=== PATIENT | female | born 1935 | race Caucasian/White ===

== ENCOUNTER 2016-07-25 04:05 | Inpatient (IN) | payer OTHER ==
[~2016-07-25] VITALS: Ht 152.4 cm; Wt 72.6 kg
[~2016-07-25 04:05] MED LIST: ADVAIR DISKU 11 UNIT INH; ADVAIR DISKUS 21 DSK INH; ALBUTEROL 3 ML3 ML INH; ATIVAN0.5 MG PO; ATIVAN1 MG PO; ATORVASTATIN CA10 MG PO; ATROVENT 0.02%2.5 ML INH; COZAAR 25MG TAB25 MG PO; DILTIAZEM HYDR120 M2 PO; DOCUSATE SOD100 MG PO; DOCUSATE SODIU100 MG PO; ESCITALOPRAM10 MG PO; ESCITALOPRAM20 MG PO; FOLIC ACID1 M1 PO; FUROSEMIDE20 MG PO; LACTULOSE10 GM/15 M PO; LEADER MELATONIN5 MG PO; LIORESAL 10MG T10 MG PO; LISINOPRIL10 M1 PO; LOVENOX 4040 MG/0.4 SC; MELATONIN5 M1 PO; METOPROLOL SUCC25 MG PO; MIRTAZAPINE30 M2 PO; ONE DAILY MULT1 EAC2 PO; PERCOCET 325 MG1 TA2 PO; PREDNISONE 20MG20 MG PO; PREDNISONE10 MG PO; PREDNISONE20 M1 PO; PRINIVIL 5MG5 MG PO; PROAIR HFA0.09 MG/Ac INH; SENOKOT8.6 MG PO; SPIRIVA 18 MCG18 MCG INH; TRAMADOL HYDROC50 MG PO; ULTRAM(MONOGRAP50 MG PO
--- NOTE | 2016-07-25 04:07 | ED DYSPNEA/ASTHMA COMPLAINT ---
See Addendum History of Present Illness General Chief Complaint: Dyspnea (COPD, CHF, Other) Stated Complaint: SOB Source: old records, EMS, W10 Exam Limitations: unable to give history Vital Signs & Intake/Output Vital Signs & Intake/Output Vital Signs Date Time Temp Pulse Resp B/P Pulse O2 O2 Flow FiO2 Ox Delivery Rate 07/25 0708 100.9 108 20 108/66 98 Ventilator 07/25 0617 120/70 07/25 0607 50 07/25 0530 96 BIPAP 50% 07/25 0425 98.2 93 18 122/78 92 BIPAP 50% 07/25 0425 102 94 Allergies Coded Allergies: Penicillins (DIARRHEA 07/01/15) Reconcile Medications Albuterol Sulfate (Proair Hfa) 0.09 MG/Actuation LUIS F 2 PUFF INH TID PRN RESPIRATORY DIFFICULTY Atorvastatin Calcium (Lipitor) 10 MG TABLET 1 TAB PO 1700 CHOLESTEROL ( Reported) DILTIAZEM HCL (Diltiazem 24HR Cd) 120 MG CER 1 TAB PO DAILY HEART HEALTH ( Reported) Docusate Sodium 100 MG SGL 1 CAP PO DAILY PRN CONSTIPATION (Reported) Fluticasone-Salmeterol (Advair 100-50 Diskus) (Unknown Strength) INH 1 PUFF INH BID BREATHING PROBLEMS (Reported) Folic Acid 1 MG TABLET 1 MG PO DAILY SUPPLEMENT Furosemide 20 MG TABLET 1 TAB PO EOD HEART HEALTH (Reported) PLEASE TAKE THE NEXT DOSE ON 04/09 Lactulose 10 GM/15 ML SYR 15 ML PO DAILY PRN CONSTIPATION (Reported) Lisinopril 10 MG TABLET 10 MG PO DAILY HEART Metoprolol Succinate 25 MG TAB.ER.24H 1 TAB PO Mon BP (Reported) Mirtazapine 30 MG TABLET 30 MG PO AT BEDTIME INSOMNIA Multivitamin (One Daily Multivitamin) 1 EACH TABLET 1 TAB PO DAILY SUPPLEMENT Prednisone 20 MG TABLET 20 MG PO ONCE COPD - STEROID TAPER 04/09 - Prednisone 10mg 04/10 - Prednisone 5mg 04/11 - Prednisone 5mg 04/12 - Prednisone 5mg Senna (Senokot) 8.6 MG TABLET 187 MG PO AT BEDTIME STOOL SOFTENER Triage Nurses Notes Reviewed? yes Onset: Gradual Duration: hour(s): Timing: single episode today Severity: severe Activities at Onset: none Prior Episodes/Possible Cause: occasional episodes Modifying Factors: Improves With: other (BMV en route). Associated Symptoms: lethargy HPI: 80 yo woman h/o copd, c02 retention, presents with lethargy and hypoxia. She was found by ECF staff at approximately 2am. Her 02 sat was 78%. 911 called. Medics arrived and found ETC02 to be 90's. BMV begun. Pt arrived in ED with increased responsiveness per EMS report. Past History Travel History Traveled to [place] past 21 day No Medical History Any Pertinent Medical History? 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 No Review of Systems Review of Systems Constitutional: Reports: no symptoms. EENTM: Reports: no symptoms. Respiratory: Reports: no symptoms. Cardiovascular: Reports: no symptoms. GI: Reports: no symptoms. Genitourinary: Reports: no symptoms. Musculoskeletal: Reports: no symptoms. Skin: Reports: no symptoms. Neurological/Psychological: Reports: no symptoms. Hematologic/Endocrine: Reports: no symptoms. Immunologic/Allergic: Reports: no symptoms. All Other Systems: Reviewed and Negative Physical Exam Physical Exam General Appearance: well developed/nourished, lethargic, severe distress Head: atraumatic Eyes: Bilateral: normal appearance, PERRL, EOMI. Ears, Nose, Throat: normal pharynx, normal ENT inspection Neck: normal inspection, supple, full range of motion Respiratory: wheezing, diminished breath sounds. poor respiratory effort. Gastrointestinal: normal bowel sounds, soft, non-tender, no organomegaly Extremities: normal inspection, normal capillary refill, normal range of motion, no edema Neurologic/Psych: responsive to questions, but lethargic. Skin: intact, normal color, warm/dry Core Measures ACS in differential dx? No Severe Sepsis Present: No Septic Shock Present: No Progress Differential Diagnosis: asthma, AMI, CHF, COPD, pneumonia Plan of Care: Orders Procedure Date/time Status CULTURE,URINE 07/25 0708 Active URINALYSIS 07/25 0708 Active Patient Data 07/25 0705 Active Admit to inpatient 07/25 0655 Active BLOOD CULTURE 07/25 0611 Active VENTILATOR PARAMETERS 07/25 0606 Complete Restraint- Medical 07/25 0600 Active ARTERIAL BLOOD GAS (GEN) 07/25 0408 Complete TROPONIN LEVEL 07/25 040 Active PARTIAL THROMBOPLASTIN TIME 07/25 040 Active PROTHROMBIN TIME 07/25 040 Active COMPREHENSIVE METABOLIC PANEL 07/25 0407 Active CBC WITHOUT DIFFERENTIAL 07/25 406 Complete B-TYPE NATRIURETIC PEP (BNP) 07/25 406 Active EKG 07/25 406 Active BIPAP 07/25 UNK Complete Current Medications Sig/Shobha Start time Last Medication Dose Stop Time Status Admin Azithromycin 500 MG ONCE ONE 07/25 0415 CAN (Zithromax) 07/25 0514 Sodium Chloride 250 ML (Normal Saline 0.9%) Ceftriaxone Sodium 1,000 MG ONCE ONE 07/255 CAN (Rocephin) 07/25 0416 Laboratory Tests 07/25/16 0710: Urine Color Pending, Urine Clarity Pending, Urine pH Pending, Ur Specific [place] Pending, Urine Protein Pending, Urine Ketones Pending, Urine Nitrite Pending, Urine Bilirubin Pending, Urine Urobilinogen Pending, Ur Leukocyte Esterase Pending, Ur Microscopic Pending, Urine Hemoglobin Pending, Urine Glucose Pending 07/25/16 0645: CBC w Diff MAN DIFF ORDERED, RBC 3.23 L, MCV 104.9 H, MCH 32.8 H, RDW 15.6 H , MPV 8.5, Gran % 93.7 H, Lymphocytes % 4.9 L, Monocytes % 1.2 L, Eosinophils % 0.2, Basophils % 0 L, Absolute Granulocytes 13.5 H, Segmented Neutrophils 99 H, Absolute Lymphocytes 0.7 L, Lymphocytes 1 L, Absolute Monocytes 0.2, Absolute Eosinophils 0, Absolute Basophils 0, Platelet Estimate ADEQUATE, Polychromasia 1+, Hypochromic-Microcytic 1+, Poikilocytosis 1+, Basophilic Stippling SLIGHT, Anisocytosis 1+, Macrocytic Cells 1+, Ovalocytes FEW, Stomatocytes 1+, PUBS MCHC 31.3 L, Fld Total RBCs Counted 100 07/25/16 0525: pH 7.25 *L, pCO2 96 *H, pO2 82, HCO3 41 H, ABG O2 Sat (Measured) 96.0, P-50 ( Temp Corrected) N, Carboxyhemoglobin 0.5 L, O2 Concentration % .50, Respiration Rate 24, O2 Delivery Method BIPAP, Vent Mode ST, Expiratory Pressure 6, Inspiratory Pressure 20, Phlebotomy Draw Site LEFT RADIAL Microbiology 07/25 07 URINE ROUT: Urine Culture - RECD 07/25 644 BLOOD: Blood Culture - RECD 07/25 06 BLOOD: Blood Culture - RECD Diagnostic Imaging: Viewed by Me: Radiology Read. Discussed w/RAD: Radiology Read. Initial ED EKG: normal axis, normal intervals, normal p-waves, normal QRS complex, normal sinus rhythm Departure Departure Disposition: STILL A PATIENT Condition: Stable Clinical Impression Primary Impression: Hypercapnic respiratory failure Secondary Impressions: COPD (chronic obstructive pulmonary disease) Referrals: COTY AVELAR MD (PCP/Family) Departure Forms: Customer Survey General Discharge Information Comments 07/25/16, 6:24am... 2 attempts at right and left groin placement.... unsuccessful. pt intubated without problem. Admission Note Spoke With: SERGO PIPER MD Documentation of Exam: Documentation of any treatments & extenuating circumstances including Concerns Regarding Discharge (functional status, medication knowledge or non-compliance, living conditions, etc.) that warrant an admission rather than observation: pt with hypercarbic respiratory failure... intubated... labs pending/post- intubation cxr read pending... Pt given vanc/ceftaz/steroids. Critical Care Note Critical Care Note Critical Care Time: 30-74 min
--- NOTE | 2016-07-25 04:23 | NUR ---
PT BIBA FROM [facility] C/O SOB AND AGONAL BREATHING DUE TO PNEUMONIA . PER MEDIC STAFF FOUND PT WITH LOW 02 SAT, A NEB TREATMENT WAS GIVEN WITH NO IMPROVEMENT, PT PLACED ON NON-REBREATHER WITH MINIMAL IMPROVEMENT. PT THEN BAGGED ON ARRIVAL. RESPIRATORY CALLED FOR BIPAP, DR GUZMNA AT BEDSIDE. KENISHA ALFARO ESTABLISHED IV ACCESS IN LH #22, SITE #2 PLACED BY WHEAT SHIPPER IN RIGHT FOOT #22 WITH THE APPROVAL OF DR GUZMAN.
--- NOTE | 2016-07-25 04:30 | NUR ---
PT MEDICATED WITH 125MG SOLU MEDROL PER EMAR IN 50ML NS BAG INFUSING.
--- NOTE | 2016-07-25 04:41 | NUR ---
DR GUZMAN IN TO ASSESS PT AGAIN TO SEE IF THIS RN SHOULD MEDICATED PT WITH 0.5MG ATIVAN PER EMAR AND PER DR GUZMAN. DR GUZMAN STATED YES TO FOLLOW THROUGH WITH THE 0.5MG ADMINISTRATION OF ATIVAN IV.
--- NOTE | 2016-07-25 04:50 | NUR ---
DR GUZMAN INFORMED THAT THIS RN AND ANOTHER RN CANNOT GAIN IV ACCESS FOR BLODO WORK OR CULTURES, THIS RN ASKED DR GUZMAN FOR A CENTRAL LINE
--- NOTE | 2016-07-25 04:58 | RADIOLOGY REPORT ---
EXAMINATION: XR PORTABLE CHEST CLINICAL INFORMATION: Dyspnea. COMPARISON: Chest radiograph 04/04/2016. TECHNIQUE: Portable AP view of the chest was obtained. FINDINGS: There are increased interstitial markings within both lungs with a perihilar and lower lobe predominant distribution. Retrocardiac opacity may represent a manifestation of subsegmental atelectasis or consolidation. The cardiac silhouette is grossly enlarged. No acute osseous finding. 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 IMPRESSION: There are ill-defined bibasilar opacities that may represent a manifestation of subsegmental atelectasis or consolidative disease. The cardiac silhouette is enlarged and there are increased interstitial markings within both lungs that most likely represent early changes of edema.
--- NOTE | 2016-07-25 05:13 | NUR ---
EKG DONE AND SHOWN TO DR. GUZMAN, AND NURSE HARLAN DE.
--- NOTE | 2016-07-25 05:30 | NUR ---
DR GUZMAN IN FOR CENTRAL LINE
--- NOTE | 2016-07-25 06:02 | NUR ---
DR GUZMAN AND RT IN FOR INTUBATION. PT GIVEN 20MG ETOMADATE FOR INTUBATION. PT INTUBATED AT 22 WITH 7.5. PTS VITALS 102/72 HR[address]%. DR GUZMAN ATTEMPING FOR A CENTRAL LINE. SOFT WRIST RESTRAINTS ORDERED AND PLACED ON PTS BILATERAL ARMS. RATE 20 TIDAL VOLUME 500, FI02 50% PEEP 5.
--- NOTE | 2016-07-25 06:16 | NUR ---
PT BECOMING RESTLESS AND ANXIOUS , DR GUZMAN AND RT REQUESTING TO GIVE 2MG ATIVAN ORDERED FOR PT. THIS RN ADMINSTERED 2MG ATIVAN IV TO PT
--- NOTE | 2016-07-25 06:30 | NUR ---
THIS RN OBTAINED BLOOD CULTURES AND LAV TUBE, SENT TO LAB.
--- NOTE | 2016-07-25 06:30 | NUR ---
SECOND ATTEMPT AT CENTRAL LINE FAILED.
--- NOTE | 2016-07-25 06:34 | NUR ---
PT HAS TREMORS AND BECOMING AGITATED, DR GUZMAN AWARE, THIS RN ADMINISTERED 5MG VALIUM IV TO PT.
--- NOTE | 2016-07-25 07:00 | NUR ---
LORA CATHETER INSERTED 16FR, URINE TRIO SENT TO LAB, UO 200ML, YELLOW URINE.
[2016-07-25 07:01] LABS: ABSOLUTE BASOPHIL COUNT 0 /CUMM (0.0-0.2); ABSOLUTE EOSINOPHIL COUNT 0 /CUMM (0.0-0.7); ABSOLUTE GRANULOCYTE CT 13.5 /CUMM (1.4-6.5); ABSOLUTE LYMPH COUNT 0.7 /CUMM (1.2-3.4); ABSOLUTE MONOCYTE COUNT 0.2 /CUMM (0.10-0.60); BASOPHIL % 0 % (0.0-2.0); EOSINOPHIL % 0.2 % (0-5); GRANULOCYTE % 93.7 % (42.2-75.2); HEMATOCRIT 33.9 % (37-47); MEAN CORPUSCULAR HGB 32.8 PG (27.0-31.0); MEAN CORPUSCULAR HGB CONC 31.3 G/DL (33.0-37.0); MEAN CORPUSCULAR VOLUME 104.9 FL (81.0-99.0); MEAN PLATELET VOLUME 8.5 FL (7.4-10.4); PLATELET COUNT 276 /CUMM (130-400); RBC DISTRIBUTION WIDTH 15.6 % (11.5-14.5); RED BLOOD CELL CT 3.23 /CUMM (4.20-5.40); WHITE BLOOD CELL COUNT 14.4 /CUMM (4.8-10.8)
--- NOTE | 2016-07-25 07:01 | NUR ---
PT BECOMING RESTLESS AND FIGHTING INTUBATION VENT, PT MEDCATION WITH 2.5MG VALIUM IV PER EMAR.
--- NOTE | 2016-07-25 07:10 | NUR ---
KENISHA ALFONSO ATTEMPTED AT PLACING OG TUBE, PT TOO RESTLESS AND FIGHTING OG TUBE.
--- NOTE | 2016-07-25 07:12 | NUR ---
PT WAKING UP, EYES OPEN, RESTLESS, TREMORS. DR GUZMAN INFORMED. PT GIVEN 10MG VALIUM IV PER EMAR.
--- NOTE | 2016-07-25 07:18 | RADIOLOGY REPORT ---
EXAMINATION: PORTABLE CHEST 1 VIEW CLINICAL INFORMATION: Post intubation. COMPARISON: Study from earlier today. TECHNIQUE: Portable frontal view of the chest was obtained. FINDINGS: Patient is now intubated. Endotracheal tube tip is approximately 5 cm above the oliver. Persistent basilar markings more suggestive of atelectasis, slightly improved with better aeration currently. I cannot exclude a tiny layering right effusion. No overt edema or pneumothorax. Cardiac silhouette is within normal limits for size. Vascular calcification seen in the aorta. Left reverse total shoulder arthroplasty is noted. IMPRESSION: Intubated. Better expanded from earlier today with persistent basilar markings more suggestive of atelectasis and possible tiny right effusion.
--- NOTE | 2016-07-25 07:20 | NUR ---
PTS BS CHECKED 208
--- NOTE | 2016-07-25 07:23 | History & Physical ---
General Information and HPI MD Statement: I have seen and personally examined AFIA FRIAS and documented this H&P. The patient is a 80 year old F who presented with a patient stated chief complaint of [patient is presently intubated]. Source of Information: old records, W10 Exam Limitations: not alert/orientated, clinical condition History of Present Illness: This is an 80-year-old lady who has a history of hypertension, end-stage COPD, systolic heart failure resident of a [facility]pc facility that presented to the emergency room hypoxic and confused. Subsequently she was intubated. History of presenting illness was obtained from the nurse at [facility]. Per nurse, over the course of last couple of days patient has been having some dyspnea-like symptoms, she also had a low-grade fever which prompted a urinalysis which per the nurse was clean. According to nursing staff at [facility] given her respiratory distress and fever, the only pursued a urinalysis and a CBC which showed an elevated blood cell count however no chest x-ray was done. Yesterday she was hypoxic into the 80s despite being on 4 L nasal cannula with subsequently prompted a trip to the ER. At present she is intubated. She does respond to tactile stimuli. While in the ER, she was initially started on BiPAP but did not respond to it and subsequently got intubated. Allergies/Medications Allergies: Coded Allergies: Penicillins (DIARRHEA 07/01/15) Home Med list Albuterol Sulfate (Proair Hfa) 0.09 MG/Actuation LUIS F 2 PUFF INH TID PRN RESPIRATORY DIFFICULTY Atorvastatin Calcium (Lipitor) 10 MG TABLET 1 TAB PO 1700 CHOLESTEROL ( Reported) DILTIAZEM HCL (Diltiazem 24HR Cd) 120 MG CER 1 TAB PO DAILY HEART HEALTH ( Reported) Docusate Sodium 100 MG SGL 1 CAP PO DAILY PRN CONSTIPATION (Reported) Fluticasone-Salmeterol (Advair 100-50 Diskus) (Unknown Strength) INH 1 PUFF INH BID BREATHING PROBLEMS (Reported) Folic Acid 1 MG TABLET 1 MG PO DAILY SUPPLEMENT Furosemide 20 MG TABLET 1 TAB PO EOD HEART HEALTH (Reported) PLEASE TAKE THE NEXT DOSE ON 04/09 Lactulose 10 GM/15 ML SYR 15 ML PO DAILY PRN CONSTIPATION (Reported) Lisinopril 5 MG TABLET 1 TAB PO DAILY HTN (Reported) Metoprolol Succinate 25 MG TAB.ER.24H 1 TAB PO Mon BP (Reported) Mirtazapine 30 MG TABLET 30 MG PO AT BEDTIME INSOMNIA Multivitamin (One Daily Multivitamin) 1 EACH TABLET 1 TAB PO DAILY SUPPLEMENT Senna (Senokot) 8.6 MG TABLET 187 MG PO AT BEDTIME STOOL SOFTENER Past History Travel History Traveled to [place] past 21 day No Medical History Neurological: NONE EENT: NONE Cardiovascular: hypertension Respiratory: COPD Gastrointestinal: NONE Hepatic: NONE Renal: NONE Musculoskeletal: NONE Psychiatric: anxiety Endocrine: NONE Blood Disorders: NONE Cancer(s): NONE 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 Ambulation: cane, walker Review of Systems Review of Systems Constitutional: Reports: see HPI. Exam & Diagnostic Data Last 24 Hrs of Vital Signs/I&O Vital Signs Date Time Temp Pulse Resp B/P Pulse O2 O2 Flow FiO2 Ox Delivery Rate 07/25 0708 100.9 108 20 108/66 98 Ventilator 07/25 0617 120/70 07/25 0607 50 07/25 0530 96 BIPAP 50% 07/25 0425 98.2 93 18 122/78 92 BIPAP 50% 07/25 0425 102 94 Intake & Output 07/25 0800 07/25 0000 07/24 1600 Intake Total Output Total Balance Patient 160 lb Weight Physical Exam General Appearance intubated HEENT Atraumatic, responds to light Cardiovascular Normal S1, Normal S2 Lungs b/l wheezing and ronchii Abdomen Normal Bowel Sounds, Soft, No Tenderness Extremities No Clubbing, No Cyanosis, No Edema Last 24 Hrs of Labs/[place]: Laboratory Tests 07/25/16 0710: Urine Color Pending, Urine Clarity Pending, Urine pH Pending, Ur Specific [place] Pending, Urine Protein Pending, Urine Ketones Pending, Urine Nitrite Pending, Urine Bilirubin Pending, Urine Urobilinogen Pending, Ur Leukocyte Esterase Pending, Ur Microscopic SEDIMENT EXAMINED, Urine RBC Pending, Urine Hemoglobin Pending, Urine Glucose Pending 07/25/16 0645: CBC w Diff MAN DIFF ORDERED, RBC 3.23 L, MCV 104.9 H, MCH 32.8 H, RDW 15.6 H , MPV 8.5, Gran % 93.7 H, Lymphocytes % 4.9 L, Monocytes % 1.2 L, Eosinophils % 0.2, Basophils % 0 L, Absolute Granulocytes 13.5 H, Segmented Neutrophils 99 H, Absolute Lymphocytes 0.7 L, Lymphocytes 1 L, Absolute Monocytes 0.2, Absolute Eosinophils 0, Absolute Basophils 0, Platelet Estimate ADEQUATE, Polychromasia 1+, Hypochromic-Microcytic 1+, Poikilocytosis 1+, Basophilic Stippling SLIGHT, Anisocytosis 1+, Macrocytic Cells 1+, Ovalocytes FEW, Stomatocytes 1+, PUBS MCHC 31.3 L, Fld Total RBCs Counted 100 07/25/16 0525: pH 7.25 *L, pCO2 96 *H, pO2 82, HCO3 41 H, ABG O2 Sat (Measured) 96.0, P-50 ( Temp Corrected) N, Carboxyhemoglobin 0.5 L, O2 Concentration % .50, Respiration Rate 24, O2 Delivery Method BIPAP, Vent Mode ST, Expiratory Pressure 6, Inspiratory Pressure 20, Phlebotomy Draw Site LEFT RADIAL Microbiology 07/25 0710 URINE ROUT: Urine Culture - RECD 07/25 644 BLOOD: Blood Culture - RECD 07/25 629 BLOOD: Blood Culture - RECD Diagnostic Data EKG Results Rate 94, WI 178, QRS 74, QTC 441, sinus rhythm CXR Results PATIENT: AFIA FRIAS PRESENT AGE: 80 PATIENT ACCOUNT NO: [id number] : 34 LOCATION: [facility] ORDERING PHYSICIAN: MANOJ GUZMAN MD SERVICE DATE: 07/25/16- EXAM TYPE: RAD - XRY-PORTABLE CHEST XRAY EXAMINATION: PORTABLE CHEST 1 VIEW CLINICAL INFORMATION: Post intubation. COMPARISON: Study from earlier today. TECHNIQUE: Portable frontal view of the chest was obtained. FINDINGS: Patient is now intubated. Endotracheal tube tip is approximately 5 cm above the oliver. Persistent basilar markings more suggestive of atelectasis, slightly improved with better aeration currently. I cannot exclude a tiny layering right effusion. No overt edema or pneumothorax. Cardiac silhouette is within normal limits for size. Vascular calcification seen in the aorta. Left reverse total shoulder arthroplasty is noted. IMPRESSION: Intubated. Better expanded from earlier today with persistent basilar markings more suggestive of atelectasis and possible tiny right effusion. DICTATED BY: ARTURO DAWKINS MD DATE/TIME DICTATED:07/25/16712 FAMILY SERVICE ASSISTANT:GALLO DATE/TIME TRANSCRIBED:07/25/16712 CONFIDENTIAL, DO NOT COPY WITHOUT APPROPRIATE AUTHORIZATION. <Electronically signed in Other Vendor System> SIGNED BY: ARTURO DAWKINS MD [id number] Assessment/Plan Assessment: Assessment- 1. Bicarbonate respiratory failure, likely secondary to pneumonia versus COPD exacerbation 2. Sepsis, likely secondary to pneumonia, likely HCAP given the fact that she does reside in [facility] 3. COPD exacerbation 4. Systolic heart failure with ejection fraction of 40% per echocardiogram in March 2016 5. History of hypertension 6. Hyperlipidemia 7. Diabetes mellitus 8. History of anxiety Plan- ICU admit Mechanical ventilation at present, recheck ABG in 30 minutes and then adjust vent settings GI prophylaxis Blood cultures 2, urinalysis and culture, urine strep and Legionella antigens, flu swab Cover for HCAP with vancomycin and Fortaz IV Solu-Medrol 40 every 8 Accu-Cheks Nothing by mouth scale Total pulmonary toilet Cardiology consultation Hold antihypertensives and statin Maintain map greater than 65, CVP between 10 and 14 Start on Ativan drip, SAS 2-3 DVT prophylaxis with subcutaneous heparin Nothing by mouth Pain pathway Full code As Ranked By This Provider Problem List: 1. CHF EXACERBATION 2. COPD 3. History of - hypertension 4. COPD (chronic obstructive pulmonary disease) 5. Hypercapnic respiratory failure Core Measures/Miscellaneous Acute Coronary Syndrome ACS Diagnosis: No Cerebrovascular Accident CVA/TIA Diagnosis: No Congestive Heart Failure CHF Diagnosis: No Venous Thromboembolism VTE Risk Factors: Age > 40 No Mech VTE prophylaxis d/t: No contraindications No VTE Pharm Prophylaxis d/t: No contraindications VTE Diagnosis: No VTE Type: NONE VTE Confirmed by (Test): NONE Severe Sepsis Severe Sepsis Present: No Septic Shock Septic Shock Present: No Miscellaneous Documentation Attending Case Discussed With: DR. PIPER Primary Care Physician: COTY AVELAR MD Patient sees these Specialists none Level of Patient Care: Critical Care (CRI) Resident Review Statement Resident Statement: examined this patient, discussed with undergraduate intern Resident Review Statement Resident Statement: examined this patient, discussed with undergraduate intern
--- NOTE | 2016-07-25 07:30 | NUR ---
MEGAN DRAWN AND SENT TO LAB AT THIS TIME
[2016-07-25] MEDS ORDERED: LISINOPRIL5 M1 PO (07:37)
--- NOTE | 2016-07-25 07:47 | NUR ---
ASSUMED CARE OF PT WHO IS INTUBATED WITH #7.5 ETT, 22 AT LIP. RATE 20. TV 500, FI02 50% PEEP 5. PT IS CURRENTLY SEDATED, SOFT RESTRAINTS TO WRISTS. LORA CATHETER DRAINING YELLOW URINE, PT AWAITING ICU BED.
--- NOTE | 2016-07-25 07:52 | NUR ---
PHARMACY CALLED FOR ATTRUDY GTT
--- NOTE | 2016-07-25 07:53 | NUR ---
PT HAS BED ASSIGNMENT 103. RN AWARE.
--- NOTE | 2016-07-25 08:17 | NUR ---
DONY REDRAWLoida, FLU SWAB SENT TO LAB. ATIVAN GTT ORDERED FROM PHARMACY
[2016-07-25 08:27] LABS: PT 12.3 SEC (9.4-12.5); PTT 34 SEC (25-37)
--- NOTE | 2016-07-25 08:31 | NUR ---
REPORT CALLED TO ICU, TRANSPORT AND RT CALLED
[2016-07-25 09:05] VITALS: BP 80/00
--- NOTE | 2016-07-25 10:20 | Cons- CRCU ---
General Information and HPI Consulting Request Date of Consult: 07/25/16 Requested By: ED History of Present Illness: This is an 80-year-old lady who has a history of hypertension, end-stage COPD, systolic heart failure [facility] a [facility] facility that presented to the emergency room hypoxic and confused. Subsequently she was intubated. History of presenting illness was obtained from the nurse at [facility]. Per nurse, over the course of last couple of days patient has been having some dyspnea-like symptoms, she also had a low-grade fever which prompted a urinalysis which per the nurse was clean. According to nursing staff at [facility] given her respiratory distress and fever, the only pursued a urinalysis and a CBC which showed an elevated blood cell count however no chest x-ray was done. Yesterday she was hypoxic into the 80s despite being on 4 L nasal cannula with subsequently prompted a trip to the ER. At present she is intubated. She does respond to tactile stimuli. While in the ER, she was initially started on BiPAP but did not respond to it and subsequently got intubated. Allergies/Medications Allergies: Coded Allergies: Penicillins (DIARRHEA 07/01/15) Home Med List: Albuterol Sulfate (Proair Hfa) 0.09 MG/Actuation LUIS F 2 PUFF INH TID PRN RESPIRATORY DIFFICULTY Atorvastatin Calcium (Lipitor) 10 MG TABLET 1 TAB PO 1700 CHOLESTEROL ( Reported) DILTIAZEM HCL (Diltiazem 24HR Cd) 120 MG CER 1 TAB PO DAILY HEART HEALTH ( Reported) Docusate Sodium 100 MG SGL 1 CAP PO DAILY PRN CONSTIPATION (Reported) Fluticasone-Salmeterol (Advair 100-50 Diskus) (Unknown Strength) INH 1 PUFF INH BID BREATHING PROBLEMS (Reported) Folic Acid 1 MG TABLET 1 MG PO DAILY SUPPLEMENT Furosemide 20 MG TABLET 1 TAB PO EOD HEART HEALTH (Reported) PLEASE TAKE THE NEXT DOSE ON 04/09 Lactulose 10 GM/15 ML SYR 15 ML PO DAILY PRN CONSTIPATION (Reported) Lisinopril 5 MG TABLET 1 TAB PO DAILY HTN (Reported) Metoprolol Succinate 25 MG TAB.ER.24H 1 TAB PO Mon BP (Reported) Mirtazapine 30 MG TABLET 30 MG PO AT BEDTIME INSOMNIA Multivitamin (One Daily Multivitamin) 1 EACH TABLET 1 TAB PO DAILY SUPPLEMENT Senna (Senokot) 8.6 MG TABLET 187 MG PO AT BEDTIME STOOL SOFTENER Review of Systems Review of Systems Constitutional: Reports: see HPI. 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 Ambulation: cane, walker ECHO Results (as available) Date of last Echo 04/05/16 EF% 40 Exam & Diagnostic Data Last 24 Hrs of Vital Signs/I&O Vital Signs Date Time Temp Pulse Resp B/P Pulse O2 O2 Flow FiO2 Ox Delivery Rate 07/25 0944 98 Ventilator 40% 07/25 0919 40 07/25 0832 101.1 98 20 118/70 97 Ventilator 50% 07/25 0743 101.2 07/25 0728 101.2 112 20 122/68 100 Ventilator 07/25 0708 100.9 108 20 108/66 98 Ventilator 07/25 0617 120/70 07/25 0607 50 07/25 0530 96 BIPAP 50% 07/25 0425 98.2 93 18 122/78 92 BIPAP 50% 07/25 0425 102 94 Intake & Output 07/25 1600 07/25 0800 07/25 0000 Intake Total Output Total Balance Patient 160 lb Weight Laboratory Tests 07/25 07/25 0840 0727 Blood Gas pH (7.35 - 7.45 PH) 7.39 pCO2 (35 - 45 TORR) 64 *H pO2 (80 - 100 TORR) 111 H HCO3 (21 - 28 MEQ/L) 37 H ABG O2 Sat (Measured) (>96.0 %) 97.0 P-50 (Temp Corrected) Y Carboxyhemoglobin (1.5 - 5.0 %) 1.0 L O2 Concentration % 50 Temperature (97.0 - 100.0 FARH) 101.1 H Respiration Rate (BPM) 20 O2 Delivery Method VENT Vent Mode VC-AC Expiratory Pressure (CMH2O/P) 5 Tidal Volume (CC) 500 Chemistry Sodium (137 - 145 mmol/L) 138 Potassium (3.5 - 5.1 mmol/L) 4.7 Chloride (98 - 107 mmol/L) 90 L Carbon Dioxide (22 - 30 mmol/L) 45 H Anion Gap (5 - 16) 3 L BUN (7 - 17 mg/dL) 12 Creatinine (0.5 - 1.0 mg/dL) 0.4 L Estimated GFR (>60 ml/min) > 60 BUN/Creatinine Ratio (7 - 25 %) 30.0 H Glucose (65 - 99 mg/dL) 172 H Calcium (8.4 - 10.2 mg/dL) 9.2 Total Bilirubin (0.2 - 1.3 mg/dL) 0.7 AST (14 - 36 U/L) 23 ALT (9 - 52 U/L) 53 H Alkaline Phosphatase (<127 U/L) 64 Troponin I (< 0.11 ng/ml) < 0.01 Iqh-C-Eerqxiqfnxs Pept (<125 pg/mL) 631 H Total Protein (6.3 - 8.2 g/dL) 5.9 L Albumin (3.5 - 5.0 g/dL) 3.1 L Globulin (1.9 - 4.2 gm/dL) 2.8 Albumin/Globulin Ratio (1.1 - 2.2 %) 1.1 Coagulation PT (9.4 - 12.5 SEC) 12.3 INR (0.90 - 1.19) 1.17 APTT (25 - 37 SEC) 34 Miscellaneous Phlebotomy Draw Site LEFT RADIAL 07/25 07/25 0710 0645 Hematology CBC w Diff MAN DIFF ORDERED WBC (4.8 - 10.8 /CUMM) 14.4 H RBC (4.20 - 5.40 /CUMM) 3.23 L Hgb (12.0 - 16.0 G/DL) 10.6 L Hct (37 - 47 %) 33.9 L MCV (81.0 - 99.0 FL) 104.9 H MCH (27.0 - 31.0 PG) 32.8 H RDW (11.5 - 14.5 %) 15.6 H Plt Count (130 - 400 /CUMM) 276 MPV (7.4 - 10.4 FL) 8.5 Gran % (42.2 - 75.2 %) 93.7 H Lymphocytes % (20.5 - 51.1 %) 4.9 L Monocytes % (1.7 - 9.3 %) 1.2 L Eosinophils % (0 - 5 %) 0.2 Basophils % (0.0 - 2.0 %) 0 L Absolute Granulocytes (1.4 - 6.5 /CUMM) 13.5 H Segmented Neutrophils (42.2 - 75.2 %) 99 H Absolute Lymphocytes (1.2 - 3.4 /CUMM) 0.7 L Lymphocytes (20.5 - 51.1 %) 1 L Absolute Monocytes (0.10 - 0.60 /CUMM) 0.2 Absolute Eosinophils (0.0 - 0.7 /CUMM) 0 Absolute Basophils (0.0 - 0.2 /CUMM) 0 Platelet Estimate (ADEQUATE) ADEQUATE Polychromasia 1+ Hypochromic-Microcytic 1+ Poikilocytosis 1+ Basophilic Stippling SLIGHT Anisocytosis 1+ Macrocytic Cells 1+ Ovalocytes FEW Stomatocytes 1+ PUBS MCHC (33.0 - 37.0 G/DL) 31.3 L Other Body Source Fld Total RBCs Counted (%) 100 Urines Urinalysis LIGHT H Urine Color (YEL,AMB,STR) YEL Urine Clarity (CLEAR) CLEAR Urine pH (5.0 - 8.0) 6.0 Ur Specific [place] (1.001 - 1.035) 1.025 Urine Protein (NEG,<30 MG/DL) TRACE H Urine Ketones (NEG) NEG Urine Nitrite (NEG) NEG Urine Bilirubin (NEG) NEG Urine Urobilinogen (0.1 - 1.0 EU/dl) 0.2 Ur Leukocyte Esterase (NEG) NEG Ur Microscopic SEDIMENT EXAMINED Urine RBC (0 - 5 /HPF) 3-5 Urine WBC (0 - 2 /HPF) RARE Ur Epithelial Cells (NONE,FEW) RARE Hyaline Casts (0/LPF) RARE H Granular Casts (NONE /LPF) RARE H Urine Hemoglobin (NEG) TRACE-INTACT Urine Glucose (N MG/DL) NEG 07/25 0525 Blood Gas pH (7.35 - 7.45 PH) 7.25 *L pCO2 (35 - 45 TORR) 96 *H pO2 (80 - 100 TORR) 82 HCO3 (21 - 28 MEQ/L) 41 H ABG O2 Sat (Measured) (>96.0 %) 96.0 P-50 (Temp Corrected) N Carboxyhemoglobin (1.5 - 5.0 %) 0.5 L O2 Concentration % .50 Respiration Rate (BPM) 24 O2 Delivery Method BIPAP Vent Mode ST Expiratory Pressure (CM H2O P) 6 Inspiratory Pressure (CM H2O P) 20 Miscellaneous Phlebotomy Draw Site LEFT RADIAL Microbiology Date/Time Procedure - Status Source Growth 07/25 946 Respiratory Culture - ORD LOWER RESP 07/25 0947 Gram Stain - ORD LOWER RESP 07/25 09 Surveillance Culture - RECD UPPER RESP 07/25 09 Surveillance Culture - RECD GI 07/25 08 Legionella Antigen - COMP URINE ROUT 07/25 08 Streptococcus pneumoniae Antigen (M - COMP URINE ROUT 07/25 08 Influenza Virus A & B Rapid Smear - RECD NASOPHARYN 07/25 0744 Respiratory Culture - ORD LOWER RESP 07/25 0744 Gram Stain - ORD LOWER RESP 07/25 0710 Urine Culture - RECD URINE ROUT 07/25 0645 Blood Culture - RECD BLOOD 07/25 0630 Blood Culture - RECD BLOOD Last 48 Hrs of Labs/[place]: Laboratory Tests 07/25/16 0840: pH 7.39, pCO2 64 *H, pO2 111 H, HCO3 37 H, ABG O2 Sat (Measured) 97.0, P-50 ( Temp Corrected) Y, Carboxyhemoglobin 1.0 L, O2 Concentration % 50, Temperature 101.1 H, Respiration Rate 20, O2 Delivery Method VENT, Vent Mode VC-AC, Expiratory Pressure 5, Tidal Volume 500, Phlebotomy Draw Site LEFT RADIAL 07/25/16 0800: Virus Culture Pending 07/25/16726: Anion Gap 3 L, Estimated GFR > 60, BUN/Creatinine Ratio 30.0 H, Glucose 172 H , Calcium 9.2, Total Bilirubin 0.7, AST 23, ALT 53 H, Alkaline Phosphatase 64, Troponin I < 0.01, Bri-M-Dxgqmzzhgbc Pept 631 H, Total Protein 5.9 L, Albumin 3.1 L, Globulin 2.8, Albumin/Globulin Ratio 1.1, PT 12.3, INR 1.17, APTT 34 07/25/16 0710: Urinalysis LIGHT H, Urine Color YEL, Urine Clarity CLEAR, Urine pH 6.0, Ur Specific [place] 1.025, Urine Protein TRACE H, Urine Ketones NEG, Urine Nitrite NEG, Urine Bilirubin NEG, Urine Urobilinogen 0.2, Ur Leukocyte Esterase NEG, Ur Microscopic SEDIMENT EXAMINED, Urine RBC 3-5, Urine WBC RARE, Ur Epithelial Cells RARE, Hyaline Casts RARE H, Granular Casts RARE H, Urine Hemoglobin TRACE-INTACT, Urine Glucose NEG 07/25/16 0645: CBC w Diff MAN DIFF ORDERED, RBC 3.23 L, MCV 104.9 H, MCH 32.8 H, RDW 15.6 H , MPV 8.5, Gran % 93.7 H, Lymphocytes % 4.9 L, Monocytes % 1.2 L, Eosinophils % 0.2, Basophils % 0 L, Absolute Granulocytes 13.5 H, Segmented Neutrophils 99 H, Absolute Lymphocytes 0.7 L, Lymphocytes 1 L, Absolute Monocytes 0.2, Absolute Eosinophils 0, Absolute Basophils 0, Platelet Estimate ADEQUATE, Polychromasia 1+, Hypochromic-Microcytic 1+, Poikilocytosis 1+, Basophilic Stippling SLIGHT, Anisocytosis 1+, Macrocytic Cells 1+, Ovalocytes FEW, Stomatocytes 1+, PUBS MCHC 31.3 L, Fld Total RBCs Counted 100 07/25/16 0525: pH 7.25 *L, pCO2 96 *H, pO2 82, HCO3 41 H, ABG O2 Sat (Measured) 96.0, P-50 ( Temp Corrected) N, Carboxyhemoglobin 0.5 L, O2 Concentration % .50, Respiration Rate 24, O2 Delivery Method BIPAP, Vent Mode ST, Expiratory Pressure 6, Inspiratory Pressure 20, Phlebotomy Draw Site LEFT RADIAL Microbiology 07/26 799 URINE ROUT: Legionella Antigen - COMP 07/26 799 URINE ROUT: Streptococcus pneumoniae Antigen (M - COMP 07/26 799 NASOPHARYN: Influenza Virus A & B Rapid Smear - COMP INFLUENZA TYPE A Assessment/Plan Impression/Plan: Physical Exam General Appearance intubated sedated HEENT Atraumatic, responds to light Cardiovascular Normal S1, Normal S2 Lungs b/l wheezing and ronchii Abdomen Normal Bowel Sounds, Soft, No Tenderness Extremities No Clubbing, No Cyanosis, No Edema Sedated and pipe roller exam could not be performed 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, hypertension, previous significant alcohol use, smoking up until recently, osteoporosis, was recently in [facility] with respiratory insufficiency subsequently was transferred to [facility]. In the [facility] she was noted to have tachypnea cough and hypoxemia and was sent to the emergency room. In the emergency room she was found to be in significant respiratory failure and was intubated. When I saw her she was intubated and sedated. Her issues include * Acute hypercarbic and hypoxemic respiratory failure related to end-stage lung disease with COPD exacerbation with pneumonia * High fever now influenza positive * Bibasilar pneumonia in a patient was recently hospitalized and in a rehabilitation facility, rule out secondary bacterial infection * Systolic heart disease with hypotension * Alcohol abuse up until recently but patient has not had any alcohol in the past few weeks as she was in the hospital and rehabilitation facility hence she is at no risk for withdrawal * Previous history of hypertension hyperlipidemia ischemic heart * Significant osteoporosis RECOMMENDATION * Continue mechanical ventilator * To reduce the respiratory rate to 15 * Start Tamiflu * Sputum culture * Continue broad-spectrum antibiotics for now and we will de-escalate soon if there is no sputum culture * Solu-Medrol 40 mg every 12 * Xpmbk-[id number] nebulizer therapy * Start propofol drip low-dose, when necessary Ativan and when necessary fentanyl to be used * Stool softeners * Can start tube feeding Jevity 30 mL an hour * Watch her sugar and rx with sliding scale insulin/lovenox sub cut, / Ranitidine down ng tube * Gentle IV fluids * Keep her potassium more than 4 * Replace magnesium if needed check magnesium today * Check B12 and folic acid level * Give thiamine down NG, B12 and folic acid * Echocardiogram and ask cardiology to see Dr. Soto is a shafting worker * Check ABG in the future We will discuss with the patient is critically ill total time spent 50 minutes Prog poor Consult Acknowledgment - Thank you for your consult request.
[2016-07-25 12:00] VITALS: BP 100/66
--- NOTE | 2016-07-25 15:30 | RADIOLOGY REPORT ---
EXAMINATION: CHEST 1 VIEW CLINICAL INFORMATION: Enteric tube placement. COMPARISON: Same day film obtained at 0630 hours TECHNIQUE: An AP view of the chest was obtained at 1500 hours. FINDINGS: The cardiac silhouette is not enlarged. The tip of the endotracheal tube is approximately 3.5 cm above the oliver. A right central venous line is in place. The tip overlies the distal SVC. An enteric tube is in place. The tip overlies left upper quadrant, likely within the stomach. The mediastinal and hilar contours are unremarkable. There are neither pleural effusions nor pneumothoraces. There is streaky opacification at the right lung base. The osseous structures are stable with a left humeral prosthesis in place. IMPRESSION: Lines and tubes in place as stated above. Right lower lobe atelectasis.
[2016-07-25 16:00] VITALS: BP 120/72
--- NOTE | 2016-07-25 17:19 | ULTRASOUND REPORT ---
Examination: PICC line Clinical history: Port venous access Interventional radiologist: Wolfgang Mccarty M.D. Anesthesia: 1% local lidocaine. Fluoroscopic Time: 0.6 minutes Procedure in Detail: Informed consent was obtained from the patient's prior to the procedure. During this process, the procedure and potential alternatives were explained along with the intended outcome and benefits. The risks of the procedure including the possibility of an unsuccessful procedure, as well as the risk of not doing the procedure were discussed. The patient's was given the opportunity to ask questions regarding the procedure. A consent form which documents this discussion was placed in the medical record. Following informed consent the patient was placed supine on the fluoroscopic table. The right upper extremity was prepped and draped in usual sterile fashion. A time out procedure was performed. Real-time ultrasound was performed to obtained venous mapping and vascular access assessment. Using standard interventional, sterile and Seldinger technique a micro-stick system was utilized to enter into the right upper extremity basilic vein. A wire was introduced. The wire was introduced down into the inferior vena cava to confirm the venous position as well. A 35 cm, triple lumen power PICC was then placed. The tip of the catheter was placed into the superior vena cava. Fluoroscopic imaging confirmed the position of the catheter. The PICC line was secured into position. A sterile dressing was placed over the site. The patient tolerated the procedure well and was discharged from the department in good condition with instructions. Complications: None. ULTRASOUND-GUIDED VASCULAR ACCESS: Ultrasound was used to identify the right basilic vein. The right basilic vein was confirmed to be patent. Real time imaging confirmed needle access into the right basilic vein. An image was saved for permanent recording in PACS. IMPRESSION: Successful ultrasound and fluoroscopically guided right upper extremity PICC line placement
--- NOTE | 2016-07-25 18:23 | Cons- Cardiology ---
General Information and HPI Consulting Request Date of Consult: 07/25/16 Requested By: VERITO CARRANZA,STEPHANY Blevins Reason for Consult: Respiratory failure, history of CHF History of Present Illness: The patient is an 80-year-old female with history of severe COPD, chronic HFrEF with LVEF 40%, multifocal atrial tachycardia who was admitted with respiratory failure. She presented to the emergency department with shortness of breath, cough, and wheezing. She was found to have an oxygen saturation of 76% in the field, which improved to 95% on 3 L. She is currently intubated and sedated, and is not able to give further history. She is noted to have high fevers, and has since the positive for influenza infection. Allergies/Medications Allergies: Coded Allergies: Penicillins (DIARRHEA 07/01/15) Home Med List: Albuterol Sulfate (Proair Hfa) 0.09 MG/Actuation LUIS F 2 PUFF INH TID PRN RESPIRATORY DIFFICULTY Atorvastatin Calcium (Lipitor) 10 MG TABLET 1 TAB PO 1700 CHOLESTEROL ( Reported) DILTIAZEM HCL (Diltiazem 24HR Cd) 120 MG CER 1 TAB PO DAILY HEART HEALTH ( Reported) Docusate Sodium 100 MG SGL 1 CAP PO DAILY PRN CONSTIPATION (Reported) Fluticasone-Salmeterol (Advair 100-50 Diskus) (Unknown Strength) INH 1 PUFF INH BID BREATHING PROBLEMS (Reported) Folic Acid 1 MG TABLET 1 MG PO DAILY SUPPLEMENT Furosemide 20 MG TABLET 1 TAB PO EOD HEART HEALTH (Reported) PLEASE TAKE THE NEXT DOSE ON 04/09 Lactulose 10 GM/15 ML SYR 15 ML PO DAILY PRN CONSTIPATION (Reported) Lisinopril 5 MG TABLET 1 TAB PO DAILY HTN (Reported) Metoprolol Succinate 25 MG TAB.ER.24H 1 TAB PO Mon BP (Reported) Mirtazapine 30 MG TABLET 30 MG PO AT BEDTIME INSOMNIA Multivitamin (One Daily Multivitamin) 1 EACH TABLET 1 TAB PO DAILY SUPPLEMENT Senna (Senokot) 8.6 MG TABLET 187 MG PO AT BEDTIME STOOL SOFTENER Current Medications: Current Medications Sig/Shobha Start time Last Medication Dose Route Stop Time Status Admin Acetaminophen 1,000 MG Q6P PRN 07/25 1730 AC N/A 1 UNIT IV Acetaminophen 1,000 MG ONCE ONE 07/25 0745 DC 07/25 N/A 1 UNIT IV 07/25 0759 0743 Acetaminophen 0 .STK-MED ONE 07/25 0741 DC IV Albuterol Sulfate 3 ML EVERY 4 HRS/AWAKE 07/25 0945 AC 07/25 INH 1629 Azithromycin 500 MG ONCE ONE 07/25 0415 CAN Sodium Chloride 250 ML IV 07/25 0514 Ceftazidime 1,000 MG Q8 07/25 1400 AC 07/25 IV 1432 Ceftazidime 0 .STK-MED ONE 07/25 0709 DC .ROUTE Ceftazidime 1,000 MG ONCE ONE 07/25 0700 DC 07/25 IV 07/25 0701 0713 Ceftriaxone Sodium 0 .STK-MED ONE 07/25 0623 DC .ROUTE Ceftriaxone Sodium 1,000 MG ONCE ONE 07/25 0415 CAN IV 07/25 0416 Cyanocobalamin 1,000 MCG DAILY 07/25 1113 AC 07/25 PO 1432 Dextrose/Sodium 1,000 ML Q20H 07/25 0800 AC 07/25 Chloride IV 0817 Diazepam 10 MG ONCE ONE 07/25 0715 DC 07/25 IV 07/25 0716 0712 Diazepam 0 .STK-MED ONE 07/25 0712 DC .ROUTE Diazepam 5 MG ONCE ONE 07/25 0645 DC 07/25 IV 07/25 0646 0634 Diazepam 2.5 MG [id number] PRN 07/25 0645 DC 07/25 IV 0701 Diazepam 0 .STK-MED ONE 07/25 0634 DC .ROUTE Etomidate 20 MG ONCE ONE 07/25 0600 DC 07/25 IV 07/25 0601 0557 Etomidate 0 .STK-MED ONE 07/25 0552 DC IV Famotidine 20 MG DAILY 07/25 1108 AC 07/25 PO 1432 Folic Acid 1 MG DAILY 07/25 1113 AC 07/25 PO 1432 Heparin Sodium 5,000 UNIT Q8 07/25 1400 AC 07/25 (Porcine) SC 1433 Heparin Sodium 0 .STK-MED ONE 07/25 1303 DC (Porcine) IV Heparin Sodium 0 .STK-MED ONE 07/25 1204 DC (Porcine) IV Insulin Aspart 0 TIDAC 07/25 1200 DC SC Insulin Human Regular 0 Q6 07/25 1200 DC SC Insulin Human Regular 0 Q6 07/25 1200 AC 07/25 SC 1726 Ipratropium [place] 2.5 ML EVERY 4 HRS/AWAKE 07/25 0945 AC 07/25 INH 1629 Lidocaine 0 .STK-MED ONE 07/25 1204 DC .ROUTE Lidocaine 0 .STK-MED ONE 07/25 0547 DC .ROUTE Lidocaine 20 ML ONCE ONE 07/25 0500 DC 07/25 ID 07/25 0501 0608 Lorazepam 0 .STK-MED ONE 07/25 0847 DC .ROUTE Lorazepam 2 MG ONE ONE 07/25 0845 DC 07/25 IV 07/25 0846 1100 Lorazepam 50 MG Q24H 07/25 0815 AC 07/25 Dextrose/Water 500 ML IV 0905 Lorazepam 50 MG Q24H 07/25 0800 DC Dextrose/Water 500 ML IV Lorazepam 0 .STK-MED ONE 07/25 0615 DC .ROUTE Lorazepam 2 MG ONCE ONE 07/25 0600 DC 07/25 IV 07/25 0601 0615 Lorazepam 0 .STK-MED ONE 07/25 0437 DC .ROUTE Lorazepam 0.5 MG STAT STA 07/25 0429 DC 07/25 IV 07/25 0430 0442 Methylprednisolone 40 MG Q8 07/25 2200 DC IV Methylprednisolone 40 MG Q12 07/25 2200 AC IV Methylprednisolone 0 .STK-MED ONE 07/25 0420 DC .ROUTE Methylprednisolone 125 MG ONCE ONE 07/25 0415 DC 07/25 IV 07/25 0416 0430 Non-Formulary 0 SEE ADMIN CRITERIA 07/25 0945 DC Medication ANY Oseltamivir Phosphate 30 MG BID 07/25 1030 AC 07/25 PO 07/29 2159 1432 Oseltamivir Phosphate 30 MG BID 07/25 1022 DC PO 07/29 1021 Pantoprazole Sodium 40 MG DAILY 07/25 1000 DC IV Propofol 1,000 MG Q12H 07/25 1000 AC 07/25 N/A 100 ML IV 1500 Sodium Chloride 1,000 ML ONCE ONE 07/25 0745 CAN IV 07/25 2104 Thiamine HCl 100 MG DAILY 07/25 1113 AC 07/25 PO 1432 Vancomycin HCl 1,000 MG Q12 07/25 2200 CAN IV Vancomycin HCl 1,000 MG Q12 07/25 2200 AC Dextrose/Water 250 ML IV Vancomycin HCl 0 .STK-MED ONE 07/25 0709 DC .ROUTE Vancomycin HCl 1,000 MG ONCE ONE 07/25 0700 DC 07/25 Dextrose/Water 250 ML IV 07/25 0759 0724 Review of Systems Review of Systems: Review of systems is not obtainable because the patient is intubated and sedated. 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 Family history was reviewed, and there are no components relevant to the current admission. Psychosocial History Services at Home: Home Health Aide, Physical Therapy Functional Ability ADLs Independent: dressing, eating, toileting, bathing. Ambulation: cane, walker ECHO Results (as available) Date of last Echo 04/05/16 EF% 40 Exam & Diagnostic Data Vital Signs and I&O Vital Signs Date Time Temp Pulse Resp B/P Pulse O2 O2 Flow FiO2 Ox Delivery Rate 07/25 1620 30 07/25 1421 30 07/25 1130 40 07/25 1018 Ventilator 40% 07/25 0944 98 Ventilator 40% 07/25 0919 40 07/25 0832 101.1 98 20 118/70 97 Ventilator 50% 07/25 0743 101.2 07/25 0728 101.2 112 20 122/68 100 Ventilator 07/25 0708 100.9 108 20 108/66 98 Ventilator 07/25 0617 120/70 07/25 0607 50 07/25 0530 96 BIPAP 50% 07/25 0425 98.2 93 18 122/78 92 BIPAP 50% 07/25 0425 102 94 Intake & Output 07/25 1600 07/25 0800 07/25 0000 07/24 1600 07/24 0800 07/24 0000 Intake Total Output Total Balance Patient 160 lb 160 lb Weight Physical Exam: Gen: The patient is in no acute distress HEENT: Normal nose, ears, and oropharynx. Pupils equal bilaterally. Conjunctiva normal. Neck: Supple with no JVD, no masses, and no thyromegaly Lungs: Bilateral rhonchi with decreased respiratory effort on the ventilator Heart: RRR, S1, S2, 1/6 systolic murmur. No peripheral edema, 2+ pulses in the lower extremities bilaterally Abdomen: Soft, nontender, no masses. No hepatomegaly. No splenomegaly Extremities: No clubbing or cyanosis. Normal muscle strength in the upper and lower extremities Skin: Normal skin turgor with no skin ulcers or lesions noted. Neuro: Cranial nerves grossly intact. Sensation grossly intact Psych: The patient responds to voice. She is intubated and is partially sedated Labs/[place] Results: Laboratory Tests 07/25 07/25 07/25 07/25 1815 0840 0800 0727 Blood Gas pH (7.35 - 7.45 PH) 7.54 H 7.39 pCO2 (35 - 45 TORR) 36 64 *H pO2 (80 - 100 TORR) 71 L 111 H HCO3 (21 - 28 MEQ/L) 30 H 37 H ABG O2 Sat (Measured) (>96.0 %) 94.0 L 97.0 P-50 (Temp Corrected) Y Y Carboxyhemoglobin (1.5 - 5.0 %) 1.2 L 1.0 L O2 Concentration % 30 50 Temperature (97.0 - 100.0 FARH) 101.1 H 101.1 H Respiration Rate (BPM) 15 20 O2 Delivery Method ESPRIT VENT Vent Mode AC VC-AC Expiratory Pressure (CMH2O/P) 5 5 Tidal Volume (CC) 500 500 Chemistry Sodium (137 - 145 mmol/L) 138 Potassium (3.5 - 5.1 mmol/L) 4.7 Chloride (98 - 107 mmol/L) 90 L Carbon Dioxide (22 - 30 mmol/L) 45 H Anion Gap (5 - 16) 3 L BUN (7 - 17 mg/dL) 12 Creatinine (0.5 - 1.0 mg/dL) 0.4 L Estimated GFR (>60 ml/min) > 60 BUN/Creatinine Ratio (7 - 25 %) 30.0 H Glucose (65 - 99 mg/dL) 172 H Calcium (8.4 - 10.2 mg/dL) 9.2 Magnesium (1.6 - 2.3 mg/dL) 2.2 Total Bilirubin (0.2 - 1.3 mg/dL) 0.7 AST (14 - 36 U/L) 23 ALT (9 - 52 U/L) 53 H Alkaline Phosphatase (<127 U/L) 64 Troponin I (< 0.11 ng/ml) < 0.01 [id number] Pept (<125 pg/mL) 631 H Total Protein (6.3 - 8.2 g/dL) 5.9 L Albumin (3.5 - 5.0 g/dL) 3.1 L Globulin (1.9 - 4.2 gm/dL) 2.8 Albumin/Globulin Ratio (1.1 - 2.2 %) 1.1 Vitamin B12 (239 - 931 pg/mL) 532 Folate (2.76 - 20.0 ng/mL) 18.9 Coagulation PT (9.4 - 12.5 SEC) 12.3 INR (0.90 - 1.19) 1.17 APTT (25 - 37 SEC) 34 Miscellaneous Phlebotomy Draw Site LEFT RADIAL LEFT RADIAL Serology Virus Culture Pending 07/25 07/25 0710 0645 Hematology CBC w Diff MAN DIFF ORDERED WBC (4.8 - 10.8 /CUMM) 14.4 H RBC (4.20 - 5.40 /CUMM) 3.23 L Hgb (12.0 - 16.0 G/DL) 10.6 L Hct (37 - 47 %) 33.9 L MCV (81.0 - 99.0 FL) 104.9 H MCH (27.0 - 31.0 PG) 32.8 H RDW (11.5 - 14.5 %) 15.6 H Plt Count (130 - 400 /CUMM) 276 MPV (7.4 - 10.4 FL) 8.5 Gran % (42.2 - 75.2 %) 93.7 H Lymphocytes % (20.5 - 51.1 %) 4.9 L Monocytes % (1.7 - 9.3 %) 1.2 L Eosinophils % (0 - 5 %) 0.2 Basophils % (0.0 - 2.0 %) 0 L Absolute Granulocytes (1.4 - 6.5 /CUMM) 13.5 H Segmented Neutrophils (42.2 - 75.2 %) 99 H Absolute Lymphocytes (1.2 - 3.4 /CUMM) 0.7 L Lymphocytes (20.5 - 51.1 %) 1 L Absolute Monocytes (0.10 - 0.60 /CUMM) 0.2 Absolute Eosinophils (0.0 - 0.7 /CUMM) 0 Absolute Basophils (0.0 - 0.2 /CUMM) 0 Platelet Estimate (ADEQUATE) ADEQUATE Polychromasia 1+ Hypochromic-Microcytic 1+ Poikilocytosis 1+ Basophilic Stippling SLIGHT Anisocytosis 1+ Macrocytic Cells 1+ Ovalocytes FEW Stomatocytes 1+ PUBS MCHC (33.0 - 37.0 G/DL) 31.3 L Other Body Source Fld Total RBCs Counted (%) 100 Urines Urinalysis LIGHT H Urine Color (YEL,AMB,STR) YEL Urine Clarity (CLEAR) CLEAR Urine pH (5.0 - 8.0) 6.0 Ur Specific Herod (1.001 - 1.035) 1.025 Urine Protein (NEG,<30 MG/DL) TRACE H Urine Ketones (NEG) NEG Urine Nitrite (NEG) NEG Urine Bilirubin (NEG) NEG Urine Urobilinogen (0.1 - 1.0 EU/dl) 0.2 Ur Leukocyte Esterase (NEG) NEG Ur Microscopic SEDIMENT EXAMINED Urine RBC (0 - 5 /HPF) 3-5 Urine WBC (0 - 2 /HPF) RARE Ur Epithelial Cells (NONE,FEW) RARE Hyaline Casts (0/LPF) RARE H Granular Casts (NONE /LPF) RARE H Urine Hemoglobin (NEG) TRACE-INTACT Urine Glucose (N MG/DL) NEG 07/25 0525 Blood Gas pH (7.35 - 7.45 PH) 7.25 *L pCO2 (35 - 45 TORR) 96 *H pO2 (80 - 100 TORR) 82 HCO3 (21 - 28 MEQ/L) 41 H ABG O2 Sat (Measured) (>96.0 %) 96.0 P-50 (Temp Corrected) N Carboxyhemoglobin (1.5 - 5.0 %) 0.5 L O2 Concentration % .50 Respiration Rate (BPM) 24 O2 Delivery Method BIPAP Vent Mode ST Expiratory Pressure (CM H2O P) 6 Inspiratory Pressure (CM H2O P) 20 Miscellaneous Phlebotomy Draw Site LEFT RADIAL Diagnostic Data EKG Results EKG tracing is independently reviewed, and reveals normal sinus rhythm at 94, normal EKG CXR Results The cardiac silhouette is not enlarged. The tip of the endotracheal tube is approximately 3.5 cm above the oliver. A right central venous line is in place. The tip overlies the distal SVC. An enteric tube is in place. The tip overlies left upper quadrant, likely within the stomach. The mediastinal and hilar contours are unremarkable. There are neither pleural effusions nor pneumothoraces. There is streaky opacification at the right lung base. The osseous structures are stable with a left humeral prosthesis in place. Other Results Echocardiogram 04/05/16: Normal size left ventricle. Abnormal relaxation filling pattern of the left ventricle for age (stage 1 diastolic dysfunction). Mildly decreased left ventricular systolic function. Left ventricular ejection fraction is estimated at 40%. Global hypokinesis. Trace mitral regurgitation. Trace tricuspid regurgitation. No evidence of pulmonary hypertension. Trace pulmonic regurgitation. Assessment/Plan Assessment/Plan 80-year-old female with history of end-stage COPD, chronic systolic heart failure with LVEF 40%, history of multifocal atrial tachycardia admitted with respiratory failure requiring intubation. She has tested positive for influenza infection. She is having recurrent fevers. Chest x-ray is consistent with possible bibasilar pneumonia. She has chronic systolic heart failure, however there is no evidence of significant acute CHF exacerbation at this time. Plan: * Agree with holding furosemide, diltiazem, lisinopril, and metoprolol for now because of the risk of hypotension in the setting of infection. * If patient develops significant difficulty atrial tachycardia, then treatment with diltiazem can be considered. * Agree with gentle hydration * Echocardiogram is pending * Check second troponin level to rule out myocardial infarctions Consult Acknowledgment - Thank you for your consult request.
--- NOTE | 2016-07-25 19:12 | Patient Discharge Instructions ---
Discharge Instructions General Discharge Information You were seen/treated for: acute hypercarbic respiratory failure Special Instructions: 1. please follow up with your PCP within one week of discharge. 2. Please continue to follow up with your lung doctor upon discharge. 3. Please take your medications as prescribed. 4. She is on mechanical soft diet with thin liquids. Diet Recommended Diet: Heart Healthy, Mechanical soft diet with thin liquids Activity Activity Self Limited: Yes Acute Coronary Syndrome Inclusion Criteria At DC or during hospital stay patient has or had the following: ACS DIAGNOSIS No Discharge Core Measures Meds if any: Prescribed or Continued at Discharge Meds if any: NOT Prescribed or Continued at Discharge Congestive Heart Failure Inclusion Criteria At DC or during hospital stay patient has or had the following: CHF DIAGNOSIS No Discharge Core Measures Meds if any: Prescribed or Continued at Discharge Meds if any: NOT Prescribed or Continued at Discharge Cerebrovascular accident Inclusion Criteria At DC or during hospital stay patient has or had the following: CVA/TIA Diagnosis No Discharge Core Measures Meds if any: Prescribed or Continued at Discharge Meds if any: NOT Prescribed or Continued at Discharge Venous thromboembolism Inclusion Criteria VTE Diagnosis No VTE Type NONE VTE Confirmed by (Test) NONE Discharge Core Measures - Per Current guidelines, there needs to be overlap - treatment for the first 5 days of Warfarin therapy. - If discharged on Warfarin prior to 5 days of - overlap therapy, the patient will need to be - assessed for post discharge needs including - *Post discharge parental anticoagulation - *Warfarin and/or parental anticoagulation education - *Follow up date to check INR post discharge At least 5 days overlap therapy as Inpatient No Meds if any: Prescribed or Continued at Discharge Note: Overlap Therapy is Warfarin and Anticoagulant Meds if any: NOT Prescribed or Continued at Discharge
[2016-07-26] VITALS: BP 122/68
[2016-07-26 05:01] LABS: ABSOLUTE BASOPHIL COUNT 0 /CUMM (0.0-0.2); ABSOLUTE EOSINOPHIL COUNT 0 /CUMM (0.0-0.7); ABSOLUTE GRANULOCYTE CT 8.3 /CUMM (1.4-6.5); ABSOLUTE LYMPH COUNT 0.8 /CUMM (1.2-3.4); ABSOLUTE MONOCYTE COUNT 0.3 /CUMM (0.10-0.60); BASOPHIL % 0.3 % (0.0-2.0); EOSINOPHIL % 0 % (0-5); GRANULOCYTE % 88.3 % (42.2-75.2); HEMATOCRIT 29.6 % (37-47); MEAN CORPUSCULAR HGB 33.5 PG (27.0-31.0); MEAN CORPUSCULAR HGB CONC 32.9 G/DL (33.0-37.0); MEAN CORPUSCULAR VOLUME 101.8 FL (81.0-99.0); MEAN PLATELET VOLUME 9.2 FL (7.4-10.4); PLATELET COUNT 261 /CUMM (130-400); RBC DISTRIBUTION WIDTH 14.7 % (11.5-14.5); RED BLOOD CELL CT 2.91 /CUMM (4.20-5.40); WHITE BLOOD CELL COUNT 9.4 /CUMM (4.8-10.8)
--- NOTE | 2016-07-26 06:31 | RADIOLOGY REPORT ---
EXAMINATION: XR PORTABLE CHEST CLINICAL INFORMATION: Status post intubation. COMPARISON: Chest radiograph 07/25/2016. TECHNIQUE: Portable AP view of the chest was obtained. FINDINGS: The diagnostic accuracy of this examination is somewhat limited due to rightward thoracic rotation. The patient's mandible obscures the right lung apex. There is an endotracheal tube with its distal tip located 2.3 cm above the oliver. The distal tip of an enteric tube extends beyond the [id number] of this examination below the diaphragm. The distal tip of a right subclavian catheter is located within the lower SVC. Ill-defined reticular markings are visualized within the lung bases that most likely represent a manifestation of subsegmental atelectasis. No overt consolidative disease or effusion. The cardiac silhouette and upper mediastinal contours are grossly unremarkable. 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 IMPRESSION: Stable examination. The tip of an endotracheal tube is located 2.3 cm above the oliver.
[2016-07-26 07:00] VITALS: BP 120/68
--- NOTE | 2016-07-26 07:12 | ECHOCARDIOGRAM REPORT ---
AFIA FRIAS Age: 80 : 1935 Gender: F Exam Date: 07/25/2016 16:29 Exam Location: [facility] Ht (in): 63 Wt (lb): 160 BSA: 1.82 BP: 118 / 70 Ordering Physician: MELL TIJERINA MD Referring Physician: MELL TIJERINA MD Technologist: Lissette Wright RDCS Room Number: 103 Indications: STRUCTURAL HEART DISEASE Rhythm: Sinus Technical Quality: technically limited FINDINGS Left Ventricle Normal left ventricular size with mild left ventricular hypertrophy. Normal systolic function with no obvious regional wall motion abnormalities. Diastolic filling pattern is consistent with impaired LV relaxation. The ejection fraction is visually estimated at 60%. Right Ventricle The right ventricle is normal in size and function. Right Atrium The right atrium is normal in size. Left Atrium The left atrium is normal in size. The interatrial septum is intact. Mitral Valve The mitral valve domonstrates mild posterior annular calcification with normal function. There is trace mitral regurgitation. Aortic Valve Structurally normal aortic valve without significant sclerosis or stenosis. There is no aortic regurgitation. Tricuspid Valve The tricuspid valve is normal in structure and function. There is trace tricuspid regurgitation. Pulmonary artery systolic pressure is mildly elevated to 43mmHg. Pulmonic Valve Structurally normal pulmonic valve. There is no pulmonic regurgitation. Pericardium Normal pericardium without effusion. No pleural effusion. Great Vessels Normal aortic root dimension. The aortic arch and great vessels are well seen and are normal. CONCLUSIONS 1. Normal EF of 60% with impaired LV relaxation. 2. Mild left ventricular hypertrophy. 3. Trace mitral regurgitation. 4. Trace tricuspid regurgitation. 5. Mild pulmonary hypertension. Clifton Mcgarry M.D. (Electronically Signed) Final Date: 26 July 2016 07:11 MEASUREMENTS (Male / Female) Normal Values 2D ECHO LV Diastolic Diameter PLAX 4.4 cm 4.2 - 5.9 / 3.9 - 5.3 cm LV Systolic Diameter PLAX 2.9 cm 2.1 - 4.0 cm LV Fractional Shortening PLAX 34.1 % 25 - 46 % LV Ejection Fraction 2D Teich 63.3 % IVS Diastolic Thickness 0.8 cm LVPW Diastolic Thickness 1.0 cm LV Relative Wall Thickness 0.4 RV Internal Dim ED PLAX 2.5 cm 1.9 - 3.8 cm LVOT Diameter 1.8 cm Aortic Root Diameter 2.7 cm LA Systolic Diameter LX 3.2 cm 3.0 - 4.0 / 2.7 - 3.8 cm Ascending Aorta Diameter 3.0 cm DOPPLER AV Peak Velocity 117.0 cm/s AV Peak Gradient 5.5 mmHg AV Mean Velocity 78.9 cm/s AV Mean Gradient 3.0 mmHg AV Velocity Time Integral 20.1 cm LVOT Peak Velocity 90.2 cm/s LVOT Peak Gradient 3.3 mmHg LVOT Mean Velocity 59.4 cm/s LVOT Mean Gradient 2.0 mmHg LVOT Velocity Time Integral 15.2 cm LVOT Stroke Volume 38.7 cm AV Area Cont Eq vti 1.9 cm AV Area Cont Eq pk 2.0 cm MV Peak Velocity 114.0 cm/s MV Peak Gradient 5.2 mmHg MV Mean Velocity 63.4 cm/s MV Mean Gradient 2.0 mmHg Mitral E Point Velocity 69.1 cm/s Mitral A Point Velocity 91.8 cm/s Mitral E to A Ratio 0.8 MV PHT Velocity 80.1 cm/s MV Deceleration [place] 481.0 cm/s MV Pressure Half Time 50.0 ms MV Area PHT 4.4 cm MV Deceleration Time 193.0 ms PV Peak Velocity 106.0 cm/s PV Peak Gradient 4.5 mmHg PV Mean Velocity 67.8 cm/s PV Mean Gradient 2.0 mmHg PV Velocity Time Integral 16.0 cm LV E' Lateral Velocity 5.8 cm/s Mitral E to LV E' Lateral Ratio 12.0 LV E' Septal Velocity 21.8 cm/s Mitral E to LV E' Septal Ratio 3.2
--- NOTE | 2016-07-26 07:18 | PN- Resident CRCU ---
Subjective HPI/CRCU Issues: Patient seen and examined, remains sedated and intubated, arousable though. Vitasl, has been afebrile, BP sytolic around 120s, remains on mechanical ventilation Urine output has been adequate, remains on D5-1/2 NS and low dose propofol drip, s/p picc line placement yesterday by IR. Was found to be influenza positive, started tamiflu. Vancomycin and ceftaz to be discont today as no growth on sputum, has been afebrile, white count improving. Will try pressure support vent trials today. Objective Vital Signs & I&O Last 8 Hrs of Vitals and I&O: Laboratory Tests 07/26/16 0620: pH 7.44, pCO2 49 H, pO2 80, HCO3 32 H, ABG O2 Sat (Measured) 96.0, P-50 (Temp Corrected) N, Carboxyhemoglobin 0.5 L, O2 Concentration % 35%, Respiration Rate 12, O2 Delivery Method VENT, Vent Mode AC, Expiratory Pressure 5, Tidal Volume 450, Pressure Support 0, Phlebotomy Draw Site LEFT RADIAL 07/26/16426: Troponin I < 0.01 07/26/16426: Anion Gap 8, Estimated GFR > 60, Glucose 208 H, Calcium 8.4, Phosphorus 2.8, Magnesium 1.8, Total Bilirubin 0.2, AST 13 L, ALT 46, Albumin 2.7 L, CBC w Diff MAN DIFF ORDERED, RBC 2.91 L, MCV 101.8 H, MCH 33.5 H, RDW 14.7 H, MPV 9.2, Gran % 88.3 H, Lymphocytes % 8.3 L, Monocytes % 3.1, Eosinophils % 0, Basophils % 0.3, Absolute Granulocytes 8.3 H, Segmented Neutrophils 90 H, Band Neutrophils 7 H, Absolute Lymphocytes 0.8 L, Lymphocytes 2 L, Monocytes 1 L, Absolute Monocytes 0.3, Absolute Eosinophils 0, Absolute Basophils 0, Platelet Estimate ADEQUATE, Hypochromic-Microcytic 1+, Poikilocytosis 1+, PUBS MCHC 32.9 L 07/26/16 0100: Troponin I Cancelled 07/25/162207: Troponin I < 0.01 07/25/161814: pH 7.54 H, pCO2 36, pO2 71 L, HCO3 30 H, ABG O2 Sat (Measured) 94.0 L, P-50 (Temp Corrected) Y, Carboxyhemoglobin 1.2 L, O2 Concentration % 30, Temperature 101.1 H, Respiration Rate 15, O2 Delivery Method ESPRIT, Vent Mode AC, Expiratory Pressure 5, Tidal Volume 500, Phlebotomy Draw Site LEFT RADIAL Microbiology 07/25 1016 LOWER RESP: Respiratory Culture - COLB 07/25 1016 LOWER RESP: Gram Stain - COLB 07/25 0935 LOWER RESP: Respiratory Culture - RES 07/25 0935 LOWER RESP: Gram Stain - RES Vital Signs Date Time Temp Pulse Resp B/P Pulse O2 O2 Flow FiO2 Ox Delivery Rate 07/26 0757 35 07/26 0615 35 07/26 0400 97 Ventilator 35% 07/26 0245 35 07/26 0004 35 07/26 0000 96 Ventilator 35% 07/26 0000 96.5 73 12 122/68 96 Ventilator 35% 07/25 2241 35 07/25 2000 96 Ventilator 35% 07/25 1918 35 07/25 1735 99.9 07/25 1620 30 07/25 1600 98.6 98 17 120/72 100 Ventilator 30% 07/25 1600 100 Ventilator 30% 07/25 1421 30 07/25 1200 97 Ventilator 40% 07/25 1200 98.7 80 15 100/66 97 Ventilator 40% 07/25 1130 40 07/25 1018 Ventilator 40% 07/25 1000 98 Ventilator 50% 07/25 0944 98 Ventilator 40% 07/25 0919 40 Intake & Output 07/26 1600 07/26 0800 07/26 0000 Intake Total 869.4 828.6 Output Total 700 450 Balance 169.4 378.6 Intake, IV 563.4 798.6 Intake, Oral 0 0 Intake, Other 160 Intake, Tube 146 30 Feeding Number 0 0 Bowel Movements Output, Urine 700 450 Exam General Appearance: no apparent distress, sedated, intubated Respiratory: b/l scattered ronchi Cardiovascular: regular rate/rhythm Gastrointestinal: normal bowel sounds Extremities: normal inspection, no edema Current Medications: Current Medications Sig/Shobha Start time Last Medication Dose Route Stop Time Status Admin Acetaminophen 1,000 MG Q6P PRN 07/25 1730 07/25 N/A 1 UNIT IV 1735 Albuterol Sulfate 3 ML EVERY 4 HRS/AWAKE 07/25 0945 AC 07/26 INH 0805 Ceftazidime 1,000 MG Q8 07/25 1400 DC 07/26 IV 0527 Cyanocobalamin 1,000 MCG DAILY 07/25 1113 AC 07/26 PO 0902 Dextrose/Sodium 1,000 ML Q20H 07/25 0800 AC 07/25 Chloride IV 0817 Diazepam 2.5 MG [id number] PRN 07/25 0645 DC 07/25 IV 0701 Famotidine 20 MG DAILY 07/25 1108 AC 07/26 PO 0902 Folic Acid 1 MG DAILY 07/25 1113 AC 07/26 PO 0902 Heparin Sodium 5,000 UNIT Q8 07/25 1400 AC 07/26 (Porcine) SC 0527 Heparin Sodium 0 .STK-MED ONE 07/25 1303 DC (Porcine) IV Heparin Sodium 0 .STK-MED ONE 07/25 1204 DC (Porcine) IV Insulin Aspart 0 TIDAC 07/25 1200 DC SC Insulin Human Regular 0 Q6 07/25 1200 DC SC Insulin Human Regular 0 Q6 07/25 1200 AC 07/26 SC 0527 Ipratropium [place] 2.5 ML EVERY 4 HRS/AWAKE 07/25 0945 AC 07/26 INH 0805 Lidocaine 0 .STK-MED ONE 07/25 1204 DC .ROUTE Lorazepam 50 MG Q24H 07/25 0815 AC 07/25 Dextrose/Water 500 ML IV 0905 Magnesium Sulfate 1 GM ONCE ONE 07/26 0800 AC 07/26 Dextrose/Water 100 ML IV 07/26 1159 0902 Methylprednisolone 40 MG DAILY 07/26 1000 AC 07/26 IV 0902 Methylprednisolone 40 MG Q8 07/25 2200 DC IV Methylprednisolone 40 MG Q12 07/25 2200 DC 07/25 IV 2134 Non-Formulary 0 SEE ADMIN CRITERIA 07/25 0945 DC Medication ANY Oseltamivir Phosphate 30 MG BID 07/25 1030 AC 07/26 PO 07/29 2159 0902 Oseltamivir Phosphate 30 MG BID 07/25 1022 DC PO 07/29 1021 Pantoprazole Sodium 40 MG DAILY 07/25 1000 DC IV Polyethylene Glycol 17 GM DAILY 07/26 1000 AC PO Potassium Chloride 60 MEQ ONCE ONE 07/26 0800 DC 07/26 PO 07/26 0801 0902 Propofol 1,000 MG Q12H 07/25 1000 AC 07/26 N/A 100 ML IV 0535 Senna 187 MG AT BEDTIME 03/28 2200 AC PO Thiamine HCl 100 MG DAILY 07/25 1113 AC 07/26 PO 0902 Vancomycin HCl 1,000 MG Q12 07/250 DC 07/25 Dextrose/Water 250 ML IV 2134 Impression/Plan Impression/Problem List Impression: This is a 80-year-old female with history of severe COPD, chronic HFrEF with LVEF 40%, multifocal atrial tachycardia who was admitted to ICU for hypercarbic respiratory failure likely secondary to pneumonia versus COPD exacerbation . She was brought in from alf facility to the emergency room where she was found to be hypoxic and confused, she was short of breath, coughing, and wheezing, she was subsequently intubated. History was obtained from the nurse at [facility]. She was found to have an oxygen saturation of 76% in the field , which improved to 95% on 3 L. She was noted to have high fevers, and was found to be positive for influenza infection. She has been managed for following conditions in ICU: Respiratory/Infectios disease: Acute Hypercarbic respiratory failure in setting of END Stage COPD: -Enroute to hospital she was found to have an oxygen saturation of 76% in the field, which improved to 95% on 3 L. ABGs upon presentation 7.25/96/82/41, she was initially put on BIPAP, but she remained hypoxic and confused and thus was intubated. Repeat ABGs improved. -Likely secondary to pneumonia and/or COPD exacerbation in setting of End stage COPD, CXR showed bibasilar opacities that may present a consolidative disease, patient has been spiking fever, patient started on Ceftazidime and vancomycin to cover for gram negatives organisms (HCAP given the fact that she does reside in alf), sputum and blood cx no growth so far, will follow up. urine strep and Legionella antigens negative. -She was also found to be positive for Flu, started on Tamiflu. * Remains intubated and on [facility] vent, will try weaning trials today * Discontinued ceftazidime and vancomycin * Sputum and blood Cx NGTD * Cont monitoring White count and fever * Cont Tamiflu for influenza * Solumedrol 40mg daily Metabolic: Diabetes mellitus: Insulin sliding scale Monitor finger sticks, tube feed changed to glucerna as fingersticks were running high. Hypokalemia: Replaced. Will follow repeat labs replace as needed. Hypomagnesemia: Replaced. Will follow repeat labs replace as needed. CVS: Hypertension: Patient was hypotensive upon presentation, continues to have systolic blood pressure towards lower side. Patient has Hx of systolic heart failure with ejection fraction of 40% per echocardiogram in March 2016 * Cont to hold furosemide, diltiazem, lisinopril, and metoprolol for now because of the risk of hypotension in the setting of infection, will resume once patient more stable. * Cardiology on baoard, will f/u recs. Ailmentary: On tube feeds, glucerna DVT prophylaxis with subcutaneous heparin Pain pathway Full code Problem List: 1. COPD (chronic obstructive pulmonary disease) 2. Hypercapnic respiratory failure Pain Ratin Tomorrow's Labs & Rationales: ICU bundle for lytes monitoring CBC in setting of infection Plan DVT/Prophylaxis: pharmacological
--- NOTE | 2016-07-26 08:07 | PN- CRCU ---
Subjective HPI/Critical Care Issues: Intubated sedated but easily arousable Follows commands Other history could not be obtained as patient was intubated She's been afebrile Good urine output Continues to be on D5 half-normal saline with a low-dose propofol drip EKG showed sinus rhythm atrial premature complexes waterline T-wave abnormalities As patient had poor IV access a PICC line was placed Other significant data reviewed Her BUN/creatinine stable Baseline bicarbonate is elevated now down to 31 potassium is 4.5 her cholesterol was 134 before her total bili was normal last TSH in July was normal her B12 folic acid level was normal. BNP 631 white count down to 9.4 hemoglobin down to 9.7 MCV is 101 platelets are adequate patient has 8% lymphocytes her INR was normal last ABG 744/49/80 with a temperature 101 MAXIMUM TEMPERATURE so far is 101.1 Objective Current Medications: Current Medications Sig/Shobha Start time Last Medication Dose Route Stop Time Status Admin Acetaminophen 1,000 MG Q6P PRN 07/25 1730 AC 07/25 N/A 1 UNIT IV 1735 Albuterol Sulfate 3 ML EVERY 4 HRS/AWAKE 07/25 0945 AC 07/25 INH 2106 Ceftazidime 1,000 MG Q8 07/25 1400 AC 07/26 IV 0527 Cyanocobalamin 1,000 MCG DAILY 07/25 1113 AC 07/25 PO 1432 Dextrose/Sodium 1,000 ML Q20H 07/25 0800 AC 07/25 Chloride IV 0817 Diazepam 2.5 MG [id number] PRN 07/25 0645 DC 07/25 IV 0701 Famotidine 20 MG DAILY 07/25 1108 AC 07/25 PO 1432 Folic Acid 1 MG DAILY 07/25 1113 AC 07/25 PO 1432 Heparin Sodium 5,000 UNIT Q8 07/25 1400 AC 07/26 (Porcine) SC 0527 Heparin Sodium 0 .STK-MED ONE 07/25 1303 DC (Porcine) IV Heparin Sodium 0 .STK-MED ONE 07/25 1204 DC (Porcine) IV Insulin Aspart 0 TIDAC 07/25 1200 DC SC Insulin Human Regular 0 Q6 07/25 1200 DC SC Insulin Human Regular 0 Q6 07/25 1200 AC 07/26 SC 0527 Ipratropium [place] 2.5 ML EVERY 4 HRS/AWAKE 07/25 0945 AC 07/25 INH 2106 Lidocaine 0 .STK-MED ONE 07/25 1204 DC .ROUTE Lorazepam 0 .STK-MED ONE 07/25 0847 DC .ROUTE Lorazepam 2 MG ONE ONE 07/25 0845 DC 07/25 IV 07/25 0846 1100 Lorazepam 50 MG Q24H 07/25 0815 AC 07/25 Dextrose/Water 500 ML IV 0905 Lorazepam 50 MG Q24H 07/25 0800 DC Dextrose/Water 500 ML IV Magnesium Sulfate 1 GM ONCE ONE 07/26 0800 AC Dextrose/Water 100 ML IV 07/26 1159 Methylprednisolone 40 MG Q8 07/25 2200 DC IV Methylprednisolone 40 MG Q12 07/25 2200 AC 07/25 IV 2134 Non-Formulary 0 SEE ADMIN CRITERIA 07/25 0945 DC Medication ANY Oseltamivir Phosphate 30 MG BID 07/25 1030 AC 07/25 PO 07/29 215 2137 Oseltamivir Phosphate 30 MG BID 07/25 1022 DC PO 07/29 1021 Pantoprazole Sodium 40 MG DAILY 07/25 1000 DC IV Potassium Chloride 60 MEQ ONCE ONE 07/26 0800 DC PO 07/26 0801 Propofol 1,000 MG Q12H 07/25 1000 AC 07/26 N/A 100 ML IV 0535 Thiamine HCl 100 MG DAILY 07/25 1113 AC 07/25 PO 1432 Vancomycin HCl 1,000 MG Q12 07/25 2200 AC 07/25 Dextrose/Water 250 ML IV 2135 Vital Signs & I&O Last 24 Hrs of Vitals and I&O: Vital Signs Date Time Temp Pulse Resp B/P Pulse O2 O2 Flow FiO2 Ox Delivery Rate 07/26 0615 35 07/26 0400 97 Ventilator 35% 07/26 0245 35 07/26 0004 35 07/26 0000 96 Ventilator 35% 07/26 0000 96.5 73 12 122/68 96 Ventilator 35% 07/25 2241 35 07/25 2000 96 Ventilator 35% 07/25 1918 35 07/25 1735 99.9 07/25 1620 30 07/25 1600 98.6 98 17 120/72 100 Ventilator 30% 07/25 1600 100 Ventilator 30% 07/25 1421 30 07/25 1200 97 Ventilator 40% 07/25 1200 98.7 80 15 100/66 97 Ventilator 40% 07/25 1130 40 07/25 1018 Ventilator 40% 07/25 1000 98 Ventilator 50% 07/25 0944 98 Ventilator 40% 07/25 0919 40 07/25 0905 98.1 101 20 80/00 98 Ventilator 50% 07/25 0832 101.1 98 20 118/70 97 Ventilator 50% Intake & Output 07/26 1600 07/26 0800 07/26 0000 Intake Total 869.4 828.6 Output Total 700 450 Balance 169.4 378.6 Intake, IV 563.4 798.6 Intake, Oral 0 0 Intake, Other 160 Intake, Tube 146 30 Feeding Number 0 0 Bowel Movements Output, Urine 700 450 Impression/Plan Impression/Plan Impression/Plan: Physical Exam General Appearance intubated sedated, easily arousable PICC line in HEENT Atraumatic, responds to light Cardiovascular Normal S1, Normal S2 Lungs b/l wheezing and ronchii Abdomen Normal Bowel Sounds, Soft, No Tenderness Extremities No Clubbing, No Cyanosis, No Edema Moves all extremities 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, hypertension, previous significant alcohol use, smoking up until recently, osteoporosis, was recently in [facility] with respiratory insufficiency subsequently was transferred to [facility]. In the [facility] jail she was noted to have tachypnea cough and hypoxemia and was sent to the emergency room. In the emergency room she was found to be in significant respiratory failure and was intubated. When I saw her she was intubated and sedated. Her issues include * Acute hypercarbic and hypoxemic respiratory failure related to end-stage lung disease with COPD exacerbation with influenza pneumonia * Bibasilar atelectasis so far sputum culture shows no organisms * Systolic heart disease with hypotension * Alcohol abuse up until recently but patient has not had any alcohol in the past few weeks as she was in the hospital and rehabilitation facility hence she is at no risk for withdrawal * Previous history of hypertension hyperlipidemia ischemic heart * Significant osteoporosis RECOMMENDATION * Continue mechanical ventilator, start pressure-support ventilation trials today we'll keep her intubated till tomorrow * Continue Tamiflu, as sputum does not show any organisms we will discontinue her antibacterial antibiotics * Solu-Medrol 40 mg once a day reduce the dose, follow fingerstick and cover with insulin. Change tube feeding to a lower sugar tube feeding per nutritional recommendation * [id number] nebulizer therapy * Continue low-dose propofol * Stool softeners * Aggressively replace potassium to be more than 4. Give potassium 40 mEq down OG 2 and keep magnesium more than 2 We will discuss with the patient is critically ill total time spent 35 minutes Celso piedra
--- NOTE | 2016-07-26 12:02 | PN- Cardiology ---
Subjective Subjective: The patient remains intubated and sedated. She awakens in response to voice and appears to be agitated. Further history is not obtainable. She is noted to be borderline hypotensive Objective Vital Signs and I&Os Vital Signs Date Time Temp Pulse Resp B/P Pulse O2 O2 Flow FiO2 Ox Delivery Rate 07/26 1109 35 07/26 0800 95 Ventilator 35% 07/26 0757 35 07/26 0615 35 07/26 0400 97 Ventilator 35% 07/26 0245 35 07/26 0004 35 07/26 0000 96 Ventilator 35% 07/26 0000 96.5 73 12 122/68 96 Ventilator 35% 07/25 2241 35 07/25 2000 96 Ventilator 35% 07/25 1918 35 07/25 1735 99.9 07/25 1620 30 07/25 1600 98.6 98 17 120/72 100 Ventilator 30% 07/25 1600 100 Ventilator 30% 07/25 1421 30 07/25 1200 97 Ventilator 40% 07/25 1200 98.7 80 15 100/66 97 Ventilator 40% Intake & Output 07/26 1600 07/26 0800 07/26 0000 07/25 1600 07/25 0800 07/25 0000 Intake Total 869.4 828.6 1985 Output Total 700 450 560 Balance 169.4 378.6 1425 Intake, IV 563.4 798.6 1925 Intake, Oral 0 0 Intake, Other 160 60 Intake, Tube 146 30 Feeding Number 0 0 0 Bowel Movements Output, 10 Gastric Drainage Output, Urine 700 450 550 Patient 160 lb 160 lb Weight Physical Exam: Gen: The patient is in no acute distress HEENT: Normal nose, ears, and oropharynx. Pupils equal bilaterally. Conjunctiva normal. Neck: Supple with no JVD, no masses, and no thyromegaly Lungs: Bilateral rhonchi with decreased respiratory effort on the ventilator Heart: RRR, S1, S2, 1/6 systolic murmur. No peripheral edema, 2+ pulses in the lower extremities bilaterally Abdomen: Soft, nontender, no masses. No hepatomegaly. No splenomegaly Extremities: No clubbing or cyanosis. Normal muscle strength in the upper and lower extremities Skin: Normal skin turgor with no skin ulcers or lesions noted. Current Medications: Current Medications Sig/Shobha Start time Last Medication Dose Route Stop Time Status Admin Acetaminophen 1,000 MG Q6P PRN 07/25 1730 AC 07/25 N/A 1 UNIT IV 1735 Albuterol Sulfate 3 ML EVERY 4 HRS/AWAKE 07/25 0945 AC 07/26 INH 1125 Ceftazidime 1,000 MG Q8 07/25 1400 DC 07/26 IV 0527 Cyanocobalamin 1,000 MCG DAILY 07/25 1113 AC 07/26 PO 0902 Dextrose/Sodium 1,000 ML Q20H 07/25 0800 AC 07/25 Chloride IV 0817 Famotidine 20 MG DAILY 07/25 1108 AC 07/26 PO 0902 Folic Acid 1 MG DAILY 07/25 1113 AC 07/26 PO 0902 Heparin Sodium 5,000 UNIT Q8 07/25 1400 AC 07/26 (Porcine) SC 0527 Heparin Sodium 0 .STK-MED ONE 07/25 1303 DC (Porcine) IV Heparin Sodium 0 .STK-MED ONE 07/25 1204 DC (Porcine) IV Insulin Aspart 0 TIDAC 07/25 1200 DC SC Insulin Human Regular 0 Q6 07/25 1200 DC SC Insulin Human Regular 0 Q6 07/25 1200 AC 07/26 SC 0527 Ipratropium [place] 2.5 ML EVERY 4 HRS/AWAKE 07/25 0945 AC 07/26 INH 1125 Lidocaine 0 .STK-MED ONE 07/25 1204 DC .ROUTE Lorazepam 50 MG Q24H 07/25 0815 DC 07/25 Dextrose/Water 500 ML IV 0905 Magnesium Sulfate 1 GM ONCE ONE 07/26 0800 AC 07/26 Dextrose/Water 100 ML IV 07/26 1159 0902 Methylprednisolone 40 MG DAILY 07/26 1000 AC 07/26 IV 0902 Methylprednisolone 40 MG Q12 07/25 2200 DC 07/25 IV 2134 Oseltamivir Phosphate 30 MG BID 07/25 1030 AC 07/26 PO 07/29 2159 0902 Pantoprazole Sodium 40 MG DAILY 07/25 1000 DC IV Polyethylene Glycol 17 GM DAILY 07/26 1000 AC 07/26 PO 0959 Potassium Chloride 60 MEQ ONCE ONE 07/26 0800 DC 07/26 PO 07/26 0801 0902 Propofol 1,000 MG Q12H 07/25 1000 AC 07/26 N/A 100 ML IV 0535 Senna 187 MG AT BEDTIME 07/26 2200 AC PO Thiamine HCl 100 MG DAILY 07/25 1113 AC 07/26 PO 0902 Vancomycin HCl 1,000 MG Q12 07/25 2199 DC 07/25 Dextrose/Water 250 ML IV 2134 Results Last 48 Hrs of Labs/Mics: Laboratory Tests 07/26/16 0620: pH 7.44, pCO2 49 H, pO2 80, HCO3 32 H, ABG O2 Sat (Measured) 96.0, P-50 (Temp Corrected) N, Carboxyhemoglobin 0.5 L, O2 Concentration % 35%, Respiration Rate 12, O2 Delivery Method VENT, Vent Mode AC, Expiratory Pressure 5, Tidal Volume 450, Pressure Support 0, Phlebotomy Draw Site LEFT RADIAL 07/26/16 042: Troponin I < 0.01 07/26/16426: Anion Gap 8, Estimated GFR > 60, Glucose 208 H, Calcium 8.4, Phosphorus 2.8, Magnesium 1.8, Total Bilirubin 0.2, AST 13 L, ALT 46, Albumin 2.7 L, CBC w Diff MAN DIFF ORDERED, RBC 2.91 L, MCV 101.8 H, MCH 33.5 H, RDW 14.7 H, MPV 9.2, Gran % 88.3 H, Lymphocytes % 8.3 L, Monocytes % 3.1, Eosinophils % 0, Basophils % 0.3, Absolute Granulocytes 8.3 H, Segmented Neutrophils 90 H, Band Neutrophils 7 H, Absolute Lymphocytes 0.8 L, Lymphocytes 2 L, Monocytes 1 L, Absolute Monocytes 0.3, Absolute Eosinophils 0, Absolute Basophils 0, Platelet Estimate ADEQUATE, Hypochromic-Microcytic 1+, Poikilocytosis 1+, PUBS MCHC 32.9 L 07/26/16 0100: Troponin I Cancelled 07/25/162207: Troponin I < 0.01 07/25/165: pH 7.54 H, pCO2 36, pO2 71 L, HCO3 30 H, ABG O2 Sat (Measured) 94.0 L, P-50 (Temp Corrected) Y, Carboxyhemoglobin 1.2 L, O2 Concentration % 30, Temperature 101.1 H, Respiration Rate 15, O2 Delivery Method ESPRIT, Vent Mode AC, Expiratory Pressure 5, Tidal Volume 500, Phlebotomy Draw Site LEFT RADIAL 07/25/16 0840: pH 7.39, pCO2 64 *H, pO2 111 H, HCO3 37 H, ABG O2 Sat (Measured) 97.0, P-50 ( Temp Corrected) Y, Carboxyhemoglobin 1.0 L, O2 Concentration % 50, Temperature 101.1 H, Respiration Rate 20, O2 Delivery Method VENT, Vent Mode VC-AC, Expiratory Pressure 5, Tidal Volume 500, Phlebotomy Draw Site LEFT RADIAL 07/25/16 0800: Virus Culture Pending 07/25/16 07: Anion Gap 3 L, Estimated GFR > 60, BUN/Creatinine Ratio 30.0 H, Glucose 172 H , Calcium 9.2, Magnesium 2.2, Total Bilirubin 0.7, AST 23, ALT 53 H, Alkaline Phosphatase 64, Troponin I < 0.01, Stl-G-Ddphgvmtigj Pept 631 H, Total Protein 5.9 L, Albumin 3.1 L, Globulin 2.8, Albumin/Globulin Ratio 1.1, Vitamin B12 532, Folate 18.9, PT 12.3, INR 1.17, APTT 34 07/25/16 0710: Urinalysis LIGHT H, Urine Color YEL, Urine Clarity CLEAR, Urine pH 6.0, Ur Specific [place] 1.025, Urine Protein TRACE H, Urine Ketones NEG, Urine Nitrite NEG, Urine Bilirubin NEG, Urine Urobilinogen 0.2, Ur Leukocyte Esterase NEG, Ur Microscopic SEDIMENT EXAMINED, Urine RBC 3-5, Urine WBC RARE, Ur Epithelial Cells RARE, Hyaline Casts RARE H, Granular Casts RARE H, Urine Hemoglobin TRACE-INTACT, Urine Glucose NEG 07/25/16 0645: CBC w Diff MAN DIFF ORDERED, RBC 3.23 L, MCV 104.9 H, MCH 32.8 H, RDW 15.6 H , MPV 8.5, Gran % 93.7 H, Lymphocytes % 4.9 L, Monocytes % 1.2 L, Eosinophils % 0.2, Basophils % 0 L, Absolute Granulocytes 13.5 H, Segmented Neutrophils 99 H, Absolute Lymphocytes 0.7 L, Lymphocytes 1 L, Absolute Monocytes 0.2, Absolute Eosinophils 0, Absolute Basophils 0, Platelet Estimate ADEQUATE, Polychromasia 1+, Hypochromic-Microcytic 1+, Poikilocytosis 1+, Basophilic Stippling SLIGHT, Anisocytosis 1+, Macrocytic Cells 1+, Ovalocytes FEW, Stomatocytes 1+, PUBS MCHC 31.3 L, Fld Total RBCs Counted 100 07/25/16 0525: pH 7.25 *L, pCO2 96 *H, pO2 82, HCO3 41 H, ABG O2 Sat (Measured) 96.0, P-50 ( Temp Corrected) N, Carboxyhemoglobin 0.5 L, O2 Concentration % .50, Respiration Rate 24, O2 Delivery Method BIPAP, Vent Mode ST, Expiratory Pressure 6, Inspiratory Pressure 20, Phlebotomy Draw Site LEFT RADIAL Microbiology 07/25 901 UPPER RESP: Surveillance Culture - COMP 07/25 901 GI: Surveillance Culture - COMP VANC RESIST ENTEROCOCCUS 07/26 799 URINE ROUT: Legionella Antigen - COMP 07/26 799 URINE ROUT: Streptococcus pneumoniae Antigen (M - COMP 07/26 799 NASOPHARYN: Influenza Virus A & B Rapid Smear - COMP INFLUENZA TYPE A Recent Imaging Studies: Chest x-ray: Stable examination. The tip of an endotracheal tube is located 2.3 cm above the oliver. Assessment/Plan Assessment/Plan Assessment: 1. End-stage COPD 2. Chronic systolic heart failure 3. History of multifocal atrial tachycardia 4. Acute respiratory failure secondary to influenza pneumonia 5. No evidence of acute systolic heart failure at this time. Plan: * Cardiac medications on hold for hypotension * Ventilatory support as per pulmonary * Tamiflu for influenza * Supplement potassium Continue telemetry? Yes
[2016-07-26 16:00] VITALS: BP 100/56
[2016-07-26 23:00] VITALS: BP 110/52
[2016-07-27 02:56] LABS: ABSOLUTE BASOPHIL COUNT 0 /CUMM (0.0-0.2); ABSOLUTE EOSINOPHIL COUNT 0 /CUMM (0.0-0.7); ABSOLUTE GRANULOCYTE CT 9.7 /CUMM (1.4-6.5); ABSOLUTE LYMPH COUNT 0.9 /CUMM (1.2-3.4); ABSOLUTE MONOCYTE COUNT 0.7 /CUMM (0.10-0.60); BASOPHIL % 0.1 % (0.0-2.0); EOSINOPHIL % 0.1 % (0-5); GRANULOCYTE % 85.8 % (42.2-75.2); HEMATOCRIT 30.3 % (37-47); MEAN CORPUSCULAR HGB 32.3 PG (27.0-31.0); MEAN CORPUSCULAR HGB CONC 31.7 G/DL (33.0-37.0); PLATELET COUNT 275 /CUMM (130-400); RBC DISTRIBUTION WIDTH 15.5 % (11.5-14.5); RED BLOOD CELL CT 2.97 /CUMM (4.20-5.40); WHITE BLOOD CELL COUNT 11.4 /CUMM (4.8-10.8)
--- NOTE | 2016-07-27 04:40 | NUR ---
PATIENT URINE OUTPUT FOR THE LAST 3 HOURS IS 20 TO 25 CC/HR FROM 2 AM TO 4 AM, PREVIOUSLY HAS GOOD URINE OUTPUT ABOVE 30 CC/HR. PATIENT VITALS SIGNS ARE STABLE, HR 72, BP 103/56, RR 19, SATURATION 95%. DR. GARRICK MEYER INFORMED VIA THE PHONE, AWAITING NEW ORDERS.
--- NOTE | 2016-07-27 07:20 | RADIOLOGY REPORT ---
EXAMINATION: XR PORTABLE CHEST CLINICAL INFORMATION: Post intubation COMPARISON: 07/26/2016 TECHNIQUE: Portable AP view of the chest was obtained. FINDINGS: Endotracheal tube again seen with tip 2.5 cm above the oliver. Right upper extremity PICC line with tip near the cavoatrial junction. Enteric tube descends the esophagus into the stomach. Lung volumes remain low but are improved from the prior study. There is pulmonary vascular congestion but no montrell pulmonary edema. No focal consolidation or mass. Status post left reverse shoulder arthroplasty. IMPRESSION: Tubes and lines remain in satisfactory position as described above. Improved lung volumes. No acute pulmonary disease.
--- NOTE | 2016-07-27 07:23 | PN- Resident CRCU ---
Subjective HPI/CRCU Issues: Patient seen and examined this morning. She is lying in bed in no acute distress. He is intubated, sedated, but arousable, remains on propofol drip Blood pressure has been fluctuating between 100 to 110, remains on mechanical ventilation assist control, FiO2 of 35, satting 95%. Remains on Tamiflu for influenza. Antibodies discontinued yesterday as patient has remained afebrile, white count has been stable, sputum cultures did not grow anything. Objective Vital Signs & I&O Last 8 Hrs of Vitals and I&O: Laboratory Tests 07/28/16 0600: pH 7.45, pCO2 47 H, pO2 75 L, HCO3 32 H, ABG O2 Sat (Measured) 95.0 L, P-50 (Temp Corrected) N, Carboxyhemoglobin 0.7 L, O2 Concentration % .30, Respiration Rate 12, O2 Delivery Method VENT, Vent Mode A/C, Expiratory Pressure 5, Tidal Volume 450, Phlebotomy Draw Site LEFT RADIAL 07/28/16 0430: Anion Gap 4 L, Estimated GFR > 60, Glucose 114 H, Calcium 9.0, Phosphorus 4.1, Magnesium 2.2, Total Bilirubin 0.2, AST 17, ALT 58 H, Albumin 2.5 L, CBC w Diff NO MAN DIFF REQ, RBC 2.94 L, MCV 101.5 H, MCH 32.1 H, RDW 15.4 H, MPV 8.8, Gran % 83.3 H, Lymphocytes % 12.1 L, Monocytes % 4.2, Eosinophils % 0.1, Basophils % 0.3, Absolute Granulocytes 9.3 H, Absolute Lymphocytes 1.3, Absolute Monocytes 0.5, Absolute Eosinophils 0, Absolute Basophils 0, PUBS MCHC 31.7 L Vital Signs Date Time Temp Pulse Resp B/P Pulse O2 O2 Flow FiO2 Ox Delivery Rate 07/28 1200 95 Ventilator 30% 07/28 1151 07/28 0855 30 07/28 0800 95 Ventilator 35% 07/28 0700 97.3 64 12 86/46 94 Ventilator 30% 07/28 0620 30 07/28 0400 95 Ventilator 30% 07/28 0314 30 07/28 0029 30 07/28 0000 94 Ventilator 30% 07/27 2300 98.2 84 22 129/59 93 Ventilator 30% 07/27 2230 07/27 91 Ventilator 30% 07/27 1900 30 07/27 1655 30 07/27 1600 93 Ventilator 30% 07/27 1600 98.4 83 16 104/60 93 Ventilator 30% Intake & Output 07/28 1600 07/28 0800 07/28 0000 Intake Total 1165 1332.8 Output Total 880 685 Balance 285 647.8 Intake, IV 675 772.8 Intake, Other 330 400 Intake, Tube 160 160 Irrigant Number 1 Bowel Movements Output, Urine 880 685 Exam General Appearance: intubated, lethargic Weaning Parameters NIF: 25 Minute Volume: 4.32 Resp rate: 45 Vt: 096 Heart Rate: 104 Current Medications: Current Medications Sig/Shobha Start time Last Medication Dose Route Stop Time Status Admin Acetaminophen 1,000 MG Q6P PRN 07/25 1730 AC 07/25 N/A 1 UNIT IV 1735 Albuterol Sulfate 3 ML EVERY 4 HRS/AWAKE 07/25 0945 AC 07/28 INH 1149 Cyanocobalamin 1,000 MCG DAILY 07/25 1113 AC 07/28 PO 1000 Dextrose/Sodium 1,000 ML Q20H 07/25 0800 AC 07/28 Chloride IV 0551 Famotidine 20 MG DAILY 07/25 1108 AC 07/28 PO 1000 Folic Acid 1 MG DAILY 07/25 1113 AC 07/28 PO 1000 Heparin Sodium 5,000 UNIT Q8 07/25 1400 AC 07/28 (Porcine) SC 0535 Insulin Human Regular 0 Q6 07/25 1200 AC 07/28 SC 1200 Ipratropium [place] 2.5 ML EVERY 4 HRS/AWAKE 07/25 0945 AC 07/28 INH 1149 Lorazepam 0.5 MG Q4 07/27 1400 AC 07/28 IV 1000 Oseltamivir Phosphate 30 MG BID 07/25 1030 AC 07/28 PO 07/31 2159 1000 Polyethylene Glycol 17 GM DAILY 07/26 1000 AC 07/28 PO 1000 Potassium Chloride 40 MEQ ONCE ONE 07/28 0715 DC 07/28 PO 07/28 0716 1000 Prednisone 30 MG DAILY 07/28 1000 AC 07/28 PO 1000 Propofol 1,000 MG Q5H 07/26 1645 AC 07/28 N/A 100 ML IV 0900 Senna 187 MG AT BEDTIME 07/26 2200 AC 07/27 PO 2248 Thiamine HCl 100 MG DAILY 07/25 1113 AC 07/28 PO 1000 Impression/Plan Impression/Problem List Impression: This is a 80-year-old female with history of severe COPD, chronic HFrEF with LVEF 40%, multifocal atrial tachycardia who was admitted to ICU for hypercarbic respiratory failure likely secondary to pneumonia versus COPD exacerbation . [facility] to the emergency room where she was found to be hypoxic and confused, she was short of breath, coughing, and wheezing, she was subsequently intubated. History was obtained from the nurse at [facility]. She was found to have an oxygen saturation of 76% in the field , which improved to 95% on 3 L. She was noted to have high fevers, and was found to be positive for influenza infection. She has been managed for following conditions in ICU: Respiratory/Infectios disease: Acute Hypercarbic respiratory failure in setting of END Stage COPD: -Enroute to hospital she was found to have an oxygen saturation of 76% in the field, which improved to 95% on 3 L. ABGs upon presentation 7.25/96/82/41, she was initially put on BIPAP, but she remained hypoxic and confused and thus was intubated. Repeat ABGs improved. -Likely secondary to pneumonia and/or COPD exacerbation in setting of End stage COPD, CXR showed bibasilar opacities that may present a consolidative disease, patient has been spiking fever, patient started on Ceftazidime and vancomycin to cover for gram negatives organisms (HCAP given the fact that she does reside in detention), sputum and blood cx no growth so far, will follow up. urine strep and Legionella antigens negative. -She was also found to be positive for Flu, started on Tamiflu. * [facility], will try weaning trials today * Discontinued ceftazidime and vancomycin * Sputum and blood Cx NGTD * Cont monitoring White count and fever * Cont Tamiflu for influenza * Solumedrol 40mg daily Metabolic: Diabetes mellitus: Insulin sliding scale Monitor finger sticks, tube feed changed to glucerna as fingersticks were running high. Hypokalemia: Replaced. Will follow repeat labs replace as needed. Hypomagnesemia: Replaced. Will follow repeat labs replace as needed. CVS: Hypertension: Patient was hypotensive upon presentation, continues to have systolic blood pressure towards lower side. Patient has Hx of systolic heart failure with ejection fraction of 40% per echocardiogram in March 2016 * Cont to hold furosemide, diltiazem, lisinopril, and metoprolol for now because of the risk of hypotension in the setting of infection, will resume once patient more stable. * Cardiology on baoard, will f/u recs. Ailmentary: On tube feeds, glucerna DVT prophylaxis with subcutaneous heparin Pain pathway Full code Problem List: 1. COPD (chronic obstructive pulmonary disease) 2. Influenza 3. Hypercapnic respiratory failure Pain Ratin Tomorrow's Labs & Rationales: icu bundle cbc Plan DVT/Prophylaxis: pharmacological
[2016-07-27 08:00] VITALS: BP 106/72
--- NOTE | 2016-07-27 08:30 | NUR ---
AT 0800 REC'D THE PT ORALLY INTUBATED AND MECHANICALLY VENTILATED PER MD ORDER. PT WAS BANGING ON THE SIDE RAIL AND MOVING ABOUT THE BED WITH AN SAS OF 5 DESPITE BEING ON PROPOFOL 40MCG/KG/MIN. THE PROPOFOL WAS INCREASED TO 45MCG/KG/MIN OR 19.4ML/HR, PT HAS DRIFTED OFF TO SLEEP AT THISTIME WITH AN SAS OF 3. IN ADDITION, THE PT IS ATTEMPTING TO TALK AROUND THE ETT. CLIPBOARD AND PAPER PROVIDED TO WRITE NOTES. WHNE THE PT'S BW RESTRAINTS WERE UNTIED TO PROVIDE PERICARE/LINEN CHANGE FOR FECAL INCONTINENCE PT ATTEMPTED TO PULL AT ETT. BW RESTRAINTS REMAIN IN PLACE. PT IS IN A NSR WITHOUT ECTOPY PER THE [facility]. ANA BS ARE DIMINISHED WITH AN O2 SAT OF 96% ON AN FIO2 OF 35%. ABD IS SOFT WITH NORMOACTIVE BOWEL SOUNDS. OGT WITH GLUCERNA 1.2 BEING ADMINISTERED AT 50ML/HR(GOAL RATE) ALONG WITH 80ML WATER FLUSHES Q4H. 5ML RESIDUAL NOTED. PT INCONTINENT OF LARGE SOFT BROWN STOOL. LORA DRAINING LG AMOUNTS OF CLEAR PALE YELLOW URINE. THE PROPOFOL AND D5 1/2NS AT 75ML/HR INFUSING VIA THE KIKO TRIPLE LUMEN PICC.
--- NOTE | 2016-07-27 12:03 | NUR ---
PT BECAME VERY ALERT AND DESPITE BEING ON PROPOFOL AT 45MCG AND HAVING ANA WRSIT RESTRAINTS IN PLACE SLID DOWN IN THE BED AND ATTEMPTED TO REMOVE ETT. THE PROPOFOL WAS INCREASED TO 50MCG/KG/MIN OR 21.6ML/HR. DR MELL ABAD NOTIFIED.
--- NOTE | 2016-07-27 12:14 | PN- Cardiology ---
Subjective Subjective: The patient remains intubated and sedated. Blood pressure borderline. No new cardiac issues noted. Objective Vital Signs and I&Os Vital Signs Date Time Temp Pulse Resp B/P Pulse O2 O2 Flow FiO2 Ox Delivery Rate 07/27 0951 35 07/27 0800 97.2 90 17 106/72 96 Ventilator 35% 07/27 0630 35 07/27 0400 95 Ventilator 35% 07/27 0312 35 07/27 0134 35 07/27 0000 95 Ventilator 35% 07/26 2300 98.7 78 22 110/52 95 Ventilator 35% 07/26 2210 35 07/26 2000 35 07/26 2000 99 Ventilator 35% 07/26 1648 35 07/26 1600 97 Ventilator 35% 07/26 1600 98.5 110 26 100/56 95 Ventilator 35% 07/26 1405 35 Intake & Output 07/27 1600 07/27 0800 07/27 0000 07/26 1600 07/26 0800 07/26 0000 Intake Total 1192 930.2 1092 869.4 828.6 Output Total 215 455 700 450 Balance 977 475.2 1092 169.4 378.6 Intake, IV 637 555.2 572 563.4 798.6 Intake, Oral 0 0 0 Intake, Other 395 160 Intake, Tube 375 300 146 30 Feeding Intake, Tube 160 220 Irrigant Number 1 0 0 0 Bowel Movements Output, Urine 215 455 700 450 Physical Exam: General: The patient is in no acute distress HEENT: Normal Neck: Supple with no JVD, no masses, and no thyromegaly Lungs: Bilateral rhonchi Heart: RRR, S1, S2, 1/6 systolic murmur. Abdomen: Soft, nontender, no masses. No hepatomegaly. No splenomegaly Extremities: No clubbing or cyanosis. Normal muscle strength in the upper and lower extremities Skin: Normal skin turgor with no skin ulcers or lesions noted. Current Medications: Current Medications Sig/Shobha Start time Last Medication Dose Route Stop Time Status Admin Acetaminophen 1,000 MG Q6P PRN 07/25 1730 AC 07/25 N/A 1 UNIT IV 1735 Albuterol Sulfate 3 ML EVERY 4 HRS/AWAKE 07/25 0945 AC 07/27 INH 0942 Cyanocobalamin 1,000 MCG DAILY 07/25 1113 AC 07/27 PO 0954 Dextrose/Sodium 1,000 ML Q20H 07/25 0800 AC 07/26 Chloride IV 2359 Famotidine 20 MG DAILY 07/25 1108 AC 07/27 PO 0954 Folic Acid 1 MG DAILY 07/25 1113 AC 07/27 PO 0954 Heparin Sodium 5,000 UNIT Q8 07/25 1400 AC 07/27 (Porcine) SC 0514 Insulin Human Regular 0 Q6 07/25 1200 AC 07/27 SC 0516 Ipratropium [place] 2.5 ML EVERY 4 HRS/AWAKE 07/25 0945 AC 07/27 INH 0942 Methylprednisolone 40 MG DAILY 07/26 1000 AC 07/27 IV 0954 Oseltamivir Phosphate 30 MG BID 07/25 1030 AC 07/27 PO 07/31 2159 0954 Polyethylene Glycol 17 GM DAILY 07/26 1000 AC 07/26 PO 0959 Propofol 1,000 MG Q5H 07/26 1645 AC 07/27 N/A 100 ML IV 0815 Propofol 1,000 MG .STK-MED ONE 07/26 1420 DC IV 07/26 1421 Propofol 1,000 MG Q12H 07/25 1000 DC 07/26 N/A 100 ML IV 0535 Senna 187 MG AT BEDTIME 07/26 2200 AC 07/26 PO 2115 Thiamine HCl 100 MG DAILY 07/25 1113 AC 07/27 PO 0954 Results Last 48 Hrs of Labs/Mics: Laboratory Tests 07/27/16 0540: pH 7.45, pCO2 47 H, pO2 84, HCO3 32 H, ABG O2 Sat (Measured) 96.0, Carboxyhemoglobin 0.4 L, O2 Concentration % .35, Respiration Rate 12, O2 Delivery Method VENT, Vent Mode AC, Expiratory Pressure 5, Tidal Volume 450, Phlebotomy Draw Site RIGHT RADIAL 07/27/16 0230: Anion Gap 4 L, Estimated GFR > 60, Glucose 171 H, Calcium 8.8, Phosphorus 3.9, Magnesium 2.3, Total Bilirubin 0.2, AST 29, ALT 57 H, Albumin 2.6 L, CBC w Diff NO MAN DIFF REQ, RBC 2.97 L, MCV 102.0 H, MCH 32.3 H, RDW 15.5 H, MPV 8.0, Gran % 85.8 H, Lymphocytes % 7.9 L, Monocytes % 6.1, Eosinophils % 0.1, Basophils % 0.1, Absolute Granulocytes 9.7 H, Absolute Lymphocytes 0.9 L, Absolute Monocytes 0.7 H, Absolute Eosinophils 0, Absolute Basophils 0, PUBS MCHC 31.7 L 07/26/16 0620: pH 7.44, pCO2 49 H, pO2 80, HCO3 32 H, ABG O2 Sat (Measured) 96.0, P-50 (Temp Corrected) N, Carboxyhemoglobin 0.5 L, O2 Concentration % 35%, Respiration Rate 12, O2 Delivery Method VENT, Vent Mode AC, Expiratory Pressure 5, Tidal Volume 450, Pressure Support 0, Phlebotomy Draw Site LEFT RADIAL 07/26/16426: Troponin I < 0.01 07/26/16426: Anion Gap 8, Estimated GFR > 60, Glucose 208 H, Calcium 8.4, Phosphorus 2.8, Magnesium 1.8, Total Bilirubin 0.2, AST 13 L, ALT 46, Albumin 2.7 L, CBC w Diff MAN DIFF ORDERED, RBC 2.91 L, MCV 101.8 H, MCH 33.5 H, RDW 14.7 H, MPV 9.2, Gran % 88.3 H, Lymphocytes % 8.3 L, Monocytes % 3.1, Eosinophils % 0, Basophils % 0.3, Absolute Granulocytes 8.3 H, Segmented Neutrophils 90 H, Band Neutrophils 7 H, Absolute Lymphocytes 0.8 L, Lymphocytes 2 L, Monocytes 1 L, Absolute Monocytes 0.3, Absolute Eosinophils 0, Absolute Basophils 0, Platelet Estimate ADEQUATE, Hypochromic-Microcytic 1+, Poikilocytosis 1+, PUBS MCHC 32.9 L 07/26/16 010: Troponin I Cancelled 07/25/162207: Troponin I < 0.01 07/25/16 1815: pH 7.54 H, pCO2 36, pO2 71 L, HCO3 30 H, ABG O2 Sat (Measured) 94.0 L, P-50 (Temp Corrected) Y, Carboxyhemoglobin 1.2 L, O2 Concentration % 30, Temperature 101.1 H, Respiration Rate 15, O2 Delivery Method ESPRIT, Vent Mode AC, Expiratory Pressure 5, Tidal Volume 500, Phlebotomy Draw Site LEFT RADIAL Assessment/Plan Assessment/Plan Assessment: 1. End-stage COPD 2. Chronic systolic heart failure 3. History of multifocal atrial tachycardia 4. Acute respiratory failure secondary to influenza pneumonia 5. No evidence of acute systolic heart failure at this time. Recommendations: -Continue current supportive care -When the patient is more stable, slowly restart cardiac medications as tolerated by blood pressure -Otherwise, continue as per the ICU team. Continue telemetry? Yes
--- NOTE | 2016-07-27 13:52 | PN- CRCU ---
Subjective HPI/Critical Care Issues: Patient seen and examined this morning. She is lying in bed in no acute distress. He is intubated, sedated, but arousable, remains on propofol drip Blood pressure has been fluctuating between 100 to 110, remains on mechanical ventilation assist control, FiO2 of 35, satting 95%. Remains on Tamiflu for influenza. Antibodies discontinued yesterday as patient has remained afebrile, white count has been stable, sputum cultures did not grow anything. Objective Current Medications: Current Medications Sig/Shobha Start time Last Medication Dose Route Stop Time Status Admin Acetaminophen 1,000 MG Q6P PRN 07/25 1730 AC 07/25 N/A 1 UNIT IV 1735 Albuterol Sulfate 3 ML EVERY 4 HRS/AWAKE 07/25 0945 AC 07/27 INH 0942 Cyanocobalamin 1,000 MCG DAILY 07/25 1113 AC 07/27 PO 0954 Dextrose/Sodium 1,000 ML Q20H 07/25 0800 AC 07/26 Chloride IV 2359 Famotidine 20 MG DAILY 07/25 1108 AC 07/27 PO 0954 Folic Acid 1 MG DAILY 07/25 1113 AC 07/27 PO 0954 Heparin Sodium 5,000 UNIT Q8 07/25 1400 AC 07/27 (Porcine) SC 0514 Insulin Human Regular 0 Q6 07/25 1200 AC 07/27 SC 1155 Ipratropium [place] 2.5 ML EVERY 4 HRS/AWAKE 07/25 0945 AC 07/27 INH 0942 Lorazepam 0.5 MG Q4 07/27 1400 AC IV Methylprednisolone 40 MG DAILY 07/26 1000 AC 07/27 IV 0954 Oseltamivir Phosphate 30 MG BID 07/25 1030 AC 07/27 PO 07/31 2159 0954 Polyethylene Glycol 17 GM DAILY 07/26 1000 AC 07/26 PO 0959 Propofol 1,000 MG Q5H 07/26 1645 AC 07/27 N/A 100 ML IV 1305 Propofol 1,000 MG .STK-MED ONE 07/26 1420 DC IV 07/26 1421 Propofol 1,000 MG Q12H 07/25 1000 DC 07/26 N/A 100 ML IV 0535 Senna 187 MG AT BEDTIME 07/26 2200 AC 07/26 PO 2115 Thiamine HCl 100 MG DAILY 07/25 1113 AC 07/27 PO 0954 Vital Signs & I&O Last 24 Hrs of Vitals and I&O: Vital Signs Date Time Temp Pulse Resp B/P Pulse O2 O2 Flow FiO2 Ox Delivery Rate 07/27 1220 30 07/27 1200 93 Ventilator 35% 07/27 0951 35 07/27 0800 96 Ventilator 35% 07/27 0800 97.2 90 17 106/72 96 Ventilator 35% 07/27 0630 35 07/27 0400 95 Ventilator 35% 07/27 0312 35 07/27 0134 35 07/27 0000 95 Ventilator 35% 07/26 2300 98.7 78 22 110/52 95 Ventilator 35% 07/26 2210 35 07/26 2000 35 07/26 2000 99 Ventilator 35% 07/26 1648 35 07/26 1600 97 Ventilator 35% 07/26 1600 98.5 110 26 100/56 95 Ventilator 35% 07/26 1405 35 Intake & Output 07/27 1600 07/27 0800 07/27 0000 Intake Total 1192 930.2 Output Total 215 455 Balance 977 475.2 Intake, IV 637 555.2 Intake, Other 395 Intake, Tube 375 Feeding Intake, Tube 160 Irrigant Number 1 Bowel Movements Output, Urine 215 455 Impression/Plan Impression/Plan Impression/Plan: Physical Exam General Appearance intubated sedated, easily arousable PICC line in HEENT Atraumatic, responds to light Cardiovascular Normal S1, Normal S2 Lungs b/l wheezing and ronchii Abdomen Normal Bowel Sounds, Soft, No Tenderness Extremities No Clubbing, No Cyanosis, No Edema Moves all extremities 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, hypertension, previous significant alcohol use, smoking up until recently, osteoporosis, was recently in [facility] with respiratory insufficiency subsequently was transferred to [facility]. In the [facility] [place] [facility] she was noted to have tachypnea cough and hypoxemia and was sent to the emergency room. In the emergency room she was found to be in significant respiratory failure and was intubated. When I saw her she was intubated and sedated. Her issues include * Acute hypercarbic and hypoxemic respiratory failure related to end-stage lung disease with COPD exacerbation with influenza pneumonia * Bibasilar atelectasis so far sputum culture shows no organisms * Systolic heart disease with hypotension * Alcohol abuse up until recently but patient has not had any alcohol in the past few weeks as she was in the hospital and rehabilitation facility hence she is at no risk for withdrawal * Previous history of hypertension hyperlipidemia ischemic heart * Significant osteoporosis RECOMMENDATION * Continue mechanical ventilator, start pressure-support ventilation trials today * Continue Tamiflu, as sputum does not show any organisms we will discontinue her antibacterial antibiotics * Changed to prednisone 30 mg daily, follow fingerstick and cover with insulin. * [id number] nebulizer therapy * Continue low-dose propofol, and Ativan [id number] 0.5 or 1 mg every 4 hours * Stool softeners * Aggressively replace potassium to be more than 4. Discussed with the over the telephone family meeting Monday patient has a living will patient is critically ill total time spent 35 minutes Celso piedra
[2016-07-27 16:00] VITALS: BP 104/60
[2016-07-27 23:00] VITALS: BP 129/59
[2016-07-28 06:21] LABS: ABSOLUTE BASOPHIL COUNT 0 /CUMM (0.0-0.2); ABSOLUTE EOSINOPHIL COUNT 0 /CUMM (0.0-0.7); ABSOLUTE GRANULOCYTE CT 9.3 /CUMM (1.4-6.5); ABSOLUTE LYMPH COUNT 1.3 /CUMM (1.2-3.4); ABSOLUTE MONOCYTE COUNT 0.5 /CUMM (0.10-0.60); BASOPHIL % 0.3 % (0.0-2.0); EOSINOPHIL % 0.1 % (0-5); GRANULOCYTE % 83.3 % (42.2-75.2); HEMATOCRIT 29.9 % (37-47); MEAN CORPUSCULAR HGB 32.1 PG (27.0-31.0); MEAN CORPUSCULAR HGB CONC 31.7 G/DL (33.0-37.0); MEAN CORPUSCULAR VOLUME 101.5 FL (81.0-99.0); MEAN PLATELET VOLUME 8.8 FL (7.4-10.4); PLATELET COUNT 250 /CUMM (130-400); RBC DISTRIBUTION WIDTH 15.4 % (11.5-14.5); RED BLOOD CELL CT 2.94 /CUMM (4.20-5.40); WHITE BLOOD CELL COUNT 11.1 /CUMM (4.8-10.8)
--- NOTE | 2016-07-28 06:27 | RADIOLOGY REPORT ---
EXAMINATION: XR PORTABLE CHEST CLINICAL INFORMATION: Status post intubation. COMPARISON: Chest radiograph 07/27/2016. TECHNIQUE: Portable AP view of the chest was obtained. FINDINGS: The distal tip of the endotracheal tube terminates 5 cm above the oliver. An enteric tube terminates within the stomach. There is a right subclavian line with its distal tip located within the lower SVC, unchanged from prior. A few coarse linear markings within the lung bases most likely represent a manifestation of subsegmental atelectasis. Aeration within the lower lobes has improved. No overt consolidative disease or effusion. The cardiac silhouette and upper mediastinal contours are normal. No acute osseous finding. 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 IMPRESSION: The endotracheal tube terminates 5 cm above the oliver. There is slightly improved aeration within the lung bases. No new consolidative disease or effusion.
[2016-07-28 07:00] VITALS: BP 86/46
--- NOTE | 2016-07-28 07:24 | PN- Resident CRCU ---
Subjective HPI/CRCU Issues: Patient seen and examined this morning. She is lying in bed in no acute distress. Remains intubated, sedated, but arousable, remains on propofol drip. She had a successfull weaning trial today. Blood pressure has been fluctuating between 80-110. remains on mechanical ventilation assist control, FiO2 of 30%, satting 95%. Remains on Tamiflu for influenza. Antibiotics discontinued as patient has remained afebrile, white count has been stable, sputum cultures did not grow anything. Objective Vital Signs & I&O Last 8 Hrs of Vitals and I&O: Laboratory Tests 07/28/16 0600: pH 7.45, pCO2 47 H, pO2 75 L, HCO3 32 H, ABG O2 Sat (Measured) 95.0 L, P-50 (Temp Corrected) N, Carboxyhemoglobin 0.7 L, O2 Concentration % .30, Respiration Rate 12, O2 Delivery Method VENT, Vent Mode A/C, Expiratory Pressure 5, Tidal Volume 450, Phlebotomy Draw Site LEFT RADIAL 07/28/16 0430: Anion Gap 4 L, Estimated GFR > 60, Glucose 114 H, Calcium 9.0, Phosphorus 4.1, Magnesium 2.2, Total Bilirubin 0.2, AST 17, ALT 58 H, Albumin 2.5 L, CBC w Diff NO MAN DIFF REQ, RBC 2.94 L, MCV 101.5 H, MCH 32.1 H, RDW 15.4 H, MPV 8.8, Gran % 83.3 H, Lymphocytes % 12.1 L, Monocytes % 4.2, Eosinophils % 0.1, Basophils % 0.3, Absolute Granulocytes 9.3 H, Absolute Lymphocytes 1.3, Absolute Monocytes 0.5, Absolute Eosinophils 0, Absolute Basophils 0, PUBS MCHC 31.7 L Vital Signs Date Time Temp Pulse Resp B/P Pulse O2 O2 Flow FiO2 Ox Delivery Rate 07/28 0855 07/28 0700 97.3 64 12 86/46 94 Ventilator 30% 07/28 0620 07/28 0400 95 Ventilator 30% 07/28 0314 07/28 0029 07/28 0000 94 Ventilator 30% 07/27 2300 98.2 84 22 129/59 93 Ventilator 30% 07/27 2230 07/27 2000 91 Ventilator 30% 07/27 1900 07/27 1655 07/27 1600 93 Ventilator 30% 07/27 1600 98.4 83 16 104/60 93 Ventilator 30% 07/27 1405 30 07/27 1220 30 07/27 1200 93 Ventilator 35% 07/27 0951 35 Intake & Output 07/28 1600 07/28 0800 07/28 0000 Intake Total 1165 1332.8 Output Total 880 685 Balance 285 647.8 Intake, IV 675 772.8 Intake, Other 330 400 Intake, Tube 160 160 Irrigant Number 1 Bowel Movements Output, Urine 880 685 Exam General Appearance: well developed/nourished, intubated, lethargic Head: atraumatic, normal appearance Respiratory: normal breath sounds Cardiovascular: regular rate/rhythm Gastrointestinal: normal bowel sounds, soft Extremities: normal inspection, no edema Weaning Parameters NIF: 26 Minute Volume: 6.55 Resp rate: 35 Vt: 185 Heart Rate: 92 Weaning Schedule Start Time: 1900 Minute Volume: 9.11 Resp Rate: 29 Vt: 340 Heart Rate: 90 End Time: 1935 Minute Volume: 9.71 Resp Rate: 31 Vt: 320 Heart Rate: 92 Current Medications: Current Medications Sig/Shobha Start time Last Medication Dose Route Stop Time Status Admin Acetaminophen 1,000 MG Q6P PRN 07/25 1730 AC 07/25 N/A 1 UNIT IV 1735 Albuterol Sulfate 3 ML EVERY 4 HRS/AWAKE 07/25 0945 AC 07/28 INH 0836 Cyanocobalamin 1,000 MCG DAILY 07/25 1113 AC 07/27 PO 0954 Dextrose/Sodium 1,000 ML Q20H 07/25 0800 AC 07/28 Chloride IV 0551 Famotidine 20 MG DAILY 07/25 1108 AC 07/27 PO 0954 Folic Acid 1 MG DAILY 07/25 1113 AC 07/27 PO 0954 Heparin Sodium 5,000 UNIT Q8 07/25 1400 AC 07/28 (Porcine) SC 0535 Insulin Human Regular 0 Q6 07/25 1200 AC 07/28 SC 0548 Ipratropium [place] 2.5 ML EVERY 4 HRS/AWAKE 07/25 0945 AC 07/28 INH 0836 Lorazepam 0.5 MG Q4 07/27 1400 AC 07/28 IV 0535 Methylprednisolone 40 MG DAILY 07/26 1000 DC 07/27 IV 0954 Oseltamivir Phosphate 30 MG BID 07/25 1030 AC 07/27 PO 07/31 2159 2249 Polyethylene Glycol 17 GM DAILY 07/26 1000 AC 07/26 PO 0959 Potassium Chloride 40 MEQ ONCE ONE 07/28 0715 DC PO 07/28 0716 Prednisone 30 MG DAILY 07/28 1000 AC PO Propofol 1,000 MG Q5H 07/26 1645 AC 07/28 N/A 100 ML IV 0428 Senna 187 MG AT BEDTIME 07/26 2200 AC 07/27 PO 2248 Thiamine HCl 100 MG DAILY 07/25 1113 AC 07/27 PO 0954 Impression/Plan Impression/Problem List Impression: This is a 80-year-old female with history of severe COPD, chronic HFrEF with LVEF 40%, multifocal atrial tachycardia who was admitted to ICU for hypercarbic respiratory failure likely secondary to pneumonia versus COPD exacerbation . She was brought in from custodial facility to the emergency room where she was found to be hypoxic and confused, she was short of breath, coughing, and wheezing, she was subsequently intubated. History was obtained from the nurse at [facility]. She was found to have an oxygen saturation of 76% in the field , which improved to 95% on 3 L. She was noted to have high fevers, and was found to be positive for influenza infection. She has been managed for following conditions in ICU: Respiratory/Infectios disease: Acute Hypercarbic respiratory failure in setting of END Stage COPD: -Enroute to hospital she was found to have an oxygen saturation of 76% in the field, which improved to 95% on 3 L. ABGs upon presentation 7.25/96/82/41, she was initially put on BIPAP, but she remained hypoxic and confused and thus was intubated. Repeat ABGs improved. -Likely secondary to pneumonia and/or COPD exacerbation in setting of End stage COPD, CXR showed bibasilar opacities that may present a consolidative disease, patient has been spiking fever, patient started on Ceftazidime and vancomycin to cover for gram negatives organisms (HCAP given the fact that she does reside in custodial), sputum and blood cx no growth so far, will follow up. urine strep and Legionella antigens negative. -She was also found to be positive for Flu, started on Tamiflu. * Remains intubated and on mech vent, successful weaning trial today * Watching off of antibiotics * Sputum and blood Cx NGTD * Cont monitoring White count and fever * Cont Tamiflu for influenza * Prednisone 30mg today, followed by taper Metabolic: Diabetes mellitus: Insulin sliding scale Monitor finger sticks, tube feed changed to glucerna as fingersticks were running high. Hypokalemia: Replaced. Will follow repeat labs replace as needed. Hypomagnesemia: Replaced. Will follow repeat labs replace as needed. CVS: Hypertension: Patient was hypotensive upon presentation, continues to have systolic blood pressure towards lower side. Patient has Hx of systolic heart failure with ejection fraction of 40% per echocardiogram in March 2016 * Cont to hold furosemide, diltiazem, lisinopril, and metoprolol for now because of the risk of hypotension in the setting of infection, will resume once patient more stable. * Cardiology on baoard, will f/u recs. Ailmentary: On tube feeds, glucerna DVT prophylaxis with subcutaneous heparin Pain pathway Full code Problem List: 1. COPD (chronic obstructive pulmonary disease) 2. Multifocal atrial tachycardia 3. Hypercapnic respiratory failure Pain Ratin Tomorrow's Labs & Rationales: icu bundle cbc for wbc monitoring Plan DVT/Prophylaxis: pharmacological
--- NOTE | 2016-07-28 07:40 | NUR ---
RECEIVED PATIENT FROM ER ACCOMPANIED BY ER STAFF VIA STRETCHER, TRSNFER TO ICU BED, HOOKED TO BEDSIDE MONITOR. PATIENT IS DROWSY BUT ALERT AND ORIENTED X 3, OPEN THE EYES SPONTANEOUSLY, PERRLA 3MM, MOVING ALL THE LIMBS WITH GOOD STRENGHT, COMPALIN OF MILD BACK PAIN SCOPRE OF 2/10, RELEIVED BY REPOSITIONING.AFEBRILE,ON SINUS RHYTHM, HR 60'S TO 90'S, SYSTOLIC BLOOD PRESSURE STABLE AT 90'S TO 120'S. BREATHING SPONTANEOUSLY ON NC AT 2LITERS, HAS GOOD AIR ENTRY BILATERALLY WITH CLEAR TO DIMINISHED LUNG SOUNDS ON BOTH LUNG HDEZ, SATURATING AT 92 TO 95%, NOT IN DISTRESS,AT 2300 PATIENT WAS PLACED ON BiPAP AT 25%, AT 0530 PATIENT REQUEST TO REMOVED THE BiPAP MASK BECAUSE SHE IS NOT COMFORTABLE WITH THE MASK, RT INFORMED THAT BiPAP WAS REMOVED. PATIENT WAS PLACED ON 2L NC BUT SATURATION IS 91% ONLY, OXYGEN INCREASED TO 3 LITERS SATURATION PICKED UP TO 94%. ABDOMEN IS OBESE, ROUND, SOFT, GOOD BOWEL SOUNDS, LAST BM WAS YESTERDAY. BLADDER IS NOT DISTENDER, HAS GOOD URINE OUTPUT 50 TO 100 CC/HR VIA LORA CATHETER. SKIN CONDITION IS INTACT. AT 0630, RECEIVED A CALL FROM LAB, TROPONIN IS 0.34 RESULT RELAYED TO MD ON DUTY.
--- NOTE | 2016-07-28 10:18 | PN- Cardiology ---
Subjective Subjective: The patient remains intubated and sedated. She is off pressors, and blood pressure remains borderline. Antibiotics have been discontinued. She remains on Tamiflu for influenza. Objective Vital Signs and I&Os Vital Signs Date Time Temp Pulse Resp B/P Pulse O2 O2 Flow FiO2 Ox Delivery Rate 07/28 0855 30 07/28 0700 97.3 64 12 86/46 94 Ventilator 30% 07/28 0620 30 07/28 0400 95 Ventilator 30% 07/28 0314 30 07/28 0029 30 07/28 0000 94 Ventilator 30% 07/27 2300 98.2 84 22 129/59 93 Ventilator 30% 07/27 2230 30 07/27 2000 91 Ventilator 30% 07/27 1900 30 07/27 1655 30 07/27 1600 93 Ventilator 30% 07/27 1600 98.4 83 16 104/60 93 Ventilator 30% 07/27 1405 30 07/27 1220 07/27 1200 93 Ventilator 35% Intake & Output 07/28 1600 07/28 0800 07/28 0000 07/27 1600 07/27 0800 07/27 0000 Intake Total 1165 1332.8 1550 1192 930.2 Output Total 570 037 6327 215 455 Balance 285 647.8 200 977 475.2 Intake, IV 675 772.8 876 637 555.2 Intake, Other 330 400 20 395 Intake, Tube 414 375 Feeding Intake, Tube 160 160 240 160 Irrigant Number 1 2 1 Bowel Movements Output, Urine 869 740 8887 215 455 Physical Exam: Gen: The patient is in no acute distress HEENT: Normal nose, ears, and oropharynx. Pupils equal bilaterally. Conjunctiva normal. Neck: Supple with no JVD, no masses, and no thyromegaly Lungs: Bilateral rhonchi with decreased respiratory effort on the ventilator Heart: RRR, S1, S2, 1/6 systolic murmur. No peripheral edema, 2+ pulses in the lower extremities bilaterally Abdomen: Soft, nontender, no masses. No hepatomegaly. No splenomegaly Extremities: No clubbing or cyanosis. Normal muscle strength in the upper and lower extremities Skin: Normal skin turgor with no skin ulcers or lesions noted. Current Medications: Current Medications Sig/Shobha Start time Last Medication Dose Route Stop Time Status Admin Acetaminophen 1,000 MG Q6P PRN 07/25 1730 AC 07/25 N/A 1 UNIT IV 1735 Albuterol Sulfate 3 ML EVERY 4 HRS/AWAKE 07/25 0945 AC 07/28 INH 0836 Cyanocobalamin 1,000 MCG DAILY 07/25 1113 AC 07/27 PO 0954 Dextrose/Sodium 1,000 ML Q20H 07/25 0800 AC 07/28 Chloride IV 0551 Famotidine 20 MG DAILY 07/25 1108 AC 07/27 PO 0954 Folic Acid 1 MG DAILY 07/25 1113 AC 07/27 PO 0954 Heparin Sodium 5,000 UNIT Q8 07/25 1400 AC 07/28 (Porcine) SC 0535 Insulin Human Regular 0 Q6 07/25 1200 AC 07/28 SC 0548 Ipratropium [place] 2.5 ML EVERY 4 HRS/AWAKE 07/25 0945 AC 07/28 INH 0836 Lorazepam 0.5 MG Q4 07/27 1400 AC 07/28 IV 0535 Methylprednisolone 40 MG DAILY 07/26 1000 DC 07/27 IV 0954 Oseltamivir Phosphate 30 MG BID 07/25 1030 AC 07/27 PO 07/31 2159 2249 Polyethylene Glycol 17 GM DAILY 07/26 1000 AC 07/26 PO 0959 Potassium Chloride 40 MEQ ONCE ONE 07/28 0715 DC PO 07/28 0716 Prednisone 30 MG DAILY 07/28 1000 AC PO Propofol 1,000 MG Q5H 07/26 1645 AC 07/28 N/A 100 ML IV 0428 Senna 187 MG AT BEDTIME 07/26 2200 AC 07/27 PO 2248 Thiamine HCl 100 MG DAILY 07/25 1113 AC 07/27 PO 0954 Results Last 48 Hrs of Labs/Mics: Laboratory Tests 07/28/16 0600: pH 7.45, pCO2 47 H, pO2 75 L, HCO3 32 H, ABG O2 Sat (Measured) 95.0 L, P-50 (Temp Corrected) N, Carboxyhemoglobin 0.7 L, O2 Concentration % .30, Respiration Rate 12, O2 Delivery Method VENT, Vent Mode A/C, Expiratory Pressure 5, Tidal Volume 450, Phlebotomy Draw Site LEFT RADIAL 07/28/16 0430: Anion Gap 4 L, Estimated GFR > 60, Glucose 114 H, Calcium 9.0, Phosphorus 4.1, Magnesium 2.2, Total Bilirubin 0.2, AST 17, ALT 58 H, Albumin 2.5 L, CBC w Diff NO MAN DIFF REQ, RBC 2.94 L, MCV 101.5 H, MCH 32.1 H, RDW 15.4 H, MPV 8.8, Gran % 83.3 H, Lymphocytes % 12.1 L, Monocytes % 4.2, Eosinophils % 0.1, Basophils % 0.3, Absolute Granulocytes 9.3 H, Absolute Lymphocytes 1.3, Absolute Monocytes 0.5, Absolute Eosinophils 0, Absolute Basophils 0, PUBS MCHC 31.7 L 07/27/16 0540: pH 7.45, pCO2 47 H, pO2 84, HCO3 32 H, ABG O2 Sat (Measured) 96.0, Carboxyhemoglobin 0.4 L, O2 Concentration % .35, Respiration Rate 12, O2 Delivery Method VENT, Vent Mode AC, Expiratory Pressure 5, Tidal Volume 450, Phlebotomy Draw Site RIGHT RADIAL 07/27/16 0230: Anion Gap 4 L, Estimated GFR > 60, Glucose 171 H, Calcium 8.8, Phosphorus 3.9, Magnesium 2.3, Total Bilirubin 0.2, AST 29, ALT 57 H, Albumin 2.6 L, CBC w Diff NO MAN DIFF REQ, RBC 2.97 L, MCV 102.0 H, MCH 32.3 H, RDW 15.5 H, MPV 8.0, Gran % 85.8 H, Lymphocytes % 7.9 L, Monocytes % 6.1, Eosinophils % 0.1, Basophils % 0.1, Absolute Granulocytes 9.7 H, Absolute Lymphocytes 0.9 L, Absolute Monocytes 0.7 H, Absolute Eosinophils 0, Absolute Basophils 0, PUBS MCHC 31.7 L Recent Imaging Studies: The endotracheal tube terminates 5 cm above the oliver. There is slightly improved aeration within the lung bases. No new consolidative disease or effusion. Assessment/Plan Assessment/Plan Assessment: 1. End-stage COPD 2. Chronic systolic heart failure 3. History of multifocal atrial tachycardia 4. Acute respiratory failure secondary to influenza pneumonia 5. No evidence of acute systolic heart failure at this time. Plan: * Cardiac medications on hold for hypotension * Ventilatory support as per pulmonary * Tamiflu for influenza Continue telemetry? Yes
--- NOTE | 2016-07-28 10:29 | PN- CRCU ---
Subjective HPI/Critical Care Issues: Patient seen and examined this morning. She is lying in bed in no acute distress. Remains intubated, sedated, but arousable, remains on propofol drip. She had a successfull weaning trial today. Blood pressure has been fluctuating between 80-110. remains on mechanical ventilation assist control, FiO2 of 30%, satting 95%. Remains on Tamiflu for influenza. Antibiotics discontinued as patient has remained afebrile, white count has been stable, sputum cultures did not grow anything. Objective Current Medications: Current Medications Sig/Shobha Start time Last Medication Dose Route Stop Time Status Admin Acetaminophen 1,000 MG Q6P PRN 07/25 1730 AC 07/25 N/A 1 UNIT IV 1735 Albuterol Sulfate 3 ML EVERY 4 HRS/AWAKE 07/25 0945 AC 07/28 INH 0836 Cyanocobalamin 1,000 MCG DAILY 07/25 1113 AC 07/27 PO 0954 Dextrose/Sodium 1,000 ML Q20H 07/25 0800 AC 07/28 Chloride IV 0551 Famotidine 20 MG DAILY 07/25 1108 AC 07/27 PO 0954 Folic Acid 1 MG DAILY 07/25 1113 AC 07/27 PO 0954 Heparin Sodium 5,000 UNIT Q8 07/25 1400 AC 07/28 (Porcine) SC 0535 Insulin Human Regular 0 Q6 07/25 1200 AC 07/28 SC 0548 Ipratropium [place] 2.5 ML EVERY 4 HRS/AWAKE 07/25 0945 AC 07/28 INH 0836 Lorazepam 0.5 MG Q4 07/27 1400 AC 07/28 IV 0535 Methylprednisolone 40 MG DAILY 07/26 1000 DC 07/27 IV 0954 Oseltamivir Phosphate 30 MG BID 07/25 1030 AC 07/27 PO 07/31 2159 2249 Polyethylene Glycol 17 GM DAILY 07/26 1000 AC 07/26 PO 0959 Potassium Chloride 40 MEQ ONCE ONE 07/28 0715 DC PO 07/28 0716 Prednisone 30 MG DAILY 07/28 1000 AC PO Propofol 1,000 MG Q5H 07/26 1645 AC 07/28 N/A 100 ML IV 0428 Senna 187 MG AT BEDTIME 07/26 2200 AC 07/27 PO 2248 Thiamine HCl 100 MG DAILY 07/25 1113 AC 07/27 PO 0954 Vital Signs & I&O Last 24 Hrs of Vitals and I&O: Vital Signs Date Time Temp Pulse Resp B/P Pulse O2 O2 Flow FiO2 Ox Delivery Rate 07/28 0855 30 07/28 0800 95 Ventilator 35% 07/28 0700 97.3 64 12 86/46 94 Ventilator 30% 07/28 0620 30 07/28 0400 95 Ventilator 30% 07/28 0314 30 07/28 0029 30 07/28 0000 94 Ventilator 30% 07/27 2300 98.2 84 22 129/59 93 Ventilator 30% 07/27 2230 30 07/27 2000 91 Ventilator 30% 07/27 1900 30 07/27 1655 30 07/27 1600 93 Ventilator 30% 07/27 1600 98.4 83 16 104/60 93 Ventilator 30% 07/27 1405 30 07/27 1220 30 07/27 1200 93 Ventilator 35% Intake & Output 07/28 1600 07/28 0800 07/28 0000 Intake Total 1165 1332.8 Output Total 880 685 Balance 285 647.8 Intake, IV 675 772.8 Intake, Other 330 400 Intake, Tube 160 160 Irrigant Number 1 Bowel Movements Output, Urine 880 685 Impression/Plan Impression/Plan Impression/Plan: Physical Exam General Appearance intubated sedated, easily arousable PICC line in HEENT Atraumatic, responds to light Cardiovascular Normal S1, Normal S2 Lungs b/l wheezing and ronchii Abdomen Normal Bowel Sounds, Soft, No Tenderness Extremities No Clubbing, No Cyanosis, No Edema Moves all extremities 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, hypertension, previous significant alcohol use, smoking up until recently, osteoporosis, was recently in [facility] with respiratory insufficiency subsequently was transferred to [facility]. In the [facility] home she was noted to have tachypnea cough and hypoxemia and was sent to the emergency room. In the emergency room she was found to be in significant respiratory failure and was intubated. When I saw her she was intubated and sedated. Her issues include * Acute hypercarbic and hypoxemic respiratory failure related to end-stage lung disease with COPD exacerbation with influenza pneumonia * Bibasilar atelectasis so far sputum culture shows no organisms * Systolic heart disease with hypotension * Alcohol abuse up until recently but patient has not had any alcohol in the past few weeks as she was in the hospital and rehabilitation facility hence she is at no risk for withdrawal * Previous history of hypertension hyperlipidemia ischemic heart * Significant osteoporosis RECOMMENDATION * Continue mechanical ventilator, start pressure-support ventilation trials today * Continue Tamiflu, * Changed to prednisone 30 mg daily, follow fingerstick and cover with insulin. * [id number] nebulizer therapy * Continue low-dose propofol, and Ativan [id number] 0.5 or 1 mg every 4 hours * Stool softeners * Aggressively replace potassium to be more than 4. Give potassium 40 meq twice today * One dose of lasix 20 mg iv today Discussed with the over the telephone family meeting Monday patient has a living will patient is critically ill total time spent 35 minutes PT may not tolerate psv trials and prob needs to be extubated to CPAP or bipap upon extubation Pt has a living will and wished no prolonged life support Prog poor
[2016-07-28 16:00] VITALS: BP 98/52
--- NOTE | 2016-07-28 18:49 | RADIOLOGY REPORT ---
EXAMINATION: XR PORTABLE CHEST CLINICAL INFORMATION: Increased oxygen demand. COMPARISON: 07/28/2016 TECHNIQUE: Portable AP view of the chest was obtained. FINDINGS: The endotracheal tube terminates 4 cm above the oliver. Right-sided PICC line terminates near the cavoatrial junction. Enteric tube extends into the stomach. Reverse total left shoulder arthroplasty. Cardiac leads overlie the chest. Low lung volumes. Increased hazy right basilar opacity. No pleural effusion or pneumothorax. The cardiomediastinal silhouette is unchanged, with a calcified aorta. IMPRESSION: 1. Endotracheal tube terminating 4 cm above the oliver. 2. Low lung volumes with increased hazy right basilar opacity which could represent atelectasis or pneumonia.
[2016-07-29] VITALS: BP 106/50
[2016-07-29 05:52] LABS: ABSOLUTE BASOPHIL COUNT 0 /CUMM (0.0-0.2); ABSOLUTE EOSINOPHIL COUNT 0 /CUMM (0.0-0.7); ABSOLUTE GRANULOCYTE CT 9.1 /CUMM (1.4-6.5); ABSOLUTE LYMPH COUNT 1.7 /CUMM (1.2-3.4); ABSOLUTE MONOCYTE COUNT 0.5 /CUMM (0.10-0.60); BASOPHIL % 0.2 % (0.0-2.0); EOSINOPHIL % 0.4 % (0-5); GRANULOCYTE % 79.8 % (42.2-75.2); HEMATOCRIT 29.1 % (37-47); MEAN CORPUSCULAR HGB 32.4 PG (27.0-31.0); MEAN CORPUSCULAR HGB CONC 32.3 G/DL (33.0-37.0); MEAN CORPUSCULAR VOLUME 100.3 FL (81.0-99.0); MEAN PLATELET VOLUME 8.6 FL (7.4-10.4); PLATELET COUNT 236 /CUMM (130-400); RBC DISTRIBUTION WIDTH 15.4 % (11.5-14.5); WHITE BLOOD CELL COUNT 11.4 /CUMM (4.8-10.8)
--- NOTE | 2016-07-29 07:38 | PN- Resident CRCU ---
Subjective HPI/CRCU Issues: Patient seen and examined this morning. She was lying in bed in no acute distress. Remains intubated, sedated, but arousable, remains on propofol drip. Blood pressure has been fluctuating between 80-110. remains on mechanical ventilation assist control, FiO2 of 40%, satting 95%. Remains on Tamiflu for influenza. Has Been afebrile. Objective Vital Signs & I&O Last 8 Hrs of Vitals and I&O: Laboratory Tests 07/29/16 0515: Anion Gap 3 L, Estimated GFR > 60, Glucose 118 H, Calcium 8.7, Phosphorus 4.3, Magnesium 2.2, Total Bilirubin 0.3, AST 16, ALT 54 H, Albumin 2.7 L, CBC w Diff NO MAN DIFF REQ, RBC 2.90 L, MCV 100.3 H, MCH 32.4 H, RDW 15.4 H, MPV 8.6, Gran % 79.8 H, Lymphocytes % 14.8 L, Monocytes % 4.8, Eosinophils % 0.4, Basophils % 0.2, Absolute Granulocytes 9.1 H, Absolute Lymphocytes 1.7, Absolute Monocytes 0.5, Absolute Eosinophils 0, Absolute Basophils 0, PUBS MCHC 32.3 L Vital Signs Date Time Temp Pulse Resp B/P Pulse O2 O2 Flow FiO2 Ox Delivery Rate 07/29 0608 40 07/29 0334 40 07/29 0154 40 07/29 0000 94 Ventilator 40% 07/29 0000 97.4 84 14 106/50 94 Ventilator 40% 07/28 2220 40 07/28 2000 94 Ventilator 40% 07/28 1920 40 07/28 1615 30 07/28 1600 96 Ventilator 40% 07/28 1600 98.2 88 15 98/52 96 Ventilator 40% 07/28 1441 30 07/28 1200 95 Ventilator 30% 07/28 1151 30 07/28 0855 30 Intake & Output 07/29 1600 07/29 0800 07/29 0000 Intake Total 803 1358 Output Total 650 2700 Balance 153 -1342 Intake, IV 158 738 Intake, Tube 405 400 Feeding Intake, Tube 240 220 Irrigant Output, Stool 0 Output, Urine 650 2700 Exam General Appearance: sedated, intubated Head: atraumatic, normal appearance Respiratory: decreased breath sounds Cardiovascular: regular rate/rhythm Gastrointestinal: normal bowel sounds Weaning Parameters NIF: 19 Minute Volume: 7.21 Resp rate: 33 Vt: 218 Heart Rate: 86 Weaning Schedule Start Time: 1920 Minute Volume: 8.84 Resp Rate: 28 Vt: 315 Heart Rate: 88 End Time: 2020 Minute Volume: 9.80 Resp Rate: 32 Vt: 305 Heart Rate: 100 Nutrition Nutrition: tube feeding Current Medications: Current Medications Sig/Shobha Start time Last Medication Dose Route Stop Time Status Admin Acetaminophen 1,000 MG Q6P PRN 07/25 1730 AC 07/25 N/A 1 UNIT IV 1735 Albuterol Sulfate 3 ML EVERY 4 HRS/AWAKE 07/25 0945 AC 07/28 INH 2022 Cyanocobalamin 1,000 MCG DAILY 07/25 1113 AC 07/28 PO 1000 Dextrose/Sodium 1,000 ML Q20H 07/25 0800 DC 07/28 Chloride IV 2127 Famotidine 20 MG DAILY 07/25 1108 AC 07/28 PO 1000 Folic Acid 1 MG DAILY 07/25 1113 AC 07/28 PO 1000 Furosemide 20 MG ONCE ONE 07/28 1415 DC 07/28 IV 07/28 1416 1400 Heparin Sodium 5,000 UNIT Q8 07/25 1400 AC 07/29 (Porcine) SC 0610 Insulin Human Regular 0 Q6 07/25 1200 AC 07/29 SC 0609 Ipratropium [place] 2.5 ML EVERY 4 HRS/AWAKE 07/25 0945 AC 07/28 INH 2022 Lorazepam 0.5 MG Q4 07/27 1400 AC 07/29 IV 0610 Oseltamivir Phosphate 30 MG BID 07/25 1030 AC 07/28 PO 07/31 2159 2125 Polyethylene Glycol 17 GM DAILY 07/26 1000 AC 07/28 PO 1000 Prednisone 30 MG DAILY 07/28 1000 AC 07/28 PO 1000 Propofol 1,000 MG Q5H 07/26 1645 AC 07/29 N/A 100 ML IV 0610 Senna 187 MG AT BEDTIME 07/26 2200 AC 07/28 PO 2125 Thiamine HCl 100 MG DAILY 07/25 1113 AC 07/28 PO 1000 Impression/Plan Impression/Problem List Impression: This is a 80-year-old female with history of severe COPD, chronic HFrEF with LVEF 40%, multifocal atrial tachycardia who was admitted to ICU for hypercarbic respiratory failure likely secondary to pneumonia versus COPD exacerbation . [facility] to the emergency room where she was found to be hypoxic and confused, she was short of breath, coughing, and wheezing, she was subsequently intubated. History was obtained from the nurse at [facility]. She was found to have an oxygen saturation of 76% in the field , which improved to 95% on 3 L. She was noted to have high fevers, and was found to be positive for influenza infection. She has been managed for following conditions in ICU: Respiratory/Infectios disease: Acute Hypercarbic respiratory failure in setting of END Stage COPD: -Enroute to hospital she was found to have an oxygen saturation of 76% in the field, which improved to 95% on 3 L. ABGs upon presentation 7.25/96/82/41, she was initially put on BIPAP, but she remained hypoxic and confused and thus was intubated. Repeat ABGs improved. -Likely secondary to pneumonia and/or COPD exacerbation in setting of End stage COPD, CXR showed bibasilar opacities that may present a consolidative disease, patient has been spiking fever, patient started on Ceftazidime and vancomycin to cover for gram negatives organisms (HCAP given the fact that [facility]), sputum and blood cx no growth so far, will follow up. urine strep and Legionella antigens negative. -She was also found to be positive for Flu, started on Tamiflu. * Remains intubated and on mech vent, successful weaning trial today * Watching off of antibiotics * Sputum and blood Cx NGTD * Cont monitoring White count and fever * Cont Tamiflu for influenza * Prednisone 30mg, followed by taper Metabolic: Diabetes mellitus: Insulin sliding scale Monitor finger sticks, tube feed changed to glucerna as fingersticks were running high. Hypokalemia: Replaced. Will follow repeat labs replace as needed. Hypomagnesemia: Replaced. Will follow repeat labs replace as needed. CVS: Hypertension: Patient was hypotensive upon presentation, continues to have systolic blood pressure towards lower side. Patient has Hx of systolic heart failure with ejection fraction of 40% per echocardiogram in March 2016 * Cont to hold furosemide, diltiazem, lisinopril, and metoprolol for now because of the risk of hypotension in the setting of infection, will resume once patient more stable. * Cardiology on baoard, will f/u recs. Ailmentary: On tube feeds, glucerna DVT prophylaxis with subcutaneous heparin Pain pathway Full code Problem List: 1. Influenza 2. COPD (chronic obstructive pulmonary disease) 3. Hypercapnic respiratory failure Pain Ratin Tomorrow's Labs & Rationales: ICU bundle for lytes monitoring cbc for wbc monitoring Plan DVT/Prophylaxis: pharmacological
--- NOTE | 2016-07-29 07:41 | RADIOLOGY REPORT ---
EXAMINATION: XR PORTABLE CHEST CLINICAL INFORMATION: Postintubation. Follow-up. COMPARISON: 07/28/2016 TECHNIQUE: Portable AP view of the chest was obtained. FINDINGS: The patient's endotracheal tube is been advanced from the prior film, now less than 1 cm above the oliver. Consider retraction. The enteric tube descends the esophagus into the stomach. Again seen is a right sided PICC line with tip near the cavoatrial junction. Lung volumes are low. There is pulmonary vascular congestion without montrell pulmonary edema. Left greater than right bibasilar atelectasis. No definite pleural effusion. No pneumothorax. Left shoulder arthroplasty again seen. IMPRESSION: The endotracheal tube has been advanced, now less than 1 cm above the oliver. Recommend retraction. This critical result was discussed with DERICK CARRANZA by telephone at 07/29/2016 7:34 AM and it was ascertained that the content and urgency of the report was understood at the time of direct communication.
[2016-07-29 08:00] VITALS: BP 102/60
--- NOTE | 2016-07-29 10:10 | PN- CRCU ---
Subjective HPI/Critical Care Issues: Doing relatively stable Intubated sedated She was lying in bed in no acute distress. Remains intubated, sedated, but arousable, remains on propofol drip. Blood pressure has been fluctuating between 80-110. remains on mechanical ventilation assist control, FiO2 of 40%, satting 95%. Remains on Tamiflu for influenza. Has Been afebrile. Objective Current Medications: Current Medications Sig/Shobha Start time Last Medication Dose Route Stop Time Status Admin Acetaminophen 1,000 MG Q6P PRN 07/25 1730 AC 07/25 N/A 1 UNIT IV 1735 Albuterol Sulfate 3 ML EVERY 4 HRS/AWAKE 07/25 0945 AC 07/29 INH 0801 Cyanocobalamin 1,000 MCG DAILY 07/25 1113 AC 07/28 PO 1000 Dextrose/Sodium 1,000 ML Q20H 07/25 0800 DC 07/28 Chloride IV 2127 Famotidine 20 MG DAILY 07/25 1108 AC 07/28 PO 1000 Folic Acid 1 MG DAILY 07/25 1113 AC 07/28 PO 1000 Furosemide 40 MG ONCE ONE 07/29 0945 DC 07/29 IV 07/29 0946 0955 Furosemide 20 MG ONCE ONE 07/28 1415 DC 07/28 IV 07/28 1416 1400 Heparin Sodium 5,000 UNIT Q8 07/25 1400 AC 07/29 (Porcine) SC 0610 Insulin Human Regular 0 Q6 07/25 1200 AC 07/29 SC 0609 Ipratropium [place] 2.5 ML EVERY 4 HRS/AWAKE 07/25 0945 AC 07/29 INH 0801 Lorazepam 0.5 MG ONCE ONE 07/29 1000 DC IV 07/29 1001 Lorazepam 0.5 MG Q4 07/27 1400 AC 07/29 IV 0957 Methylprednisolone 40 MG ONCE ONE 07/29 0945 DC 07/29 IV 07/29 0946 0955 Oseltamivir Phosphate 30 MG BID 07/25 1030 AC 07/28 PO 07/31 2159 2125 Polyethylene Glycol 17 GM DAILY 07/26 1000 AC 07/28 PO 1000 Prednisone 30 MG DAILY 07/28 1000 AC 07/28 PO 1000 Propofol 1,000 MG Q5H 07/26 1645 AC 07/29 N/A 100 ML IV 0610 Senna 187 MG AT BEDTIME 07/26 2200 AC 07/28 PO 2125 Thiamine HCl 100 MG DAILY 07/25 1113 AC 07/28 PO 1000 Vital Signs & I&O Last 24 Hrs of Vitals and I&O: Vital Signs Date Time Temp Pulse Resp B/P Pulse O2 O2 Flow FiO2 Ox Delivery Rate 07/29 0836 40 07/29 0608 40 07/29 0400 96 Ventilator 40% 07/29 0334 40 07/29 0154 40 07/29 0000 94 Ventilator 40% 07/29 0000 97.4 84 14 106/50 94 Ventilator 40% 07/28 2220 40 07/28 2000 94 Ventilator 40% 07/28 1920 40 07/28 1615 30 07/28 1600 96 Ventilator 40% 07/28 1600 98.2 88 15 98/52 96 Ventilator 40% 07/28 1441 30 07/28 1200 95 Ventilator 30% 07/28 1151 30 Intake & Output 07/29 1600 07/29 0800 07/29 0000 Intake Total 803 1358 Output Total 650 2700 Balance 153 -1342 Intake, IV 158 738 Intake, Tube 405 400 Feeding Intake, Tube 240 220 Irrigant Output, Stool 0 Output, Urine 650 2700 Impression/Plan Impression/Plan Impression/Plan: Physical Exam General Appearance intubated sedated, easily arousable PICC line in HEENT Atraumatic, responds to light Cardiovascular Normal S1, Normal S2 Lungs b/l wheezing and ronchii Abdomen Normal Bowel Sounds, Soft, No Tenderness Extremities No Clubbing, No Cyanosis, No Edema Moves all extremities 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, hypertension, previous significant alcohol use, smoking up until recently, osteoporosis, was recently in [facility] with respiratory insufficiency subsequently was transferred to [facility]. In the [facility] home she was noted to have tachypnea cough and hypoxemia and was sent to the emergency room. In the emergency room she was found to be in significant respiratory failure and was intubated. When I saw her she was intubated and sedated. Her issues include * Acute hypercarbic and hypoxemic respiratory failure related to end-stage lung disease with COPD exacerbation with influenza pneumonia * Bibasilar atelectasis so far sputum culture shows no organisms * Systolic heart disease with hypotension * Alcohol abuse up until recently but patient has not had any alcohol in the past few weeks as she was in the hospital and rehabilitation facility hence she is at no risk for withdrawal * Previous history of hypertension hyperlipidemia ischemic heart * Significant osteoporosis RECOMMENDATION Discussed with the patient's who is the power of director insurance. Patient's prior wishes were never to be intubated for a longer duration. Patient's and his son were present at the meeting. They expressed that Mrs. rose should be extubated. If she does well we will institute BiPAP and other medications to help her. If she does poorly despite noninvasive ventilation the patient's would want her to be made Comfort Care. Patient will be DNR/DNI * We will extubate now. We will give her one dose of Lasix, 1 dose of Ativan and Solu-Medrol prior to extubation * Continue Tamiflu, * Continue prednisone from tomorrow * [id number] nebulizer therapy * After extubation we will give her low-dose morphine and low-dose Ativan for her anxiety as she has significant anxiety Prognosis is guarded, patient is DNR/DNI. The will visit the patient tomorrow does not wish to be her during the process of extubation etc. Patient is critically ill total time spent 45 minutes
--- NOTE | 2016-07-29 10:54 | NUR ---
PER DR. SELLERS'S ORDERS, TUBE FEED OFF AT 1000, NGT TO LWS, DO NOT GIVE 1000 MEDS, IV LASIX, SOLU-MEDROL, ATIVAN GIVEN, ANTICIPATION EXTUBATION
--- NOTE | 2016-07-29 10:58 | NUR ---
AFEBRILE, ALERT, SAS 4, MOUTHING WORDS, PROPOFOL MAINTAINED AT 40 MCG/KG/MIN VIA INTACT KIKO TLC, INTUBATED, 40% FIO2, O2 SAT 95%, CLEAR TO DIMINISHED LUNG SOUNDS, B/L WRIST REST ROM PERFORMED TO EDEMATOUS B/L UE THEN ELEVATED ON PILLOWS, NSR 70-90, BP 102/60, NO ECTOPY NOTED ON TELE MONITOR, ABD DISTENTED/SOFT POSITIVE B.S., TOLERATNG TUBE FEED VIA OGT(50CM AT LIP), LORA INTACT ADEQUATE CLEAR YELLOW U/O, 2+ GENERALIZED EDEMA, SKIN TEAR JESSICA,ALPS ON PT,
[2016-07-29 16:00] VITALS: BP 124/70
--- NOTE | 2016-07-29 23:01 | Event Note ---
Event Note Event Note: passed bedside swallow eval with water and apple sauce. Can drink water with spoon and in semi sitting position.
[2016-07-30] VITALS: BP 100/54
--- NOTE | 2016-07-30 00:39 | NUR ---
1500 TO 2300. PT AWAKE AND ALERT. MILDLY CONFUSED AT TIMES. VOICE RASPY AND DIFFICULT TO UNDERSTAND AT TIMES. VSS PT REMAINS AFEBRILE AND B/P IN 120 TO 140 RANGE. PT HAD 2 SOFT BROWN BM'S. CALLING FOR BEDPAN APPROPRIATELY. DENIES PAIN. WHEN PT WAS EXTUBATED, OG TUBE WAS REMOVED TOO. PT REFUSED TO HAVE NG TUBE REINSERTED. BEDSIDE SWALLOW EVAL PERFORMED BY RABBET OPERATOR MUNDO. OK FOR SIPS OF WATER AND MEDS. PT TOOK HOSSEIN-FLU CAPSULE WITHOUT DIFFICULTY. PT REFUSED ZEINAB PILL AT 2200.
--- NOTE | 2016-07-30 01:10 | NUR ---
PT AWAKE AND ALERT BUT IS CONFUSED. NSR 80'S, MANUAL BP 100/54. APPEARS TO BE COMFORTABLE. SATURATION 95% ON 4L O2, LUNGS SOUND CLEAR. ABDOMEN SOFT, NORMOACTIVE BS. LORA IN PLACE, ADEQUATE UO. ISOLATION OBSERVE FOR POSITVE FLU AND VRE.
[2016-07-30 08:00] VITALS: BP 132/82
--- NOTE | 2016-07-30 08:17 | PN- Resident CRCU ---
Subjective HPI/CRCU Issues: Patient seen and examined this morning. She was lying comfortably in bed in no acute distress. Patient to get swallow eval today, will advance diet as tolerated. She has been afebrile, systolic blood pressure has been around 100. Remains on 4 L of nasal cannula oxygen satting in the low 90s. BiPAP when necessary, will get ABGs as needed. Objective Vital Signs & I&O Last 8 Hrs of Vitals and I&O: Laboratory Tests 07/30/16 1035: RBC 2.97 L, MCV 100.5 H, MCH 31.5 H, RDW 15.0 H, MPV 8.4, Gran % 81.8 H, Lymphocytes % 15.2 L, Monocytes % 2.0, Eosinophils % 0.9, Basophils % 0.1, Absolute Granulocytes 11.6 H, Absolute Lymphocytes 2.2, Absolute Monocytes 0.3, Absolute Eosinophils 0.1, Absolute Basophils 0, PUBS MCHC 31.4 L 07/30/16 0930: Anion Gap 6, Estimated GFR > 60, Glucose 81, Calcium 8.2 L, Phosphorus 3.7, Magnesium 2.1, Total Bilirubin 0.6, AST 16, ALT 48, Albumin 2.9 L Vital Signs Date Time Temp Pulse Resp B/P Pulse O2 O2 Flow FiO2 Ox Delivery Rate 07/30 0802 93 Nasal 3.0L Cannula 07/30 0400 96 Nasal 3.0L Cannula 07/30 0115 94 Nasal 3.0L Cannula 07/30 0000 95 Nasal 4.0L Cannula 07/30 0000 98.0 85 20 100/54 95 Nasal 4.0L Cannula 07/30 1999 92 Nasal 4.0L Cannula 07/29 1659 91 Nasal 4.0L Cannula 07/29 1600 97.2 94 24 124/70 92 Nasal 4.0L Cannula 07/29 1354 92 Nasal 4.0L Cannula 07/29 1200 91 Ventilator 40% Intake & Output 07/30 1600 07/30 0800 07/30 0000 Intake Total 50 100 Output Total 490 1100 Balance -440 -1000 Intake, IV 100 Intake, Oral 50 Number 2 Bowel Movements Output, Urine 490 1100 Exam General Appearance: well developed/nourished, no apparent distress, alert, awake Head: atraumatic, normal appearance Respiratory: decreased breath sounds Cardiovascular: regular rate/rhythm Gastrointestinal: normal bowel sounds, soft, non-tender Extremities: normal inspection, trace b/l edema Weaning Parameters NIF: 19 Minute Volume: 7.21 Resp rate: 33 Vt: 218 Heart Rate: 86 Weaning Schedule Start Time: 1920 Minute Volume: 8.84 Resp Rate: 28 Vt: 315 Heart Rate: 88 End Time: 2020 Minute Volume: 9.80 Resp Rate: 32 Vt: 305 Heart Rate: 100 Current Medications: Current Medications Sig/Shobha Start time Last Medication Dose Route Stop Time Status Admin Acetaminophen 1,000 MG ONCE ONE 07/29 1830 DC 07/29 N/A 1 UNIT IV 07/29 1844 1905 Acetaminophen 1,000 MG Q6P PRN 07/25 1730 AC 07/25 N/A 1 UNIT IV 1735 Albuterol Sulfate 3 ML EVERY 4 HRS/AWAKE 07/25 0945 AC 07/30 INH 0758 Alteplase, 2 MG ONE ONE 07/30 0630 DC Recombinant IV 07/30 0631 Cyanocobalamin 1,000 MCG DAILY 07/25 1113 AC 07/28 PO 1000 Famotidine 20 MG DAILY 07/25 1108 AC 07/28 PO 1000 Folic Acid 1 MG DAILY 07/25 1113 AC 07/28 PO 1000 Heparin Sodium 5,000 UNIT Q8 07/25 1400 AC 07/30 (Porcine) [place] 0532 Insulin Human Regular 0 Q6 07/25 1200 AC 07/30 SC 0537 Ipratropium [place] 2.5 ML EVERY 4 HRS/AWAKE 07/25 0945 AC 07/30 INH 0758 Lorazepam 0.5 MG Q4 07/27 1400 AC 07/30 IV 0720 Oseltamivir Phosphate 30 MG BID 07/25 1030 AC 07/30 PO 07/31 2159 0023 Polyethylene Glycol 17 GM DAILY 07/26 1000 AC 07/28 PO 1000 Prednisone 30 MG DAILY 07/28 1000 AC 07/28 PO 1000 Propofol 1,000 MG Q5H 07/26 1645 DC 07/29 N/A 100 ML IV 1140 Senna 187 MG AT BEDTIME 07/26 2200 AC 07/28 PO 2125 Thiamine HCl 100 MG DAILY 07/25 1113 AC 07/28 PO 1000 Antibiotics Antibiotics? none Impression/Plan Impression/Problem List Impression: This is a 80-year-old female with history of severe COPD, chronic HFrEF with LVEF 40%, multifocal atrial tachycardia who was admitted to ICU for hypercarbic respiratory failure likely secondary to pneumonia versus COPD exacerbation . She was brought in from [facility] to the emergency room where she was found to be hypoxic and confused, she was short of breath, coughing, and wheezing, she was subsequently intubated. History was obtained from the nurse at [facility]. She was found to have an oxygen saturation of 76% in the field , which improved to 95% on 3 L. She was noted to have high fevers, and was found to be positive for influenza infection. She has been managed for following conditions in ICU: Respiratory/Infectios disease: Acute Hypercarbic respiratory failure in setting of END Stage COPD: -Enroute to hospital she was found to have an oxygen saturation of 76% in the field, which improved to 95% on 3 L. ABGs upon presentation 7.///41, she was initially put on BIPAP, but she remained hypoxic and confused and thus was intubated. Repeat ABGs improved. -Likely secondary to pneumonia and/or COPD exacerbation in setting of End stage COPD, CXR showed bibasilar opacities that may present a consolidative disease, patient has been spiking fever, patient started on Ceftazidime and vancomycin to cover for gram negatives organisms (HCAP given the fact that she [facility]), sputum and blood cx no growth so far, will follow up. urine strep and Legionella antigens negative. -She was also found to be positive for Flu, started on Tamiflu. * exxtubated, on 2l of nc oxygen * Watching off of antibiotics * Sputum and blood Cx NGTD * Cont monitoring White count and fever * Cont Tamiflu for influenza * Prednisone 30mg, followed by taper Metabolic: Diabetes mellitus: Insulin sliding scale Monitor finger sticks, tube feed changed to glucerna as fingersticks were running high. Hypokalemia: Replaced. Will follow repeat labs replace as needed. Hypomagnesemia: Replaced. Will follow repeat labs replace as needed. CVS: Hypertension: Patient was hypotensive upon presentation, continues to have systolic blood pressure towards lower side. Patient has Hx of systolic heart failure with ejection fraction of 40% per echocardiogram in March 2016 * Cont to hold furosemide, diltiazem, lisinopril, and metoprolol for now because of the risk of hypotension in the setting of infection, will resume once patient more stable. * Cardiology on baoard, will f/u recs. Ailmentary: On tube feeds, glucerna DVT prophylaxis with subcutaneous heparin Pain pathway Full code Problem List: 1. COPD exacerbation 2. Influenza 3. COPD (chronic obstructive pulmonary disease) Pain Ratin Tomorrow's Labs & Rationales: icu bundle cbc Plan DVT/Prophylaxis: pharmacological
--- NOTE | 2016-07-30 09:12 | NUR ---
POSITIVE BLOOD RETURN X 3 PORTS ABLE TO GET AM BLOODS
--- NOTE | 2016-07-30 09:28 | PN- CRCU ---
Subjective HPI/Critical Care Issues: The patient was successfully extubated yesterday. Since extubation, her voice has strengthened. Her respiratory status however has appeared to be somewhat tenuous with slightly increased abdominal paradox. Despite this observation, the patient reports that she is not short of breath. She is on NC at 3 lpm, with oxygen saturations in the high 90s. She is not on any sedation. She has adequate urine output. She remains on Tamiflu for influenza. She is not offering any complaints at the present time. Objective Current Medications: Current Medications Sig/Shobha Start time Last Medication Dose Route Stop Time Status Admin Acetaminophen 1,000 MG ONCE ONE 07/29 1830 DC 07/29 N/A 1 UNIT IV 07/29 1844 1905 Acetaminophen 1,000 MG Q6P PRN 07/25 1730 AC 07/25 N/A 1 UNIT IV 1735 Albuterol Sulfate 3 ML EVERY 4 HRS/AWAKE 07/25 0945 AC 07/30 INH 0758 Alteplase, 2 MG ONE ONE 07/30 0630 DC Recombinant IV 07/30 0631 Cyanocobalamin 1,000 MCG DAILY 07/25 1113 AC 07/28 PO 1000 Famotidine 20 MG DAILY 07/25 1108 AC 07/28 PO 1000 Folic Acid 1 MG DAILY 07/25 1113 AC 07/28 PO 1000 Furosemide 40 MG ONCE ONE 07/29 0945 DC 07/29 IV 07/29 0946 0955 Heparin Sodium 5,000 UNIT Q8 07/25 1400 AC 07/30 (Porcine) SC 0532 Insulin Human Regular 0 Q6 07/25 1200 AC 07/30 SC 0537 Ipratropium [place] 2.5 ML EVERY 4 HRS/AWAKE 07/25 0945 AC 07/30 INH 0758 Lorazepam 0.5 MG ONCE ONE 07/29 1000 DC IV 07/29 1001 Lorazepam 0.5 MG Q4 07/27 1400 AC 07/30 IV 0720 Methylprednisolone 40 MG ONCE ONE 07/29 0945 DC 07/29 IV 07/29 0946 0955 Oseltamivir Phosphate 30 MG BID 07/25 1030 AC 07/30 PO 07/31 2159 0023 Polyethylene Glycol 17 GM DAILY 07/26 1000 AC 07/28 PO 1000 Prednisone 30 MG DAILY 07/28 1000 AC 07/28 PO 1000 Propofol 1,000 MG Q5H 07/26 1645 DC 07/29 N/A 100 ML IV 1140 Senna 187 MG AT BEDTIME 07/26 2200 AC 07/28 PO 2125 Thiamine HCl 100 MG DAILY 07/25 1113 AC 07/28 PO 1000 Vital Signs & I&O Last 24 Hrs of Vitals and I&O: Vital Signs Date Time Temp Pulse Resp B/P Pulse O2 O2 Flow FiO2 Ox Delivery Rate 07/30 0802 93 Nasal 3.0L Cannula 07/30 0400 96 Nasal 3.0L Cannula 07/30 0115 94 Nasal 3.0L Cannula 07/30 0000 95 Nasal 4.0L Cannula 07/30 0000 98.0 85 20 100/54 95 Nasal 4.0L Cannula 07/29 2000 92 Nasal 4.0L Cannula 07/29 1659 91 Nasal 4.0L Cannula 07/29 1600 97.2 94 24 124/70 92 Nasal 4.0L Cannula 07/29 1354 92 Nasal 4.0L Cannula 07/29 1200 91 Ventilator 40% 07/29 1110 30 Intake & Output 07/30 1600 07/30 0800 07/30 0000 Intake Total 50 100 Output Total 490 1100 Balance -440 -1000 Intake, IV 100 Intake, Oral 50 Number 2 Bowel Movements Output, Urine 490 1100 Exam General Appearance: awake, easily arousable, mild abdominal paradox, no diaphoresis or significant distress Head: atraumatic, normal appearance Neck: supple Respiratory: scattered bilateral wheezes and rhonchi, the lungs expand symmetrically and the trachea is midline Cardiovascular: regular rate/rhythm (S1 and S2 normal) Abdomen: normal bowel sounds, soft, non-tender Extremities: no edema, moving extremities independently Skin: intact, normal color, warm/dry Results Last 24 Hrs of Lab Results: Laboratory studies are pending. Impression/Plan Impression/Plan Impression/Plan: 1. 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 Respiratory status is improved and the patient is now extubated. She does however continue to have periods of increased respiratory distress, and we'll use BiPAP as necessary. 2. Bibasilar atelectasis, cultures remain negative. 3. Systolic heart disease, blood pressure now improved. 4. History of alcohol abuse, with no active signs of withdrawal. 5. Previous history of hypertension and hyperlipidemia. 6. History of osteoporosis. 7. History of hypertension. 8. Anxiety, now on low-dose Ativan. 9. Malnutrition - the patient passed her swallowing evaluation yesterday. Recommendations: * Follow-up morning lab results. * If the patient has any evidence of increased respiratory distress, will institute BiPAP (12/10, RR of 20). Will need to adjust settings based upon follow up ABG. * Complete course of Tamiflu. * Continue prednisone at 30 mg daily. * Continue nebs/TRC. * PRN low dose Ativan for anxiety. * Continue multivitamin, thiamine and folate. * Continue DVT and GI prophylaxis. * Advance diet as tolerated. Monitor the patient on aspiration precautions. * Continue bowel regimen for constipation.
[2016-07-30 10:57] LABS: ABSOLUTE BASOPHIL COUNT 0 /CUMM (0.0-0.2); ABSOLUTE EOSINOPHIL COUNT 0.1 /CUMM (0.0-0.7); ABSOLUTE GRANULOCYTE CT 11.6 /CUMM (1.4-6.5); ABSOLUTE LYMPH COUNT 2.2 /CUMM (1.2-3.4); ABSOLUTE MONOCYTE COUNT 0.3 /CUMM (0.10-0.60); BASOPHIL % 0.1 % (0.0-2.0); EOSINOPHIL % 0.9 % (0-5); GRANULOCYTE % 81.8 % (42.2-75.2); HEMATOCRIT 29.9 % (37-47); MEAN CORPUSCULAR HGB 31.5 PG (27.0-31.0); MEAN CORPUSCULAR HGB CONC 31.4 G/DL (33.0-37.0); MEAN CORPUSCULAR VOLUME 100.5 FL (81.0-99.0); MEAN PLATELET VOLUME 8.4 FL (7.4-10.4); PLATELET COUNT 243 /CUMM (130-400); RED BLOOD CELL CT 2.97 /CUMM (4.20-5.40); WHITE BLOOD CELL COUNT 14.2 /CUMM (4.8-10.8)
--- NOTE | 2016-07-30 11:54 | PN- Cardiology ---
Subjective Subjective: The patient has been extubated. She is off pressors and sedatives. She is awake and alert and on nasal oxygen at this time. Her blood pressure has been stable above 100. She is in sinus rhythm. She has no specific complaints today. Objective Vital Signs and I&Os Vital Signs Date Time Temp Pulse Resp B/P Pulse O2 O2 Flow FiO2 Ox Delivery Rate 07/30 0802 93 Nasal 3.0L Cannula 07/30 0400 96 Nasal 3.0L Cannula 07/30 0115 94 Nasal 3.0L Cannula 07/30 0000 95 Nasal 4.0L Cannula 07/30 0000 98.0 85 20 100/54 95 Nasal 4.0L Cannula 07/29 2000 92 Nasal 4.0L Cannula 07/29 1659 91 Nasal 4.0L Cannula 07/29 1600 97.2 94 24 124/70 92 Nasal 4.0L Cannula 07/29 1354 92 Nasal 4.0L Cannula 07/29 1200 91 Ventilator 40% Intake & Output 07/30 1600 07/30 0807/30 0000 07/29 1600 07/29 0800 07/29 0000 Intake Total 50 100 090 817 9224 Output Total 490 1100 2100 650 2700 Balance -440 -1000 -1788 153 -1342 Intake, IV 100 152 158 738 Intake, Oral 50 0 Intake, Other 60 Intake, Tube 100 405 400 Feeding Intake, Tube 240 220 Irrigant Number 2 0 Bowel Movements Output, Stool 0 Output, Urine 490 1100 2100 650 2700 Physical Exam: She is in no distress. Chest is clear to limited exam Heart reveals regular rhythm and no murmurs Extremities no edema Current Medications: Current Medications Sig/Shobha Start time Last Medication Dose Route Stop Time Status Admin Acetaminophen 1,000 MG ONCE ONE 07/29 1830 DC 07/29 N/A 1 UNIT IV 07/29 1844 1905 Acetaminophen 1,000 MG Q6P PRN 07/25 1730 AC 07/25 N/A 1 UNIT IV 1735 Albuterol Sulfate 3 ML EVERY 4 HRS/AWAKE 07/25 0945 AC 07/30 INH 0758 Alteplase, 2 MG ONE ONE 07/30 0630 DC Recombinant IV 07/30 0631 Cyanocobalamin 1,000 MCG DAILY 07/25 1113 AC 07/28 PO 1000 Famotidine 20 MG DAILY 07/25 1108 AC 07/28 PO 1000 Folic Acid 1 MG DAILY 07/25 1113 AC 07/28 PO 1000 Heparin Sodium 5,000 UNIT Q8 07/25 1400 AC 07/30 (Porcine) SC 0532 Insulin Human Regular 0 Q6 07/25 1200 AC 07/30 SC 0537 Ipratropium [place] 2.5 ML EVERY 4 HRS/AWAKE 07/25 0945 AC 07/30 INH 0758 Lorazepam 0.5 MG Q4 07/27 1400 AC 07/30 IV 0720 Oseltamivir Phosphate 30 MG BID 07/25 1030 AC 07/30 PO 07/31 2159 0023 Polyethylene Glycol 17 GM DAILY 07/26 1000 AC 07/28 PO 1000 Potassium Chloride 20 MEQ Q1H 07/30 1800 UNVr IV 07/30 1901 Potassium Chloride 20 MEQ Q1H 07/30 1145 UNVr IV 07/30 1246 Prednisone 30 MG DAILY 07/28 1000 AC 07/28 PO 1000 Propofol 1,000 MG Q5H 07/26 1645 DC 07/29 N/A 100 ML IV 1140 Senna 187 MG AT BEDTIME 07/26 2200 AC 07/28 PO 2125 Thiamine HCl 100 MG DAILY 07/25 1113 AC 07/28 PO 1000 Results Last 48 Hrs of Labs/Mics: Laboratory Tests 07/30/16 1035: RBC 2.97 L, MCV 100.5 H, MCH 31.5 H, RDW 15.0 H, MPV 8.4, Gran % 81.8 H, Lymphocytes % 15.2 L, Monocytes % 2.0, Eosinophils % 0.9, Basophils % 0.1, Absolute Granulocytes 11.6 H, Absolute Lymphocytes 2.2, Absolute Monocytes 0.3, Absolute Eosinophils 0.1, Absolute Basophils 0, PUBS MCHC 31.4 L 07/30/16 0930: Anion Gap 6, Estimated GFR > 60, Glucose 81, Calcium 8.2 L, Phosphorus 3.7, Magnesium 2.1, Total Bilirubin 0.6, AST 16, ALT 48, Albumin 2.9 L 07/29/16 0820: pH 7.47 H, pCO2 48 H, pO2 99, HCO3 34 H, ABG O2 Sat (Measured) 97.0, P-50 ( Temp Corrected) N, Carboxyhemoglobin 0.3 L, O2 Concentration % 40, Temperature 97.4, Respiration Rate 12, O2 Delivery Method VENT, Vent Mode VC-AC, Expiratory Pressure 5, Tidal Volume 450, Phlebotomy Draw Site LEFT RADIAL 07/29/16 0515: Anion Gap 3 L, Estimated GFR > 60, Glucose 118 H, Calcium 8.7, Phosphorus 4.3, Magnesium 2.2, Total Bilirubin 0.3, AST 16, ALT 54 H, Albumin 2.7 L, CBC w Diff NO MAN DIFF REQ, RBC 2.90 L, MCV 100.3 H, MCH 32.4 H, RDW 15.4 H, MPV 8.6, Gran % 79.8 H, Lymphocytes % 14.8 L, Monocytes % 4.8, Eosinophils % 0.4, Basophils % 0.2, Absolute Granulocytes 9.1 H, Absolute Lymphocytes 1.7, Absolute Monocytes 0.5, Absolute Eosinophils 0, Absolute Basophils 0, PUBS MCHC 32.3 L Assessment/Plan Assessment/Plan The patient is stable from a cardiac standpoint. She is improving slowly from a respiratory standpoint. Her troponins are all negative. Her blood pressure is stable. I recommend continuing to advance the patient's activity and continue with respiratory therapy. When she is ready for transfer out of the unit she can go to the general medicine floor at that time. Continue telemetry? Not applicable
--- NOTE | 2016-07-30 12:30 | Transfer of Care Summary ---
Hospital Course Course Hospital Course: This is a 80-year-old female with history of severe COPD, chronic HFrEF with LVEF 40%, multifocal atrial tachycardia who was admitted to ICU for hypercarbic respiratory failure likely secondary to pneumonia versus COPD exacerbation . [facility] to [facility] room where she was found to be hypoxic and confused, she was short of breath, coughing, and wheezing, she was subsequently intubated. History was obtained from the nurse at [facility]. She was found to have an oxygen saturation of 76% in the field , which improved to 95% on 3 L. She was noted to have high fevers, and was found to be positive for influenza infection. She has been managed for following conditions in ICU: Respiratory/Infectios disease: Acute Hypercarbic respiratory failure in setting of END Stage COPD: -Enroute to hospital she was found to have an oxygen saturation of 76% in the field, which improved to 95% on 3 L. ABGs upon presentation 7.25/96/82/41, she was initially put on BIPAP, but she remained hypoxic and confused and thus was intubated. Repeat ABGs improved. -Likely secondary to pneumonia and/or COPD exacerbation in setting of End stage COPD, CXR showed bibasilar opacities that may present a consolidative disease, patient has been spiking fever, patient initially given Ceftazidime and vancomycin to cover for gram negatives organisms (HCAP given the fact that [facility] in [facility]), sputum and blood cx no growth so far, will follow up. urine strep and Legionella antigens negative. She was also found to be positive for Flu, started on Tamiflu. * Extubated successfully on 07/29/16 , on 4l of nc oxygen * Watching off of antibiotics * Sputum and blood Cx NGTD * Cont monitoring White count and fever * Cont Tamiflu for influenza * Prednisone 30mg, followed by taper Metabolic: Diabetes mellitus: Insulin sliding scale Monitor finger sticks. Hypokalemia: Replaced. Follow repeat labs Hypomagnesemia: Replaced. Follow repeat labs CVS: Hypertension: Patient was hypotensive upon presentation, continues to have systolic blood pressure towards lower side. Patient has Hx of systolic heart failure with ejection fraction of 40% per echocardiogram in March 2016 * We have been holding furosemide, diltiazem, lisinopril, and metoprolol for now because of the risk of hypotension in the setting of infection, will resume once patient more stable. * Cardiology on baoard, will f/u recs. Ailmentary: Patient passed swallow eval, started on puree, honey diet. DVT prophylaxis with subcutaneous heparin Pain pathway Full code Assessment/Plan: .
[2016-07-30 16:00] VITALS: BP 130/60
[2016-07-30 23:19] VITALS: BP 118/82
[2016-07-31 05:19] LABS: ABSOLUTE BASOPHIL COUNT 0.1 /CUMM (0.0-0.2); ABSOLUTE EOSINOPHIL COUNT 0.1 /CUMM (0.0-0.7); ABSOLUTE GRANULOCYTE CT 11.5 /CUMM (1.4-6.5); ABSOLUTE MONOCYTE COUNT 0.6 /CUMM (0.10-0.60); BASOPHIL % 0.4 % (0.0-2.0); EOSINOPHIL % 0.7 % (0-5); HEMATOCRIT 30.7 % (37-47); MEAN CORPUSCULAR HGB 32.3 PG (27.0-31.0); MEAN CORPUSCULAR HGB CONC 31.9 G/DL (33.0-37.0); MEAN CORPUSCULAR VOLUME 101.1 FL (81.0-99.0); MEAN PLATELET VOLUME 8.9 FL (7.4-10.4); PLATELET COUNT 267 /CUMM (130-400); RBC DISTRIBUTION WIDTH 15.2 % (11.5-14.5); RED BLOOD CELL CT 3.04 /CUMM (4.20-5.40); WHITE BLOOD CELL COUNT 14.2 /CUMM (4.8-10.8)
--- NOTE | 2016-07-31 07:23 | RADIOLOGY REPORT ---
EXAMINATION: XR PORTABLE CHEST CLINICAL INFORMATION: Aspiration pneumonia COMPARISON: July 29, 2016 and studies dating back to January 09, 2014 TECHNIQUE: Portable AP portable view of the chest was obtained. FINDINGS: Since previous study patient has been extubated. Nasogastric tube has been removed. Right upper extremity PICC line is seen with tip within the mid superior vena cava. Patient status post previous left shoulder arthroplasty. There is again noted to be some left base parenchymal disease which may be related to atelectasis or pneumonitis. No significant change from prior study. Heart normal size. No evidence of pulmonary edema. No pneumothorax or significant pleural effusion. IMPRESSION: Stable small region of left base disease which may be related to atelectasis or pneumonitis.
[2016-07-31 08:00] VITALS: BP 120/62
--- NOTE | 2016-07-31 08:13 | PN- Resident CRCU ---
Subjective HPI/CRCU Issues: Pt seen this morning, appeared agitated because she wants to go to the bathroom to have a bowel movement. she has quinones catheter in place and nurse said that she is incontinent of stool and would be too weak to get on the commote. Physical therapy consult obtained. She also complains of left arm puffiness, asosciated with some pain, and was requesting tylenol. Labs reviewed wbc 14.2, hb 9.8, na 137, k 3.3 to 4.1 this am. as her bs has been in 100-140s, novolog discontinued. she barely ate her breakfast. She continues to have tremors and restlessness, which according to her is her baseline. 24 Hour Events: max temp 98.6 sr 77-98 rr 19-30 systolic bp 100-138 diastolic bp 57-70 4L nc +690 -1800 Objective Vital Signs & I&O Last 8 Hrs of Vitals and I&O: Intake & Output 07/31 1600 07/31 0800 07/31 0000 Intake Total 0 280 Output Total 300 950 Balance -300 -670 Intake, IV 0 100 Intake, Oral 180 Number 4 4 Bowel Movements Output, Urine 300 950 Laboratory Tests 07/31 07/30 0433 1035 Chemistry Sodium (137 - 145 mmol/L) 137 Potassium (3.5 - 5.1 mmol/L) 4.1 Chloride (98 - 107 mmol/L) 96 L Carbon Dioxide (22 - 30 mmol/L) 34 H Anion Gap (5 - 16) 6 BUN (7 - 17 mg/dL) 12 Creatinine (0.5 - 1.0 mg/dL) 0.4 L Estimated GFR (>60 ml/min) > 60 Glucose (65 - 99 mg/dL) 68 Calcium (8.4 - 10.2 mg/dL) 8.6 Phosphorus (2.5 - 4.5 mg/dL) 4.5 Magnesium (1.6 - 2.3 mg/dL) 2.2 Total Bilirubin (0.2 - 1.3 mg/dL) 0.6 AST (14 - 36 U/L) 9 L ALT (9 - 52 U/L) 45 Albumin (3.5 - 5.0 g/dL) 3.0 L Hematology CBC w Diff NO MAN DIFF REQ WBC (4.8 - 10.8 /CUMM) 14.2 H 14.2 H RBC (4.20 - 5.40 /CUMM) 3.04 L 2.97 L Hgb (12.0 - 16.0 G/DL) 9.8 L 9.4 L Hct (37 - 47 %) 30.7 L 29.9 L MCV (81.0 - 99.0 FL) 101.1 H 100.5 H MCH (27.0 - 31.0 PG) 32.3 H 31.5 H RDW (11.5 - 14.5 %) 15.2 H 15.0 H Plt Count (130 - 400 /CUMM) 267 243 MPV (7.4 - 10.4 FL) 8.9 8.4 Gran % (42.2 - 75.2 %) 81.0 H 81.8 H Lymphocytes % (20.5 - 51.1 %) 14.0 L 15.2 L Monocytes % (1.7 - 9.3 %) 3.9 2.0 Eosinophils % (0 - 5 %) 0.7 0.9 Basophils % (0.0 - 2.0 %) 0.4 0.1 Absolute Granulocytes (1.4 - 6.5 /CUMM) 11.5 H 11.6 H Absolute Lymphocytes (1.2 - 3.4 /CUMM) 2.0 2.2 Absolute Monocytes (0.10 - 0.60 /CUMM) 0.6 0.3 Absolute Eosinophils (0.0 - 0.7 /CUMM) 0.1 0.1 Absolute Basophils (0.0 - 0.2 /CUMM) 0.1 0 PUBS MCHC (33.0 - 37.0 G/DL) 31.9 L 31.4 L Laboratory Tests 07/31/16 0433: Anion Gap 6, Estimated GFR > 60, Glucose 68, Calcium 8.6, Phosphorus 4.5, Magnesium 2.2, Total Bilirubin 0.6, AST 9 L, ALT 45, Albumin 3.0 L, CBC w Diff NO MAN DIFF REQ, RBC 3.04 L, MCV 101.1 H, MCH 32.3 H, RDW 15.2 H, MPV 8.9, Gran % 81.0 H, Lymphocytes % 14.0 L, Monocytes % 3.9, Eosinophils % 0.7, Basophils % 0.4, Absolute Granulocytes 11.5 H, Absolute Lymphocytes 2.0, Absolute Monocytes 0.6, Absolute Eosinophils 0.1, Absolute Basophils 0.1, PUBS MCHC 31.9 L 07/30/16 1035: RBC 2.97 L, MCV 100.5 H, MCH 31.5 H, RDW 15.0 H, MPV 8.4, Gran % 81.8 H, Lymphocytes % 15.2 L, Monocytes % 2.0, Eosinophils % 0.9, Basophils % 0.1, Absolute Granulocytes 11.6 H, Absolute Lymphocytes 2.2, Absolute Monocytes 0.3, Absolute Eosinophils 0.1, Absolute Basophils 0, PUBS MCHC 31.4 L Microbiology Date/Time Procedure - Status Source Growth 07/31 024 Clostridium difficile Toxin A & B - RECD STOOL 07/30 1816 Clostridium difficile Toxin A & B - COLB STOOL Vital Signs Date Time Temp Pulse Resp B/P Pulse O2 O2 Flow FiO2 Ox Delivery Rate 07/31 0827 94 Nasal 4.0L Cannula 07/31 0800 95 Nasal 4.0L Cannula 07/31 0800 98.2 87 27 120/62 95 Nasal 4.0L Cannula 07/31 0400 98 Nasal 3.0L Cannula 07/31 0000 98 Nasal 4.0L Cannula 07/30 2319 96.0 87 28 118/82 98 Nasal 4.0L Cannula 07/30 2000 95 Nasal 4.0L Cannula 07/30 1624 95 Nasal 4.0L Cannula 07/30 1600 95 Nasal 4.0L Cannula 07/30 1600 97.4 97 30 130/60 94 Nasal 4.0L Cannula 07/30 1200 95 Nasal 4.0L Cannula Exam General Appearance: alert, awake, mild distress Head: atraumatic Respiratory: normal breath sounds Cardiovascular: regular rate/rhythm Gastrointestinal: normal bowel sounds, soft, non-tender Weaning Parameters NIF: 19 Minute Volume: 7.21 Resp rate: 33 Vt: 218 Heart Rate: 86 Weaning Schedule Start Time: 1920 Minute Volume: 8.84 Resp Rate: 28 Vt: 315 Heart Rate: 88 End Time: 2019 Minute Volume: 9.80 Resp Rate: 32 Vt: 305 Heart Rate: 100 Current Medications: Current Medications Sig/Shobha Start time Last Medication Dose Route Stop Time Status Admin Acetaminophen 650 MG ONCE ONE 07/31 829 DC PO 07/31 830 Acetaminophen 1,000 MG Q6P PRN 07/25 1730 AC 07/25 N/A 1 UNIT IV 1735 Albuterol Sulfate 3 ML EVERY 4 HRS/AWAKE 07/25 0945 AC 07/31 INH 0825 Cyanocobalamin 1,000 MCG DAILY 07/25 1113 AC 07/30 PO 1302 Famotidine 20 MG DAILY 07/25 1108 AC 07/30 PO 1301 Folic Acid 1 MG DAILY 07/25 1113 AC 07/30 PO 1301 Heparin Sodium 5,000 UNIT Q8 07/25 1400 AC 07/31 (Porcine) SC 0557 Insulin Aspart 0 TIDAC 07/31 0800 DC SC Insulin Human Regular 0 Q6 07/25 1200 DC 07/30 SC 1747 Ipratropium [place] 2.5 ML EVERY 4 HRS/AWAKE 07/25 0945 AC 07/31 INH 0825 Lorazepam 0.5 MG ONCE ONE 07/30 1245 DC 07/30 IV 07/30 1246 1300 Lorazepam 0.5 MG Q4 07/27 1400 AC 07/31 IV 0558 Oseltamivir Phosphate 30 MG BID 07/25 1030 AC 07/30 PO 07/31 2159 2144 Polyethylene Glycol 17 GM DAILY 07/26 1000 AC 07/28 PO 1000 Potassium Chloride 20 MEQ Q1H 07/30 1800 DC 07/30 IV 07/30 1801 1748 Potassium Chloride 20 MEQ Q1H 07/30 1145 DC 07/30 IV 07/30 1246 1433 Prednisone 30 MG DAILY 07/28 1000 AC 07/30 PO 1302 Senna 187 MG AT BEDTIME 07/26 2200 AC 07/28 PO 2125 Thiamine HCl 100 MG DAILY 07/25 1113 AC 07/30 PO 1302 Impression/Plan Impression/Problem List Impression: This is a 80-year-old female with history of severe COPD, chronic HFrEF with LVEF 40%, multifocal atrial tachycardia who was admitted to ICU for hypercarbic respiratory failure likely secondary to pneumonia versus COPD exacerbation . [facility] to [facility] emergency room where she was found to be hypoxic and confused, she was short of breath, coughing, and wheezing, she was subsequently intubated. History was obtained from the nurse at [facility]. She was found to have an oxygen saturation of 76% in the field , which improved to 95% on 3 L. She was noted to have high fevers, and was found to be positive for influenza infection. She has been managed for following conditions in ICU: Acute Hypercarbic respiratory failure in setting of END Stage COPD: -Enroute to hospital she was found to have an oxygen saturation of 76% in the field, which improved to 95% on 3 L. ABGs upon presentation 7.25/96/82/41, she was initially put on BIPAP, but she remained hypoxic and confused and thus was intubated. Repeat ABGs improved. -Likely secondary to pneumonia and/or COPD exacerbation in setting of End stage COPD, CXR showed bibasilar opacities that may present a consolidative disease, patient has been spiking fever, patient started on Ceftazidime and vancomycin to cover for gram negatives organisms (HCAP given the fact that she [place] [facility]), sputum and blood cx no growth so far, will follow up. urine strep and Legionella antigens negative. -She was also found to be positive for Flu, started on Tamiflu. * extubated * Watching off of antibiotics * Sputum and blood Cx NGTD * Cont monitoring White count and fever * Cont Tamiflu for influenza * Prednisone 30mg daily changed to 20 mg daily * Stable for transfer to * Ativan 0.5 q4 for agitation Hypertension: Patient was hypotensive upon presentation, continues to have systolic blood pressure towards lower side. Patient has Hx of systolic heart failure with ejection fraction of 40% per echocardiogram in March 2016 * Cont to hold furosemide, diltiazem, lisinopril, and metoprolol for now because of the risk of hypotension in the setting of infection, will resume once patient more stable. * Cardiology on baoard, will f/u recs. Diarrhea * Follow up c dif * bowel regimen on hold Hypokalemia: Replaced. Will follow repeat labs replace as needed. Hypomagnesemia: Replaced. Will follow repeat labs replace as needed. Lines: quinones Diet: heart healthy DVT prophylaxis with subcutaneous heparin Pain pathway Full code Consults: cardio, PT Problem List: 1. Influenza 2. Hypercapnic respiratory failure Pain Ratin Tomorrow's Labs & Rationales: CBC leukocytosis BEP hypokalemia Plan DVT/Prophylaxis: pharmacological
--- NOTE | 2016-07-31 10:18 | PN- CRCU ---
Subjective HPI/Critical Care Issues: The patient is confused and agitated this morning. She is not willing to eat her breakfast. Her respiratory status appears improved compared to yesterday. She remains on 4 L nasal cannula with saturations in the high 90s. She remained hemodynamically stable, off pressors. She is afebrile. She had multiple loose stools yesterday. The patient is not able to offer complaints. Objective Vital Signs & I&O Last 24 Hrs of Vitals and I&O: Vital Signs Date Time Temp Pulse Resp B/P Pulse O2 O2 Flow FiO2 Ox Delivery Rate 08/01 0842 93 Nasal 4.0L Cannula 08/01 0800 94 Nasal 4.0L Cannula 08/01 0709 97.9 89 24 136/72 94 08/01 0000 Nasal 4.0L Cannula 07/31 2231 97.8 83 20 132/70 96 Nasal 4.0L Cannula 07/31 1746 98.4 81 19 122/58 95 Nasal 4.0L Cannula 07/31 1631 98 Nasal 4.0L Cannula 07/31 1600 96.1 96 20 112/64 93 Nasal 4.0L Cannula 07/31 1600 94 Nasal 4.0L Cannula Intake & Output 08/01 1600 08/01 0800 08/01 0000 Intake Total 100 340 Output Total 450 450 500 Balance -450 -350 -160 Intake, IV 100 100 Intake, Oral 240 Number 2 0 Bowel Movements Output, Urine 450 450 500 Impression/Plan Impression/Plan Impression/Plan: 1. 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 Respiratory status is improved and the patient is now extubated. She does however continue to have periods of increased respiratory distress, and we'll use BiPAP as necessary. 2. Bibasilar atelectasis, cultures remain negative. 3. Systolic heart disease. 4. History of alcohol abuse, with no active signs of withdrawal. 5. Previous history of hypertension and hyperlipidemia. 6. History of osteoporosis. 7. History of hypertension. 8. Delirium. 9. Diarrhea, multiple loose stools, rule out C. difficile. Recommendations: * Please send a stool for C. difficile today. * If the patient has any evidence of increased respiratory distress, will institute BiPAP (/, RR of 20). Will need to adjust settings based upon follow up ABG. * Complete course of Tamiflu. * Continue prednisone but decrease to 20 mg daily. * Continue nebs/TRC. * PRN low dose Ativan for anxiety. * Continue multivitamin, thiamine and folate. * Advance diet as tolerated. Monitor the patient on aspiration precautions. * Bowel regimen on hold due to diarrhea. * Continue DVT and GI prophylaxis. * Downgrade to GEN med.
--- NOTE | 2016-07-31 12:22 | NUR ---
PT eval canceled today. Nurse notes that pt has not slept and is currently sleeping but therapy can try. Pt not staying awake with therapy. She would open her eyes then close them back or begin to answer a question then stop short and fall back to sleep. Will cont to follow in order to assess functional status.
--- NOTE | 2016-07-31 13:18 | Event Note ---
Event Note Event Note: Pt's came by this afternoon and was frustrated that the patient is not able to recognize him and she was telling him irrelevant stories. He is concerned about her decline. Pt is awake, alert, intermittently hostile. I discussed with him regarding doing an ABG and putting her on bipap if needed. At this time, he would not want us to pursue an ABG. He says he cannot take care of her at home due to her physical needs. She does have a bed at [facility], if needed, we can obtain social work consult in the morning. I get a sense that he wants to pursue comfort care for the patient as he is aware that she has end stage COPD and would likely deteriorate further. Her c diff came back positive. Plan: Consider SW consult in am Further goals of care discussion in am Started flagyl q8
[2016-07-31 16:00] VITALS: BP 112/64
[2016-07-31 17:46] VITALS: BP 122/58
--- NOTE | 2016-07-31 18:00 | NUR ---
NURSING NOTE: PT ARRIVED TO FLOOR FROM ICU AT 1720. PT ALERT AND CONFUSED. VSS CHARTED, LORA TO BSD WITH CLEAR YELLOW URINE. DESITIN AND A&D PLACED ON BUTTOCK TO EXCORIATED AREA. BED ALARM IN PLACE. PT ORIENTED TO ROOM AND CALL ROUSE. WILL CONTINUE TO MONITOR.
[2016-07-31 22:31] VITALS: BP 132/70
[2016-08-01 07:09] VITALS: BP 136/72
--- NOTE | 2016-08-01 08:00 | NUR ---
NURSING NOTE; ASSUMED CARE OF PT; PT WITH KIKO TL PICC; NO BLOOD RETURN FROM ANY LINE; 372 CALLED AND MADE AWARE AND TO ORDER CATHFLOW. CONT TO MONITOR. PT AWAKE, A/FORGETFUL, DENIES COMPLAINTS, FALL PREC IN PLACE. CONT TO MONITOR.
[2016-08-01 08:02] LABS: ABSOLUTE BASOPHIL COUNT 0 /CUMM (0.0-0.2); ABSOLUTE EOSINOPHIL COUNT 0.2 /CUMM (0.0-0.7); ABSOLUTE GRANULOCYTE CT 7.6 /CUMM (1.4-6.5); ABSOLUTE LYMPH COUNT 2.2 /CUMM (1.2-3.4); ABSOLUTE MONOCYTE COUNT 0.7 /CUMM (0.10-0.60); BASOPHIL % 0.2 % (0.0-2.0); EOSINOPHIL % 1.4 % (0-5); HEMATOCRIT 31.8 % (37-47); MEAN CORPUSCULAR HGB 31.5 PG (27.0-31.0); MEAN CORPUSCULAR HGB CONC 31.2 G/DL (33.0-37.0); MEAN PLATELET VOLUME 8.4 FL (7.4-10.4); PLATELET COUNT 282 /CUMM (130-400); RBC DISTRIBUTION WIDTH 14.6 % (11.5-14.5); RED BLOOD CELL CT 3.15 /CUMM (4.20-5.40); WHITE BLOOD CELL COUNT 10.7 /CUMM (4.8-10.8)
--- NOTE | 2016-08-01 09:16 | PN- Housestaff ---
Subjective Follow-up For: Acute hypoxic/hypercarbic respiratory failure Positive C. difficile Subjective: Patient appears comfortable in bed today. States her mood is lousy. Mentation appears better than yesterday. She was able to remember her home phone number and spoke to her while I went to examine her this morning. Denies chest pain, no overnight events reported. Had 5 episodes of loose stools yesterday which was like smears She is at 4 L which is her baseline Review of Systems Constitutional: Reports: see HPI. Objective Last 24 Hrs of Vital Signs/I&O Vital Signs Date Time Temp Pulse Resp B/P Pulse O2 O2 Flow FiO2 Ox Delivery Rate 08/01 0842 93 Nasal 4.0L Cannula 08/01 0709 97.9 89 24 136/72 94 08/01 0000 Nasal 4.0L Cannula 07/31 2231 97.8 83 20 132/70 96 Nasal 4.0L Cannula 07/31 1746 98.4 81 19 122/58 95 Nasal 4.0L Cannula 07/31 1631 98 Nasal 4.0L Cannula 07/31 1600 96.1 96 20 112/64 93 Nasal 4.0L Cannula 07/31 1600 94 Nasal 4.0L Cannula Intake & Output 08/01 1600 08/01 0800 04 0000 Intake Total 100 340 Output Total 100 450 500 Balance -100 -350 -160 Intake, IV 100 100 Intake, Oral 240 Number 2 0 Bowel Movements Output, Urine 100 450 500 Physical Exam General Appearance: Alert, Cooperative, No Acute Distress, oriented to place and person Skin: bruising of the skin present HEENT: Mucous Membr. moist/pink Cardiovascular: Regular Rate, Normal S1, Normal S2, No Murmurs Lungs: bilateral decreased breath sounds Abdomen: Normal Bowel Sounds, Soft, No Tenderness Extremities: No Clubbing, No Cyanosis, No Edema Current Medications: Current Medications Sig/Shobha Start time Last Medication Dose Route Stop Time Status Admin Acetaminophen 1,000 MG Q6P PRN 07/25 1730 AC 08/01 N/A 1 UNIT IV 0725 Albuterol Sulfate 3 ML EVERY 4 HRS/AWAKE 07/25 0945 AC 08/01 INH 0836 Alteplase, 2 MG ONE ONE 08/01 0830 DC Recombinant IV 08/01 0831 Atorvastatin Calcium 10 MG 1700 08/01 1700 AC PO Budesonide/ 2 PUF BID 08/01 1000 AC Formoterol Fumarate INH Cyanocobalamin 1,000 MCG DAILY 07/25 1113 AC 08/01 PO 0913 Famotidine 20 MG DAILY 07/25 1108 AC 08/01 PO 0913 Folic Acid 1 MG DAILY 07/25 1113 AC 08/01 PO 0913 Heparin Sodium 5,000 UNIT Q8 07/25 1400 AC 08/01 (Porcine) SC 0514 Ipratropium [place] 2.5 ML EVERY 4 HRS/AWAKE 07/25 0945 AC 08/01 INH 0836 Lorazepam 0.5 MG Q4 07/27 1400 DC 08/01 IV 0514 Metoprolol Tartrate 25 MG TuWeTh@1000 08/02 1000 AC PO Metronidazole 500 MG Q8 08/01 1400 AC PO Metronidazole 500 MG Q8H 07/31 1315 DC 08/01 N/A 1 UNIT IV 0514 Mirtazapine 30 MG AT BEDTIME 08/01 2200 AC PO Oseltamivir Phosphate 30 MG BID 07/25 1030 DC 07/31 PO 07/31 2159 1031 Patient Medication 1 UNIT 1000 /04 1000 Teaching ED 08/02 1001 Patient Medication 1 UNIT 1700 08/01 1700 Teaching ED 08/01 1701 Patient Medication 1 UNIT 1400 08/01 1400 Teaching ED 08/01 1401 Polyethylene Glycol 17 GM DAILY 07/26 1000 AC 07/28 PO 1000 Prednisone 20 MG DAILY 08/01 1000 AC 08/01 PO 0913 Prednisone 30 MG DAILY 07/28 1000 DC 07/31 PO 1031 Senna 187 MG AT BEDTIME 07/26 2200 AC 07/28 PO 2125 Thiamine HCl 100 MG DAILY 07/25 1113 AC 08/01 PO 0913 Vitamin A/Vitamin D 1 DANG BID 07/31 1615 AC 08/01 TOP 0913 Zinc Oxide 1 DANG BID 07/31 1615 08/01 TOP 0913 Last 24 Hrs of Lab/[place] Results Last 24 Hrs of Labs/Mics: Laboratory Tests 08/01/16 0615: Anion Gap 6, Estimated GFR > 60, BUN/Creatinine Ratio 25.0, CBC w Diff NO MAN DIFF REQ, RBC 3.15 L, MCV 101.0 H, MCH 31.5 H, RDW 14.6 H, MPV 8.4, Gran % 71.0, Lymphocytes % 20.5, Monocytes % 6.9, Eosinophils % 1.4, Basophils % 0.2, Absolute Granulocytes 7.6 H, Absolute Lymphocytes 2.2, Absolute Monocytes 0.7 H, Absolute Eosinophils 0.2, Absolute Basophils 0, PUBS MCHC 31.2 L Microbiology 07/31 1056 STOOL: Clostridium difficile Toxin A & B - CAN Cancelled: DUPLICATE Assessment/Plan Assessment: This is a 80-year-old female with history of severe COPD, chronic HFrEF with LVEF 40%, multifocal atrial tachycardia who was admitted to ICU for hypercarbic respiratory failure likely secondary to pneumonia versus COPD exacerbation . She was brought in from group home facility to the emergency room where she was found to be hypoxic and confused, she was short of breath, coughing, and wheezing, she was subsequently intubated. History was obtained from the nurse at [facility]. She was found to have an oxygen saturation of 76% in the field , which improved to 95% on 3 L. She was noted to have high fevers, and was found to be positive for influenza infection. 1. Acute hypercarbic respiratory failure in the setting of end-stage COPD/ positive flu: - Patient at baseline after extubation -She is complete the course of Tamiflu -Has remained afebrile overnight -We'll continue TRC nebulizes - We'll continue 20 of prednisone daily 2. Hypertension: - Patient blood pressure has been stable and her home medications have been held since admission -she is on furosemide that he has some lisinopril and metoprolol at home - These medications can be restarted upon discharge - Will follow cardiology recommendation 3. C. difficile positive -She was started on IV metronidazole. We will change to by mouth metronidazole 500 every 8 for a total of 10 days. 4. Diabetes mellitus: We'll continue to monitor fingersticks with insulin sliding scale She is currently on a pure diet and honey thick liquid. We will reevaluate her swallow she is more awake and alert today. DNR/DNI DVT prophylaxis with subcutaneous heparin Problem List: 1. COPD (chronic obstructive pulmonary disease) 2. Hypercapnic respiratory failure 3. Hypertension 4. CHF (congestive heart failure) Pain Ratin Pain Location: Back Pain Goal: Remain pain free Pain Plan: As mentioned Tomorrow's Labs & Rationales: Likely discharge today
--- NOTE | 2016-08-01 10:13 | NUR ---
NURSING NOTE: CATHFLO ADMINISTERRED PER MD ORDER, WILL CONT TO MONITOR AND RECHECK IN 30 MINUTES.
--- NOTE | 2016-08-01 10:18 | Discharge Summary ---
See Addendum Visit Information Visit Dates Admission Date: 07/25/16 Discharge Date: 08/01/16 Hospital Course Course Attending Physician: MIGUELINA CARRANZA,MARY Primary Care Physician: VALENTINO CARRANZA,[facility] Course: 80-year-old lady who has a history of hypertension, end-stage COPD, systolic heart failure resident of a care home facility presented to the emergency room hypoxic and confused. Vitals and admission: Blood pressure 122/78, respiration 18, pulse rate 102, temperature 98.2, oxygen saturation 92% on BiPAP with 50% oxygen flow. Labs and admission: WBC 14.4, hemoglobin 10.6, hematocrit 33.0, platelets 276, pH 7.25, PCO2 96, PO2 82, bicarbonate 41. Hospital course 1. Acute hypoxemic/hypercarbic respiratory failure related to end-stage lung disease secondary to COPD/flu positive: In the ED patient was very confused and hypoxic. She was initially placed on BiPAP with no improvement in mentation or PCO2, subsequently intubated. She was initially started on antibiotic for possible healthcare associated pneumonia which was later discontinued sputum and blood cultures showed no growth. Urine strep and Legionella antigens were negative. Patient was flu positive and she completed 5 dose course of Tamiflu. She was subsequently extubated on 07/29/2016 and placed on 4 L nasal cannula which he tolerated very well. She was changed to by mouth prednisone with a quick taper and continue 5 mg daily Patient was evaluated by swallow after extubation and initially recommended puree and nectar thick liquid she was revisited by swallow and she was changed to mechanical soft diet with thin liquids. 2. C. difficile: During the course of hospital stay patient history was complicated by C. difficile infection. Her creatinine and blood pressure remained stable. She was started on metronidazole 500 mg every 8 and the recommendation was given to complete a total course of 10 days. 3. COPD: She was maintained on her Symbicort 2 puffs twice a day. TRC nebulizes. 4. Hypertension: Her blood pressure medications initially were held. Her blood pressure remained stable. She should resume her home medications upon discharge. Patient currently on the DSM, it is a month, lisinopril, metoprolol on Monday and Monday. 5. Anxiety/depression: She was continued on Ativan IV while she was intubated for anxiety. She was started on Alprazolam 0.25 mg for anxiety and celexa 5 mg daily for depression. DNR/DNI DVT ppx with SC heparin Patient has dveloped a wound on butt crack, but not a pressure ulcer. She will need the application of vitamin A & D ointment BID Allergies: Coded Allergies: Penicillins (DIARRHEA 07/01/15) Significant Procedures: Was placed in mechanical intubation Pertinent Lab Results: Laboratory Tests 08/01 07/31 0615 0433 Chemistry Sodium (137 - 145 mmol/L) 138 137 Potassium (3.5 - 5.1 mmol/L) 3.9 4.1 Chloride (98 - 107 mmol/L) 98 96 L Carbon Dioxide (22 - 30 mmol/L) 35 H 34 H Anion Gap (5 - 16) 6 6 BUN (7 - 17 mg/dL) 10 12 Creatinine (0.5 - 1.0 mg/dL) 0.4 L 0.4 L Estimated GFR (>60 ml/min) > 60 > 60 BUN/Creatinine Ratio (7 - 25 %) 25.0 Glucose (65 - 99 mg/dL) 68 Calcium (8.4 - 10.2 mg/dL) 8.6 Phosphorus (2.5 - 4.5 mg/dL) 4.5 Magnesium (1.6 - 2.3 mg/dL) 2.2 Total Bilirubin (0.2 - 1.3 mg/dL) 0.6 AST (14 - 36 U/L) 9 L ALT (9 - 52 U/L) 45 Albumin (3.5 - 5.0 g/dL) 3.0 L Hematology CBC w Diff NO MAN DIFF REQ NO MAN DIFF REQ WBC (4.8 - 10.8 /CUMM) 10.7 14.2 H RBC (4.20 - 5.40 /CUMM) 3.15 L 3.04 L Hgb (12.0 - 16.0 G/DL) 9.9 L 9.8 L Hct (37 - 47 %) 31.8 L 30.7 L MCV (81.0 - 99.0 FL) 101.0 H 101.1 H MCH (27.0 - 31.0 PG) 31.5 H 32.3 H RDW (11.5 - 14.5 %) 14.6 H 15.2 H Plt Count (130 - 400 /CUMM) 282 267 MPV (7.4 - 10.4 FL) 8.4 8.9 Gran % (42.2 - 75.2 %) 71.0 81.0 H Lymphocytes % (20.5 - 51.1 %) 20.5 14.0 L Monocytes % (1.7 - 9.3 %) 6.9 3.9 Eosinophils % (0 - 5 %) 1.4 0.7 Basophils % (0.0 - 2.0 %) 0.2 0.4 Absolute Granulocytes (1.4 - 6.5 /CUMM) 7.6 H 11.5 H Absolute Lymphocytes (1.2 - 3.4 /CUMM) 2.2 2.0 Absolute Monocytes (0.10 - 0.60 /CUMM) 0.7 H 0.6 Absolute Eosinophils (0.0 - 0.7 /CUMM) 0.2 0.1 Absolute Basophils (0.0 - 0.2 /CUMM) 0 0.1 PUBS MCHC (33.0 - 37.0 G/DL) 31.2 L 31.9 L 07/30 07/30 1035 0930 Chemistry Sodium (137 - 145 mmol/L) 140 Potassium (3.5 - 5.1 mmol/L) 3.3 L Chloride (98 - 107 mmol/L) 99 Carbon Dioxide (22 - 30 mmol/L) 36 H Anion Gap (5 - 16) 6 BUN (7 - 17 mg/dL) 16 Creatinine (0.5 - 1.0 mg/dL) 0.4 L Estimated GFR (>60 ml/min) > 60 Glucose (65 - 99 mg/dL) 81 Calcium (8.4 - 10.2 mg/dL) 8.2 L Phosphorus (2.5 - 4.5 mg/dL) 3.7 Magnesium (1.6 - 2.3 mg/dL) 2.1 Total Bilirubin (0.2 - 1.3 mg/dL) 0.6 AST (14 - 36 U/L) 16 ALT (9 - 52 U/L) 48 Albumin (3.5 - 5.0 g/dL) 2.9 L Hematology WBC (4.8 - 10.8 /CUMM) 14.2 H RBC (4.20 - 5.40 /CUMM) 2.97 L Hgb (12.0 - 16.0 G/DL) 9.4 L Hct (37 - 47 %) 29.9 L MCV (81.0 - 99.0 FL) 100.5 H MCH (27.0 - 31.0 PG) 31.5 H RDW (11.5 - 14.5 %) 15.0 H Plt Count (130 - 400 /CUMM) 243 MPV (7.4 - 10.4 FL) 8.4 Gran % (42.2 - 75.2 %) 81.8 H Lymphocytes % (20.5 - 51.1 %) 15.2 L Monocytes % (1.7 - 9.3 %) 2.0 Eosinophils % (0 - 5 %) 0.9 Basophils % (0.0 - 2.0 %) 0.1 Absolute Granulocytes (1.4 - 6.5 /CUMM) 11.6 H Absolute Lymphocytes (1.2 - 3.4 /CUMM) 2.2 Absolute Monocytes (0.10 - 0.60 /CUMM) 0.3 Absolute Eosinophils (0.0 - 0.7 /CUMM) 0.1 Absolute Basophils (0.0 - 0.2 /CUMM) 0 PUBS MCHC (33.0 - 37.0 G/DL) 31.4 L Disposition Summary Disposition Principal Diagnosis: 1. Acute hypoxemic/hypercarbic respiratory failure related to end-stage lung disease secondary to COPD/flu positive 2. C. difficile Additional Diagnosis: 1. Chronic resp failure due to COPD 2. Hypertension 3. Anxiety/depression Discharge Disposition: STR Discharge Instructions General Discharge Information Code Status: Do Not Resucitate/Intubat Patient's Diet: Mechanical soft/puree thin liquid Patient's Activity: As tolerated with PT Follow-Up Instructions/Appts: 1. Follow up with PCP in a week upon discharge 2. Follow up with Dr. Sutton in a week upon discharge Medications at Discharge Discharge Medications: Stop taking the following medications: Docusate Sodium (Docusate Sodium) 100 MG SGL ORAL DAILY as needed for CONSTIPATION Lactulose (Lactulose) 10 GM/15 ML SYR ORAL DAILY as needed for CONSTIPATION Senna (Senokot) 8.6 MG TABLET ORAL AT BEDTIME Qty = 30 Albuterol Sulfate (Proair Hfa) 0.09 MG/Actuation LUIS F Inhale through mouth THREE TIMES DAILY as needed for RESPIRATORY DIFFICULTY Days = 30 Continue taking these medications: Atorvastatin Calcium (Lipitor) 10 MG TABLET 1 Tablet ORAL 5 PM Comments: Last Taken: 07/01/15 Time: 1700 DILTIAZEM HCL (Diltiazem 24HR Cd) 120 MG CER 1 Tablet ORAL DAILY Qty = 90 Comments: Last Taken: 07/02/15 TIME: 0900 Furosemide (Furosemide) 20 MG TABLET 1 Tablet ORAL Every other day Qty = 90 Instructions: PLEASE TAKE THE NEXT DOSE ON 04/09 Comments: Last Taken: 07/01/15 Time: 0900 Metoprolol Succinate (Metoprolol Succinate) 25 MG TAB.ER.24H 1 Tablet ORAL Mon Qty = 90 Comments: Last Taken: 07/02/15 Time: 0900 Fluticasone-Salmeterol (Advair 100-50 Diskus) (Unknown Strength) INH 1 PUFF Inhale through mouth TWICE DAILY Comments: NOT GIVEN IN HOSPITAL Mirtazapine (Mirtazapine) 30 MG TABLET 30 Milligram ORAL AT BEDTIME Qty = 30 Comments: Last Taken: 08/01/16 Time: 9:30 PM Folic Acid (Folic Acid) 1 MG TABLET 1 Milligram ORAL DAILY Days = 14 Comments: Last Taken: 08/02/16 Time: 1000 AM Multivitamin (One Daily Multivitamin) 1 EACH TABLET 1 Tablet ORAL DAILY Days = 30 Comments: NOT GIVEN IN HOSPITAL Lisinopril (Lisinopril) 5 MG TABLET 1 Tablet ORAL DAILY Comments: NOT GIVEN IN HOSPITAL Start taking the following new medications: Metronidazole (Flagyl) 250 MG TABLET 500 Milligram ORAL EVERY 8 HOURS Days = 9 No Refills Comments: Last Taken: 08/01/16 Time: 1415PM Vitamin A & D (Vitamin A & D Ointment) 56.7 GM OINT...G. 1 Application On the skin TWICE DAILY Days = 30 No Refills Comments: Last Taken:08/02/16 Time:1000AM Prednisone (Prednisone) 5 MG TABLET 0 ORAL DAILY Qty = 60 No Refills Instructions: TAKE 4 TABS ON 4/3 AND 4/4 TAKE 2 TABS ON 4/5 AND 4/6 TAKE 1 TAB DAILY FORM 08/05 AND CONTINUE Comments: Last Taken:08/02/16 Time: 1000AM Citalopram Hydrobromide (Celexa) 10 MG TABLET 0.5 Tablet ORAL DAILY Qty = 30 No Refills Comments: Last Taken:08/01/16 Time: 1000AM Alprazolam (Alprazolam) 0.25 MG TABLET 1 Tablet ORAL DAILY as needed for ANXIETY Qty = 60 No Refills Comments: NOT GIVEN IN HOSPITAL Ipratropium/Albuterol Sulfate (Iprat-Albut 0.5-3(2.5) MG/3 Ml) 0.5 MG-3 MG (2.5 MG BASE)/3 ML AMPUL.NEB 1 Inhalation Inhale through mouth EVERY 4-6 HOURS as needed for COPD Qty = 30 No Refills Copies To: VALENTINO CARRANZA,COTY; VERITO CARRANZA,STEPHANY Blevins; ALCIDES KASPER MD Copies To: DIONY AVELAR MD, MD,STEPHANY Blevins; ALCIDES KASPER MD
--- NOTE | 2016-08-01 10:20 | PN- Att Addend ---
Attending Addendum Attending Brief Note Patient seen and examined, much more awake and oriented this morning. She said that she's feeling very tired and has a poor appetite. Her breathing is okay although not 100%. She denies any abdominal pain and diarrhea is slightly better. Vital Signs Date Time Temp Pulse Resp B/P Pulse O2 O2 Flow FiO2 Ox Delivery Rate 08/01 0842 93 Nasal 4.0L Cannula 08/01 0709 97.9 89 24 136/72 94 08/01 0000 Nasal 4.0L Cannula 07/31 2231 97.8 83 20 132/70 96 Nasal 4.0L Cannula 07/31 1746 98.4 81 19 122/58 95 Nasal 4.0L Cannula 07/31 1631 98 Nasal 4.0L Cannula 07/31 1600 96.1 96 20 112/64 93 Nasal 4.0L Cannula 07/31 1600 94 Nasal 4.0L Cannula on exam; awake, nad. cv; s1,s2, rrr resp; mild scattered wheeze but overall decreased bs. abd; soft, nt, bs+ ext; no edema Laboratory Tests 08/01 614 Chemistry Sodium (137 - 145 mmol/L) 138 Potassium (3.5 - 5.1 mmol/L) 3.9 Chloride (98 - 107 mmol/L) 98 Carbon Dioxide (22 - 30 mmol/L) 35 H Anion Gap (5 - 16) 6 BUN (7 - 17 mg/dL) 10 Creatinine (0.5 - 1.0 mg/dL) 0.4 L Estimated GFR (>60 ml/min) > 60 BUN/Creatinine Ratio (7 - 25 %) 25.0 Hematology CBC w Diff NO MAN DIFF REQ WBC (4.8 - 10.8 /CUMM) 10.7 RBC (4.20 - 5.40 /CUMM) 3.15 L Hgb (12.0 - 16.0 G/DL) 9.9 L Hct (37 - 47 %) 31.8 L MCV (81.0 - 99.0 FL) 101.0 H MCH (27.0 - 31.0 PG) 31.5 H RDW (11.5 - 14.5 %) 14.6 H Plt Count (130 - 400 /CUMM) 282 MPV (7.4 - 10.4 FL) 8.4 Gran % (42.2 - 75.2 %) 71.0 Lymphocytes % (20.5 - 51.1 %) 20.5 Monocytes % (1.7 - 9.3 %) 6.9 Eosinophils % (0 - 5 %) 1.4 Basophils % (0.0 - 2.0 %) 0.2 Absolute Granulocytes (1.4 - 6.5 /CUMM) 7.6 H Absolute Lymphocytes (1.2 - 3.4 /CUMM) 2.2 Absolute Monocytes (0.10 - 0.60 /CUMM) 0.7 H Absolute Eosinophils (0.0 - 0.7 /CUMM) 0.2 Absolute Basophils (0.0 - 0.2 /CUMM) 0 PUBS MCHC (33.0 - 37.0 G/DL) 31.2 L A/P; 80 y/o F with pmh sig for ch resp failure, severe COPD O2 dependent, chronic HFrEF with LVEF 40%, multifocal atrial tachycardia who was admitted to ICU for hypercarbic respiratory failure likely secondary to pneumonia versus COPD exacerbation. Patient was initially treated with antibiotics and steroids. Antibiotics were stopped after she developed diarrhea and now C. difficile positive. She also is flu positive and nontreatment a Tamiflu. She has been started on metronidazole and diarrhea to be doing slightly better. Currently on by mouth prednisone. Please confirm with Dr. Sutton about the taper. Continue [facility] nebs. I discussed with Dr. Sutton, as patient seems to be improving, she continues to remain DNR/DNI but no comfort measures yet. Comfort measures would only be discussed if patient goes downhill further. At this point if her diarrhea seems to improve then likely she can be discharged to [facility] today.
--- NOTE | 2016-08-01 13:28 | PN- Pulmonary ---
Subjective HPI/Critical Care Issues: Patient seen and examined, much more awake and oriented this morning. She said that she's feeling very tired and has a poor appetite. Her breathing is okay although not 100%. She denies any abdominal pain and diarrhea is slightly delfina Objective Current Medications: Current Medications Sig/Shobha Start time Last Medication Dose Route Stop Time Status Admin Acetaminophen 1,000 MG Q6P PRN 07/25 1730 08/01 N/A 1 UNIT IV 0725 Albuterol Sulfate 3 ML EVERY 4 HRS/AWAKE 07/25 0945 AC 08/01 INH 1126 Alteplase, 2 MG ONE ONE 08/01 1030 DC Recombinant IV 08/01 1031 Alteplase, 2 MG ONE ONE 08/01 1030 DC Recombinant IV 08/01 1031 Alteplase, 2 MG ONE ONE 08/01 0830 DC 08/01 Recombinant IV 08/01 0831 1011 Atorvastatin Calcium 10 MG 1700 08/01 1700 AC PO Budesonide/ 2 PUF BID 08/01 1000 AC 08/01 Formoterol Fumarate INH 1012 Cyanocobalamin 1,000 MCG DAILY 07/25 1113 AC 08/01 PO 0913 Famotidine 20 MG DAILY 07/25 1108 AC 08/01 PO 0913 Folic Acid 1 MG DAILY 07/25 1113 AC 08/01 PO 0913 Heparin Sodium 5,000 UNIT Q8 07/25 1400 AC 08/01 (Porcine) SC 0514 Ipratropium [place] 2.5 ML EVERY 4 HRS/AWAKE 07/25 0945 AC 08/01 INH 1126 Lorazepam 0.5 MG Q4 07/27 1400 DC 08/01 IV 0514 Metoprolol Tartrate 25 MG TuWeTh@1000 08/02 1000 AC PO Metronidazole 500 MG Q8 08/01 1400 AC PO Metronidazole 500 MG Q8H 07/31 1315 DC 08/01 N/A 1 UNIT IV 0514 Mirtazapine 30 MG AT BEDTIME 08/01 2200 AC PO Oseltamivir Phosphate 30 MG BID 07/25 1030 DC 07/31 PO 07/31 2159 1031 Patient Medication 1 UNIT 1000 08/02 1000 Teaching ED 08/02 1001 Patient Medication 1 UNIT 1700 08/01 1700 Teaching ED 08/01 1701 Patient Medication 1 UNIT 1400 08/01 1400 Teaching ED 08/01 1401 Polyethylene Glycol 17 GM DAILY 07/26 1000 AC 07/28 PO 1000 Prednisone 20 MG DAILY 08/01 1000 AC 08/01 PO 0913 Senna 187 MG AT BEDTIME 07/26 2200 AC 07/28 PO 2125 Thiamine HCl 100 MG DAILY 07/25 1113 AC 08/01 PO 0913 Vitamin A/Vitamin D 1 DANG BID 07/31 1615 AC 08/01 TOP 0913 Zinc Oxide 1 DANG BID 07/31 1615 AC 08/01 TOP 0913 Laboratory Tests 08/01 07/31 0615 0433 Chemistry Sodium (137 - 145 mmol/L) 138 137 Potassium (3.5 - 5.1 mmol/L) 3.9 4.1 Chloride (98 - 107 mmol/L) 98 96 L Carbon Dioxide (22 - 30 mmol/L) 35 H 34 H Anion Gap (5 - 16) 6 6 BUN (7 - 17 mg/dL) 10 12 Creatinine (0.5 - 1.0 mg/dL) 0.4 L 0.4 L Estimated GFR (>60 ml/min) > 60 > 60 BUN/Creatinine Ratio (7 - 25 %) 25.0 Glucose (65 - 99 mg/dL) 68 Calcium (8.4 - 10.2 mg/dL) 8.6 Phosphorus (2.5 - 4.5 mg/dL) 4.5 Magnesium (1.6 - 2.3 mg/dL) 2.2 Total Bilirubin (0.2 - 1.3 mg/dL) 0.6 AST (14 - 36 U/L) 9 L ALT (9 - 52 U/L) 45 Albumin (3.5 - 5.0 g/dL) 3.0 L Hematology CBC w Diff NO MAN DIFF REQ NO MAN DIFF REQ WBC (4.8 - 10.8 /CUMM) 10.7 14.2 H RBC (4.20 - 5.40 /CUMM) 3.15 L 3.04 L Hgb (12.0 - 16.0 G/DL) 9.9 L 9.8 L Hct (37 - 47 %) 31.8 L 30.7 L MCV (81.0 - 99.0 FL) 101.0 H 101.1 H MCH (27.0 - 31.0 PG) 31.5 H 32.3 H RDW (11.5 - 14.5 %) 14.6 H 15.2 H Plt Count (130 - 400 /CUMM) 282 267 MPV (7.4 - 10.4 FL) 8.4 8.9 Gran % (42.2 - 75.2 %) 71.0 81.0 H Lymphocytes % (20.5 - 51.1 %) 20.5 14.0 L Monocytes % (1.7 - 9.3 %) 6.9 3.9 Eosinophils % (0 - 5 %) 1.4 0.7 Basophils % (0.0 - 2.0 %) 0.2 0.4 Absolute Granulocytes (1.4 - 6.5 /CUMM) 7.6 H 11.5 H Absolute Lymphocytes (1.2 - 3.4 /CUMM) 2.2 2.0 Absolute Monocytes (0.10 - 0.60 /CUMM) 0.7 H 0.6 Absolute Eosinophils (0.0 - 0.7 /CUMM) 0.2 0.1 Absolute Basophils (0.0 - 0.2 /CUMM) 0 0.1 PUBS MCHC (33.0 - 37.0 G/DL) 31.2 L 31.9 L Microbiology Date/Time Procedure - Status Source Growth 07/31 1056 Clostridium difficile Toxin A & B - CAN STOOL Cancelled: DUPLICATE 07/31 0245 Clostridium difficile Toxin A & B - COMP STOOL CLOSTRIDIUM DIFFICILE 07/30 1817 Clostridium difficile Toxin A & B - CAN STOOL Cancelled: SPECIMEN NOT RECEIVED IN LABORATORY Vital Signs & I&O Last 24 Hrs of Vitals and I&O: Vital Signs Date Time Temp Pulse Resp B/P Pulse O2 O2 Flow FiO2 Ox Delivery Rate 08/01 0842 93 Nasal 4.0L Cannula 08/01 0800 94 Nasal 4.0L Cannula 08/01 0709 97.9 89 24 136/72 94 08/01 0000 Nasal 4.0L Cannula 07/31 2231 97.8 83 20 132/70 96 Nasal 4.0L Cannula 07/31 1746 98.4 81 19 122/58 95 Nasal 4.0L Cannula 07/31 1631 98 Nasal 4.0L Cannula 07/31 1600 96.1 96 20 112/64 93 Nasal 4.0L Cannula 07/31 1600 94 Nasal 4.0L Cannula Intake & Output 08/01 1600 08/01 0800 08/01 0000 Intake Total 100 340 Output Total 450 450 500 Balance -450 -350 -160 Intake, IV 100 100 Intake, Oral 240 Number 2 0 Bowel Movements Output, Urine 450 450 500 Impression/Plan Impression/Plan Impression/Plan: Physical Exam General Appearance intubated sedated, easily arousable PICC line in HEENT Atraumatic, responds to light Cardiovascular Normal S1, Normal S2 Lungs b/l wheezing and ronchii Abdomen Normal Bowel Sounds, Soft, No Tenderness Extremities No Clubbing, No Cyanosis, No Edema Moves all extremities 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 In the [facility] home she was noted to have tachypnea cough and hypoxemia and was sent to the emergency room. In the emergency room she was found to be in significant respiratory failure and was intubated. When I saw her she was intubated and sedated. Her issues include * Resolved Acute hypercarbic and hypoxemic respiratory failure related to end- stage lung disease with COPD exacerbation with influenza pneumonia s/p intubation and extubation * Bibasilar atelectasis so far sputum culture shows no organisms * Systolic heart disease with hypotension * Alcohol abuse up until recently but patient has not had any alcohol in the past few weeks as she was in the hospital and rehabilitation facility hence she is at no risk for withdrawal * Previous history of hypertension hyperlipidemia ischemic heart * Significant osteoporosis RECOMMENDATION Cont present care Wean steroids in five days to 5 mg and then continue 5 mg qod Duonebs tid atc symbicort daily alprazolam .25 po qd prn anxiety start celexa 5 mg daily at hs Ok to dc snf Patient will be DNR/DNI
[2016-08-01] MEDS ORDERED: PREDNISONE5 M1 PO (14:21)
[2016-08-01] MEDS ORDERED: CELEXA10 M1 PO (14:23)
[2016-08-01] MEDS ORDERED: ALPRAZOLAM0.25 M1 PO (14:24)
[2016-08-01] MEDS ORDERED: FLAGYL250 M1 PO (14:32)
[2016-08-01 14:33] VITALS: BP 134/72
[2016-08-01 22:13] VITALS: BP 120/70
[2016-08-02 06:08] VITALS: BP 120/78
--- NOTE | 2016-08-02 08:21 | PN- Housestaff ---
YENI CARRANZA,REY 08/02/16 0821: Subjective Follow-up For: Acute hypoxic/hypercarbic respiratory failure due to flu Positive C. difficile Subjective: Patient is feeling better today Total of 4 BM yesterday. Denies abdominal pain, nausea, vomiting, chest pain, palpitation, dizziness. PICC line was not removed as she was not discharged yesterday. It will be removed prior to discharge Review of Systems Constitutional: Reports: see HPI. Objective Last 24 Hrs of Vital Signs/I&O Vital Signs Date Time Temp Pulse Resp B/P Pulse O2 O2 Flow FiO2 Ox Delivery Rate 08/02 0753 94 Nasal 4.0L Cannula 08/02 0608 9817.0 92 16 120/78 95 Nasal 4.0L Cannula 08/02 0000 Nasal 4.0L Cannula 08/01 2213 98.2 68 20 120/70 93 08/01 1910 94 Nasal 4.0L Cannula 08/01 1600 Nasal 4.0L Cannula 08/01 1433 97.8 102 22 134/72 92 Nasal 4.0L Cannula Intake & Output 08/02 1600 08/02 0800 08/02 0000 Intake Total 240 800 Output Total 700 300 Balance -460 500 Intake, Oral 240 800 Number 2 Bowel Movements Output, Urine 700 300 Physical Exam General Appearance: Alert, Cooperative, OrientedX2 Skin: multiple bruising present over the body HEENT: Mucous Membr. moist/pink Cardiovascular: Regular Rate, Normal S1, Normal S2, No Murmurs Lungs: b/l breath sounds decreased, no wheeze noted Abdomen: Normal Bowel Sounds, Soft, No Tenderness Neurological: Normal Speech Extremities: No Clubbing, No Cyanosis, No Edema Current Medications: Current Medications Sig/Shobha Start time Last Medication Dose Route Stop Time Status Admin Acetaminophen 650 MG ONCE ONE 08/02 0645 DC 08/02 PO 08/02 0646 0720 Acetaminophen 650 MG Q8P PRN 08/01 1430 AC 08/02 PO 0308 Acetaminophen 1,000 MG Q6P PRN 07/25 1730 DC 08/01 N/A 1 UNIT IV 0725 Albuterol Sulfate 3 ML EVERY 4 HRS/AWAKE 07/25 0945 AC 08/02 INH 0742 Alteplase, 2 MG ONE ONE 08/01 1030 DC Recombinant IV 08/01 1031 Alteplase, 2 MG ONE ONE 08/01 1030 DC Recombinant IV 08/01 1031 Atorvastatin Calcium 10 MG 1700 08/01 1700 AC 08/01 PO 1704 Budesonide/ 2 PUF BID 08/01 1000 AC 08/01 Formoterol Fumarate INH 2150 Cyanocobalamin 1,000 MCG DAILY 07/25 1113 AC 04 PO 0913 Famotidine 20 MG DAILY 07/25 1108 AC 08/01 PO 0913 Folic Acid 1 MG DAILY 07/25 1113 AC 08/01 PO 0913 Heparin Sodium 5,000 UNIT Q8 07/25 1400 AC 08/02 (Porcine) SC 0514 Ipratropium [place] 2.5 ML EVERY 4 HRS/AWAKE 07/25 0945 AC 08/02 INH 0742 Metoprolol Tartrate 25 MG TuWeTh@1000 08/02 1000 AC PO Metronidazole 500 MG Q8 08/01 1400 AC 08/02 PO 0514 Mirtazapine 30 MG AT BEDTIME 08/01 2200 AC 08/01 PO 2133 Patient Medication 1 UNIT 1000 / 1000 AC Teaching ED 08/02 1001 Patient Medication 1 UNIT 1700 08/01 1700 DC 08/01 Teaching ED 08/01 1701 1706 Patient Medication 1 UNIT 1400 / 1400 DC 08/01 Teaching ED 08/01 1401 1434 Patient Medication 1 ED .[facility] ONE 08/01 1348 [facility] Teaching ED 08/01 1349 Polyethylene Glycol 17 GM DAILY 07/26 1000 AC 07/28 PO 1000 Prednisone 20 MG DAILY 08/01 1000 AC 08/01 PO 0913 Senna 187 MG AT BEDTIME 07/26 2200 AC 07/28 PO 2125 Thiamine HCl 100 MG DAILY 07/25 1113 AC 08/01 PO 0913 Vitamin A/Vitamin D 1 DANG BID 07/31 1615 AC 08/01 TOP 2133 Zinc Oxide 1 DANG BID 07/31 1615 AC 08/01 TOP 2133 Assessment/Plan Assessment: This is a 80-year-old female with history of severe COPD, chronic HFrEF with LVEF 40%, multifocal atrial tachycardia who was admitted to ICU for hypercarbic respiratory failure likely secondary to pneumonia versus COPD exacerbation . She was brought in from residential facility to the emergency room where she was found to be hypoxic and confused, she was short of breath, coughing, and wheezing, she was subsequently intubated. History was obtained from the nurse at [facility]. She was found to have an oxygen saturation of 76% in the field , which improved to 95% on 3 L. She was noted to have high fevers, and was found to be positive for influenza infection. 1. Acute hypercarbic respiratory failure in the setting of end-stage COPD/ positive flu: - Patient at baseline after extubation - saturating well on 4 L NC - She is complete the course of Tamiflu - Will start her on a quick taper as per pulm recommendation and continue 5 mg form then on - Will discharge her on duo nebs/spiriva as per pulm rec 2. Hypertension: - Patient blood pressure has been stable and her home medications have been held since admission - We resumed metoprolol, but lisinopril and lasix are still on hold - Will follow cardiology recommendation 3. C. difficile positive -She was started on IV metronidazole. We will change to by mouth metronidazole 500 every 8 for a total of 10 days. 4. Diabetes mellitus: We'll continue to monitor fingersticks with insulin sliding scale 5. Anxiety/depression: We resumed her mirtazapine yesterday. She was started on celexa at a lower dose yesterday. Her medicaion can be increased as out patient if symptoms persists. She was also started on alprazolam 0.25 mg daily PRN She was reevaluated by josue cantu yesterday and her diet changed to mechanical soft/thin liquids Patient was supposed to be discahrged to [facility] yesterday. Will check with case management and follow up. If patient has a bed availble she can be discharged to rehab today Patient is DNR/DNI and she is imroving, hence no plan for comfort now. If her ocurse deteriorates we can readdress goals of care. DNR/DNI DVT prophylaxis with subcutaneous heparin Problem List: 1. COPD (chronic obstructive pulmonary disease) 2. Hypercapnic respiratory failure 3. Hypertension Pain Ratin Pain Location: back Pain Goal: Remain pain free Pain Plan: tylenol Tomorrow's Labs & Rationales: Likely discharge today MARY MCINTYRE MD 08/02/16 1348: Attending Review Statement Attending Statement Attending Statement: examined this patient, discuss w/resident/PA/MATERIAL HANDLING TECHNICIAN, agreed w/resident/PA/MATERIAL HANDLING TECHNICIAN, reviewed EMR data (avail), discussed with nursing, discussed with case mgmt, amended to note Attending Assessment/Plan: Patient seen and examined, claims that she's feeling very tired. Diarrhea is somewhat improved. She is awaiting to be discharged to rehabilitation today once insurance authorization is obtained. Please follow recommendations from pulmonology in terms of prednisone taper as well as adding antidepressant and Xanax. Once insurance authorization is approved, patient will be discharged to rehabilitation. She will be discharged on metronidazole.
[2016-08-02] MEDS ORDERED: IPRAT-ALBUT 0.5-3 ML INH (09:37)
--- NOTE | 2016-08-02 10:15 | PN- Pulmonary ---
Subjective HPI/Critical Care Issues: Diarrhea better cdiff positive breathing better Patient is feeling better today Total of 4 BM yesterday. Denies abdominal pain, nausea, vomiting, chest pain, palpitation, dizziness. PICC line was removed yesterday as she was planned to be discharged today. Review of Systems Constitutional: Reports: see HPI. Objective Current Medications: Current Medications Sig/Shobha Start time Last Medication Dose Route Stop Time Status Admin Acetaminophen 650 MG ONCE ONE 08/02 0645 DC 08/02 PO 08/02 0646 0720 Acetaminophen 650 MG Q8P PRN 08/01 1430 AC 08/02 PO 0308 Acetaminophen 1,000 MG Q6P PRN 07/25 1730 DC 08/01 N/A 1 UNIT IV 0725 Albuterol Sulfate 3 ML EVERY 4 HRS/AWAKE 07/25 0945 AC 08/02 INH 0742 Alteplase, 2 MG ONE ONE 08/01 1030 DC Recombinant IV 08/01 1031 Alteplase, 2 MG ONE ONE 08/01 1030 DC Recombinant IV 08/01 1031 Atorvastatin Calcium 10 MG 1700 08/01 1700 AC 08/01 PO 1704 Budesonide/ 2 PUF BID 08/01 1000 AC 08/01 Formoterol Fumarate INH 2150 Cyanocobalamin 1,000 MCG DAILY 07/25 1113 AC 08/01 PO 0913 Famotidine 20 MG DAILY 07/25 1108 AC 08/01 PO 0913 Folic Acid 1 MG DAILY 07/25 1113 AC 08/01 PO 0913 Heparin Sodium 5,000 UNIT Q8 07/25 1400 AC 08/02 (Porcine) SC 0514 Ipratropium [place] 2.5 ML EVERY 4 HRS/AWAKE 07/25 0945 AC 08/02 INH 0742 Metoprolol Tartrate 25 MG TuWeTh@1000 08/02 1000 AC PO Metronidazole 500 MG Q8 08/01 1400 AC 08/02 PO 0514 Mirtazapine 30 MG AT BEDTIME 08/01 2200 AC 08/01 PO 2133 Patient Medication 1 UNIT 1000 / 1000 SC Teaching ED 08/02 1001 Patient Medication 1 UNIT 1700 08/01 1700 SC 08/01 [facility] ED 08/01 1701 1706 Patient Medication 1 UNIT 1400 / 1400 SC 08/01 [facility] ED 08/01 1401 1434 Patient Medication 1 ED .STK-MED ONE 08/01 1348 DC Teaching ED 08/01 1349 Polyethylene Glycol 17 GM DAILY 07/26 1000 AC 07/28 PO 1000 Prednisone 20 MG DAILY 08/01 1000 AC 08/01 PO 0913 Senna 187 MG AT BEDTIME 07/26 2200 AC 07/28 PO 2125 Thiamine HCl 100 MG DAILY 07/25 1113 AC 08/01 PO 0913 Vitamin A/Vitamin D 1 DANG BID 07/31 1615 AC 08/01 TOP 2133 Zinc Oxide 1 DANG BID 07/31 1615 AC 08/01 TOP 2133 Vital Signs & I&O Last 24 Hrs of Vitals and I&O: Vital Signs Date Time Temp Pulse Resp B/P Pulse O2 O2 Flow FiO2 Ox Delivery Rate 08/02 08 93 Nasal 4.0L Cannula 08/02 0753 94 Nasal 4.0L Cannula 08/02 0705 97.8 08/02 0608 9817.0 92 16 120/78 95 Nasal 4.0L Cannula 08/02 0000 Nasal 4.0L Cannula 08/01 2213 98.2 68 20 120/70 93 08/01 1910 94 Nasal 4.0L Cannula 08/01 1600 Nasal 4.0L Cannula 08/01 1433 97.8 102 22 134/72 92 Nasal 4.0L Cannula Intake & Output 08/02 1600 08/02 0800 08/02 0000 Intake Total 240 800 Output Total 700 300 Balance -460 500 Intake, Oral 240 800 Number 2 Bowel Movements Output, Urine 700 300 Impression/Plan Impression/Plan Impression/Plan: Physical Exam General Appearance intubated sedated, easily arousable PICC line in HEENT Atraumatic, responds to light Cardiovascular Normal S1, Normal S2 Lungs b/l wheezing and ronchii Abdomen Normal Bowel Sounds, Soft, No Tenderness Extremities No Clubbing, No Cyanosis, No Edema Moves all extremities 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 In the [facility] custodial she was noted to have tachypnea cough and hypoxemia and was sent to the emergency room. In the emergency room she was found to be in significant respiratory failure and was intubated. When I saw her she was intubated and sedated. Her issues include * Resolved Acute hypercarbic and hypoxemic respiratory failure related to end- stage lung disease with COPD exacerbation with influenza pneumonia s/p intubation and extubation * Cdiff positive with diarrhea better * Bibasilar atelectasis so far sputum culture shows no organisms * Systolic heart disease with hypotension * Alcohol abuse up until recently but patient has not had any alcohol in the past few weeks as she was in the hospital and rehabilitation facility hence she is at no risk for withdrawal * Previous history of hypertension hyperlipidemia ischemic heart * Significant osteoporosis RECOMMENDATION Flagyl for seven to 10 days DC famotidine and reduce prednisone to 10 for two and 5 for two and dc Cont present care symbicort daily alprazolam .25 po qd prn anxiety Resume furosemide 20 mg qod once diarrhea is completely stopped after dc Ok to dc snf if diarrhea stable Patient will be DNR/DNI
[2016-08-02] MEDS ORDERED: VITAMIN A & D56.7 GM TOP (13:14)
[2016-08-02 14:07] VITALS: BP 130/82
--- NOTE | 2016-08-02 15:08 | PN- Cardiology ---
Subjective Subjective: Shortness of breath is improving. No chest pain. No palpitations. No diaphoresis. No syncope. No lightheadedness or dizziness. No nausea or vomiting. Objective Vital Signs and I&Os Vital Signs Date Time Temp Pulse Resp B/P Pulse O2 O2 Flow FiO2 Ox Delivery Rate 08/02 1407 98.2 104 20 130/82 08/02 1358 24 92 Nasal 4.0L Cannula 08/02 1341 87 Nasal 4.0L Cannula 08/02 1009 70 126/72 08/02 0800 93 Nasal 4.0L Cannula 08/02 0753 94 Nasal 4.0L Cannula 08/02 0705 97.8 08/02 0608 9817.0 92 16 120/78 95 Nasal 4.0L Cannula 08/02 0000 Nasal 4.0L Cannula 08/01 2213 98.2 68 20 120/70 93 08/01 1910 94 Nasal 4.0L Cannula 08/01 1600 Nasal 4.0L Cannula Intake & Output 08/02 1600 08/02 0800 08/02 0000 08/01 1600 08/01 0800 08/01 0000 Intake Total 240 800 950 100 340 Output Total 400 700 300 850 450 500 Balance -400 -460 500 100 -350 -160 Intake, IV 100 100 100 Intake, Oral 240 800 850 240 Number 3 2 0 2 0 Bowel Movements Output, Urine 400 700 300 850 450 500 Physical Exam: Gen: The patient is in no acute distress HEENT: Normal nose, ears, and oropharynx. Pupils equal bilaterally. Conjunctiva normal. Neck: Supple with no JVD, no masses, and no thyromegaly Lungs: Wheezing with increased respiratory effort Heart: RRR, S1, S2, 1/6 systolic murmur. No peripheral edema, 2+ pulses in the lower extremities bilaterally Abdomen: Soft, nontender, no masses. No hepatomegaly. No splenomegaly Extremities: No clubbing or cyanosis. Normal muscle strength in the upper and lower extremities Skin: Normal skin turgor with no skin ulcers or lesions noted. Current Medications: Current Medications Sig/Shobha Start time Last Medication Dose Route Stop Time Status Admin Acetaminophen 650 MG ONCE ONE 08/02 0645 DC 08/02 PO 08/02 0646 0720 Acetaminophen 650 MG Q8P PRN 08/01 1430 AC 08/02 PO 1327 Albuterol Sulfate 3 ML EVERY 4 HRS/AWAKE 07/25 0945 AC 08/02 INH 1301 Atorvastatin Calcium 10 MG 1700 08/01 1700 AC 08/01 PO 1704 Budesonide/ 2 PUF BID 08/01 1000 AC 08/02 Formoterol Fumarate INH 1010 Cyanocobalamin 1,000 MCG DAILY 07/25 1113 AC 08/02 PO 1010 Famotidine 20 MG DAILY 07/25 1108 AC 08/02 PO 1009 Folic Acid 1 MG DAILY 07/25 1113 AC 08/02 PO 1009 Guaifenesin 600 MG Q12 08/02 1315 CAN PO Guaifenesin 10 ML Q6P PRN 08/02 1315 AC 08/02 PO 1326 Heparin Sodium 5,000 UNIT Q8 07/25 1400 AC 08/02 (Porcine) SC 1327 Ipratropium [place] 2.5 ML EVERY 4 HRS/AWAKE 07/25 0945 AC 08/02 INH 1302 Metoprolol Tartrate 25 MG TuWeTh@1000 08/02 1000 AC 08/02 PO 1009 Metronidazole 500 MG Q8 08/01 1400 AC 08/02 PO 1327 Mirtazapine 30 MG AT BEDTIME 08/01 2200 AC 08/01 PO 2133 Patient Medication 1 UNIT 1000 / 1000 DC 08/02 Teaching ED 08/02 1001 1009 Patient Medication 1 UNIT 1700 08/01 1700 DC 08/01 Teaching ED 08/01 1701 1706 Polyethylene Glycol 17 GM DAILY 07/26 1000 AC 07/28 PO 1000 Prednisone 20 MG DAILY 08/01 1000 AC 08/02 PO 1010 Senna 187 MG AT BEDTIME 07/26 2200 AC 07/28 PO 2125 Thiamine HCl 100 MG DAILY 07/25 1113 AC 08/02 PO 1010 Vitamin A/Vitamin D 1 DANG BID 07/31 1615 AC 08/02 TOP 1008 Zinc Oxide 1 DANG BID 07/31 1615 AC 08/02 TOP 1008 Results Last 48 Hrs of Labs/Mics: Laboratory Tests 08/01/16 0615: Anion Gap 6, Estimated GFR > 60, BUN/Creatinine Ratio 25.0, CBC w Diff NO MAN DIFF REQ, RBC 3.15 L, MCV 101.0 H, MCH 31.5 H, RDW 14.6 H, MPV 8.4, Gran % 71.0, Lymphocytes % 20.5, Monocytes % 6.9, Eosinophils % 1.4, Basophils % 0.2, Absolute Granulocytes 7.6 H, Absolute Lymphocytes 2.2, Absolute Monocytes 0.7 H, Absolute Eosinophils 0.2, Absolute Basophils 0, PUBS MCHC 31.2 L Assessment/Plan Assessment/Plan Assessment: 1. End-stage COPD 2. Chronic systolic heart failure, with recovery of ejection fraction 3. History of multifocal atrial tachycardia 4. Acute respiratory failure secondary to influenza pneumonia Plan: * Would restart Lasix 20 mg every other day after discharge once diarrhea has completely resolved. * Would restart lisinopril 5 mg daily for history of left ventricular systolic dysfunction Continue telemetry? Not applicable
[2016-08-02 17:34] VITALS: BP 130/82
--- NOTE | 2016-08-03 10:53 | NUR ---
Late Entry: Aware of patients return to [facility] yesterday. Social Work consult had been ordered on Monday, and received by this commercial lines underwriter on 08/01/16. Reason for consult was "goals of care". Case discussed at [facility] on Monday; goals of care to be discussed with medical team.
== END 2016-08-02 18:42 | DRG 207 ==
LOC: ENRESERVTM → ENRESERVDT → ERH 04:05 → ERHI 06:55 → CRI 06:55 → ENPENDDIS 06:55 → CRI 06:55 → ERHI 08:12 → CRI 08:53 → 2NB 07-31 17:21
PROVIDERS: Internal Medicine; Internal Medicine Hematology & Oncology; Pediatrics; Radiology Diagnostic Radiology; Student in an Organized Health Care Education/Training Program; ADMIT Internal Medicine Critical Care Medicine
PROC: 5A1955Z Respiratory Ventilation, Greater than 96 Consecutive Hours (ICD-10-PCS; principal; 2016-07-25)
PROC: 0BH17EZ Insertion of Endotracheal Airway into Trachea, Via Natural or Artificial Opening (ICD-10-PCS; principal; 2016-07-25)
PROC: B518ZZA Fluoroscopy of Superior Vena Cava, Guidance (ICD-10-PCS; 2016-07-25)
PROC: 02HV33Z Insertion of Infusion Device into Superior Vena Cava, Percutaneous Approach (ICD-10-PCS; 2016-07-25)
DX: J44.1 Chronic obstructive pulmonary disease with (acute) exacerbation (principal); A04.7 Enterocolitis due to Clostridium difficile; I50.22 Chronic systolic (congestive) heart failure; I11.0 Hypertensive heart disease with heart failure; J96.01 Acute respiratory failure with hypoxia; J96.02 Acute respiratory failure with hypercapnia; E11.9 Type 2 diabetes mellitus without complications; J11.1 Influenza due to unidentified influenza virus with other respiratory manifestations; Z87.891 Personal history of nicotine dependence; F10.10 Alcohol abuse, uncomplicated; E78.5 Hyperlipidemia, unspecified; M81.0 Age-related osteoporosis without current pathological fracture; F41.8 Other specified anxiety disorders
CPT/HCPCS: CCU; 36415; 77001; 81001; 82436; 87040; 87070; 87086; 87449; 87450; 87804; 87804-59; 93005; 93010; 93306; 94799; 96374; 96375; 96376; 97110-GO; 97116-GO; 97161-GP; 97530-GO; 99291; C1751; C1769; J0131; J0456; J0696; J0713; J1642; J1644; J1815; J1940; J2060; J2920; J2930; J2997; J3360; J3370; J3490; J7040; J7042; J7060; J7512

== ENCOUNTER 2017-05-20 06:45 | Inpatient (IN) | payer OTHER, MEDICARE ==
[~2017-05-20] VITALS: Ht 152.4 cm; Wt 62.7 kg
[~2017-05-20 06:45] MED LIST changes: +ACEPHEN PR; +ACETAMINOPHEN325 M3 PO; +ADULT ROBITUSS118 ML PO; +ALPRAZOLAM0.25 M1 PO; +ASPIRIN81 M4 PO; +CELEXA10 M1 PO; +DULCOLAX10 M1 RC; +FLAGYL250 M1 PO; +FLEET ENEMA133 ML RC; +IPRAT-ALBUT 0.5-3 ML INH; +LISINOPRIL5 M1 PO; +METFORMIN HCL1000 M1 PO; +NARCAN4 MG NAS; +PREDNISONE5 M1 PO; +SPIRIVA18 MCG INH; +SYMBICORT 16010.2 GM INH; +TRAMADOL HCL50 M1 PO; +VITAMIN A & D56.7 GM TOP
--- NOTE | 2017-05-20 06:49 | ED DYSPNEA/ASTHMA COMPLAINT ---
History of Present Illness General Chief Complaint: Dyspnea (COPD, CHF, Other) Stated Complaint: DYSPNEA Source: EMS, W10 Exam Limitations: clinical condition Vital Signs & Intake/Output Vital Signs & Intake/Output Vital Signs Date Time Temp Pulse Resp B/P B/P Pulse O2 O2 Flow FiO2 Mean Ox Delivery Rate 05/20 0920 108 32 108/53 96 BIPAP 60% 05/20 0846 96 BIPAP 60% 05/20 0833 93 BIPAP 50% 05/20 0824 98.0 05/20 0824 98.0 05/20 0818 134 32 121/60 91 CPAP 05/20 0815 133 91 05/20 0802 100.6 05/20 0730 146 32 140/65 94 BIPAP 50% 05/20 0715 95 BIPAP 50% 05/20 0709 142 93 05/20 0650 100.9 141 32 149/75 93 BIPAP 40% Allergies Coded Allergies: Penicillins (DIARRHEA 12/26/16) Triage Nurses Notes Reviewed? yes Onset: Gradual Duration: hour(s): Timing: recent history Severity: severe Activities at Onset: none Prior Episodes/Possible Cause: occasional episodes Modifying Factors: Improves With: rest. Associated Symptoms: cough, chest pain, edema, lightheadedness, pain Patient currently breastfeeds: No HPI: 81 yo woman h/o copd, presents from [facility] with hypoxia to 80's, end title co2 of 70's. She was lethargic with poor respiratory drive. 911 called. She received bag mask ventilation which improved her alertness and mentation somewhat. No known precipitating factors. (Griselda CARRANZA,Romario Gil) Reconcile Medications Acetaminophen (Acephen) 325 MG SUPP.RECT 2 SUPP AZ Q6-PRN PRN PAIN AND FEVER (Reported) Acetaminophen 325 MG CAPSULE 2 CAP PO Q6P PRN PAIN AND FEVER (Reported) Alprazolam 0.25 MG TABLET 1 TAB PO DAILY PRN ANXIETY Aspirin (Aspirin*) 81 MG TAB.CHEW 1 TAB PO DAILY HEART HEALTH (Reported) Atorvastatin Calcium (Lipitor) 10 MG TABLET 1 TAB PO 1700 CHOLESTEROL ( Reported) Bisacodyl (Dulcolax) 10 MG SUPP.RECT 1 SUP RC DAILY NEEDED PRN CONSTIPATION (Reported) Budesonide/Formoterol Fumarate (Symbicort 160-4.5 Mcg Inhaler) 160 MCG-4.5 MCG/ ACTUATION HFA.AER.AD 2 PUF INH BID COPD (Reported) Citalopram Hydrobromide (Celexa) 10 MG TABLET 10 MG PO DAILY DEPRESSION ( Reported) Citalopram Hydrobromide (Celexa) 10 MG TABLET 0.5 TAB PO DAILY DEPRESSION DILTIAZEM HCL (Diltiazem 24HR Cd) 120 MG CER 1 TAB PO DAILY HEART HEALTH ( Reported) Folic Acid 1 MG TABLET 1 MG PO DAILY SUPPLEMENT Furosemide 20 MG TABLET 1 TAB PO EOD HEART HEALTH (Reported) PLEASE TAKE THE NEXT DOSE ON 04/09 Guaifenesin/Dextromethorphan (Adult Robitussin Peak Cold Liq) 100 MG-10 MG/5 ML LIQUID 10 ML PO Q6-PRN PRN COUGH/CONGESTION (Reported) Ipratropium/Albuterol Sulfate (Iprat-Albut 0.5-3(2.5) MG/3 Ml) 0.5 MG-3 MG (2.5 MG BASE)/3 ML AMPUL.NEB 1 INH INH Q4-6 PRN COPD Lisinopril 5 MG TABLET 1 TAB PO DAILY HTN (Reported) Metformin HCl 1,000 MG TABLET 1 TAB PO BID UNK (Reported) Metoprolol Succinate 25 MG TAB.ER.24H 1 TAB PO Mon BP (Reported) Metoprolol Succinate 50 MG TAB.ER.24H 25 MG PO DAILY HTN (Reported) Mirtazapine (Remeron) 30 MG TABLET 30 MG PO DAILY DEPRESSION (Reported) Mirtazapine 30 MG TABLET 30 MG PO AT BEDTIME INSOMNIA Multivitamin (One Daily Multivitamin) 1 EACH TABLET 1 TAB PO DAILY SUPPLEMENT Na Phos,M-B/Na Phos,Di-Ba (Fleet Enema) 19 GRAM-7 GRAM/118 ML ENEMA 1 E RC ONCE PRN CONSTIPATION (Reported) IF DULCOLAX SUPP INEFFECTIVE Naloxone HCl (Narcan) 4 MG/ACTUATION SPRAY 1 SPRAY CANDI PRN UNRESPONSIVENESS ( Reported) Tiotropium [place] (Spiriva) 18 MCG CAP.W.DEV 1 CAP INH DAILY COPD (Reported) Tramadol HCl 50 MG TABLET 1 TAB PO Q6P PRN PAIN (Reported) (Wyatt CARRANZA,Albert Clemons) Past History Medical History Any Pertinent Medical History? 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 No (Griselda CARRANZA,Romario Gil) Review of Systems Review of Systems Constitutional: Reports: no symptoms. EENTM: Reports: no symptoms. Respiratory: Reports: no symptoms. Cardiovascular: Reports: no symptoms. GI: Reports: no symptoms. Genitourinary: Reports: no symptoms. Musculoskeletal: Reports: no symptoms. Skin: Reports: no symptoms. Neurological/Psychological: Reports: no symptoms. Hematologic/Endocrine: Reports: no symptoms. Immunologic/Allergic: Reports: no symptoms. All Other Systems: Reviewed and Negative (Griselda CARRANZA,Romario Gil) Physical Exam Physical Exam General Appearance: well developed/nourished, no apparent distress Head: atraumatic, normal appearance Ears, Nose, Throat: normal pharynx, normal ENT inspection Neck: normal inspection, supple, full range of motion Respiratory: accessory muscle use, rhonchi, wheezing Cardiovascular: tachycardic Peripheral Pulses: 1+ carotid (R), 1+ carotid (L), 1+ facial (R), 1+ facial (L) Gastrointestinal: normal bowel sounds, soft, non-tender Extremities: normal inspection, normal capillary refill, normal range of motion, no edema Neurologic/Psych: oriented x 3 Skin: intact Core Measures ACS in differential dx? No CVA/TIA Diagnosis No Sepsis Present: Yes Sepsis Focused Exam Completed? Yes (Griselda CARRANZA,Romario Gil) Progress Differential Diagnosis: copd exacerbation, mi, dyspnea, uri symptoms Plan of Care: Orders Procedure Date/time Status LOWER RESPIRATORY CULTURE 05/20 1003 Active ARTERIAL BLOOD GAS (GEN) 05/20 1002 Active RAPID VIRAL INFLUENZA A 05/20 1000 Active Patient Data 05/20 0923 Active Admit to inpatient 05/20 0921 Active CTA CHEST-PULMONARY EMBOLISM 05/20 0921 Active Restraint- Discontinue 05/20 0730 Active Restraint- Medical 05/20 0717 Active BIPAP 05/20 0708 Complete BLOOD CULTURE 05/20 0655 Active BLOOD CULTURE 05/20 0652 Active ARTERIAL BLOOD GAS (GEN) 05/20 0650 Complete TROPONIN LEVEL 05/20 0650 Complete PARTIAL THROMBOPLASTIN TIME 05/20 0650 Complete PROTHROMBIN TIME 05/20 0650 Complete LIPASE 05/20 0650 Complete LACTIC ACID 05/20 0650 Complete HEPATIC FUNCTION PANEL 05/20 0650 Complete D-DIMER 05/20 0650 Complete CBC WITHOUT DIFFERENTIAL 05/20 0650 Complete BASIC METABOLIC PANEL 05/20 0650 Complete AMYLASE 05/20 0650 Complete EKG 05/20 0650 Active BIPAP 05/20 UNK Complete Current Medications Sig/Shobha Start time Last Medication Dose Stop Time Status Admin Magnesium Sulfate 1 GM ONCE ONE 05/20 0715 AC 05/20 (Mag Sulfate in D5) 05/20 1114 0754 Dextrose/Water 100 ML (D5W) Methylprednisolone 125 MG ONCE ONE 05/20 0715 CAN (Solu Medrol) 05/20 0716 Laboratory Tests 05/20/17 0950: Lactic Acid Cancelled 05/20/17 0813: Anion Gap 13, Estimated GFR > 60, BUN/Creatinine Ratio 36.0 H, Glucose 262 H, Lactic Acid 2.0, Calcium 9.3, Total Bilirubin < 0.1 L, Direct Bilirubin < 0.1, AST 21, ALT 38, Alkaline Phosphatase 88, Troponin I 0.11 *H, Total Protein 6.2 L, Albumin 3.2 L, Amylase 174 H, Lipase 49 05/20/17 0810: pH 7.23 *L, pCO2 99 *H, pO2 65 L, HCO3 39 H, ABG O2 Sat (Measured) 88.0 L, O2 Concentration % 50, Respiration Rate 24, O2 Delivery Method VISION, Vent Mode ST , Expiratory Pressure 5, Inspiratory Pressure 20, Phlebotomy Draw Site LEFT BRACHIAL 05/20/17 0721: PT 11.1, INR 1.06, APTT < 20 L, D-Dimer High Sensitivty 857 H, CBC w Diff MAN DIFF ORDERED, RBC 3.90 L, MCV 90.8, MCH 27.4, RDW 18.0 H, MPV 7.8, Gran % 85.7 H, Lymphocytes % 10.3 L, Monocytes % 3.8, Eosinophils % 0.1, Basophils % 0.1, Absolute Granulocytes 20.7 H, Segmented Neutrophils 85 H, Band Neutrophils 5, Absolute Lymphocytes 2.5, Lymphocytes 8 L, Monocytes 2, Absolute Monocytes 0.9 H, Absolute Eosinophils 0, Absolute Basophils 0, Platelet Estimate INCREASED, Hypochromic-Microcytic 2+, Anisocytosis 1+, PUBS MCHC 30.2 L Microbiology 05/20 1003 LOWER RESP: Respiratory Culture - ORD 05/20 1003 LOWER RESP: Gram Stain - ORD 05/20 1000 NASOPHARYN: Influenza Virus A & B Rapid Smear - ORD 05/20 0725 BLOOD: Blood Culture - RECD 05/20 0652 BLOOD: Blood Culture - ORD Diagnostic Imaging: Viewed by Me: Radiology Read. Discussed w/RAD: Radiology Read. Initial ED EKG: sinus tachycardia, no acute changes. Hand-Off Endorsed To: Albert Schneider MD Endorsed Time: 0700 Pending: consult (Griselda CARRANZA,Romario Gil) CXR Impression: PATIENT: AFIA FRIAS PRESENT AGE: 81 PATIENT ACCOUNT NO: [id number] : 34 LOCATION: [facility] ORDERING PHYSICIAN: Romario Villalobos MD SERVICE DATE: 05/20/17 EXAM TYPE: RAD - XRY- PORTABLE CHEST XRAY EXAMINATION: XR PORTABLE CHEST CLINICAL INFORMATION: Dyspnea COMPARISON: 07/31/2016 TECHNIQUE: Portable AP view of the chest was obtained. FINDINGS: The cardiac silhouette is not significantly enlarged. Moderate peribronchial thickening is seen with patchy opacities in the bilateral upper lobes and also in the right lower lobe. There is linear subsegmental atelectasis at the left base. No visible pleural effusion or pneumothorax. A left reverse total shoulder arthroplasty is partially imaged. IMPRESSION: Bilateral patchy pulmonary opacities consistent with multifocal pneumonia. Aspiration is in the differential diagnosis. Recommend follow-up to document resolution. DICTATED BY: Jt Saenz MD DATE/TIME DICTATED:05/20/17752 MIMEOGRAPH OPERATOR:GALLO DATE/TIME TRANSCRIBED:05/20/17752 CONFIDENTIAL, DO NOT COPY WITHOUT APPROPRIATE AUTHORIZATION. <Electronically signed in Other Vendor System> SIGNED BY: Jt Saenz MD 05/20/17 0758 Comments: D/W HER : PT TO REMAIN A FULL CODE. (Wyatt CARRANZA,Albert Clemons) Departure Departure Disposition: STILL A PATIENT Condition: Stable Referrals: Nahun Buchanan MD (PCP/Family) Departure Forms: Customer Survey General Discharge Information Comments 05/20/17, 7:30am...pt improved on bipap, awaiting labs, abg, cxr. sterids/nebs/ labs order (Griselda CARRANZA,Romario Gil) Departure Clinical Impression Primary Impression: COPD exacerbation Secondary Impressions: Hypercapnic respiratory failure Pneumonia Qualifiers: Pneumonia type: due to unspecified organism Laterality: unspecified laterality Lung location: unspecified part of lung Qualified Code: J18.9 - Pneumonia, unspecified organism Sepsis Admission Note Spoke With: Donna CARRANZA,Arnaldo Documentation of Exam: Documentation of any treatments & extenuating circumstances including Concerns Regarding Discharge (functional status, medication knowledge or non-compliance, living conditions, etc.) that warrant an admission rather than observation: [ICU ADMISSION, BOPAP, RESPIRATORY TREATMENTS, IV ABX, PULM CONSULT, CARDIOLOGY CONSULT FOR MAT, IV STEROIDS] (Albert Schneider MD) Critical Care Note Critical Care Note Critical Care Time: 30-74 min (Griselda CARRANZA,Romario Gil)
--- NOTE | 2017-05-20 07:58 | RADIOLOGY REPORT ---
EXAMINATION: XR PORTABLE CHEST CLINICAL INFORMATION: Dyspnea COMPARISON: 07/31/2016 TECHNIQUE: Portable AP view of the chest was obtained. FINDINGS: The cardiac silhouette is not significantly enlarged. Moderate peribronchial thickening is seen with patchy opacities in the bilateral upper lobes and also in the right lower lobe. There is linear subsegmental atelectasis at the left base. No visible pleural effusion or pneumothorax. A left reverse total shoulder arthroplasty is partially imaged. IMPRESSION: Bilateral patchy pulmonary opacities consistent with multifocal pneumonia. Aspiration is in the differential diagnosis. Recommend follow-up to document resolution.
[2017-05-20 08:05] LABS: ABSOLUTE BASOPHIL COUNT 0 /CUMM (0.0-0.2); ABSOLUTE EOSINOPHIL COUNT 0 /CUMM (0.0-0.7); ABSOLUTE GRANULOCYTE CT 20.7 /CUMM (1.4-6.5); ABSOLUTE LYMPH COUNT 2.5 /CUMM (1.2-3.4); ABSOLUTE MONOCYTE COUNT 0.9 /CUMM (0.10-0.60); BASOPHIL % 0.1 % (0.0-2.0); EOSINOPHIL % 0.1 % (0-5); GRANULOCYTE % 85.7 % (42.2-75.2); HEMATOCRIT 35.5 % (37-47); MEAN CORPUSCULAR HGB 27.4 PG (27.0-31.0); MEAN CORPUSCULAR HGB CONC 30.2 G/DL (33.0-37.0); MEAN CORPUSCULAR VOLUME 90.8 FL (81.0-99.0); MEAN PLATELET VOLUME 7.8 FL (7.4-10.4); PLATELET COUNT 703 /CUMM (130-400)
[2017-05-20 08:12] LABS: WHITE BLOOD CELL COUNT 24.1 /CUMM (4.8-10.8)
[2017-05-20 08:18] LABS: PT 11.1 SEC (9.4-12.5); PTT < 20 SEC (25-37)
[2017-05-20] MEDS ORDERED: REMERON30 M3 PO (08:43)
[2017-05-20] MEDS ORDERED: METOPROLOL SUCC50 M2 PO (08:44)
[2017-05-20] MEDS ORDERED: CELEXA10 M1 PO ×2 (08:44→10:46)
--- NOTE | 2017-05-20 10:06 | History & Physical ---
Erica Rodney 05/20/17 1006: General Information and HPI MD Statement: I have seen and personally examined AFIA FRIAS and documented this H&P. The patient is a 81 year old F who presented with a patient stated chief complaint of acute onset of dyspnea Source of Information: patient, old records, W10 Exam Limitations: unable to give history, not alert/orientated History of Present Illness: Mr Frias came was brought in from [facility] with a chief concern of acute dyspnea, and altered mentation that was noticed this am. She has a PMHx of COPD(on 4L oxygen), HFpEF( EF 40%), HTN, HLD, MAT, DM previous hospitalization in 07/15 for acute hypercarbic and hypoxic respiratory failure requiring intubation for a short time. As per the the nurse who takes care of Ms Frias, said that she was known to be in her usual state of health until three days ago. She was found to be more lethargic in the last three days, and had a recorded temperature of 100.3. cxr was done was appreently unremarkable, and didnt reveal any radiological indication of pneumonia. She was started on doxycycline and a tapering dose of prednisone. She was lethargic, and more sleepy until the night prior to the admission, when she had an episode of desaturation into 50s that improved to 80' s after after she was kept on NRB, but remained in the hank of 80s. She was found to be less arousable the am of admission. She did not have any complains of chest pain or palpitations. No loss of consciousness. Othr ROS was incompleted. She uses a wheelchair at baseline, and really doesnt walk much. Past history of 80+ pk yr smoking history. Currently not smoking. Allergies/Medications Allergies: Coded Allergies: Penicillins (DIARRHEA 12/26/16) Home Med list Acetaminophen (Acephen) 325 MG SUPP.RECT 2 SUPP SC Q6-PRN PRN PAIN AND FEVER (Reported) Acetaminophen 325 MG CAPSULE 2 CAP PO Q6P PRN PAIN AND FEVER (Reported) Alprazolam 0.25 MG TABLET 1 TAB PO DAILY PRN ANXIETY Aspirin (Aspirin*) 81 MG TAB.CHEW 1 TAB PO DAILY HEART HEALTH (Reported) Atorvastatin Calcium (Lipitor) 10 MG TABLET 1 TAB PO 1700 CHOLESTEROL ( Reported) Bisacodyl (Dulcolax) 10 MG SUPP.RECT 1 SUP RC DAILY NEEDED PRN CONSTIPATION (Reported) Budesonide/Formoterol Fumarate (Symbicort 160-4.5 Mcg Inhaler) 160 MCG-4.5 MCG/ ACTUATION HFA.AER.AD 2 PUF INH BID COPD (Reported) Citalopram Hydrobromide (Celexa) 10 MG TABLET 10 MG PO DAILY DEPRESSION ( Reported) Citalopram Hydrobromide (Celexa) 10 MG TABLET 1 TAB PO DAILY DEPRESSION DILTIAZEM HCL (Diltiazem 24HR Cd) 120 MG CER 1 TAB PO DAILY HEART HEALTH ( Reported) Folic Acid 1 MG TABLET 1 MG PO DAILY SUPPLEMENT Furosemide 20 MG TABLET 1 TAB PO EOD HEART HEALTH (Reported) PLEASE TAKE THE NEXT DOSE ON 04/09 Guaifenesin/Dextromethorphan (Adult Robitussin Peak Cold Liq) 100 MG-10 MG/5 ML LIQUID 10 ML PO Q6-PRN PRN COUGH/CONGESTION (Reported) Ipratropium/Albuterol Sulfate (Iprat-Albut 0.5-3(2.5) MG/3 Ml) 0.5 MG-3 MG (2.5 MG BASE)/3 ML AMPUL.NEB 1 INH INH Q4-6 PRN COPD Lisinopril 5 MG TABLET 1 TAB PO DAILY HTN (Reported) Metformin HCl 1,000 MG TABLET 1 TAB PO BID UNK (Reported) Metoprolol Succinate 50 MG TAB.ER.24H 25 MG PO DAILY HTN (Reported) Mirtazapine (Remeron) 30 MG TABLET 30 MG PO DAILY DEPRESSION (Reported) Multivitamin (One Daily Multivitamin) 1 EACH TABLET 1 TAB PO DAILY SUPPLEMENT Na Phos,M-B/Na Phos,Di-Ba (Fleet Enema) 19 GRAM-7 GRAM/118 ML ENEMA 1 E RC ONCE PRN CONSTIPATION (Reported) IF DULCOLAX SUPP INEFFECTIVE Naloxone HCl (Narcan) 4 MG/ACTUATION SPRAY 1 SPRAY CANDI PRN UNRESPONSIVENESS ( Reported) Oxycodone HCl/Acetaminophen (Percocet 5-325 MG Tablet) 5 MG-325 MG TABLET 1 TAB PO BID PAIN (Reported) Tiotropium [place] (Spiriva) 18 MCG CAP.W.DEV 1 CAP INH DAILY COPD (Reported) Tramadol HCl 50 MG TABLET 1 TAB PO Q6P PRN PAIN (Reported) Past History Travel History Traveled to [place] past 21 day No Medical History Neurological: NONE EENT: NONE Cardiovascular: diastolic CHF, hypertension, hyperlipidemia, systolic CHF, Multifocal Atrial Tachyca Respiratory: COPD, emphysema, Acute on Chronic Resp Failure w/hypoxia & hypercapnia O2 DEPENDENT 4L Gastrointestinal: NONE Hepatic: NONE Renal: NONE Musculoskeletal: falls Psychiatric: alcohol dependence, anxiety, depression Endocrine: diabetes Blood Disorders: NONE Cancer(s): NONE [employer] PLANT/Reproductive: HYSTERECTOMY History of MRSA: No History of VRE: No History of CDIFF: No Surgical History Surgical History: hysterectomy, Bilateral Hip Fx & Repair Bilateral wrist Fx Past Family/Social History Family History Relations & Conditions if any Relation not specified for: *No pertinent family history Psychosocial History Services at Home: Home Health Aide, Nursing, Oxygen, Physical Therapy Functional Ability ADLs Independent: dressing, eating, toileting, bathing. Ambulation: cane, walker Review of Systems Review of Systems Constitutional: Reports: see HPI. Exam & Diagnostic Data Last 24 Hrs of Vital Signs/I&O Vital Signs Date Time Temp Pulse Resp B/P B/P Pulse O2 O2 Flow FiO2 Mean Ox Delivery Rate 05/20 1245 121 95 05/20 1230 97.4 122 30 108/0 95 BIPAP 60% 05/20 1132 BIPAP 50% 05/20 1131 94 BIPAP 50% 05/20 1122 113 30 104/62 92 BIPAP 50% 05/20 1042 116 99 05/20 1006 116 30 110/68 97 BIPAP 60% 05/20 0920 108 32 108/53 96 BIPAP 60% 05/20 0846 96 BIPAP 60% 05/20 0833 93 BIPAP 50% 05/20 0824 98.0 05/20 0824 98.0 05/20 0818 134 32 121/60 91 CPAP 05/20 0815 133 91 05/20 0802 100.6 05/20 0730 146 32 140/65 94 BIPAP 50% 05/20 0715 95 BIPAP 50% 05/20 0709 142 93 05/20 0650 100.9 141 32 149/75 93 BIPAP 40% Intake & Output 05/20 1600 05/20 0800 05/20 0000 Intake Total Output Total Balance Patient 150 lb Weight Weight Estimated Measurement Method Physical Exam General Appearance Moderate Distress, sleepy, but arousable. , On BiPAP. Skin No Rashes Skin Temp/Moisture Exam: Warm/Dry Sepsis Skin Exam (color): Normal for Ethnicity HEENT Atraumatic, PERRLA, EOMI Neck Supple, No JVD, No thryomegaly Lymphatic Cervical nl Cardiovascular Regular Rate, Normal S1, Normal S2, tachycardia Lungs Clear to Auscultation Abdomen Normal Bowel Sounds, Soft, No Tenderness Neurological Normal Speech, Strength at 5/5 X4 Ext, Normal Tone, Reflexes 2+, other neurological exam was limited. Extremities No Clubbing, No Cyanosis, No Edema, Normal Pulses Vascular Pulses Symmetrical Sepsis Peripheral Pulse Location: Dorsalis Pedis Last 24 Hrs of Labs/[place]: Laboratory Tests 05/20/17 1024: pH 7.24 *L, pCO2 86 *H, pO2 103 H, HCO3 36 H, ABG O2 Sat (Measured) 96.0, P-50 (Temp Corrected) N, Carboxyhemoglobin 1.1 L, O2 Concentration % 60%, Respiration Rate 26, O2 Delivery Method BIPAP, Vent Mode ST, Expiratory Pressure 6, Inspiratory Pressure 24, Tgx-K-Acwwthzxjtd Pept Cancelled, Phlebotomy Draw Site RIGHT RADIAL, Urine Opiates Screen 304.00, Methadone Screen 114, Barbiturate Screen < 60, Ur Phencyclidine Scrn 11.40, Amphetamines Screen < 100, U Benzodiazepines Scrn < 85, Urine Cocaine Screen < 50, Urine Cannabis Screen < 5.00, Urinalysis LIGHT H, Urine Color YEL, Urine Clarity HAZY H, Urine pH 7.0, Ur Specific [place] 1.025, Urine Protein 30 H, Urine Ketones NEG, Urine Nitrite NEG, Urine Bilirubin NEG, Urine Urobilinogen 0.2, Ur Leukocyte Esterase NEG, Ur Microscopic SEDIMENT EXAMINED, Urine WBC 5-10 H, Ur Epithelial Cells RARE, Urine Bacteria MANY H, Hyaline Casts 1-3 H, Granular Casts 1-3 H, Urine Hemoglobin NEG, Urine Glucose NEG 05/20/17 0950: Lactic Acid Cancelled 05/20/17 0813: Anion Gap 13, Estimated GFR > 60, BUN/Creatinine Ratio 36.0 H, Glucose 262 H, Lactic Acid 2.0, Calcium 9.3, Total Bilirubin < 0.1 L, Direct Bilirubin < 0.1, AST 21, ALT 38, Alkaline Phosphatase 88, Troponin I 0.11 *H, Kdy-L-Npyfijyimco Pept 631 H, Total Protein 6.2 L, Albumin 3.2 L, Amylase 174 H, Lipase 49 05/20/17 0810: pH 7.23 *L, pCO2 99 *H, pO2 65 L, HCO3 39 H, ABG O2 Sat (Measured) 88.0 L, O2 Concentration % 50, Respiration Rate 24, O2 Delivery Method VISION, Vent Mode ST , Expiratory Pressure 5, Inspiratory Pressure 20, Phlebotomy Draw Site LEFT BRACHIAL 05/20/17 0721: PT 11.1, INR 1.06, APTT < 20 L, D-Dimer High Sensitivty 857 H, CBC w Diff MAN DIFF ORDERED, RBC 3.90 L, MCV 90.8, MCH 27.4, RDW 18.0 H, MPV 7.8, Gran % 85.7 H, Lymphocytes % 10.3 L, Monocytes % 3.8, Eosinophils % 0.1, Basophils % 0.1, Absolute Granulocytes 20.7 H, Segmented Neutrophils 85 H, Band Neutrophils 5, Absolute Lymphocytes 2.5, Lymphocytes 8 L, Monocytes 2, Absolute Monocytes 0.9 H, Absolute Eosinophils 0, Absolute Basophils 0, Platelet Estimate INCREASED, Hypochromic-Microcytic 2+, Anisocytosis 1+, PUBS MCHC 30.2 L Microbiology 05/20 1048 URINE ROUT: Legionella Antigen - ORD 05/20 1048 URINE ROUT: Streptococcus pneumoniae Antigen (M - ORD 05/20 1024 URINE ROUT: Urine Culture - RECD 05/20 1003 LOWER RESP: Respiratory Culture - ORD 05/20 1003 LOWER RESP: Gram Stain - ORD 05/20 1002 NASOPHARYN: Influenza Virus A & B Rapid Smear - COMP 05/20 0725 BLOOD: Blood Culture - RECD 05/20 0652 BLOOD: Blood Culture - ORD Diagnostic Data EKG Results NSR, tachycardia. No STTW changes. CXR Results Bilateral patchy pulmonary opacities consistent with multifocal pneumonia. Aspiration is in the differential diagnosis. Recommend follow-up to document resolution. Assessment/Plan Assessment: Mr Frias has a PMHx of COPD (on 4L oxygen), HFpEF( EF 440%), HTN, HLD, MAT. came was brought in from [facility] with a chief concern of acute dyspnea, and altered mentation likely secondary to acute hypercarbic respiratory failure from multi-lobar pneumonia. At the time of admission, vitals temp 100.9, HR 141, RR 32, BP 149/65, Pulse ox 90s on 40% BiPAP. EKG: First EKG, sinus tachy No STTW changes, succeeding EKG revealed t wave inversions in ant-lateral lateral leads. Pertinent lab findings: WBC 24.1 w/ 85% granulocytes. Hb 10.7(baseline 10.0) Platelets 703 (likely reactive) Na 144, K 4.1 Bicarb 41 ( likely compensatory for chronic hypercarbia), AG 13 Sr cr 0.5, BUN 18 Troponin 0.11-->0.23 ABG 7.23, PCO2 99, pO2 65--> pH 7.24,PCO2 86, pO2 103( post BiPAP IP 2hr). D- dimer 857. INR 1.06. Lactate 2.0 BUN 18, Sr Cr 0.5 CXR revealed bilateral patchy pulmonary opacities consistent with multifocal pneumonia. Echocardiogram: 2016- revealed left ventricular ejection fraction is estimated at 40%. Global hypokinesis. 2017- Diastolic filling pattern is consistent with impaired LV relaxation. The ejection fraction is visually estimated at 60%. Etiology in her case is clearly due to sepsis from multifocal pneumonia, likely leading to an acute decompensation in her respiratory status. Since she has COPD , that might have caused an acute exacerbation of COPD that worsened her chronic hypercabia leading to hypoxia. She was put on BiPAP for correcting acidemia and hypercarbia, but there was no improvement in either her respiratory status and/ or hypercarbia, although her mentation improved remarkably which indicates a chronic hypercarbic process that was worsened due to an acute illness, which is pneumonia in her case. She also had slight elevation in d-dimer, and due to unavailabilty of 20g peripheral line a CTA couldnt be done to rule out a PE. After placing a central IJ line, to ascertain the access, she was started on fluids. After ascertaining the availability of IJ line, she was intubated, which resulted in an acute drop in her blood pressure that required a small dose of pressor support. Considering sepsis, she was continued on boluses of fluids to make sure that she was adequately hydrated since, fluids couldnt be administered as boluses from peripheral lines; further follow ups of lacate levels to help guide therapy could be done for sepsis. In regards to her elevated troponin, and new EKG changes it was likely due to demand, which is type 2 [place] which explains this change; but new EKG changes could be explained by her increased demand from tachycardia, and hypotension. Although , she doesnt have any remarkable cardiac history, she has several risk factors including 80 pk yr h/o smoking. Plan: Respiratory: 1. Acute hypercarbic respiratory failure: Likely due to AECOPD, and multilobar pneumonia which appears as due to HCAP. She was started on ceftazidime and vancomycin. - LRC, blood cultures. - Strep pneumo, legionella ag urine - For AECOPD, she was given solumedrol 125mg x1, and continue 40mg q6. - If the cultures indicate any indication of anerobes, or if the pt is not getting better, would broaden the coverage for aspiration pna. - Post intubation, cxr was checked. cxr in the am. Recheck post intubation revealed pH 7.58, pCO2 37. Recheck ABG after decreasing the RR from 26-->20. - Check CTA to r/o PE. As per the radiology, the CTA couldnt be done due to a hospital policy that a central line couldnt be used for contrast. V/Q scan, if CTA couldnt be done. For now, lovenox was started by the attending physician. Infectious: - Likely sepsis, and required pressure support briefly since the fluids couldnt be administered as planned due to non-availability of peripheral lines. By definition, would call it septic shock since pressure support was started while she was being bolused. - Check lactate again even though its less than 2, to guide therapy. - Wean off pressor support immediately, while resusitating her with boluses of fluids. She has diastolic dysfunction w/ EF 40-60%, which would limit being very aggressive about fluids. - Monitor CBC in the am. Circulatory: - Type 2 [place], but by definition can call it NSTEMI. - ASA was given, and was started on a statin. - As per Cardiology, could be started on cardizem. Cardilogy to be notified, if any acute change in EKG. - Check troponin and EKG. Continue anticoagulaiton as per the cigar making machine operator for the next 48hrs. Metabolic- - Accuechecks. - Novolin R - NPO for now. Neurology- She was briefly started on ativan drip, that could be continued. Housekeeping: DVT Ppx- lovenox sc GI PPx- Protonix Full code. NPO for now. As Ranked By This Provider Problem List: 1. Sepsis 2. Pneumonia Qualifiers Pneumonia type: due to unspecified organism Laterality: unspecified laterality Lung location: unspecified part of lung Qualified Code: J18.9 - Pneumonia, unspecified organism 3. COPD (chronic obstructive pulmonary disease) 4. Hypercapnic respiratory failure 5. Multifocal atrial tachycardia 6. Diastolic heart failure 7. Hypertension Core Measures/Misc (01/15) Acute Coronary Syndrome ACS Diagnosis: No Congestive Heart Failure Congestive Heart Failure Diagnosis No Cerebrovascular Accident CVA/TIA Diagnosis: No VTE (View Protocol) VTE Risk Factors No risk factors No Mechanical VTE Prophylaxis d/t N/A MechProphylax Ordered No VTE Pharm Prophylaxis d/t NA PharmProphylax ordered Sepsis (View protocol) Sepsis Present: Yes Arnaldo Thompson 05/20/17 1435: Attending MD Review Statement Attending Statement Attending MD Statement: examined this patient, discuss w/resident/PA/COAL CUTTING MACHINE OPERATOR, agreed w/resident/PA/COAL CUTTING MACHINE OPERATOR, discussed with family, reviewed EMR data (avail), discussed with nursing, discussed with case mgmt, reviewed images, amended to note Attending Assessment/Plan: 81 o/f with pmh of copd on oxygen dependent and chf with reduced ejection fraction, smoker comes with acute on chronic respiratroy failure hypercapnic type with hypoxemia 2/2 acute COPD exacerbation with multilobar pneumonia and sepsis and elevated cardiac enzyme likely demand ischemia rule out CHF exacerbation and PE. Patient is started on broad spectrum antibiotics, iv steroids , NIPPV bipap with mild improvement in hypercapnia. Patient might need intubation if her mental status changes to protect airway. Send panculture, Pulmonary and cardiolgy consult. Obtain CTA chest and give empiric lovenox 1 dose. Trend troponins, ECHO as per cards. Patient monitored in ICU setting. Closely monitor hemodynamics and respiratroy staus. gi/dvt prophyalxis
[2017-05-20] MEDS ORDERED: PERCOCET 5-3251 EACH PO (10:49)
--- NOTE | 2017-05-20 11:34 | Cons- CRCU ---
Erica Rodney 05/20/17 1133: General Information and HPI Consulting Request Date of Consult: 05/20/17 Requested By: Dr. Thompson Reason for Consult: Hypercarbic respiratory failure Source of Information: patient, family, W10 Exam Limitations: unable to give history History of Present Illness: Mr Jonathan weller was brought in from [facility] with a chief concern of acute dyspnea, and altered mentation that was noticed this am. She has a PMHx of COPD(on 4L oxygen), HFpEF( EF 440%), HTN, HLD, MAT, previous hospitalization in 07/15 for acute hypercarbic and hypoxic respiratory failure requiring intubation for a short time. She was admitted to the ICU for acute hypercarbic respiratory failure secondary to AECOPD and multilobar PNA. At the time of admission, she had low grade temperature and cxr revealed multilobar pnenumona and was started on abx. Lactate was normal, and she had stable blood pressure at the time of admission. She was hypercarbic(pCO2 99) which only showed modest improvement after using BiPAP. Although mentation improved, she had increased work of breathing for which she was intubated after placing an IJ line. This was complicated by having the right IJ line being pulled out while she was being administered with contrast for CTA to r/o PE for a modest elevation of d-dimer. Left IJ was placed , without any complications. She also had a slight elevation in troponin and t wave inversions in the lateral leads for which she was emperically started on lovenox, for treatment of PE. Other ROS was negative. Allergies/Medications Allergies: Coded Allergies: Penicillins (DIARRHEA 12/26/16) Home Med List: Acetaminophen (Acephen) 325 MG SUPP.RECT 2 SUPP CO Q6-PRN PRN PAIN AND FEVER (Reported) Acetaminophen 325 MG CAPSULE 2 CAP PO Q6P PRN PAIN AND FEVER (Reported) Alprazolam 0.25 MG TABLET 1 TAB PO DAILY PRN ANXIETY Aspirin (Aspirin*) 81 MG TAB.CHEW 1 TAB PO DAILY HEART HEALTH (Reported) Atorvastatin Calcium (Lipitor) 10 MG TABLET 1 TAB PO 1700 CHOLESTEROL ( Reported) Bisacodyl (Dulcolax) 10 MG SUPP.RECT 1 SUP RC DAILY NEEDED PRN CONSTIPATION (Reported) Budesonide/Formoterol Fumarate (Symbicort 160-4.5 Mcg Inhaler) 160 MCG-4.5 MCG/ ACTUATION HFA.AER.AD 2 PUF INH BID COPD (Reported) Citalopram Hydrobromide (Celexa) 10 MG TABLET 10 MG PO DAILY DEPRESSION ( Reported) Citalopram Hydrobromide (Celexa) 10 MG TABLET 1 TAB PO DAILY DEPRESSION DILTIAZEM HCL (Diltiazem 24HR Cd) 120 MG CER 1 TAB PO DAILY HEART HEALTH ( Reported) Folic Acid 1 MG TABLET 1 MG PO DAILY SUPPLEMENT Furosemide 20 MG TABLET 1 TAB PO EOD HEART HEALTH (Reported) PLEASE TAKE THE NEXT DOSE ON 04/09 Guaifenesin/Dextromethorphan (Adult Robitussin Peak Cold Liq) 100 MG-10 MG/5 ML LIQUID 10 ML PO Q6-PRN PRN COUGH/CONGESTION (Reported) Ipratropium/Albuterol Sulfate (Iprat-Albut 0.5-3(2.5) MG/3 Ml) 0.5 MG-3 MG (2.5 MG BASE)/3 ML AMPUL.NEB 1 INH INH Q4-6 PRN COPD Lisinopril 5 MG TABLET 1 TAB PO DAILY HTN (Reported) Metformin HCl 1,000 MG TABLET 1 TAB PO BID UNK (Reported) Metoprolol Succinate 50 MG TAB.ER.24H 25 MG PO DAILY HTN (Reported) Mirtazapine (Remeron) 30 MG TABLET 30 MG PO DAILY DEPRESSION (Reported) Multivitamin (One Daily Multivitamin) 1 EACH TABLET 1 TAB PO DAILY SUPPLEMENT Na Phos,M-B/Na Phos,Di-Ba (Fleet Enema) 19 GRAM-7 GRAM/118 ML ENEMA 1 E RC ONCE PRN CONSTIPATION (Reported) IF DULCOLAX SUPP INEFFECTIVE Naloxone HCl (Narcan) 4 MG/ACTUATION SPRAY 1 SPRAY CANDI PRN UNRESPONSIVENESS ( Reported) Oxycodone HCl/Acetaminophen (Percocet 5-325 MG Tablet) 5 MG-325 MG TABLET 1 TAB PO BID PAIN (Reported) Tiotropium [place] (Spiriva) 18 MCG CAP.W.DEV 1 CAP INH DAILY COPD (Reported) Tramadol HCl 50 MG TABLET 1 TAB PO Q6P PRN PAIN (Reported) Review of Systems Review of Systems Constitutional: Reports: see HPI. 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 Ambulation: cane, walker Exam & Diagnostic Data Last 24 Hrs of Vital Signs/I&O Vital Signs Date Time Temp Pulse Resp B/P B/P Pulse O2 O2 Flow FiO2 Mean Ox Delivery Rate 05/20 2140 40 05/20 2000 98 Ventilator 40% 05/20 1839 40 05/20 1656 121 74/41 05/20 1640 40 05/20 1600 94 Ventilator 40% 05/20 1600 96.4 120 30 100/62 94 BIPAP 50% 05/20 1443 113 93 05/20 1245 121 95 05/20 1230 95 BIPAP 60% 05/20 1230 97.4 122 30 108/0 95 BIPAP 60% 05/20 1132 BIPAP 50% 05/20 1131 94 BIPAP 50% 05/20 1122 113 30 104/62 92 BIPAP 50% 05/20 1042 116 99 05/20 1006 116 30 110/68 97 BIPAP 60% 05/20 0920 108 32 108/53 96 BIPAP 60% 05/20 0846 96 BIPAP 60% 05/20 0833 93 BIPAP 50% 05/20 0824 98.0 05/20 0824 98.0 05/20 0818 134 32 121/60 91 CPAP 05/20 0815 133 91 05/20 0802 100.6 05/20 0730 146 32 140/65 94 BIPAP 50% 05/20 0715 95 BIPAP 50% 05/20 0709 142 93 05/20 0650 100.9 141 32 149/75 93 BIPAP 40% Intake & Output 05/20 1600 05/20 0800 05/20 0000 Intake Total 140 Output Total 100 Balance 40 Intake, IV 140 Output, Urine 100 Patient 132 lb 150 lb Weight Weight Bed scale Estimated Measurement Method Physical Exam General Appearance: moderate distress Other Physical Findings: General Appearance Moderate Distress, sleepy, but arousable. Intubated. Skin No Rashes Skin Temp/Moisture Exam: Warm/Dry Sepsis Skin Exam (color): Normal for Ethnicity HEENT Atraumatic, PERRLA, EOMI Neck Supple, No JVD, No thryomegaly Lymphatic Cervical nl Cardiovascular Regular Rate, Normal S1, Normal S2, tachycardia Lungs Clear to Auscultation Abdomen Normal Bowel Sounds, Soft, No Tenderness Neurological Normal Speech, Strength at 5/5 X4 Ext, Normal Tone, Reflexes 2+, other neurological exam was limited. Extremities No Clubbing, No Cyanosis, No Edema, Normal Pulses Vascular Pulses Symmetrical Sepsis Peripheral Pulse Location: Dorsalis Pedis Last 48 Hrs of Labs/[place]: Laboratory Tests 05/23/17 2110: Anion Gap 10, Estimated GFR > 60, BUN/Creatinine Ratio 26.0 H 05/23/17 0350: Anion Gap 9, Estimated GFR > 60, Glucose 168 H, Calcium 8.0 L, Phosphorus 3.0, Magnesium 2.0, Total Bilirubin 0.6, AST 36, ALT 44, Albumin 2.4 L, CBC w Diff NO MAN DIFF REQ, RBC 3.09 L, MCV 87.3, MCH 27.6, RDW 18.4 H, MPV 7.9, Gran % 78.5 H, Lymphocytes % 14.5 L, Monocytes % 7.0, Eosinophils % 0, Basophils % 0, Absolute Granulocytes 6.7 H, Absolute Lymphocytes 1.2, Absolute Monocytes 0.6, Absolute Eosinophils 0, Absolute Basophils 0, PUBS MCHC 31.6 L 05/22/17 2000: Anion Gap 10, Estimated GFR > 60, BUN/Creatinine Ratio 24.0 05/22/17 1520: Anion Gap 10, Estimated GFR > 60, BUN/Creatinine Ratio 32.5 H 05/22/17 0500: Anion Gap 6, Estimated GFR > 60, Glucose 126 H, Calcium 8.0 L, Phosphorus 3.7, Magnesium 2.5 H, Total Bilirubin 0.1 L, AST 23, ALT 36, Albumin 2.3 L, CBC w Diff NO MAN DIFF REQ, RBC 2.89 L, MCV 87.6, MCH 27.3, RDW 18.1 H, MPV 8.2, Gran % 84.3 H, Lymphocytes % 11.0 L, Monocytes % 4.7, Eosinophils % 0, Basophils % 0, Absolute Granulocytes 6.1, Absolute Lymphocytes 0.8 L, Absolute Monocytes 0.3, Absolute Eosinophils 0, Absolute Basophils 0, PUBS MCHC 31.1 L Microbiology 05/22 1054 NASOPHARYN: Influenza Virus A & B Rapid Smear - COMP Assessment/Plan Impression/Plan: Mr Castillo has a PMHx of COPD (on 4L oxygen), HFpEF( EF 440%), HTN, HLD, MAT. came was brought in from [facility] with a chief concern of acute dyspnea, and altered mentation likely secondary to acute hypercarbic respiratory failure from multi-lobar pneumonia. At the time of admission, vitals temp 100.9, HR 141, RR 32, BP 149/65, Pulse ox 90s on 40% BiPAP. EKG: First EKG, sinus tachy No STTW changes, succeeding EKG revealed t wave inversions in ant-lateral lateral leads. Pertinent lab findings: WBC 24.1 w/ 85% granulocytes. Hb 10.7(baseline 10.0) Platelets 703 (likely reactive) Na 144, K 4.1 Bicarb 41 ( likely compensatory for chronic hypercarbia), AG 13 Sr cr 0.5, BUN 18 Troponin 0.11-->0.23 ABG 7.23, PCO2 99, pO2 65--> pH 7.24,PCO2 86, pO2 103( post BiPAP IP 2hr). D- dimer 857. INR 1.06. Lactate 2.0 BUN 18, Sr Cr 0.5 CXR revealed bilateral patchy pulmonary opacities consistent with multifocal pneumonia. Echocardiogram: 2016- revealed left ventricular ejection fraction is estimated at 40%. Global hypokinesis. 2017- Diastolic filling pattern is consistent with impaired LV relaxation. The ejection fraction is visually estimated at 60%. Etiology in her case is clearly due to sepsis from multifocal pneumonia, likely leading to an acute decompensation in her respiratory status. Since she has COPD , that might have caused an acute exacerbation of COPD that worsened her chronic hypercabia leading to hypoxia. She was put on BiPAP for correcting acidemia and hypercarbia, but there was no improvement in either her respiratory status and/ or hypercarbia, although her mentation improved remarkably which indicates a chronic hypercarbic process that was worsened due to an acute illness, which is pneumonia in her case. She also had slight elevation in d-dimer, and due to unavailabilty of 20g peripheral line a CTA couldnt be done to rule out a PE. After placing a central IJ line, to ascertain the access, she was started on fluids. After ascertaining the availability of IJ line, she was intubated, which resulted in an acute drop in her blood pressure that required a small dose of pressor support since the fluid boluses couldnt be done using the central line due to the small diameter of line and length of the line which made the boluses ineffective. Considering sepsis, she was continued on boluses of fluids to make sure that she was adequately hydrated since, fluids couldnt be administered as boluses from peripheral lines; further follow ups of lacate levels to help guide therapy could be done for sepsis. In regards to her elevated troponin, and new EKG changes it was likely due to demand, which is type 2 TX which explains this change; but new EKG changes could be explained by her increased demand from tachycardia, and hypotension. Although , she doesnt have any remarkable cardiac history, she has several risk factors including 80 pk yr h/o smoking. Recommendations: Respiratory: 1. Acute hypercarbic respiratory failure: Likely due to AECOPD, and multilobar pneumonia which appears as due to HCAP. She was started on ceftazidime and vancomycin. LRC, blood cultures. - Follow Strep pneumo, legionella ag urine - For AECOPD, she was given solumedrol 125mg x1, and continue 40mg q6. - If the cultures indicate any indication of anerobes, or if the pt is not getting better, would broaden the coverage for aspiration pna. - Post intubation, cxr was checked. cxr in the am. Recheck post intubation revealed pH 7.58, pCO2 37. Recheck ABG after decreasing the RR from 26-->20. - Check CTA to r/o PE. As per the radiology, the CTA couldnt be done due to a hospital policy that a central line couldnt be used for contrast. V/Q scan, if CTA couldnt be done. For now, continue lovenox that was started by the attending physician. Infectious: - Likely sepsis, and required pressure support briefly since the fluids couldnt be administered as planned due to non-availability of peripheral lines. By definition, would call it septic shock since pressure support was started while she was being bolused due to non-availability of a large bore lines. - Check lactate again even though its less than 2, to guide therapy. - Wean off pressor support immediately, while resusitating her with boluses of fluids. She has diastolic dysfunction w/ EF 40-60%, which would limit being very aggressive about fluids. - Monitor CBC in the am. Circulatory: - Type 2 TX, but by definition can call it NSTEMI. - ASA was given, and was started on a statin. - As per Cardiology, could be started on cardizem. Cardilogy to be notified, if any acute change in EKG. Check troponin and EKG. Continue anticoagulaiton as per the pre k special education teacher for the next 48hrs. Metabolic - Accuechecks. - Novolin R - NPO for now. Neurology Continue ativan drip. Would wean her off, as she tolerated. Housekeeping: DVT PPx- lovenox. GI PPx- Protonix Full code. Problem List: 1. Pneumonia 2. Sepsis 3. COPD (chronic obstructive pulmonary disease) 4. Hypercapnic respiratory failure 5. Diastolic heart failure 6. Hypertension Consult Acknowledgment - Thank you for your consult request. Alirio CARRANZA,Michael Tammy 05/21/17 0844: General Information and HPI Allergies/Medications Current Medications: Current Medications Sig/Shobha Start time Last Medication Dose Route Stop Time Status Admin Acetaminophen 650 MG Q8P PRN 05/20 1030 AC PO Albuterol Sulfate 3 ML EVERY 4 HRS/AWAKE 05/20 1200 AC 05/20 INH 2053 Aspirin 81 MG DAILY 05/21 1000 AC PO Aspirin 325 MG ONCE ONE 05/20 1730 DC 05/20 PO 05/20 1731 2142 Atorvastatin Calcium 40 MG DAILY@1700 05/20 1915 AC 05/20 PO 2142 Budesonide/ 2 PUF BID 05/20 1043 AC Formoterol Fumarate INH Ceftazidime 1,000 MG Q12H 05/20 2000 AC 05/20 IV 2142 Diltiazem HCl 125 MG Q24H 05/20 1330 AC 05/20 Sodium Chloride 100 ML IV 1807 Enoxaparin Sodium 60 MG Q12H 05/20 1630 DC SC Enoxaparin Sodium 80 MG ONCE ONE 05/20 1500 CAN SC 05/20 1700 Heparin Sodium 5,000 UNIT Q8 05/21 0100 AC 05/21 (Porcine) SC 0221 Heparin Sodium 5,000 UNIT Q8 05/20 1400 DC 05/20 (Porcine) SC 1620 Insulin Human Regular 0 Q6 05/20 1800 AC 05/21 SC 0549 Ipratropium [place] 2.5 ML EVERY 4 HRS/AWAKE 05/20 1200 AC 05/20 INH 2053 Lorazepam 50 MG Q16H 05/21 1600 AC Sodium Chloride 500 ML IV Lorazepam 50 MG DAILY 05/21 1000 AC 05/21 Sodium Chloride 500 ML IV 05/21 1559 0521 Lorazepam 2 MG ONE ONE 05/20 1715 DC 05/20 IV 05/20 1716 1706 Lorazepam 2 MG ONE ONE 05/20 1700 DC 05/20 IV 05/20 1701 1701 Lorazepam 50 MG ONCE ONE 05/20 1700 DC 05/20 Sodium Chloride 500 ML IV 05/20 1701 1746 Magnesium Sulfate 1 GM ONCE ONE 05/21 0430 DC 05/21 Dextrose/Water 100 ML IV 05/21 0829 0516 Magnesium Sulfate 1 GM ONCE ONE 05/20 0715 DC 05/20 Dextrose/Water 100 ML IV 05/20 1114 0754 Methylprednisolone 40 MG Q6 05/21 0600 AC 05/21 IV 0516 Naloxone HCl 0.4 MG ONCE ONE 05/20 1145 DC IV 05/20 1146 Non-Formulary 0 SEE ADMIN CRITERIA 05/20 1630 DC Medication ANY Norepinephrine 4 MG Q24H 05/20 1630 AC 05/20 Sodium Chloride 250 ML IV 1656 Norepinephrine 4 MG .STK-MED ONE 05/20 1630 DC IV 05/20 1631 Pantoprazole Sodium 40 MG DAILY 05/20 1630 AC 05/20 IV 1656 Phosphate 250 MG PC AND AT BEDTIME 05/21 0545 CAN PO Potassium Chloride 20 MEQ ONCE ONE 05/21 0545 CAN Sodium Chloride 1,000 ML IV 05/21 1904 Potassium Chloride 20 MEQ Q1H 05/21 0545 DC 05/21 IV 05/21 0646 0619 Propofol 1,000 MG Q12H 05/20 1645 DC 05/20 N/A 1 UNIT IV 1655 Propofol 1,000 MG .STK-MED ONE 05/20 1615 DC IV 05/20 1616 Senna/Docusate Sodium 1 TAB AT BEDTIME 05/20 2200 AC 05/20 PO 2142 Sodium Chloride 1,000 ML Q6H 05/21 0215 AC 05/21 IV 0221 Sodium Chloride 1,000 ML BOLUS ONE 05/20 2200 DC 05/20 IV 05/20 2259 2200 Sodium Chloride 1,000 ML BOLUS ONE 05/20 1745 DC 05/20 IV 05/20 1944 1747 Sodium Chloride 1,000 ML BOLUS ONE 05/20 1745 DC 05/20 IV 05/20 1944 1947 Sodium Chloride 1,000 ML BOLUS ONE 05/20 1745 DC 05/20 IV 05/20 1944 2033 Sodium Chloride 1,000 ML ONCE ONE 05/20 1630 DC 05/20 IV 05/20 2309 1656 Sodium Chloride 1,000 ML BOLUS ONE 05/20 1345 CAN IV 05/20 1544 Sodium Chloride 1,000 ML Q20H 05/20 1015 DC 05/20 IV 05/21 0614 1109 Tramadol HCl 50 MG Q6P PRN 05/20 1100 AC PO Vancomycin HCl 1,000 MG Q24H 05/21 0700 AC 05/21 Dextrose/Water 250 ML IV 0743 Vancomycin HCl 1,000 MG Q12 05/20 2200 CAN Sodium Chloride 250 ML IV Assessment/Plan Other Findings/Comments: I had previously personally seen and examined the patient multiple times over the course of the day. Briefly, the patient is an 81-year-old female, brought in from [facility] with increased shortness of breath and altered mentation. She is a past medical history significant for oxygen dependent COPD, heart failure with a preserved ejection fraction noting her EF is 40%, hypertension, hyperlipidemia, and a T, diabetes and acute hypercarbic/hypoxic and aggressive 3 failure requiring sedation in the past. She has an 80 pack year history of smoking. She uses a wheelchair at baseline. In the ED, the patient was febrile and confused. She had an episode of desaturation into the 50s that improved into the 80s after being placed on a nonrebreather. BiPAP was initiated for an abnormal ABG noting the pH was 7.24, PCO2 86, PO2 103 and a bicarbonate of 36. Chest x-ray revealed bilateral multifocal pneumonia. The patient was playing cultured started on empiric antibiotics and transferred to the critical care unit for closer monitoring. During the course of the day however the patient continued to deteriorate and her ABG did not improve significantly. She was subsequently intubated. Following the administration of propofol, the patient's pressure dropped requiring temporary Levophed. She remains intubated and sedated on Ativan. Her hemodynamics have improved as has her lactic acid. She did have a positive troponin which is likely related to demand ischemia ( although she did have T-wave inversions in anterior lateral leads), noting cardiology is following. After access was established, a CT angiogram was performed to rule out pulmonary embolism. There is no evidence of PE. Multifocal pneumonia involving all lobes was reported. The patient was stabilized in the ICU and continued to be followed closely throughout the day. I discussed the plan of care with the housestaff at length as well as the attending of record. I asked him to contact me at any point in time should the patient's condition change or deteriorate. She is full code. Consult Acknowledgment - Thank you for your consult request.
[2017-05-20 12:30] VITALS: BP 108/0
--- NOTE | 2017-05-20 14:02 | Cons- Cardiology ---
General Information and HPI Consulting Request Date of Consult: 05/20/17 Requested By: Arnaldo Thompson MD Reason for Consult: Positive troponin I. Source of Information: patient, old records Exam Limitations: poor historian History of Present Illness: Mrs. Ivy Castillo is an 81-year-old female with a history of previous very heavy tobacco use, severe O2 dependent COPD, MAT, HTN, HLD, DM, HFrEF (EF 40% 04/05/2016; EF 60% to 07/25/2016) with last hospitalization here (07/25-06/2016) for acute hypercarbic and hypoxic respiratory failure requiring intubation for a short time secondary to AECOPD/influenza complicated by C. difficile infection who presented from her SNF with shortness of breath and altered mental status observed this a.m. She had reportedly been in her usual state of health until 05/17/2017 when she was lethargic, had a temperature of 100.3, but no CXR evidence of pneumonia but was started on antimicrobial therapy and steroids with planned dosage tapering, but who desaturated last night and was placed on NRB, but continued to be hypoxemic and this a.m. less arousable. There were no reported complaints of chest discomfort, palpitations, orthopnea, paroxysmal nocturnal dyspnea, lower extremities edema, etc. Allergies/Medications Allergies: Coded Allergies: Penicillins (DIARRHEA 12/26/16) Home Med List: Acetaminophen (Acephen) 325 MG SUPP.RECT [address] Q6-PRN PRN PAIN AND FEVER (Reported) Acetaminophen 325 MG CAPSULE 2 CAP PO Q6P PRN PAIN AND FEVER (Reported) Alprazolam 0.25 MG TABLET 1 TAB PO DAILY PRN ANXIETY Aspirin (Aspirin*) 81 MG TAB.CHEW 1 TAB PO DAILY HEART HEALTH (Reported) Atorvastatin Calcium (Lipitor) 10 MG TABLET 1 TAB PO 1700 CHOLESTEROL ( Reported) Bisacodyl (Dulcolax) 10 MG SUPP.RECT 1 SUP RC DAILY NEEDED PRN CONSTIPATION (Reported) Budesonide/Formoterol Fumarate (Symbicort 160-4.5 Mcg Inhaler) 160 MCG-4.5 MCG/ ACTUATION HFA.AER.AD 2 PUF INH BID COPD (Reported) Citalopram Hydrobromide (Celexa) 10 MG TABLET 10 MG PO DAILY DEPRESSION ( Reported) Citalopram Hydrobromide (Celexa) 10 MG TABLET 1 TAB PO DAILY DEPRESSION DILTIAZEM HCL (Diltiazem 24HR Cd) 120 MG CER 1 TAB PO DAILY HEART HEALTH ( Reported) Folic Acid 1 MG TABLET 1 MG PO DAILY SUPPLEMENT Furosemide 20 MG TABLET 1 TAB PO EOD HEART HEALTH (Reported) PLEASE TAKE THE NEXT DOSE ON 04/09 Guaifenesin/Dextromethorphan (Adult Robitussin Peak Cold Liq) 100 MG-10 MG/5 ML LIQUID 10 ML PO Q6-PRN PRN COUGH/CONGESTION (Reported) Ipratropium/Albuterol Sulfate (Iprat-Albut 0.5-3(2.5) MG/3 Ml) 0.5 MG-3 MG (2.5 MG BASE)/3 ML AMPUL.NEB 1 INH INH Q4-6 PRN COPD Lisinopril 5 MG TABLET 1 TAB PO DAILY HTN (Reported) Metformin HCl 1,000 MG TABLET 1 TAB PO BID UNK (Reported) Metoprolol Succinate 50 MG TAB.ER.24H 25 MG PO DAILY HTN (Reported) Mirtazapine (Remeron) 30 MG TABLET 30 MG PO DAILY DEPRESSION (Reported) Multivitamin (One Daily Multivitamin) 1 EACH TABLET 1 TAB PO DAILY SUPPLEMENT Na Phos,M-B/Na Phos,Di-Ba (Fleet Enema) 19 GRAM-7 GRAM/118 ML ENEMA 1 E RC ONCE PRN CONSTIPATION (Reported) IF DULCOLAX SUPP INEFFECTIVE Naloxone HCl (Narcan) 4 MG/ACTUATION SPRAY 1 SPRAY CANDI PRN UNRESPONSIVENESS ( Reported) Oxycodone HCl/Acetaminophen (Percocet 5-325 MG Tablet) 5 MG-325 MG TABLET 1 TAB PO BID PAIN (Reported) Tiotropium [place] (Spiriva) 18 MCG CAP.W.DEV 1 CAP INH DAILY COPD (Reported) Tramadol HCl 50 MG TABLET 1 TAB PO Q6P PRN PAIN (Reported) Past History Travel History Traveled to [place] past 21 day No Medical History Neurological: NONE EENT: NONE Cardiovascular: diastolic CHF, hypertension, hyperlipidemia, systolic CHF, Multifocal Atrial Tachyca Respiratory: COPD, emphysema, Acute on Chronic Resp Failure w/hypoxia & hypercapnia O2 DEPENDENT 4L Gastrointestinal: NONE Hepatic: NONE Renal: NONE Musculoskeletal: falls Psychiatric: alcohol dependence, anxiety, depression Endocrine: diabetes Blood Disorders: NONE Cancer(s): NONE 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 Ambulation: cane, walker Exam & Diagnostic Data Vital Signs and I&O Vital Signs Date Time Temp Pulse Resp B/P B/P Pulse O2 O2 Flow FiO2 Mean Ox Delivery Rate 05/20 1245 121 95 05/20 1230 97.4 122 30 108/0 95 BIPAP 60% 05/20 1132 BIPAP 50% 05/20 1131 94 BIPAP 50% 05/20 1122 113 30 104/62 92 BIPAP 50% 05/20 1042 116 99 05/20 1006 116 30 110/68 97 BIPAP 60% 05/20 0920 108 32 108/53 96 BIPAP 60% 05/20 0846 96 BIPAP 60% 05/20 0833 93 BIPAP 50% 05/20 0824 98.0 05/20 0824 98.0 05/20 0818 134 32 121/60 91 CPAP 05/20 0815 133 91 05/20 0802 100.6 05/20 0730 146 32 140/65 94 BIPAP 50% 05/20 0715 95 BIPAP 50% 05/20 0709 142 93 05/20 0650 100.9 141 32 149/75 93 BIPAP 40% Intake & Output 05/20 1600 05/20 0800 05/20 0000 05/19 1600 05/19 0800 05/19 0000 Intake Total Output Total Balance Patient 150 lb Weight Weight Estimated Measurement Method Physical Exam: Well-developed elderly female in mild respiratory distress. Vital signs: See above. HEENT: Normocephalic, atraumatic, EOMI, slightly dry mucous membranes. Neck: No JVD, no bruits. Lungs: The auscultation bilaterally. Heart: S1, S2 (regular) with a soft (grade 1/6) systolic murmur. PMI fifth ICS at MCL. Abdomen: Soft, nontender, positive bowel sounds. Extremities: No edema. Labs/[place] Results: Laboratory Tests 05/20 05/20 1315 1024 Blood Gas pH (7.35 - 7.45 PH) 7.28 *L 7.24 *L pCO2 (35 - 45 TORR) 85 *H 86 *H pO2 (80 - 100 TORR) 90 103 H HCO3 (21 - 28 MEQ/L) 39 H 36 H ABG O2 Sat (Measured) (>96.0 %) 95.0 L 96.0 P-50 (Temp Corrected) N N Carboxyhemoglobin (1.5 - 5.0 %) 1.2 L 1.1 L O2 Concentration % 50% 60% Respiration Rate (BPM) 30 26 O2 Delivery Method BIPAP BIPAP Vent Mode ST ST Expiratory Pressure (CM H2O P) 6 6 Inspiratory Pressure (CM H2O P) 24 24 Chemistry Bdy-K-Bhifaorojnn Pept Cancelled Miscellaneous Phlebotomy Draw Site RIGHT BRACHIAL RIGHT RADIAL Toxicology Urine Opiates Screen (>2000 NG/ML) 304.00 Methadone Screen (>300 NG/ML) 114 Barbiturate Screen (>200 NG/ML) < 60 Ur Phencyclidine Scrn (>25 NG/ML) 11.40 Amphetamines Screen (>1000 NG/ML) < 100 U Benzodiazepines Scrn (>200 NG/ML) < 85 Urine Cocaine Screen (>300 NG/ML) < 50 Urine Cannabis Screen (>50 NG/ML) < 5.00 Urines Urinalysis LIGHT H Urine Color (YEL,AMB,STR) YEL Urine Clarity (CLEAR) HAZY H Urine pH (5.0 - 8.0) 7.0 Ur Specific [place] (1.001 - 1.035) 1.025 Urine Protein (NEG,<30 MG/DL) 30 H Urine Ketones (NEG) NEG Urine Nitrite (NEG) NEG Urine Bilirubin (NEG) NEG Urine Urobilinogen (0.1 - 1.0 EU/dl) 0.2 Ur Leukocyte Esterase (NEG) NEG Ur Microscopic SEDIMENT EXAMINED Urine WBC (0 - 2 /HPF) 5-10 H Ur Epithelial Cells (NONE,FEW) RARE Urine Bacteria (NEG/NONE) MANY H Hyaline Casts (0/LPF) 1-3 H Granular Casts (NONE /LPF) 1-3 H Urine Hemoglobin (NEG) NEG Urine Glucose (N MG/DL) NEG 05/20 05/20 05/20 0950 0813 0810 Blood Gas pH (7.35 - 7.45 PH) 7.23 *L pCO2 (35 - 45 TORR) 99 *H pO2 (80 - 100 TORR) 65 L HCO3 (21 - 28 MEQ/L) 39 H ABG O2 Sat (Measured) (>96.0 %) 88.0 L O2 Concentration % 50 Respiration Rate (BPM) 24 O2 Delivery Method VISION Vent Mode ST Expiratory Pressure (CM H2O P) 5 Inspiratory Pressure (CM H2O P) 20 Chemistry Sodium (137 - 145 mmol/L) 144 Potassium (3.5 - 5.1 mmol/L) 4.1 Chloride (98 - 107 mmol/L) 90 L Carbon Dioxide (22 - 30 mmol/L) 41 H Anion Gap (5 - 16) 13 BUN (7 - 17 mg/dL) 18 H Creatinine (0.5 - 1.0 mg/dL) 0.5 Estimated GFR (>60 ml/min) > 60 BUN/Creatinine Ratio (7 - 25 %) 36.0 H Glucose (65 - 99 mg/dL) 262 H Lactic Acid (0.7 - 2.1 mmol/L) Cancelled 2.0 Calcium (8.4 - 10.2 mg/dL) 9.3 Total Bilirubin (0.2 - 1.3 mg/dL) < 0.1 L Direct Bilirubin (< 0.4 mg/dL) < 0.1 AST (14 - 36 U/L) 21 ALT (9 - 52 U/L) 38 Alkaline Phosphatase (<127 U/L) 88 Troponin I (< 0.11 ng/ml) 0.11 *H Mmk-H-Zolwsiejhvo Pept (<125 pg/mL) 631 H Total Protein (6.3 - 8.2 g/dL) 6.2 L Albumin (3.5 - 5.0 g/dL) 3.2 L Amylase (30 - 110 U/L) 174 H Lipase (23 - 300 U/L) 49 Miscellaneous Phlebotomy Draw Site LEFT BRACHIAL 05/20 0721 Coagulation PT (9.4 - 12.5 SEC) 11.1 INR (0.90 - 1.19) 1.06 APTT (25 - 37 SEC) < 20 L D-Dimer High Sensitivty (0 - 243 ng/ml) 857 H Hematology CBC w Diff MAN DIFF ORDERED WBC (4.8 - 10.8 /CUMM) 24.1 H RBC (4.20 - 5.40 /CUMM) 3.90 L Hgb (12.0 - 16.0 G/DL) 10.7 L Hct (37 - 47 %) 35.5 L MCV (81.0 - 99.0 FL) 90.8 MCH (27.0 - 31.0 PG) 27.4 RDW (11.5 - 14.5 %) 18.0 H Plt Count (130 - 400 /CUMM) 703 H MPV (7.4 - 10.4 FL) 7.8 Gran % (42.2 - 75.2 %) 85.7 H Lymphocytes % (20.5 - 51.1 %) 10.3 L Monocytes % (1.7 - 9.3 %) 3.8 Eosinophils % (0 - 5 %) 0.1 Basophils % (0.0 - 2.0 %) 0.1 Absolute Granulocytes (1.4 - 6.5 /CUMM) 20.7 H Segmented Neutrophils (42.2 - 75.2 %) 85 H Band Neutrophils (0.0 - 5.0 %) 5 Absolute Lymphocytes (1.2 - 3.4 /CUMM) 2.5 Lymphocytes (20.5 - 51.1 %) 8 L Monocytes (1.7 - 9.3 %) 2 Absolute Monocytes (0.10 - 0.60 /CUMM) 0.9 H Absolute Eosinophils (0.0 - 0.7 /CUMM) 0 Absolute Basophils (0.0 - 0.2 /CUMM) 0 Platelet Estimate (ADEQUATE) INCREASED Hypochromic-Microcytic 2+ Anisocytosis 1+ PUBS MCHC (33.0 - 37.0 G/DL) 30.2 L Diagnostic Data EKG Results 05/20/2017: Sinus tachycardia, borderline T-wave abnormalities in diffuse leads, and faster rate when compared to previous tracing from 07/26/2016. CXR Results 05/20/2017: Bilateral patchy pulmonary opacities consistent with multifocal pneumonia. Aspiration is in the differential diagnosis. Recommend follow-up to document resolution. Assessment/Plan Assessment/Plan [id number] w/ hx heavy tob use, severe O2 dependent COPD, MAT, HTN, HLD, DM, previous HFrEF (EF 40% 04/05/2016; EF 60% 07/25/2016) w/ last hospitalization here (07/25-08/01/2016) for acute hypercarbic and hypoxic respiratory failure requiring brief intubation 2/2 AECOPD/influenza complicated by C. difficile infection who presented from her SNF w/ SOB & AMS this a.m. w/ CXR c/w bilateral patchy pulmonary opacities c/w multifocal pneumonia. Fortunately, aside from sinus tachycardia there are no other acute electrocardiographic changes, her troponin I is only modestly elevated, and her NT-PRO- BNP is only mildly elevated. Her presentation appears to be on the basis of aspiration pneumonia +/-AECOPD and that her troponin I elevation is 2/2 a type II HI (sinus tachycardia, left ventricular hypertrophy) and not an acute coronary syndrome, despite her multiple risk factors for coronary artery disease. Recommendations: * ICU admission, follow-up troponins, follow-up ECGs. * IV diltiazem 5 mg bolus followed by drip at 2.5 mg/hour to start with slow titration up as needed and as blood pressure can support. * Continue to hold oral furosemide, diltiazem, metoprolol, and lisinopril until blood pressure stabilizes. * Nelson culture, empiric antimicrobial therapy for presumed aspiration pneumonia, steroids, TRC, etc. as per pulmonary medicine. * Repeat echocardiogram given the discrepancy in left ventricular systolic function on the previous 2 studies (04/05/2016; 07/25/2016). * DVT prophylaxis. Further recommendations will follow, Thank you. Consult Acknowledgment - Thank you for your consult request.
[2017-05-20 16:00] VITALS: BP 100/62
--- NOTE | 2017-05-20 16:06 | Event Note ---
Event Note Event Note: Indication: Hemodynamic monitoring/Intravenous access Resident: Erica Rodney Attending: Matthew Negrete MD Verbal consent was obtained from the pt to place an IJ line, and intubation. After the IJ line was inserted, the pt was intubated. In order to maintain the MAP > 60-65, levophed was started, while she was getting fluid boluses through central line, which was not ideal to bolus her due to small diameter, and long length of the IJ line. Unfortunately, she didnt have any peripheral lines that could be used to bolus, and pressor support was provided. BP was reasonably stable, Ms Castillo was taken down for a CTA. The plan was to use the IJ line for contrast administration. After she returned from the CTA, the line was partially pulled out which made the line non-useful. We requested the surgical PA to place a central line, since this procedure was technically very challenging considering her short neck, and obesity. Line was placed by the surgical PA without any complications. BP remained stable. The attending physician, and the ICU attending were informed. The pts was informed all along the way, and consent obtained when needed. Relayed the information to our colleagues who cover our PM duties.
--- NOTE | 2017-05-20 17:08 | RADIOLOGY REPORT ---
EXAMINATION: XR PORTABLE CHEST CLINICAL INFORMATION: Pneumonia, intubated COMPARISON: Multiple prior chest x-rays, the most recent on 05/20/2017 at 7:33 AM TECHNIQUE: Portable AP view of the chest was obtained. FINDINGS: There is an endotracheal tube in place with its tip located about 4.5 cm from the oliver. There is a right IJ catheter in place with its tip projecting over the cavoatrial junction. There is an enteric tube in place, coursing toward the abdomen. The cardiomediastinal silhouette is within normal limits. Patchy bilateral pulmonary opacities in the upper lobes and right lower lobe are again noted. No pleural effusions. No pneumothorax. A left shoulder arthroplasty is partially imaged. IMPRESSION: Tubes and catheters as above. Multilobar pneumonia.
--- NOTE | 2017-05-20 19:31 | Proc Note Internal Medicine ---
Medicine Procedure Procedure Date: 05/20/17 Medical Procedure(s): central venous cath place Pre-Operative Diagnosis: Hemodynamic monitoring/Intravenous access Estimated Blood Loss: less than 50ml Anesthesia: local monitored anesthesi Procedure Findings: Resident: Erica Rodney MD Attending: Matthew Negrete MD Verbal consent was obtained from the pt to place an Right IJ line, and intubation. A time-out was completed verifying correct patient, procedure, site, positioning , and special equipment if applicable. The patient was placed in a dependent position appropriate for central line placement based on the vein to be cannulated. The patients right neck was prepped and draped in sterile fashion. 1% Lidocaine was used to anesthetize the surrounding skin area. A triple lumen catheter was introduced into the the internal jugular using the Seldinger technique and under ultrasound guidance. The catheter was threaded smoothly over the guide wire and appropriate blood return was obtained. Each lumen of the catheter was evacuated of air and flushed with sterile saline. The catheter was then sutured in place to the skin and a sterile dressing applied. Perfusion to the extremity distal to the point of catheter insertion was checked and found to be adequate. Dr. Negrete was present for the entire procedure. Estimated Blood Loss: 10 ml The patient tolerated the procedure well and there were no complications. After the IJ line was inserted, the pt was intubated.
--- NOTE | 2017-05-20 20:17 | CT SCAN REPORT ---
EXAMINATION: CT ANGIOGRAM OF THE CHEST WITH AND WITHOUT CONTRAST (CT PULMONARY ANGIOGRAM FOR PE) CLINICAL INFORMATION: Acute onset of dyspnea. Concern for pulmonary embolism. COMPARISON: CTA chest 04/04/2016. TECHNIQUE: Prior to contrast administration, noncontrast localization images were obtained. Subsequently, multidetector volumetric imaging was performed from the thoracic inlet to below the diaphragms following the administration of 60 mL Omnipaque 350 intravenous contrast. No contrast reaction reported. Sagittal, coronal, and MIP oblique sagittal reformatted images were obtained on the CT workstation, uploaded to PACS, and reviewed. Total exam dose-length product 434.44 mGy-cm. FINDINGS: QUALITY OF STUDY/CONTRAST BOLUS: Satisfactory PULMONARY ARTERIES: No central or segmental pulmonary emboli. THORACIC AORTA: No aneurysm or dissection. Scattered mild atherosclerotic disease. LUNG: Focal airspace opacity is noted in the right upper and left upper lobes. Scattered tree-in-bud opacity is noted in the right middle lobe as well as the left lower lobe and right lower lobe. Findings are compatible with multifocal pneumonia. Evaluation for small nodules is limited due to the multifocal pneumonia. Mild emphysematous changes of the lungs. PLEURA: No pleural effusion or pneumothorax. MEDIASTINUM: Normal heart size. No pericardial effusion. Small scattered mediastinal and bilateral hilar lymph nodes, likely reactive.. No evidence of septal bowing or right heart strain. Endotracheal tube is appropriately positioned. There is a enteric tube, best appreciated on the sequins winder radiograph, terminating in the stomach in appropriate position. Right IJ central venous catheter terminates at the cavoatrial junction. CHEST WALL/AXILLA: No axillary or internal mammary lymphadenopathy. OSSEOUS STRUCTURES: There is a left shoulder arthroplasty which is suboptimally evaluated on this examination. Degenerative changes of the visualized spine. Severe compressive deformity of the T9 vertebral body is unchanged. No acute osseous findings. UPPER ABDOMEN: Unremarkable. No reflux of contrast into the hepatic veins to suggest elevated right heart pressures. IMPRESSION: No evidence of pulmonary embolism. Multifocal pneumonia involving all lobes. Support apparatus appears appropriate positioned. VTE: negative
--- NOTE | 2017-05-20 22:09 | RADIOLOGY REPORT ---
EXAMINATION: XR PORTABLE CHEST CLINICAL INFORMATION: Central line placement COMPARISON: Prior chest x-rays, the most recent on 05/20/2017 at 4:41 PM TECHNIQUE: Portable AP view of the chest was obtained. FINDINGS: The cardiomediastinal silhouette is normal. Endotracheal tube is in place with its tip located about 2.3 cm above the oliver. There is a left IJ central venous catheter in place with its tip projecting over the cavoatrial junction. The previously present right IJ catheter has been removed. No pneumothorax. No pleural effusion. Redemonstration of bilateral pulmonary opacities. Partial visualization of left shoulder arthroplasty. IMPRESSION: Lines and catheters as above. Bilateral pulmonary opacities.
--- NOTE | 2017-05-20 22:24 | Procedure ---
Minor Surgical Procedure Note Date of Procedure: 05/20/17 Procedure Note: Left IJ TLC placement preprocedure DX: hypotension requiring pressor support, loss of central venous access (Right IJ TLC dislodged during transfer to CT) PT sedated and intubated. Consent obtained from Clark via phone, form in chart. Verbal timeout performed in room. residential interior designer Óscar present during procedure. Pt positioned and left neck cleansed/draped under sterile technique. Left IJ visualized using bedside ultrasound. 2cc lidocaine injected to puncture site, IJ accessed under US guidance, good blood return, guidewire passed without resistance, skin dilated, catheter inserted. all 3 lumens flushed and ambrosio back, catheter sutured in place and sterile dressing applied. Pt tolerated procedure well. CXR confirms proper placement with tip at cavoatrial junction. OK to use. Molina Serrato.
[2017-05-21] VITALS: BP 100/00
[2017-05-21 02:42] LABS: ABSOLUTE BASOPHIL COUNT 0 /CUMM (0.0-0.2); ABSOLUTE EOSINOPHIL COUNT 0 /CUMM (0.0-0.7); ABSOLUTE GRANULOCYTE CT 10.3 /CUMM (1.4-6.5); ABSOLUTE LYMPH COUNT 1.4 /CUMM (1.2-3.4); ABSOLUTE MONOCYTE COUNT 0.8 /CUMM (0.10-0.60); BASOPHIL % 0.1 % (0.0-2.0); EOSINOPHIL % 0 % (0-5); GRANULOCYTE % 82.3 % (42.2-75.2); MEAN CORPUSCULAR HGB 27.3 PG (27.0-31.0); MEAN CORPUSCULAR HGB CONC 30.5 G/DL (33.0-37.0); MEAN CORPUSCULAR VOLUME 89.5 FL (81.0-99.0); MEAN PLATELET VOLUME 7.3 FL (7.4-10.4); PLATELET COUNT 528 /CUMM (130-400); WHITE BLOOD CELL COUNT 12.5 /CUMM (4.8-10.8)
[2017-05-21 02:43] LABS: RED BLOOD CELL CT 2.88 /CUMM (4.20-5.40)
[2017-05-21 02:44] LABS: HEMATOCRIT 25.7 % (37-47)
[2017-05-21 06:49] LABS: ABSOLUTE BASOPHIL COUNT 0 /CUMM (0.0-0.2); ABSOLUTE EOSINOPHIL COUNT 0 /CUMM (0.0-0.7); ABSOLUTE GRANULOCYTE CT 9.4 /CUMM (1.4-6.5); ABSOLUTE LYMPH COUNT 1.2 /CUMM (1.2-3.4); ABSOLUTE MONOCYTE COUNT 0.7 /CUMM (0.10-0.60); BASOPHIL % 0.2 % (0.0-2.0); EOSINOPHIL % 0 % (0-5); GRANULOCYTE % 82.4 % (42.2-75.2); HEMATOCRIT 26.2 % (37-47); MEAN CORPUSCULAR HGB 27.3 PG (27.0-31.0); MEAN CORPUSCULAR HGB CONC 30.6 G/DL (33.0-37.0); MEAN CORPUSCULAR VOLUME 89.4 FL (81.0-99.0); MEAN PLATELET VOLUME 7.5 FL (7.4-10.4); PLATELET COUNT 499 /CUMM (130-400); RBC DISTRIBUTION WIDTH 17.8 % (11.5-14.5); RED BLOOD CELL CT 2.94 /CUMM (4.20-5.40); WHITE BLOOD CELL COUNT 11.4 /CUMM (4.8-10.8)
--- NOTE | 2017-05-21 07:51 | RADIOLOGY REPORT ---
EXAMINATION: XR PORTABLE CHEST CLINICAL INFORMATION: Post intubation. COMPARISON: Chest 05/20/2017 at 9:32 PM. TECHNIQUE: Portable frontal view of the chest was obtained. FINDINGS: The heart size and pulmonary vascularity are within normal limits. The lungs are expanded with patchy opacities in both upper lobes and lower lobes. The left jugular central line tip remains in the mid SVC. Enteric tube tip is below the diaphragm in stomach. Tip of endotracheal tube is 4.7 cm above the oliver. Is a left shoulder prosthesis noted. IMPRESSION: Bilateral pulmonary patchy opacities are stable. Support lines and catheters are unchanged.
[2017-05-21 08:00] VITALS: BP 92/56
--- NOTE | 2017-05-21 08:44 | PN- Resident CRCU ---
Subjective HPI/CRCU Issues: 24 Hour Events: Patient is seen and examined this morning, responsive but minimally to verbal commands, currently intubated, vitals are currently stable. She is still sedated with low-dose Ativan drip. Will be tried to taper off the Levophed. Objective Vital Signs & I&O Last 8 Hrs of Vitals and I&O: . Exam General Appearance: well developed/nourished, awake Head: atraumatic, normal appearance Ears, Nose, Throat: normal pharynx, normal ENT inspection Neck: normal inspection, supple Respiratory: normal breath sounds, chest non-tender Cardiovascular: regular rate/rhythm, edema Gastrointestinal: normal bowel sounds, soft, non-tender Extremities: normal inspection, normal capillary refill Cranial Nerves: normal hearing, normal speech Skin: intact, normal color Weaning Parameters VC: 520 Current Medications: Current Medications Sig/Shobha Start time Last Medication Dose Route Stop Time Status Admin Acetaminophen 650 MG Q8P PRN 05/20 1030 AC PO Albuterol Sulfate 3 ML EVERY 4 HRS/AWAKE 05/20 1200 AC 05/22 INH 0911 Aspirin 81 MG DAILY 05/21 1000 AC 05/22 PO 0957 Atorvastatin Calcium 40 MG DAILY@1700 05/20 1915 AC 05/21 PO 1636 Budesonide/ 2 PUF BID 05/20 1043 AC Formoterol Fumarate INH Ceftazidime 1,000 MG Q12H 05/20 2000 AC 05/22 IV 0812 Diltiazem HCl 125 MG Q24H 05/20 1330 DC 05/21 Sodium Chloride 100 ML IV 1000 Heparin Sodium 5,000 UNIT Q8 05/21 0100 AC 05/22 (Porcine) SC 0517 Insulin Human Regular 6 UNITS .STK-MED ONE 05/21 1857 DC IV 05/21 1858 Insulin Human Regular 4 UNITS .STK-MED ONE 05/21 1213 DC IV 05/21 1214 Insulin Human Regular 0 Q6 05/20 1800 AC 05/22 SC 0611 Ipratropium [place] 2.5 ML EVERY 4 HRS/AWAKE 05/20 1200 AC 05/22 INH 0911 Lorazepam 50 MG Q16H 05/21 1600 AC 05/21 Sodium Chloride 500 ML IV 2224 Lorazepam 50 MG DAILY 05/21 1000 DC 05/21 Sodium Chloride 500 ML IV 05/21 1559 0521 Magnesium Sulfate 1 GM ONCE ONE 05/21 1815 DC 05/21 Dextrose/Water 100 ML IV 05/21 2214 1958 Magnesium Sulfate 1 GM ONCE ONE 05/21 1330 DC 05/21 Dextrose/Water 100 ML IV 05/21 1729 1510 Methylprednisolone 40 MG Q6 05/21 0600 AC 05/22 IV 0516 Norepinephrine 4 MG Q24H 05/20 1630 AC 05/20 Sodium Chloride 250 ML IV 1656 Pantoprazole Sodium 40 MG DAILY 05/20 1630 AC 05/22 IV 0958 Potassium Phosphate 15 mMol ONE ONE 05/21 1730 DC 05/21 Dextrose/Water 250 ML IV 05/21 2134 1958 Potassium Phosphate 15 mMol ONE ONE 05/21 1330 DC 05/21 Sodium Chloride 250 ML IV 05/21 1734 1531 Senna/Docusate Sodium 1 TAB AT BEDTIME 05/20 2200 05/21 PO 2223 Sodium Chloride 1,000 ML Q6H 05/21 0215 AC 05/22 IV 0104 Tramadol HCl 50 MG Q6P PRN 05/20 1100 AC PO Vancomycin HCl 1,000 MG Q24H 05/21 0700 AC 05/22 Dextrose/Water 250 ML IV 0517 Impression/Plan Impression/Problem List Impression: Mr Jonathan has a PMHx of COPD (on 4L oxygen), HFpEF( EF 440%), HTN, HLD, MAT. came was brought in from [facility] with a chief concern of acute dyspnea, and altered mental status likely secondary to acute hypoxic hypercarbic respiratory failure from multi-lobar pneumonia with COPD exacerbation. Problem list Acute hypercarbic and hypoxic respiratory failure secondary to multilobar pneumonia with COPD exacerbation(history of prior respiratory failure requiring intubation) Tachycardia on Cardizem History of obesity History of C. difficile. History of hypertension hyperlipidemia History of diabetes Plan: Acute hypercarbic and hypoxic respiratory failure secondary to multilobar pneumonia with COPD exacerbation-currently intubated with hypovolemic shock (history of prior respiratory failure requiring intubation): * Continue to monitor patient on the ICU. * Continue sedation with Ativan drip to maintain SAS of 3. * Continue vancomycin and ceftazidime for multilobar pneumonia pending blood and sputum cultures, awaiting strep pneumo and urine Legionella antigen results. * Continue TRC nebs. * Continue IV Solu-Medrol at the current dose for now and will titrate to taper it down later. * Will titrate off the Levophed,bp is currently stable , continue with fluids. Continue to hold antihypertensives. Elevated troponins likely due to demand ischemia( type II [place]) * Troponins trended down . * Continue to follow cardiology recommendations. Persistent tachycardia * Continue Cardizem for now History of diabetes * Last 3 fingers sugar sticks 183, 183, 145. * Continue with Accu-Cheks, consider low-dose NovoLog sliding scale through OG tube blood glucose levels remained high . Electrolyte abnormalities * Maintain potassium> 4, Mg> 2, phos>4. Nutrition through OG tubes DVT prophylaxis at all times Patient is full code Problem List: 1. Pneumonia 2. Sepsis Pain Ratin Tomorrow's Labs & Rationales: cbc ICU bundle Plan DVT/Prophylaxis: mechanical
--- NOTE | 2017-05-21 09:07 | PN- CRCU ---
Subjective HPI/Critical Care Issues: The patient remains intubated and sedated. She remains on Ativan drip at 3 mg per hour. She is not following commands as requested. NS remains at 150 ml per hour and Levaphed is at 2 mcg for BP support. She is not able to offer any complaints. Objective Current Medications: Current Medications Sig/Shobha Start time Last Medication Dose Route Stop Time Status Admin Acetaminophen 650 MG Q8P PRN 05/20 1030 AC PO Albuterol Sulfate 3 ML EVERY 4 HRS/AWAKE 05/20 1200 AC 05/21 INH 0845 Aspirin 81 MG DAILY 05/21 1000 AC PO Aspirin 325 MG ONCE ONE 05/20 1730 DC 05/20 PO 05/20 1731 2142 Atorvastatin Calcium 40 MG DAILY@1700 05/20 1915 AC 05/20 PO 2142 Budesonide/ 2 PUF BID 05/20 1043 AC Formoterol Fumarate INH Ceftazidime 1,000 MG Q12H 05/20 2000 AC 05/20 IV 2142 Diltiazem HCl 125 MG Q24H 05/20 1330 AC 05/20 Sodium Chloride 100 ML IV 1807 Enoxaparin Sodium 60 MG Q12H 05/20 1630 DC SC Enoxaparin Sodium 80 MG ONCE ONE 05/20 1500 CAN SC 05/20 1700 Heparin Sodium 5,000 UNIT Q8 05/21 0100 AC 05/21 (Porcine) SC 0221 Heparin Sodium 5,000 UNIT Q8 05/20 1400 DC 05/20 (Porcine) SC 1620 Insulin Human Regular 0 Q6 05/20 1800 AC 05/21 SC 0549 Ipratropium [place] 2.5 ML EVERY 4 HRS/AWAKE 05/20 1200 AC 05/21 INH 0845 Lorazepam 50 MG Q16H 05/21 1600 AC Sodium Chloride 500 ML IV Lorazepam 50 MG DAILY 05/21 1000 AC 05/21 Sodium Chloride 500 ML IV 05/21 1559 0521 Lorazepam 2 MG ONE ONE 05/20 1715 DC 05/20 IV 05/20 1716 1706 Lorazepam 2 MG ONE ONE 05/20 1700 DC 05/20 IV 05/20 1701 1701 Lorazepam 50 MG ONCE ONE 05/20 1700 DC 05/20 Sodium Chloride 500 ML IV 05/20 1701 1746 Magnesium Sulfate 1 GM ONCE ONE 05/21 0430 DC 05/21 Dextrose/Water 100 ML IV 05/21 0829 0516 Magnesium Sulfate 1 GM ONCE ONE 05/20 0715 DC 05/20 Dextrose/Water 100 ML IV 05/20 1114 0754 Methylprednisolone 40 MG Q6 05/21 0600 AC 05/21 IV 0516 Naloxone HCl 0.4 MG ONCE ONE 05/20 1145 DC IV 05/20 1146 Non-Formulary 0 SEE ADMIN CRITERIA 05/20 1630 DC Medication ANY Norepinephrine 4 MG Q24H 05/20 1630 AC 05/20 Sodium Chloride 250 ML IV 1656 Norepinephrine 4 MG .STK-MED ONE 05/20 1630 DC IV 05/20 1631 Pantoprazole Sodium 40 MG DAILY 05/20 1630 AC 05/20 IV 1656 Phosphate 250 MG PC AND AT BEDTIME 05/21 0545 CAN PO Potassium Chloride 20 MEQ ONCE ONE 05/21 0545 CAN Sodium Chloride 1,000 ML IV 05/21 1904 Potassium Chloride 20 MEQ Q1H 05/21 0545 DC 05/21 IV 05/21 0646 0619 Propofol 1,000 MG Q12H 05/20 1645 DC 05/20 N/A 1 UNIT IV 1655 Propofol 1,000 MG .STK-MED ONE 05/20 1615 DC IV 05/20 1616 Senna/Docusate Sodium 1 TAB AT BEDTIME 05/20 2200 AC 05/20 PO 2142 Sodium Chloride 1,000 ML Q6H 05/21 0215 AC 05/21 IV 0221 Sodium Chloride 1,000 ML BOLUS ONE 05/20 2200 DC 05/20 IV 05/20 2259 2200 Sodium Chloride 1,000 ML BOLUS ONE 05/20 1745 DC 05/20 IV 05/20 1944 1747 Sodium Chloride 1,000 ML BOLUS ONE 05/20 1745 DC 05/20 IV 05/20 1944 1947 Sodium Chloride 1,000 ML BOLUS ONE 05/20 1745 DC 05/20 IV 05/20 1944 2033 Sodium Chloride 1,000 ML ONCE ONE 05/20 1630 DC 05/20 IV 05/20 2309 1656 Sodium Chloride 1,000 ML BOLUS ONE 05/20 1345 CAN IV 05/20 1544 Sodium Chloride 1,000 ML Q20H 05/20 1015 DC 05/20 IV 05/21 0614 1109 Tramadol HCl 50 MG Q6P PRN 05/20 1100 AC PO Vancomycin HCl 1,000 MG Q24H 05/21 0700 AC 05/21 Dextrose/Water 250 ML IV 0743 Vancomycin HCl 1,000 MG Q12 05/20 2200 CAN Sodium Chloride 250 ML IV Vital Signs & I&O Last 24 Hrs of Vitals and I&O: Vital Signs Date Time Temp Pulse Resp B/P B/P Pulse O2 O2 Flow FiO2 Mean Ox Delivery Rate 05/21 0800 98.7 82 20 92/56 96 Ventilator 40% 05/21 0800 96 Ventilator 40% 05/21 0605 40 05/21 0420 40 05/21 0400 97 Ventilator 40% 05/21 0010 40 05/21 0000 99 Ventilator 40% 05/21 0000 99.6 92 22 100/00 99 Ventilator 40% 05/20 2140 40 05/20 2000 98 Ventilator 40% 05/20 1839 40 05/20 1656 121 74/41 05/20 1640 40 05/20 1600 94 Ventilator 40% 05/20 1600 96.4 120 30 100/62 94 BIPAP 50% 05/20 1443 113 93 05/20 1245 121 95 05/20 1230 95 BIPAP 60% 05/20 1230 97.4 122 30 108/0 95 BIPAP 60% 05/20 1132 BIPAP 50% 05/20 1131 94 BIPAP 50% 05/20 1122 113 30 104/62 92 BIPAP 50% 05/20 1042 116 99 05/20 1006 116 30 110/68 97 BIPAP 60% 05/20 0920 108 32 108/53 96 BIPAP 60% Intake & Output 05/21 1600 05/21 0800 05/21 0000 Intake Total 1741 4659.9 Output Total 250 250 Balance 1491 4409.9 Intake, IV 1741 4559.9 Intake, Oral 0 0 Intake, Other 100 Number 0 0 Bowel Movements Output, Urine 250 250 Patient 135 lb 132 lb Weight Weight Bed scale Bed scale Measurement Method General Appearance Moderate Distress, sleepy, but arousable, intubated Skin No Rashes Skin Temp/Moisture Exam: Warm/Dry Sepsis Skin Exam (color): Normal for Ethnicity Neck Supple, No JVD, No thryomegaly Lymphatic Cervical nl Cardiovascular Regular Rate, Normal S1, Normal S2, tachycardia Lungs Clear to Auscultation Abdomen Normal Bowel Sounds, Soft, No Tenderness Extremities No Clubbing, No Cyanosis, No Edema, Normal Pulses Vascular Pulses Symmetrical Results Last 24 Hrs of Lab Results: Laboratory Tests 05/21/17 0635: CBC w Diff NO MAN DIFF REQ, RBC 2.94 L, MCV 89.4, MCH 27.3, RDW 17.8 H, MPV 7.5, Gran % 82.4 H, Lymphocytes % 10.9 L, Monocytes % 6.5, Eosinophils % 0, Basophils % 0.2, Absolute Granulocytes 9.4 H, Absolute Lymphocytes 1.2, Absolute Monocytes 0.7 H, Absolute Eosinophils 0, Absolute Basophils 0, PUBS MCHC 30.6 L 05/21/17 0600: Sodium Cancelled, Potassium Cancelled, Chloride Cancelled, Carbon Dioxide Cancelled, Anion Gap Cancelled, BUN Cancelled, Creatinine Cancelled, BUN/ Creatinine Ratio Cancelled 05/21/17 0510: Troponin I 0.23 *H 05/21/17 0220: Lactic Acid 1.3 05/21/17 0220: Anion Gap 7, Estimated GFR > 60, Glucose 108 H, Calcium 7.1 L, Phosphorus 1.9 L, Magnesium 1.6, Total Bilirubin 0.1 L, AST 17, ALT 37, Albumin 2.2 L, CBC w Diff NO MAN DIFF REQ, RBC 2.88 L, MCV 89.5, MCH 27.3, RDW 18.0 H, MPV 7.3 L, Gran % 82.3 H, Lymphocytes % 11.2 L, Monocytes % 6.4, Eosinophils % 0, Basophils % 0.1, Absolute Granulocytes 10.3 H, Absolute Lymphocytes 1.4, Absolute Monocytes 0.8 H, Absolute Eosinophils 0, Absolute Basophils 0, PUBS MCHC 30.5 L 05/21/17 0020: pH 7.45, pCO2 40, pO2 95, HCO3 27, ABG O2 Sat (Measured) 97.0, P-50 (Temp Corrected) Y, Carboxyhemoglobin 0.3 L, O2 Concentration % 40%, Temperature 99.6 , Respiration Rate 20, O2 Delivery Method ESPRIT, Vent Mode AC, Expiratory Pressure 5, Tidal Volume 500, Phlebotomy Draw Site RIGHT RADIAL 05/20/172224: Troponin I 0.30 *H 05/20/172224: Lactic Acid 2.2 H 05/20/171821: Lactic Acid 3.7 H 05/20/171814: pH 7.54 H, pCO2 37, pO2 78 L, HCO3 31 H, ABG O2 Sat (Measured) 96.0, P-50 ( Temp Corrected) Y, Carboxyhemoglobin 1.1 L, O2 Concentration % 40%, Temperature 96.4 L, Respiration Rate 26, O2 Delivery Method VENT, Vent Mode CMV, Expiratory Pressure 5, Tidal Volume 500, Phlebotomy Draw Site RIGHT RADIAL 05/20/17 1425: Troponin I 0.23 *H 05/20/17 1315: pH 7.28 *L, pCO2 85 *H, pO2 90, HCO3 39 H, ABG O2 Sat (Measured) 95.0 L, P-50 (Temp Corrected) N, Carboxyhemoglobin 1.2 L, O2 Concentration % 50%, Respiration Rate 30, O2 Delivery Method BIPAP, Vent Mode ST, Expiratory Pressure 6, Inspiratory Pressure 24, Phlebotomy Draw Site RIGHT BRACHIAL 05/20/17 1024: pH 7.24 *L, pCO2 86 *H, pO2 103 H, HCO3 36 H, ABG O2 Sat (Measured) 96.0, P-50 (Temp Corrected) N, Carboxyhemoglobin 1.1 L, O2 Concentration % 60%, Respiration Rate 26, O2 Delivery Method BIPAP, Vent Mode ST, Expiratory Pressure 6, Inspiratory Pressure 24, Kkw-X-Tjplyzrozho Pept Cancelled, Phlebotomy Draw Site RIGHT RADIAL, Urine Opiates Screen 304.00, Methadone Screen 114, Barbiturate Screen < 60, Ur Phencyclidine Scrn 11.40, Amphetamines Screen < 100, U Benzodiazepines Scrn < 85, Urine Cocaine Screen < 50, Urine Cannabis Screen < 5.00, Urinalysis LIGHT H, Urine Color YEL, Urine Clarity HAZY H, Urine pH 7.0, Ur Specific [place] 1.025, Urine Protein 30 H, Urine Ketones NEG, Urine Nitrite NEG, Urine Bilirubin NEG, Urine Urobilinogen 0.2, Ur Leukocyte Esterase NEG, Ur Microscopic SEDIMENT EXAMINED, Urine WBC 5-10 H, Ur Epithelial Cells RARE, Urine Bacteria MANY H, Hyaline Casts 1-3 H, Granular Casts 1-3 H, Urine Hemoglobin NEG, Urine Glucose NEG 05/20/17 1000: Virus Culture Pending 05/20/17 0950: Lactic Acid Cancelled Diagnostic Data CXR Findings: Bilateral pulmonary patchy opacities are stable. Support lines and catheters are unchanged. Impression/Plan Impression/Plan Impression/Plan: 1. Acute hypercarbic and hypoxemic respiratory failure secondary to multilobar pneumonia. 2. Morbid obesity. 3. Increased tachycardia, on Cardizem drip. 4. History of positive troponin. 5. Acute exacerbation of COPD. 6. Previous history of respiratory failure requiring intubation. 7. History of C. difficile colitis. 8. History of hypertension, hyperlipidemia and diabetes. Recommendations: * Ativan drip for an SAS of 3. Attempt to wean down if possible. * Decrease IVFs to 100 ml per hour and monitor UO. * Please ensure urine is sent for strep pneumo and Legionella. * Continue Vanco and ceftaz pending culture results. * Continue IV Solu-Medrol, we will attempt to decrease this rapidly. * Decrease respiratory rate on the ventilator to 16. * Continue nebs/TRC. * Continue to follow cardiology input. * Continue sliding scale insulin. * DVT/GI prophylaxis at all times. Continue with aggressive ventilator bundle. * I have discussed the plan of care with the housestaff and asked him to contact me should the patient's condition change or deteriorate. She remains critically ill from multilobar pneumonia and sepsis.
--- NOTE | 2017-05-21 10:46 | ULTRASOUND REPORT ---
EXAMINATION: US TRIPLEX OF LOWER EXTREMITIES, BILATERAL, PORTABLE CLINICAL INFORMATION: Bilateral lower extremity edema. COMPARISON: CT of the chest done on 05/20/2017. TECHNIQUE: Color-flow triplex imaging with spectral analysis and compression Doppler were performed on the lower extremities. The study is slightly technically limited due to presence of significant edema and patient's body habitus and portable nature of the examination. FINDINGS: Respiratory variation, normal compression and augmented flow are noted throughout the lower extremities. The visualized common femoral vein, superficial femoral vein, profunda femoral vein, popliteal vein and midcalf peroneal and posterior tibial venous segments show no evidence of deep venous thrombosis. There is no Powell's cyst. IMPRESSION: No evidence of deep venous thrombosis involving the lower extremities.
[2017-05-21 16:00] VITALS: BP 104/0
--- NOTE | 2017-05-21 18:53 | PN- Cardiology ---
Subjective Subjective: Remains intubated and sedated, w/o response to questioning, on an Ativan drip and IV normal saline at 100 mL/hour. Blood pressure holding off low dose Levophed. Remains on diltiazem drip at 2.5 mg/hr. Objective Vital Signs and I&Os Vital Signs Date Time Temp Pulse Resp B/P B/P Pulse O2 O2 Flow FiO2 Mean Ox Delivery Rate 05/21 1629 35 05/21 1600 97.6 84 20 104/0 96 Ventilator 40% 05/21 1600 95 Ventilator 40% 05/21 1532 82 101/49 05/21 1428 40 05/21 1200 96 Ventilator 40% 05/21 1146 40 05/21 0918 40 05/21 0800 98.7 82 20 92/56 96 Ventilator 40% 05/21 0800 96 Ventilator 40% 05/21 0605 40 05/21 0420 40 05/21 0400 97 Ventilator 40% 05/21 0010 40 05/21 0000 99 Ventilator 40% 05/21 0000 99.6 92 22 100/00 99 Ventilator 40% 05/20 2140 40 05/20 2000 98 Ventilator 40% 05/20 1839 40 Intake & Output 05/21 1600 05/21 0800 05/21 0000 05/20 1600 05/20 0800 05/20 0000 Intake Total 1185 1741 4659.9 140 Output Total 250 250 250 100 Balance 935 1491 4409.9 40 Intake, IV 1185 1741 4559.9 140 Intake, Oral 0 0 Intake, Other 100 Number 0 0 Bowel Movements Output, Urine 250 250 250 100 Patient 135 lb 132 lb 132 lb 150 lb Weight Weight Bed scale Bed scale Bed scale Estimated Measurement Method Physical Exam: Well-developed, obese elderly female who is intubated and sedated. Vital signs: See above. Neck: No JVD. Lungs: Clear to auscultation anteriorly. Heart: S1, S2 with soft systolic murmur. Abdomen: Soft, nontender, positive bowel sounds. Extremities: No edema. Current Medications: Current Medications Sig/Shobha Start time Last Medication Dose Route Stop Time Status Admin Acetaminophen 650 MG Q8P PRN 05/20 1030 AC PO Albuterol Sulfate 3 ML EVERY 4 HRS/AWAKE 05/20 1200 AC 05/21 INH 1623 Aspirin 81 MG DAILY 05/21 1000 AC 05/21 PO 1103 Atorvastatin Calcium 40 MG DAILY@1700 05/20 1915 AC 05/21 PO 1636 Budesonide/ 2 PUF BID 05/20 1043 AC Formoterol Fumarate INH Ceftazidime 1,000 MG Q12H 05/20 2000 AC 05/21 IV 0901 Diltiazem HCl 125 MG Q24H 05/20 1330 AC 05/21 Sodium Chloride 100 ML IV 1000 Enoxaparin Sodium 60 MG Q12H 05/20 1630 DC SC Heparin Sodium 5,000 UNIT Q8 05/21 0100 AC 05/21 (Porcine) SC 1400 Insulin Human Regular 2 UNITS .STK-MED ONE 05/21 0548 DC IV 05/21 0549 Insulin Human Regular 0 Q6 05/20 1800 AC 05/21 SC 1219 Ipratropium [place] 2.5 ML EVERY 4 HRS/AWAKE 05/20 1200 AC 05/21 INH 1622 Lorazepam 50 MG Q16H 05/21 1600 AC Sodium Chloride 500 ML IV Lorazepam 50 MG DAILY 05/21 1000 DC 05/21 Sodium Chloride 500 ML IV 05/21 1559 0521 Magnesium Sulfate 1 GM ONCE ONE 05/21 1815 AC Dextrose/Water 100 ML IV 05/21 2214 Magnesium Sulfate 1 GM ONCE ONE 05/21 1330 DC 05/21 Dextrose/Water 100 ML IV 05/21 1729 1510 Magnesium Sulfate 1 GM ONCE ONE 05/21 0430 DC 05/21 Dextrose/Water 100 ML IV 05/21 0829 0516 Methylprednisolone 40 MG Q6 05/21 0600 AC 05/21 IV 1219 Norepinephrine 4 MG Q24H 05/20 1630 AC 05/20 Sodium Chloride 250 ML IV 1656 Pantoprazole Sodium 40 MG DAILY 05/20 1630 AC 05/21 IV 0901 Phosphate 250 MG PC AND AT BEDTIME 05/21 0545 CAN PO Potassium Chloride 20 MEQ ONCE ONE 05/21 0545 CAN Sodium Chloride 1,000 ML IV 05/21 1904 Potassium Chloride 20 MEQ Q1H 05/21 0545 DC 05/21 IV 05/21 0646 1047 Potassium Phosphate 15 mMol ONE ONE 05/21 1730 AC Dextrose/Water 250 ML IV 05/21 2134 Potassium Phosphate 15 mMol ONE ONE 05/21 1330 DC 05/21 Sodium Chloride 250 ML IV 05/21 1734 1531 Senna/Docusate Sodium 1 TAB AT BEDTIME 05/20 2200 AC 05/20 PO 2142 Sodium Chloride 1,000 ML Q6H 05/21 0215 AC 05/21 IV 0221 Sodium Chloride 1,000 ML BOLUS ONE 05/20 2200 DC 05/20 IV 05/20 2259 2200 Sodium Chloride 1,000 ML BOLUS ONE 05/20 1745 DC 05/20 IV 05/20 194 1747 Sodium Chloride 1,000 ML BOLUS ONE 05/20 1745 DC 05/20 IV 05/20 1944 1947 Sodium Chloride 1,000 ML BOLUS ONE 05/20 1745 DC 05/20 IV 05/20 1944 2033 Sodium Chloride 1,000 ML ONCE ONE 05/20 1630 DC 05/20 IV 05/20 2309 1656 Sodium Chloride 1,000 ML Q20H 05/20 1015 DC 05/20 IV 05/21 0614 1109 Tramadol HCl 50 MG Q6P PRN 05/20 1100 AC PO Vancomycin HCl 1,000 MG Q24H 05/21 0700 AC 05/21 Dextrose/Water 250 ML IV 0743 Assessment/Plan Assessment/Plan [id number] w/ hx heavy tob use, severe O2 dependent COPD, MAT, HTN, HLD, DM, previous HFrEF (EF 40% 04/05/2016; EF 60% 07/25/2016) w/ last hospitalization here (07/25-08/01/2016) for acute hypercarbic and hypoxic respiratory failure requiring brief intubation 2/2 AECOPD/influenza complicated by C. difficile infection who presented from her [facility]F w/ SOB & AMS this a.m. w/ CXR c/w bilateral patchy pulmonary opacities c/w multifocal pneumonia. Unfortunately, she has had some electrocardiographic changes, but her troponins have trended down from only a modest elevation. Her presentation appears to be on the basis of aspiration pneumonia +/-AECOPD and that her troponin I elevation is 2/2 a type II [place] (sinus tachycardia, left ventricular hypertrophy) and not an acute coronary syndrome, despite her multiple risk factors for coronary artery disease. Recommendations: * Continue full supportive care and cut back on IV fluids as blood pressure allows. * Consider transfusion for hemoglobin at or below 8 g/dl given modest troponin bump, electricographic changes, risk factors for CAD, etc. * Try and discontinue low-dose IV diltiazem drip as HR are in 80 bpm range and BP borderline low. Can restart IV diltiazem if again becomes tachycardic. * Follow-up on echocardiogram. * Continue DVT prophylaxis. Continue telemetry? Not applicable (In ICU.)
[2017-05-22] VITALS: BP 118/80
[2017-05-22 05:34] LABS: ABSOLUTE BASOPHIL COUNT 0 /CUMM (0.0-0.2); ABSOLUTE EOSINOPHIL COUNT 0 /CUMM (0.0-0.7); ABSOLUTE GRANULOCYTE CT 6.1 /CUMM (1.4-6.5); ABSOLUTE LYMPH COUNT 0.8 /CUMM (1.2-3.4); ABSOLUTE MONOCYTE COUNT 0.3 /CUMM (0.10-0.60); BASOPHIL % 0 % (0.0-2.0); EOSINOPHIL % 0 % (0-5); GRANULOCYTE % 84.3 % (42.2-75.2); HEMATOCRIT 25.4 % (37-47); MEAN CORPUSCULAR HGB 27.3 PG (27.0-31.0); MEAN CORPUSCULAR HGB CONC 31.1 G/DL (33.0-37.0); MEAN CORPUSCULAR VOLUME 87.6 FL (81.0-99.0); MEAN PLATELET VOLUME 8.2 FL (7.4-10.4); PLATELET COUNT 421 /CUMM (130-400); RBC DISTRIBUTION WIDTH 18.1 % (11.5-14.5); RED BLOOD CELL CT 2.89 /CUMM (4.20-5.40); WHITE BLOOD CELL COUNT 7.2 /CUMM (4.8-10.8)
--- NOTE | 2017-05-22 07:14 | PN- CRCU ---
Subjective HPI/Critical Care Issues: The patient remains intubated and sedated. She is not following comands. She is hemodynamically stable. Objective Current Medications: Current Medications Sig/Shobha Start time Last Medication Dose Route Stop Time Status Admin Acetaminophen 650 MG Q8P PRN 05/20 1030 AC PO Albuterol Sulfate 3 ML EVERY 4 HRS/AWAKE 05/20 1200 AC 05/21 INH 1930 Aspirin 81 MG DAILY 05/21 1000 AC 05/21 PO 1103 Atorvastatin Calcium 40 MG DAILY@1700 05/20 1915 AC 05/21 PO 1636 Budesonide/ 2 PUF BID 05/20 1043 AC Formoterol Fumarate INH Ceftazidime 1,000 MG Q12H 05/20 2000 AC 05/21 IV 1954 Diltiazem HCl 125 MG Q24H 05/20 1330 DC 05/21 Sodium Chloride 100 ML IV 1000 Heparin Sodium 5,000 UNIT Q8 05/21 0100 AC 05/22 (Porcine) SC 0517 Insulin Human Regular 6 UNITS .STK-MED ONE 05/21 1857 DC IV 05/21 1858 Insulin Human Regular 4 UNITS .STK-MED ONE 05/21 1213 DC IV 05/21 1214 Insulin Human Regular 0 Q6 05/20 1800 AC 05/22 SC 0611 Ipratropium [place] 2.5 ML EVERY 4 HRS/AWAKE 05/20 1200 AC 05/21 INH 1930 Lorazepam 50 MG Q16H 05/21 1600 AC 05/21 Sodium Chloride 500 ML IV 2224 Lorazepam 50 MG DAILY 05/21 1000 DC 05/21 Sodium Chloride 500 ML IV 05/21 1559 0521 Magnesium Sulfate 1 GM ONCE ONE 05/21 1815 DC 05/21 Dextrose/Water 100 ML IV 05/21 2214 1958 Magnesium Sulfate 1 GM ONCE ONE 05/21 1330 DC 05/21 Dextrose/Water 100 ML IV 05/21 1729 1510 Magnesium Sulfate 1 GM ONCE ONE 05/21 0430 DC 05/21 Dextrose/Water 100 ML IV 05/21 0829 0516 Methylprednisolone 40 MG Q6 05/21 0600 AC 05/22 IV 0516 Norepinephrine 4 MG Q24H 05/20 1630 AC 05/20 Sodium Chloride 250 ML IV 1656 Pantoprazole Sodium 40 MG DAILY 05/20 1630 AC 05/21 IV 0901 Potassium Phosphate 15 mMol ONE ONE 05/21 1730 DC 05/21 Dextrose/Water 250 ML IV 05/214 1958 Potassium Phosphate 15 mMol ONE ONE 05/21 1330 DC 05/21 Sodium Chloride 250 ML IV 05/21 1734 1531 Senna/Docusate Sodium 1 TAB AT BEDTIME 05/20 2200 AC 05/21 PO 2223 Sodium Chloride 1,000 ML Q6H 05/21 0215 AC 05/22 IV 0104 Tramadol HCl 50 MG Q6P PRN 05/20 1100 AC PO Vancomycin HCl 1,000 MG Q24H 05/21 0700 AC 05/22 Dextrose/Water 250 ML IV 0517 Vital Signs & I&O Last 24 Hrs of Vitals and I&O: Vital Signs Date Time Temp Pulse Resp B/P B/P Pulse O2 O2 Flow FiO2 Mean Ox Delivery Rate 05/22 0508 35 05/22 0400 35 Ventilator 35% 05/22 0218 35 05/22 0000 95 Ventilator 35% 05/22 0000 97.9 84 22 118/80 95 Ventilator 35% 05/21 2217 35 05/21 2000 94 Ventilator 35% 05/21 1935 35 05/21 1629 35 05/21 1600 97.6 84 20 104/0 96 Ventilator 40% 05/21 1600 95 Ventilator 40% 05/21 1532 82 101/49 05/21 1428 40 05/21 1200 96 Ventilator 40% 05/21 1146 40 05/21 0918 40 05/21 0800 98.7 82 20 92/56 96 Ventilator 40% 05/21 0800 96 Ventilator 40% Intake & Output 05/22 0800 05/22 0000 05/21 1600 Intake Total 1360 1039 1185 Output Total 200 225 250 Balance 1160 814 935 Intake, IV 1130 026 4124 Intake, Oral 0 Intake, Other 70 Number 0 Bowel Movements Output, Urine 200 225 250 Patient 149 lb Weight Results Last 24 Hrs of Lab Results: Laboratory Tests 05/22/17 0500: Anion Gap 6, Estimated GFR > 60, Glucose 126 H, Calcium 8.0 L, Phosphorus 3.7, Magnesium 2.5 H, Total Bilirubin 0.1 L, AST 23, ALT 36, Albumin 2.3 L, CBC w Diff NO MAN DIFF REQ, RBC 2.89 L, MCV 87.6, MCH 27.3, RDW 18.1 H, MPV 8.2, Gran % 84.3 H, Lymphocytes % 11.0 L, Monocytes % 4.7, Eosinophils % 0, Basophils % 0, Absolute Granulocytes 6.1, Absolute Lymphocytes 0.8 L, Absolute Monocytes 0.3, Absolute Eosinophils 0, Absolute Basophils 0, PUBS MCHC 31.1 L Impression/Plan Impression/Plan Impression/Plan: 1. Acute hypercarbic and hypoxemic respiratory failure secondary to multilobar pneumonia. 2. Morbid obesity. 3. Increased tachycardia, on Cardizem drip. 4. History of positive troponin. 5. Acute exacerbation of COPD. 6. Previous history of respiratory failure requiring intubation. 7. History of C. difficile colitis. 8. History of hypertension, hyperlipidemia and diabetes. Recommendations: * Ativan drip for an SAS of 3. Attempt to wean down if possible. * Decrease IVFs to 100 ml per hour and monitor UO. * Please ensure urine is sent for strep pneumo and Legionella. * Continue Vanco and ceftaz pending culture results. * Continue IV Solu-Medrol, we will attempt to decrease this rapidly. * Decrease respiratory rate on the ventilator to 16. * Continue nebs/TRC. * Continue to follow cardiology input. * Continue sliding scale insulin. * DVT/GI prophylaxis at all times. Continue with aggressive ventilator bundle. * I have discussed the plan of care with the housestaff and asked him to contact me should the patient's condition change or deteriorate. She remains critically ill from multilobar pneumonia and sepsis.
--- NOTE | 2017-05-22 07:45 | PN- Resident CRCU ---
Subjective HPI/CRCU Issues: She was comfortable this morning. She continued to be on ventilator, and was responsive to verbal stimuli. 24 Hour Events: She was afebrile MAXIMUM TEMPERATURE 98.6 heart rate ranged in between 72-92. Remained in normal sinus rhythm Blood pressure was stable, systolic blood pressure in the range of 99-136/71. Cardizem and Levophed was discontinued overnight.f Total Ins 6451, Out 600 Objective Vital Signs & I&O Last 8 Hrs of Vitals and I&O: Intake & Output 05/22 0800 Intake Total 1360 Output Total 200 Balance 1160 Intake, IV 1360 Intake, Oral 0 Number 0 Bowel Movements Output, Urine 200 Patient 149 lb Weight Exam General Appearance: well developed/nourished Other Physical Findings: General Exam: AAOx0, No acute distress, Intubated. Skin: No rashes, no breakdown HEENT: PERRLA, Neck: Supple, No JVD, left IJ in place No cervical lymphadenopathy CVS: Reg Rate, Normal S1,S2, No MGR Resp: Normal air entry, ronchi + Abdomen: Soft, No tenderness, Normal Bowel Sounds Neuro: Limited neuro exam, Reflexes 2+ Extremities: No cyanosis, 1+ pedal edema Weaning Parameters VC: 520 Central Line Site: IJ Date In: 05/21/17 [place] Date In: 05/20/17 NG Tube Date In: 05/20/17 IV (Peripheral) Date In: 05/20/17 Current Medications: Current Medications Sig/Shobha Start time Last Medication Dose Route Stop Time Status Admin Acetaminophen 650 MG Q8P PRN 05/20 1030 AC PO Albuterol Sulfate 3 ML EVERY 4 HRS/AWAKE 05/20 1200 AC 05/22 INH 1612 Aspirin 81 MG DAILY 05/21 1000 AC 05/22 PO 0957 Atorvastatin Calcium 40 MG DAILY@1700 05/20 1915 AC 05/22 PO 1643 Budesonide/ 2 PUF BID 05/20 1043 AC Formoterol Fumarate INH Ceftazidime 1,000 MG Q12H 05/20 2000 AC 05/22 IV 0812 Diltiazem HCl 125 MG Q24H 05/20 1330 DC 05/21 Sodium Chloride 100 ML IV 1000 Fentanyl Citrate 25 MCG Q4 HRS NEEDED PRN 05/22 1030 AC IV Furosemide 40 MG ONCE ONE 05/22 1045 DC 05/22 IV 05/22 1046 1113 Heparin Sodium 5,000 UNIT Q8 05/21 0100 AC 05/22 (Porcine) SC 1303 Insulin Human Regular 6 UNITS .STK-MED ONE 05/22 0301 DC IV 05/22 0302 Insulin Human Regular 6 UNITS .STK-MED ONE 05/21 1857 DC IV 05/21 1858 Insulin Human Regular 0 Q6 05/20 1800 AC 05/22 SC 0611 Ipratropium [place] 2.5 ML EVERY 4 HRS/AWAKE 05/20 1200 AC 05/22 INH 1612 Lorazepam 50 MG Q24H 05/22 1800 AC 05/22 Sodium Chloride 500 ML IV 1644 Lorazepam 50 MG Q16H 05/21 1600 DC 05/21 Sodium Chloride 500 ML IV 05/22 1800 2224 Magnesium Sulfate 1 GM ONCE ONE 05/21 1815 DC 05/21 Dextrose/Water 100 ML IV 05/21 2214 1958 Methylprednisolone 60 MG DAILY 05/23 1000 AC IV Methylprednisolone 40 MG Q6 05/21 0600 DC 05/22 IV 0516 Norepinephrine 4 MG Q24H 05/20 1630 DC 05/20 Sodium Chloride 250 ML IV 1656 Oseltamivir Phosphate 75 MG BID 05/22 1045 AC 05/22 PO 05/26 1044 1304 Pantoprazole Sodium 40 MG DAILY 05/20 1630 AC 05/22 IV 0958 Potassium Chloride 20 MEQ Q1H 05/22 1645 DC 05/22 IV 05/22 1746 1748 Potassium Phosphate 15 mMol ONE ONE 05/21 1730 DC 05/21 Dextrose/Water 250 ML IV 05/21 2134 1958 Senna/Docusate Sodium 1 TAB AT BEDTIME 05/20 2200 AC 05/21 PO 2223 Sodium Chloride 1,000 ML Q6H 05/21 0215 AC 05/22 IV 1407 Tramadol HCl 50 MG Q6P PRN 05/20 1100 AC PO Vancomycin HCl 1,000 MG Q24H 05/21 0700 AC 05/22 Dextrose/Water 250 ML IV 0517 Antibiotics Antibiotic: Vancomycin Ceftazidime IV/PO? IV If IV, Change to PO? No Impression/Plan Impression/Problem List Impression: Mr Castillo has a PMHx of COPD (on 4L oxygen), HFpEF( EF 440%), HTN, HLD, previous Influeza 09/14, osteoporosis came was brought in from [facility] with a chief concern of acute dyspnea, and altered mentation likely secondary to acute hypercarbic respiratory failure from multi-lobar pneumonia likely secondary to HCAP or viral. At the time of admission, vitals temp 100.9, HR 141, RR 32, BP 149/65, Pulse ox 90s on 40% BiPAP. EKG: First EKG, sinus tachy No STTW changes, succeeding EKGs revealed t wave inversions in ant-lateral lateral leads. Pertinent lab findings: WBC 24.1-->12.5-->11.4-->7.2(05/22) Hb 10.7(baseline 10.0)-->8.0-->7.9(05/22) Platelets 703 (likely reactive)-->421 Na 144, K 4.1 Bicarb 41-->27 Sr cr 0.5, BUN 18-->13 Troponin 0.11-->0.23-->0.30-->0.23 ABG 7.23, PCO2 99, pO2 65--> pH 7.45,PCO2 40, pO2 95( 05/22) D- dimer 857. INR 1.06. Lactate 2.0-->3.7-->2.2-->1.3 Mg 1.6-->2.5 Strep pneumo, legionella ag urine- neg CXR 05/20 revealed bilateral patchy pulmonary opacities consistent with multifocal pneumonia. CXR 05/22 revealed improving bilateral patchy pulmonary opacities. CTA 05/21 revealed no evidence of pulmonary embolism. Echocardiogram: 2015- revealed left ventricular ejection fraction is estimated at 40%. Global hypokinesis. 2017- Diastolic filling pattern is consistent with impaired LV relaxation. The ejection fraction is visually estimated at 60%. 05/22/16- Severely decreased left ventricular systolic function. Left ventricular ejection fraction is estimated at 30-35%. Etiology in her case is clearly due to sepsis from multifocal pneumonia, likely leading to an acute decompensation in her respiratory status. Since she has COPD , that might have caused an acute exacerbation of COPD that worsened her chronic hypercabia leading to hypoxia. She was put on BiPAP for correcting acidemia and hypercarbia, but there was no improvement in either her respiratory status and/ or hypercarbia, although her mentation improved remarkably which indicates a chronic hypercarbic process that was worsened due to an acute illness, which is pneumonia in her case. In regards to her elevated troponin, and new EKG changes it was likely due to demand, which is type 2 ME which explains this change; but new EKG changes could be explained by her increased demand from tachycardia, and hypotension. Although , she doesnt have any remarkable cardiac history, she has several risk factors including 80 pk yr h/o smoking. Recommendations: Respiratory: 1. Acute hypercarbic respiratory failure: Likely due to AECOPD, and multilobar pneumonia which appears as due to HCAP or viral cause. She was started on ceftazidime and vancomycin. LRC, blood cultures. - For AECOPD, decrease the dose of solumedrol. - If the cultures indicate any indication of anerobes, or if the pt is not getting better, would broaden the coverage for aspiration pna. - Ventilation settings: [id number] 500, PEEP 5, RR 20, PIP 31, PP 23. Infectious: - Likely sepsis, and required pressure support briefly - Monitor CBC in the am. - Tamiflu was added this am for emperic coverage of a viral pneumonia, as per Dr Sutton. Continue ceftazidime and vancomycin pending culture results. Circulatory: - Type 2 ME, but by definition can call it NSTEMI. - ASA was given, and was started on a statin. - As per Cardiology, was started on cardizem that was dc'ed. - Considering her positive fluid balance, iv lasix 40mg. Repeat one more dose as the BP allows. Check BEP to guide tx. Metabolic - Accuechecks. - Novolin R - NPO for now. Neurology Continue ativan albert. Would wean her off, as she tolerated. Ankurany pushes prn. Housekeeping: DVT PPx- heparin sc. GI PPx- Protonix Full code. Problem List: 1. Pneumonia 2. Sepsis Pain Ratin (unsure) Tomorrow's Labs & Rationales: cbc icu bundle Plan DVT/Prophylaxis: pharmacological
[2017-05-22 08:00] VITALS: BP 118/80
--- NOTE | 2017-05-22 08:53 | ECHOCARDIOGRAM REPORT ---
AFIA FRIAS Age: 81 : 1935 Gender: F Exam Date: 05/21/2017 08:16 Exam Location: [facility] Ht (in): 63 Wt (lb): 132 BSA: 1.64 BP: 100 / 0 Ordering Physician: Josr Gilliland MD Referring Physician: John Soto MD Technologist: Lissette Wright GHANSHYAM Room Number: 108 Indications: HYPOTENSION Rhythm: Sinus Technical Quality: Technically difficult study FINDINGS Left Ventricle Normal size left ventricle. Normal left ventricular wall thickness. Abnormal relaxation filling pattern of the left ventricle for age (stage 1 diastolic dysfunction). Severely decreased left ventricular systolic function. Left ventricular ejection fraction is estimated at 30-35%. Global hypokinesis. Right Ventricle Normal right ventricular size and function. Right Atrium Normal right atrial size. Left Atrium Normal left atrial size. Mitral Valve Mild mitral annular calcification. Trace mitral regurgitation. Mitral valve thickened. Aortic Valve Diffuse thickening (sclerosis) of the aortic valve cusps without reduced excursion. No aortic stenosis. No aortic regurgitation. Tricuspid Valve Tricuspid valve not well visualized, grossly normal. Pulmonic Valve Pulmonic valve not well visualized, grossly normal. Trace pulmonic regurgitation. Pericardium No pericardial effusion. Great Vessels Normal size aortic root. CONCLUSIONS Normal size left ventricle. Abnormal relaxation filling pattern of the left ventricle for age (stage 1 diastolic dysfunction). Severely decreased left ventricular systolic function. Left ventricular ejection fraction is estimated at 30-35%. Trace pulmonic regurgitation. Global hypokinesis. John Soto M.D. (Electronically Signed) Final Date: 22 May 2017 08:52 MEASUREMENTS (Male / Female) Normal Values 2D ECHO LV Diastolic Diameter PLAX 4.1 cm 4.2 - 5.9 / 3.9 - 5.3 cm LV Systolic Diameter PLAX 3.1 cm 2.1 - 4.0 cm LV Fractional Shortening PLAX 24.4 % 25 - 46 % LV Ejection Fraction 2D Teich 48.9 % IVS Diastolic Thickness 1.0 cm LVPW Diastolic Thickness 1.0 cm LV Relative Wall Thickness 0.5 RV Internal Dim ED PLAX 2.6 cm 1.9 - 3.8 cm LVOT Diameter 1.8 cm Aortic Root Diameter 2.7 cm LA Systolic Diameter LX 3.1 cm 3.0 - 4.0 / 2.7 - 3.8 cm LV Ejection Fraction MOD BP 39.0 % >= 55 % LV Diastolic Length 4C 6.4 cm 6.9 - 10.3 cm LV Diastolic Area 4C 24.9 cm LV Diastolic Volume MOD 4C 81.0 cm LV Ejection Fraction MOD 4C 33.3 % LV Stroke Volume MOD 4C 27.0 cm LV Systolic Length 4C 6.3 cm LV Systolic Area 4C 20.3 cm LV Systolic Volume MOD 4C 54.0 cm LV Ejection Fraction MOD 2C 42.0 % LV Diastolic Volume 4C AL 82.9 cm 85 - 139 / 69 - 109 cm LV Systolic Volume 4C AL 55.4 cm LV Ejection Fraction 4C AL 33.1 % LV Stroke Volume 4C AL 27.4 cm LV Ejection Fraction 2C AL 45.1 % LA Volume 30.0 cm 18 - 58 / 22 - 52 cm Ascending Aorta Diameter 2.9 cm DOPPLER AV Peak Velocity 107.0 cm/s AV Peak Gradient 4.6 mmHg AV Mean Velocity 72.9 cm/s AV Mean Gradient 2.0 mmHg AV Velocity Time Integral 18.7 cm LVOT Peak Velocity 80.5 cm/s LVOT Peak Gradient 2.6 mmHg LVOT Mean Velocity 57.3 cm/s LVOT Mean Gradient 1.0 mmHg LVOT Velocity Time Integral 13.5 cm LVOT Stroke Volume 34.4 cm AV Area Cont Eq vti 1.8 cm AV Area Cont Eq pk 1.9 cm MV Peak Velocity 115.0 cm/s MV Peak Gradient 5.3 mmHg MV Mean Velocity 50.0 cm/s MV Mean Gradient 1.0 mmHg Mitral E Point Velocity 57.8 cm/s Mitral A Point Velocity 107.0 cm/s Mitral E to A Ratio 0.5 MV PHT Velocity 59.1 cm/s MV Deceleration Bailey 150.0 cm/s MV Pressure Half Time 118.2 ms MV Area PHT 1.9 cm MV Deceleration Time 180.0 ms TR Peak Velocity 178.0 cm/s TR Peak Gradient 12.7 mmHg Right Atrial Pressure 10.0 mmHg Pulmonary Artery Systolic Pressu 22.7 mmHg Right Ventricular Systolic Press 22.7 mmHg PV Peak Velocity 80.6 cm/s PV Peak Gradient 2.6 mmHg PV Mean Velocity 59.5 cm/s PV Mean Gradient 2.0 mmHg PV Velocity Time Integral 13.8 cm LV E' Lateral Velocity 3.8 cm/s Mitral E to LV E' Lateral Ratio 15.3 LV E' Septal Velocity 3.4 cm/s Mitral E to LV E' Septal Ratio 17.0
--- NOTE | 2017-05-22 10:10 | RADIOLOGY REPORT ---
EXAMINATION: CR PORTABLE CHEST CLINICAL INFORMATION: Intubated. Check for line placement. COMPARISON: Several prior chest x-rays, most recent of which is dated 05/21/2017. TECHNIQUE: Portable AP semierect view of the chest was obtained. FINDINGS: Endotracheal tube tip is 5.5 cm above the oliver. Enteric tube courses into the abdomen with tip not included. Left jugular central venous line tip is in the mid SVC, unchanged. Multiple EKG leads overlie the chest. The cardiomediastinal silhouette is within normal limits in size. Calcification and mild tortuosity of the aorta again seen. Lungs bilaterally are symmetrically expanded and demonstrate mild bilateral upper lung reticular opacities, improved when compared to prior exam. No focal consolidation, pulmonary edema, effusion or pneumothorax is seen. Total left shoulder arthroplasty is partially imaged. IMPRESSION: 1. Endotracheal tube tip 5.5 cm above the oliver. 2. Enteric tube courses into the abdomen with tip not included. 3. Left jugular central venous line tip is in the mid SVC. 4. Improving bilateral upper lobe infiltrates.
--- NOTE | 2017-05-22 10:23 | PN- CRCU ---
Subjective HPI/Critical Care Issues: Events and data reviewed Continues to be on mechanical ventilator Awake on high dose of Ativan Yellow thick secretions No other history could be obtained SIGNIFICANT DATA Blood culture done initially was negative influenza swab negative lower respiratory culture pending Chest x-ray showed bilateral pulmonary patchy opacities CTA done upon admission showed no evidence of pulmonary embolism multifocal involvement of pneumonia involving all lobes. Vital signs reviewed continues to be afebrile BUN/creatinine stable Magnesium appropriate LFTs were unremarkable Troponin slightly elevated Tox screen done upon admission was unremarkable White count at 7.2 Hemoglobin 7.9 Platelets 241, WBC showed 5% bands upon admission ABG reviewed initially she was significantly hypercarbic. Objective Current Medications: Current Medications Sig/Shobha Start time Last Medication Dose Route Stop Time Status Admin Acetaminophen 650 MG Q8P PRN 05/20 1030 AC PO Albuterol Sulfate 3 ML EVERY 4 HRS/AWAKE 05/20 1200 AC 05/22 INH 0911 Aspirin 81 MG DAILY 05/21 1000 AC 05/22 PO 0957 Atorvastatin Calcium 40 MG DAILY@1700 05/20 1915 AC 05/21 PO 1636 Budesonide/ 2 PUF BID 05/20 1043 AC Formoterol Fumarate INH Ceftazidime 1,000 MG Q12H 05/20 2000 AC 05/22 IV 0812 Diltiazem HCl 125 MG Q24H 05/20 1330 DC 05/21 Sodium Chloride 100 ML IV 1000 Heparin Sodium 5,000 UNIT Q8 05/21 0100 AC 05/22 (Porcine) SC 0517 Insulin Human Regular 6 UNITS .STK-MED ONE 05/21 1857 DC IV 05/21 1858 Insulin Human Regular 4 UNITS .STK-MED ONE 05/21 1213 DC IV 05/21 1214 Insulin Human Regular 0 Q6 05/20 1800 AC 05/22 SC 0611 Ipratropium [place] 2.5 ML EVERY 4 HRS/AWAKE 05/20 1200 AC 05/22 INH 0911 Lorazepam 50 MG Q16H 05/21 1600 AC 05/21 Sodium Chloride 500 ML IV 2224 Lorazepam 50 MG DAILY 05/21 1000 DC 05/21 Sodium Chloride 500 ML IV 05/21 1559 0521 Magnesium Sulfate 1 GM ONCE ONE 05/21 1815 DC 05/21 Dextrose/Water 100 ML IV 05/21 2214 1958 Magnesium Sulfate 1 GM ONCE ONE 05/21 1330 DC 05/21 Dextrose/Water 100 ML IV 05/21 1729 1510 Methylprednisolone 40 MG Q6 05/21 0600 AC 05/22 IV 0516 Norepinephrine 4 MG Q24H 05/20 1630 AC 05/20 Sodium Chloride 250 ML IV 1656 Pantoprazole Sodium 40 MG DAILY 05/20 1630 AC 05/22 IV 0958 Potassium Phosphate 15 mMol ONE ONE 05/21 1730 DC 05/21 Dextrose/Water 250 ML IV 05/21 2134 1958 Potassium Phosphate 15 mMol ONE ONE 05/21 1330 DC 05/21 Sodium Chloride 250 ML IV 05/21 1734 1531 Senna/Docusate Sodium 1 TAB AT BEDTIME 05/20 2200 AC 05/21 PO 2223 Sodium Chloride 1,000 ML Q6H 05/21 0215 AC 05/22 IV 0104 Tramadol HCl 50 MG Q6P PRN 05/20 1100 AC PO Vancomycin HCl 1,000 MG Q24H 05/21 0700 AC 05/22 Dextrose/Water 250 ML IV 0517 Vital Signs & I&O Last 24 Hrs of Vitals and I&O: Vital Signs Date Time Temp Pulse Resp B/P B/P Pulse O2 O2 Flow FiO2 Mean Ox Delivery Rate 05/22 0914 35 05/22 0508 35 05/22 0400 35 Ventilator 35% 05/22 0218 35 05/22 0000 95 Ventilator 35% 05/22 0000 97.9 84 22 118/80 95 Ventilator 35% 05/21 2217 35 05/21 2000 94 Ventilator 35% 05/21 1935 35 05/21 1629 35 05/21 1600 97.6 84 20 104/0 96 Ventilator 40% 05/21 1600 95 Ventilator 40% 05/21 1532 82 101/49 05/21 1428 40 05/21 1200 96 Ventilator 40% 05/21 1146 40 Intake & Output 05/22 1600 05/22 0800 05/22 0000 Intake Total 1360 1039 Output Total 200 225 Balance 1160 814 Intake, IV 1360 969 Intake, Oral 0 Intake, Other 70 Number 0 Bowel Movements Output, Urine 200 225 Patient 149 lb Weight Impression/Plan Impression/Plan Impression/Plan: Physical Exam: Well-developed, obese elderly female who is intubated and sedated. Vital signs: See above. Neck: No JVD. Lungs: Clear to auscultation anteriorly, mild wheezing and crackles Heart: S1, S2 with soft systolic murmur. Abdomen: Soft, nontender, positive bowel sounds. Extremities: Sig edema. 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 * Significant osteoporosis * Sig anxiety disorder REC COnt vent Start fentanyl low dose drip and use low dose ativan SPutum culture today please Rpt flu swab Start Tamiflu Cont abx and azithro ONce sputum gram stain is back will rapidly taper the abx Reduce steroids to 60 mg daily IV lasix 40 mg now and later this pm please do bmp replace potassium and rpt lasix if stable Cont to watch hemoglobin and if it drops this pm can transfuse Cont asa, ppi, Heparin sub cut Will discuss with the and if he is available will meet him this afternoon Start OG feeding today with jevity at 30 cc per hour Will follow Pt is critically ill and tts 41 mins
--- NOTE | 2017-05-22 11:08 | PN- Cardiology ---
Subjective Subjective: The patient remains intubated. She is awake on the ventilator. threat monitoring analyst reveals. Tachycardia has resolved, and Cardizem drip has been discontinued. Blood pressure is stable off pressors. Antibiotic therapy is continuing for multilobar pneumonia. Objective Vital Signs and I&Os Vital Signs Date Time Temp Pulse Resp B/P B/P Pulse O2 O2 Flow FiO2 Mean Ox Delivery Rate 05/22 0914 35 05/22 0800 96.9 77 20 118/80 96 Ventilator 35% 05/22 0800 96 Ventilator 35% 05/22 0508 35 05/22 0400 35 Ventilator 35% 05/22 0218 35 05/22 0000 95 Ventilator 35% 05/22 0000 97.9 84 22 118/80 95 Ventilator 35% 05/21 2217 35 05/21 2000 94 Ventilator 35% 05/21 1935 35 05/21 1629 35 05/21 1600 97.6 84 20 104/0 96 Ventilator 40% 05/21 1600 95 Ventilator 40% 05/21 1532 82 101/49 05/21 1428 40 05/21 1200 96 Ventilator 40% 05/21 1146 40 Intake & Output 05/22 1600 05/22 0800 05/22 0000 05/21 1600 05/21 0800 05/21 0000 Intake Total 1360 1039 1185 1741 4659.9 Output Total 200 225 250 250 250 Balance 1160 615 084 9701 4409.9 Intake, IV 8439 978 1571 1741 4559.9 Intake, Oral 0 0 0 Intake, Other 70 100 Number 0 0 0 Bowel Movements Output, Urine 200 225 250 250 250 Patient 149 lb 135 lb 132 lb Weight Weight Bed scale Bed scale Measurement Method Physical Exam: Gen: She is intubated, and awake on the ventilator HEENT: Normal nose, ears, and oropharynx. Pupils equal bilaterally. Conjunctiva normal. Neck: Supple with no JVD, no masses, and no thyromegaly Lungs: Clear to auscultation anteriorly with normal respiratory effort on the ventilator Heart: RRR, S1, S2, 1/6 systolic murmur. 1+ peripheral edema, 1+ pulses in the lower extremities bilaterally Abdomen: Soft, nontender, no masses. No hepatomegaly. No splenomegaly Extremities: No clubbing or cyanosis. Normal muscle strength in the upper and lower extremities Skin: Normal skin turgor with no skin ulcers or lesions noted. Neuro: Cranial nerves intact. Sensation intact Psych: Arousable on the ventilator Current Medications: Current Medications Sig/Shobha Start time Last Medication Dose Route Stop Time Status Admin Acetaminophen 650 MG Q8P PRN 05/20 1030 AC PO Albuterol Sulfate 3 ML EVERY 4 HRS/AWAKE 05/20 1200 AC 05/22 INH 0911 Aspirin 81 MG DAILY 05/21 1000 AC 05/22 PO 0957 Atorvastatin Calcium 40 MG DAILY@1700 05/20 1915 AC 05/21 PO 1636 Budesonide/ 2 PUF BID 05/20 1043 AC Formoterol Fumarate INH Ceftazidime 1,000 MG Q12H 05/20 2000 AC 05/22 IV 0812 Diltiazem HCl 125 MG Q24H 05/20 1330 DC 05/21 Sodium Chloride 100 ML IV 1000 Fentanyl Citrate 25 MCG Q4 HRS NEEDED PRN 05/22 1030 AC IV Furosemide 40 MG ONCE ONE 05/22 1045 DC IV 05/22 1046 Heparin Sodium 5,000 UNIT Q8 05/21 0100 05/22 (Porcine) SC 0517 Insulin Human Regular 6 UNITS .STK-MED ONE 05/21 1857 DC IV 05/21 1858 Insulin Human Regular 4 UNITS .STK-MED ONE 05/21 1213 DC IV 05/21 1214 Insulin Human Regular 0 Q6 05/20 1800 05/22 SC 0611 Ipratropium [place] 2.5 ML EVERY 4 HRS/AWAKE 05/20 1200 AC 05/22 INH 0911 Lorazepam 50 MG Q16H 05/21 1600 AC 05/21 Sodium Chloride 500 ML IV 2224 Lorazepam 50 MG DAILY 05/21 1000 DC 05/21 Sodium Chloride 500 ML IV 05/21 1559 0521 Magnesium Sulfate 1 GM ONCE ONE 05/21 1815 DC 05/21 Dextrose/Water 100 ML IV 05/21 2214 1958 Magnesium Sulfate 1 GM ONCE ONE 05/21 1330 DC 05/21 Dextrose/Water 100 ML IV 05/21 1729 1510 Methylprednisolone 60 MG DAILY 05/23 1000 AC IV Methylprednisolone 40 MG Q6 05/21 0600 DC 05/22 IV 0516 Norepinephrine 4 MG Q24H 05/20 1630 AC 05/20 Sodium Chloride 250 ML IV 1656 Oseltamivir Phosphate 75 MG BID 05/22 1045 UNVr PO 05/26 1044 Pantoprazole Sodium 40 MG DAILY 05/20 1630 AC 05/22 IV 0958 Potassium Phosphate 15 mMol ONE ONE 05/21 1730 DC 05/21 Dextrose/Water 250 ML IV 05/21 2134 1958 Potassium Phosphate 15 mMol ONE ONE 05/21 1330 DC 05/21 Sodium Chloride 250 ML IV 05/21 1734 1531 Senna/Docusate Sodium 1 TAB AT BEDTIME 05/20 2200 AC 05/21 PO 2223 Sodium Chloride 1,000 ML Q6H 05/21 0215 AC 05/22 IV 0104 Tramadol HCl 50 MG Q6P PRN 05/20 1100 AC PO Vancomycin HCl 1,000 MG Q24H 05/21 0700 AC 05/22 Dextrose/Water 250 ML IV 0517 Results Last 48 Hrs of Labs/Mics: Laboratory Tests 05/22/17 0500: Anion Gap 6, Estimated GFR > 60, Glucose 126 H, Calcium 8.0 L, Phosphorus 3.7, Magnesium 2.5 H, Total Bilirubin 0.1 L, AST 23, ALT 36, Albumin 2.3 L, CBC w Diff NO MAN DIFF REQ, RBC 2.89 L, MCV 87.6, MCH 27.3, RDW 18.1 H, MPV 8.2, Gran % 84.3 H, Lymphocytes % 11.0 L, Monocytes % 4.7, Eosinophils % 0, Basophils % 0, Absolute Granulocytes 6.1, Absolute Lymphocytes 0.8 L, Absolute Monocytes 0.3, Absolute Eosinophils 0, Absolute Basophils 0, PUBS MCHC 31.1 L 05/21/17 0635: CBC w Diff NO MAN DIFF REQ, RBC 2.94 L, MCV 89.4, MCH 27.3, RDW 17.8 H, MPV 7.5, Gran % 82.4 H, Lymphocytes % 10.9 L, Monocytes % 6.5, Eosinophils % 0, Basophils % 0.2, Absolute Granulocytes 9.4 H, Absolute Lymphocytes 1.2, Absolute Monocytes 0.7 H, Absolute Eosinophils 0, Absolute Basophils 0, PUBS MCHC 30.6 L 05/21/17 0630: Sodium Cancelled, Potassium Cancelled, Chloride Cancelled, Carbon Dioxide Cancelled, Anion Gap Cancelled, BUN Cancelled, Creatinine Cancelled, BUN/ Creatinine Ratio Cancelled 05/21/17 0600: Sodium Cancelled, Potassium Cancelled, Chloride Cancelled, Carbon Dioxide Cancelled, Anion Gap Cancelled, BUN Cancelled, Creatinine Cancelled, BUN/ Creatinine Ratio Cancelled 05/21/17 0510: Troponin I 0.23 *H 05/21/17 0220: Lactic Acid 1.3 05/21/17 0220: Anion Gap 7, Estimated GFR > 60, Glucose 108 H, Calcium 7.1 L, Phosphorus 1.9 L, Magnesium 1.6, Total Bilirubin 0.1 L, AST 17, ALT 37, Albumin 2.2 L, CBC w Diff NO MAN DIFF REQ, RBC 2.88 L, MCV 89.5, MCH 27.3, RDW 18.0 H, MPV 7.3 L, Gran % 82.3 H, Lymphocytes % 11.2 L, Monocytes % 6.4, Eosinophils % 0, Basophils % 0.1, Absolute Granulocytes 10.3 H, Absolute Lymphocytes 1.4, Absolute Monocytes 0.8 H, Absolute Eosinophils 0, Absolute Basophils 0, PUBS MCHC 30.5 L 05/21/17 0020: pH 7.45, pCO2 40, pO2 95, HCO3 27, ABG O2 Sat (Measured) 97.0, P-50 (Temp Corrected) Y, Carboxyhemoglobin 0.3 L, O2 Concentration % 40%, Temperature 99.6 , Respiration Rate 20, O2 Delivery Method ESPRIT, Vent Mode AC, Expiratory Pressure 5, Tidal Volume 500, Phlebotomy Draw Site RIGHT RADIAL 05/20/172224: Troponin I 0.30 *H 05/20/17 2225: Lactic Acid 2.2 H 05/20/17 1822: Lactic Acid 3.7 H 05/20/17 1815: pH 7.54 H, pCO2 37, pO2 78 L, HCO3 31 H, ABG O2 Sat (Measured) 96.0, P-50 ( Temp Corrected) Y, Carboxyhemoglobin 1.1 L, O2 Concentration % 40%, Temperature 96.4 L, Respiration Rate 26, O2 Delivery Method VENT, Vent Mode CMV, Expiratory Pressure 5, Tidal Volume 500, Phlebotomy Draw Site RIGHT RADIAL 05/20/17 1425: Troponin I 0.23 *H 05/20/17 1315: pH 7.28 *L, pCO2 85 *H, pO2 90, HCO3 39 H, ABG O2 Sat (Measured) 95.0 L, P-50 (Temp Corrected) N, Carboxyhemoglobin 1.2 L, O2 Concentration % 50%, Respiration Rate 30, O2 Delivery Method BIPAP, Vent Mode ST, Expiratory Pressure 6, Inspiratory Pressure 24, Phlebotomy Draw Site RIGHT BRACHIAL Recent Imaging Studies: EKG tracing is independently reviewed, and reveals normal sinus rhythm at 86 with low voltage Echocardiogram: Normal size left ventricle. Abnormal relaxation filling pattern of the left ventricle for age (stage 1 diastolic dysfunction). Severely decreased left ventricular systolic function. Left ventricular ejection fraction is estimated at 30-35%. Trace pulmonic regurgitation. Global hypokinesis. CXR: 1. Endotracheal tube tip 5.5 cm above the oliver. 2. Enteric tube courses into the abdomen with tip not included. 3. Left jugular central venous line tip is in the mid SVC. 4. Improving bilateral upper lobe infiltrates. Assessment/Plan Assessment/Plan Assessment: 1. Severe COPD 2. History of multifocal atrial tachycardia 3. Diabetes mellitus 4. Hypertension 5. Acute exacerbation of COPD bilobar pneumonia 6. Mild troponin elevation likely secondary to type II [place] 7. Recurrent left ventricular systolic dysfunction. Current ejection fraction 30% compared to 60% in June 2016. 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 We will eventually plan on restarting lisinopril for left ventricular systolic dysfunction Continue telemetry? Yes
[2017-05-22 16:00] VITALS: BP 127/58
[2017-05-23] VITALS: BP 118/60
[2017-05-23 04:48] LABS: ABSOLUTE BASOPHIL COUNT 0 /CUMM (0.0-0.2); ABSOLUTE EOSINOPHIL COUNT 0 /CUMM (0.0-0.7); ABSOLUTE GRANULOCYTE CT 6.7 /CUMM (1.4-6.5); ABSOLUTE LYMPH COUNT 1.2 /CUMM (1.2-3.4); ABSOLUTE MONOCYTE COUNT 0.6 /CUMM (0.10-0.60); BASOPHIL % 0 % (0.0-2.0); EOSINOPHIL % 0 % (0-5); GRANULOCYTE % 78.5 % (42.2-75.2); MEAN CORPUSCULAR HGB 27.6 PG (27.0-31.0); MEAN CORPUSCULAR HGB CONC 31.6 G/DL (33.0-37.0); MEAN CORPUSCULAR VOLUME 87.3 FL (81.0-99.0); MEAN PLATELET VOLUME 7.9 FL (7.4-10.4); PLATELET COUNT 399 /CUMM (130-400); RBC DISTRIBUTION WIDTH 18.4 % (11.5-14.5); RED BLOOD CELL CT 3.09 /CUMM (4.20-5.40); WHITE BLOOD CELL COUNT 8.5 /CUMM (4.8-10.8)
--- NOTE | 2017-05-23 05:43 | PN- Resident CRCU ---
Subjective HPI/CRCU Issues: She was comfortable this am. No new complaints. She seems to be improving, and did not have any chest pain, shortness of breath, and palpitations. 24 Hour Events: Tmax 98 Heart rate 78-103 Normal sinus rhythm Systolic blood pressure 103-108, diastolic blood pressure 55-85, SAS between 3-4 Ventilator settings: Volume assist, AC, RR20, TV 500, FiO2 35, PEEP of 5, O2 sat 95% RA Sedation: Ativan drip, left IJ triple-lumen Fluids: NS 100ml/hr Input 3691 mL, output 3250 mL-24 hours Total input 33647uw, output 4525 ML Objective Vital Signs & I&O Last 8 Hrs of Vitals and I&O: Intake & Output 05/23 1600 Intake Total 1390 Output Total 1970 Balance -580 Intake, IV 810 Intake, Tube 320 Feeding Intake, Tube 260 Irrigant Output, Urine 1970 Exam General Appearance: no apparent distress Other Physical Findings: General Exam: AAOx0, No acute distress, Intubated, sedated, Skin: No rashes, no breakdown HEENT: PERRLA, Neck: Supple, No JVD, left IJ in place No cervical lymphadenopathy CVS: Reg Rate, Normal S1,S2, No MGR Resp: Normal air entry, ronchi + Abdomen: Soft, No tenderness, Normal Bowel Sounds Neuro: Limited neuro exam, Reflexes 2+ Extremities: No cyanosis, 1+ pedal edema Weaning Parameters VC: 520 Current Medications: Current Medications Sig/Shobha Start time Last Medication Dose Route Stop Time Status Admin Acetaminophen 650 MG Q8P PRN 05/20 1030 AC PO Albuterol Sulfate 3 ML EVERY 4 HRS/AWAKE 05/20 1200 AC 05/23 INH 1650 Aspirin 81 MG DAILY 05/21 1000 AC 05/23 PO 1134 Atorvastatin Calcium 40 MG DAILY@1700 05/20 1915 AC 05/23 PO 1735 Bisacodyl 5 MG DAILY 05/23 1900 AC PO Budesonide/ 2 PUF BID 05/20 1043 AC Formoterol Fumarate INH Ceftazidime 1,000 MG Q12H 05/20 1999 AC 05/23 IV 0803 Fentanyl Citrate 25 MCG Q4 HRS NEEDED PRN 05/22 1030 AC 05/23 IV 1735 Furosemide 20 MG Q8 05/23 1999 AC IV Furosemide 20 MG Q8 05/23 1045 DC IV Furosemide 40 MG ONCE ONE 05/23 0945 DC 05/23 IV 05/23 0946 1133 Heparin Sodium 5,000 UNIT Q8 05/21 0100 AC 05/23 (Porcine) SC 1500 Insulin Human Regular 2 UNITS .STK-MED ONE 05/23 0628 DC IV 05/23 0629 Insulin Human Regular 2 UNITS .STK-MED ONE 05/23 0021 DC IV 05/23 0022 Insulin Human Regular 0 Q6 05/20 1800 AC 05/23 SC 1817 Ipratropium [place] 2.5 ML EVERY 4 HRS/AWAKE 05/20 1200 AC 05/23 INH 1650 Lorazepam 50 MG Q24H 05/22 1800 AC 05/23 Sodium Chloride 500 ML IV 1500 Methylprednisolone 60 MG DAILY 05/23 1000 AC 05/23 IV 0803 Oseltamivir Phosphate 75 MG BID 05/22 1045 AC 05/23 PO 05/26 1044 0804 Pantoprazole Sodium 40 MG DAILY 05/20 1630 AC 05/23 IV 0803 Polyethylene Glycol 17 GM DAILY 05/23 1900 AC PO Potassium Chloride 40 MEQ 1600 05/23 1600 DC 05/23 PO 05/23 1601 1742 Potassium Chloride 40 MEQ 1200 05/23 1200 DC 05/23 PO 05/23 1201 1300 Potassium Chloride 40 MEQ ONCE ONE 05/23 1045 DC 05/23 PO 05/23 1046 1133 Potassium Chloride 10 MEQ Q1H 05/23 1000 CAN IV 05/23 1101 Potassium Chloride 20 MEQ Q1H 05/23 0800 DC 05/23 IV 05/23 0901 1152 Potassium Chloride 10 MEQ Q1H 05/23 0745 DC IV 05/23 0846 Senna 187 MG AT BEDTIME 05/23 2200 AC PO Senna/Docusate Sodium 1 TAB AT BEDTIME 05/20 2200 AC 05/22 PO 2156 Sodium Chloride 1,000 ML Q6H 05/21 0215 DC 05/23 IV 0115 Tramadol HCl 50 MG Q6P PRN 05/20 1100 AC PO Vancomycin HCl 1,000 MG Q24H 05/21 0700 AC 05/23 Dextrose/Water 250 ML IV 0622 Impression/Plan Impression/Problem List Impression: Mr Castillo has a PMHx of COPD (on 4L oxygen), HFpEF( EF 440%), HTN, HLD, previous Influeza 09/14, osteoporosis came was brought in from [facility] with a chief concern of acute dyspnea, and altered mentation likely secondary to acute hypercarbic respiratory failure from multi-lobar pneumonia likely secondary to HCAP or viral. At the time of admission, vitals temp 100.9, HR 141, RR 32, BP 149/65, Pulse ox 90s on 40% BiPAP. EKG: First EKG, sinus tachy No STTW changes, succeeding EKGs revealed t wave inversions in ant-lateral lateral leads. Pertinent lab findings: WBC 24.1-->12.5-->11.4-->7.2(05/22)-->8.5(05/23) Hb 10.7(baseline 10.0)-->8.0-->7.9(05/22)-->8.5(05/23) Platelets 703 (likely reactive)-->421 Na 144, K 4.1 Bicarb 41-->27 Sr cr 0.5, BUN 18-->13 Troponin 0.11-->0.23-->0.30-->0.23 ABG 7.23, PCO2 99, pO2 65--> pH 7.45,PCO2 40, pO2 95( 05/22) D- dimer 857. INR 1.06. Lactate 2.0-->3.7-->2.2-->1.3 Mg 1.6-->2.5 Strep pneumo, legionella ag urine- neg CXR 05/20 revealed bilateral patchy pulmonary opacities consistent with multifocal pneumonia. CXR 05/22 revealed improving bilateral patchy pulmonary opacities. CTA 05/21 revealed no evidence of pulmonary embolism. Echocardiogram: 2016- revealed left ventricular ejection fraction is estimated at 40%. Global hypokinesis. 2017- Diastolic filling pattern is consistent with impaired LV relaxation. The ejection fraction is visually estimated at 60%. 05/22/16- Severely decreased left ventricular systolic function. Left ventricular ejection fraction is estimated at 30-35%. Etiology in her case is clearly due to sepsis from multifocal pneumonia, likely leading to an acute decompensation in her respiratory status. Since she has COPD , that might have caused an acute exacerbation of COPD that worsened her chronic hypercabia leading to hypoxia. She was put on BiPAP for correcting acidemia and hypercarbia, but there was no improvement in either her respiratory status and/ or hypercarbia, although her mentation improved remarkably which indicates a chronic hypercarbic process that was worsened due to an acute illness, which is pneumonia in her case. In regards to her elevated troponin, and new EKG changes it was likely due to demand, which is type 2 AR which explains this change; but new EKG changes could be explained by her increased demand from tachycardia, and hypotension. Although , she doesnt have any remarkable cardiac history, she has several risk factors including 80 pk yr h/o smoking. Recommendations: Respiratory: 1. Acute hypercarbic respiratory failure: Likely due to AECOPD, and multilobar pneumonia which appears as due to HCAP or viral cause. She was started on ceftazidime and vancomycin. [facility], blood cultures. - For AECOPD, decrease the dose of solumedrol. - Titrate the abx as per the culture results. Infectious: - Likely sepsis, and required pressure support briefly - Monitor CBC in the am. - Tamiflu was added this am for emperic coverage of a viral pneumonia, as per Dr Sutton. Continue ceftazidime and vancomycin pending culture results. 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 Circulatory: - Type 2 AR, but by definition can call it NSTEMI. - ASA was given, and was started on a statin. - As per Cardiology, was started on cardizem that was dc'ed. - Considering her positive fluid balance, iv lasix 40mg. Repeat one more dose as the BP allows. Check BEP to guide tx. Metabolic - Accuechecks. - Started on iv lasix 20 mg q8, and holding parameters in place. If the K levels drop, would replete aggressively. - Novolin R q6h. Adjust accordingly. Neurology Continue ativan drip. Would wean her off, as she tolerated. Aknurany pushes prn. Housekeeping: DVT PPx- heparin sc. GI PPx- Protonix Diet- tube feeds. Full code. Problem List: 1. Pneumonia 2. Sepsis 3. Influenza 4. COPD (chronic obstructive pulmonary disease) 5. Hypercapnic respiratory failure Pain Ratin (unable to assess) Tomorrow's Labs & Rationales: cbc icu bundle. Plan DVT/Prophylaxis: mechanical
[2017-05-23 08:00] VITALS: BP 94/50
--- NOTE | 2017-05-23 08:38 | RADIOLOGY REPORT ---
EXAMINATION: XR PORTABLE CHEST CLINICAL INFORMATION: Status post intubation COMPARISON: Chest x-ray 05/22/2017 TECHNIQUE: Portable frontal view of the chest was obtained. FINDINGS: Stable cardiac silhouette. Endotracheal tube in stable positioning, terminating approximately 4 cm above the oliver. Enteric tube terminates below the level of the diaphragm and beyond the parameters of today's x-ray. Left-sided jugular venous catheter is unchanged with tip terminating within the distal SVC. The lungs are adequately aerated. Bilateral upper lobe reticular opacities are again noted, the left side minimally improved while the right side appears minimally worsened; Some of which may be due to differences in technique. No gross lobar consolidation or pleural effusion. Incompletely visualized surgical changes of the left shoulder. IMPRESSION: 1. Stable positioning of support apparatuses. 2. Bilateral upper lobe reticular opacities are again noted, the left side minimally improved while the right side appears minimally worsened; Some of which may be due to differences in technique.
--- NOTE | 2017-05-23 09:53 | PN- CRCU ---
Subjective HPI/Critical Care Issues: Doing about the same Intubated and sedated Secretions noted MRSA in the nasal swab Sputum gram positive cocci Objective Current Medications: Current Medications Sig/Shobha Start time Last Medication Dose Route Stop Time Status Admin Acetaminophen 650 MG Q8P PRN 05/20 1030 AC PO Albuterol Sulfate 3 ML EVERY 4 HRS/AWAKE 05/20 1200 AC 05/23 INH 0814 Aspirin 81 MG DAILY 05/21 1000 AC 05/22 PO 0957 Atorvastatin Calcium 40 MG DAILY@1700 05/20 1915 AC 05/22 PO 1643 Budesonide/ 2 PUF BID 05/20 1043 AC Formoterol Fumarate INH Ceftazidime 1,000 MG Q12H 05/20 2000 AC 05/23 IV 0803 Fentanyl Citrate 25 MCG Q4 HRS NEEDED PRN 05/22 1030 AC IV Furosemide 40 MG ONCE ONE 05/23 0945 DC IV 05/23 0946 Furosemide 40 MG ONCE ONE 05/22 1045 DC 05/22 IV 05/22 1046 1113 Heparin Sodium 5,000 UNIT Q8 05/21 0100 AC 05/23 (Porcine) SC 0622 Insulin Human Regular 2 UNITS .STK-MED ONE 05/23 0021 DC IV 05/23 0022 Insulin Human Regular 0 Q6 05/20 1800 AC 05/23 SC 0629 Ipratropium [place] 2.5 ML EVERY 4 HRS/AWAKE 05/20 1200 AC 05/23 INH 0814 Lorazepam 50 MG Q24H 05/22 1800 AC 05/22 Sodium Chloride 500 ML IV 1644 Lorazepam 50 MG Q16H 05/21 1600 DC 05/22 Sodium Chloride 500 ML IV 05/22 1800 1900 Methylprednisolone 60 MG DAILY 05/23 1000 AC 05/23 IV 0803 Methylprednisolone 40 MG Q6 05/21 0600 DC 05/22 IV 0516 Norepinephrine 4 MG Q24H 05/20 1630 DC 05/20 Sodium Chloride 250 ML IV 1656 Oseltamivir Phosphate 75 MG BID 05/22 1045 AC 05/23 PO 05/26 1044 0804 Pantoprazole Sodium 40 MG DAILY 05/20 1630 AC 05/23 IV 0803 Potassium Chloride 10 MEQ Q1H 05/23 1000 CAN IV 05/23 1101 Potassium Chloride 20 MEQ Q1H 05/23 0800 DC 05/23 IV 05/23 0901 0804 Potassium Chloride 10 MEQ Q1H 05/23 0745 DC IV 05/23 0846 Potassium Chloride 20 MEQ Q1H 05/22 1645 DC 05/22 IV 05/22 1746 1748 Senna/Docusate Sodium 1 TAB AT BEDTIME 05/20 2200 AC 05/22 PO 2156 Sodium Chloride 1,000 ML Q6H 05/21 0215 DC 05/23 IV 0115 Tramadol HCl 50 MG Q6P PRN 05/20 1100 AC PO Vancomycin HCl 1,000 MG Q24H 05/21 0700 AC 05/23 Dextrose/Water 250 ML IV 0622 Vital Signs & I&O Last 24 Hrs of Vitals and I&O: Laboratory Tests 05/23 05/22 05/22 0350 2000 1520 Chemistry Sodium (137 - 145 mmol/L) 142 141 142 Potassium (3.5 - 5.1 mmol/L) 3.4 L 3.9 2.9 *L Chloride (98 - 107 mmol/L) 107 105 104 Carbon Dioxide (22 - 30 mmol/L) 25 26 27 Anion Gap (5 - 16) 9 10 10 BUN (7 - 17 mg/dL) 13 12 13 Creatinine (0.5 - 1.0 mg/dL) 0.5 0.5 0.4 L Estimated GFR (>60 ml/min) > 60 > 60 > 60 BUN/Creatinine Ratio (7 - 25 %) 24.0 32.5 H Glucose (65 - 99 mg/dL) 168 H Calcium (8.4 - 10.2 mg/dL) 8.0 L Phosphorus (2.5 - 4.5 mg/dL) 3.0 Magnesium (1.6 - 2.3 mg/dL) 2.0 Total Bilirubin (0.2 - 1.3 mg/dL) 0.6 AST (14 - 36 U/L) 36 ALT (9 - 52 U/L) 44 Albumin (3.5 - 5.0 g/dL) 2.4 L Hematology CBC w Diff NO MAN DIFF REQ WBC (4.8 - 10.8 /CUMM) 8.5 RBC (4.20 - 5.40 /CUMM) 3.09 L Hgb (12.0 - 16.0 G/DL) 8.5 L Hct (37 - 47 %) 27.0 L MCV (81.0 - 99.0 FL) 87.3 MCH (27.0 - 31.0 PG) 27.6 RDW (11.5 - 14.5 %) 18.4 H Plt Count (130 - 400 /CUMM) 399 MPV (7.4 - 10.4 FL) 7.9 Gran % (42.2 - 75.2 %) 78.5 H Lymphocytes % (20.5 - 51.1 %) 14.5 L Monocytes % (1.7 - 9.3 %) 7.0 Eosinophils % (0 - 5 %) 0 Basophils % (0.0 - 2.0 %) 0 Absolute Granulocytes (1.4 - 6.5 /CUMM) 6.7 H Absolute Lymphocytes (1.2 - 3.4 /CUMM) 1.2 Absolute Monocytes (0.10 - 0.60 /CUMM) 0.6 Absolute Eosinophils (0.0 - 0.7 /CUMM) 0 Absolute Basophils (0.0 - 0.2 /CUMM) 0 PUBS MCHC (33.0 - 37.0 G/DL) 31.6 L 05/22 0500 Chemistry Sodium (137 - 145 mmol/L) 141 Potassium (3.5 - 5.1 mmol/L) 4.0 Chloride (98 - 107 mmol/L) 108 H Carbon Dioxide (22 - 30 mmol/L) 27 Anion Gap (5 - 16) 6 BUN (7 - 17 mg/dL) 13 Creatinine (0.5 - 1.0 mg/dL) 0.4 L Estimated GFR (>60 ml/min) > 60 Glucose (65 - 99 mg/dL) 126 H Calcium (8.4 - 10.2 mg/dL) 8.0 L Phosphorus (2.5 - 4.5 mg/dL) 3.7 Magnesium (1.6 - 2.3 mg/dL) 2.5 H Total Bilirubin (0.2 - 1.3 mg/dL) 0.1 L AST (14 - 36 U/L) 23 ALT (9 - 52 U/L) 36 Albumin (3.5 - 5.0 g/dL) 2.3 L Hematology CBC w Diff NO MAN DIFF REQ WBC (4.8 - 10.8 /CUMM) 7.2 RBC (4.20 - 5.40 /CUMM) 2.89 L Hgb (12.0 - 16.0 G/DL) 7.9 L Hct (37 - 47 %) 25.4 L MCV (81.0 - 99.0 FL) 87.6 MCH (27.0 - 31.0 PG) 27.3 RDW (11.5 - 14.5 %) 18.1 H Plt Count (130 - 400 /CUMM) 421 H MPV (7.4 - 10.4 FL) 8.2 Gran % (42.2 - 75.2 %) 84.3 H Lymphocytes % (20.5 - 51.1 %) 11.0 L Monocytes % (1.7 - 9.3 %) 4.7 Eosinophils % (0 - 5 %) 0 Basophils % (0.0 - 2.0 %) 0 Absolute Granulocytes (1.4 - 6.5 /CUMM) 6.1 Absolute Lymphocytes (1.2 - 3.4 /CUMM) 0.8 L Absolute Monocytes (0.10 - 0.60 /CUMM) 0.3 Absolute Eosinophils (0.0 - 0.7 /CUMM) 0 Absolute Basophils (0.0 - 0.2 /CUMM) 0 PUBS MCHC (33.0 - 37.0 G/DL) 31.1 L Microbiology Date/Time Procedure - Status Source Growth 05/22 1200 Respiratory Culture - RES LOWER RESP 05/22 1200 Gram Stain - RES LOWER RESP 05/22 1054 Influenza Virus A & B Rapid Smear - COMP NASOPHARYN 05/20 1300 Surveillance Culture - COMP UPPER RESP METH RESIST STAPH AUREUS 05/20 1300 Surveillance Culture - COMP GI 05/20 1048 Legionella Antigen - COMP URINE ROUT 05/20 1048 Streptococcus pneumoniae Antigen (M - COMP URINE ROUT 05/20 1024 Urine Culture - COMP URINE ROUT 05/20 1003 Respiratory Culture - CAN LOWER RESP Cancelled: 05/20 1003 Gram Stain - CAN LOWER RESP Cancelled: 05/20 1002 Influenza Virus A & B Rapid Smear - COMP NASOPHARYN Vital Signs Date Time Temp Pulse Resp B/P B/P Pulse O2 O2 Flow FiO2 Mean Ox Delivery Rate 05/23 0819 35 05/23 0652 35 05/23 0421 35 05/23 0400 97 Ventilator 35% 05/23 0038 35 05/23 0000 97 Ventilator 35% 05/23 0000 97.0 80 20 118/60 97 Ventilator 35% 05/22 2213 35 05/22 2000 93 Ventilator 35% 05/22 1925 35 05/22 1615 35 05/22 1600 95 Ventilator 35% 05/22 1600 97.6 95 20 127/58 95 Ventilator 35% 05/22 1418 35 05/22 1200 96 Ventilator 35% Intake & Output 05/23 1600 05/23 0800 05/23 0000 Intake Total 1295 1306 Output Total 250 800 Balance 1045 506 Intake, IV 1006 988 Intake, Tube 209 88 Feeding Intake, Tube 80 230 Irrigant Output, Urine 250 800 Impression/Plan Impression/Plan Impression/Plan: Physical Exam: Well-developed, obese elderly female who is intubated and sedated. Vital signs: See above. Neck: No JVD. Lungs: Clear to auscultation anteriorly, mild wheezing and crackles Heart: S1, S2 with soft systolic murmur. Abdomen: Soft, nontender, positive bowel sounds. Extremities: Sig edema. 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 SPutum now shows gram positive cocci * Systolic heart disease with hypotension initially with mildly elevated troponin * Previous cdiff and vre positive * Previous history of hypertension hyperlipidemia, ischemic heart with severe ihd with ef 30 percent * Significant osteoporosis * Sig anxiety disorder REC COnt vent Start fentanyl low dose drip if needed and use low dose ativan and reduce the drip and use prn if needed Start Tamiflu Cont abx and azithro (will await sputum culture and if it grows staph then will dc all abx except vanco paulo Reduce steroids to 40 mg daily KCl down ng tube 40 meq x 3 doses today KCl runs 40 meq total today aswell DC ivf IV lasix 20 mg q 8 hrs Check bmp this pm and replace potassium Check cvp and keep it above 6 and if below 6 can hold lasix Cont asa, ppi, Heparin sub cut Will discuss with the jakigabriel, if he call have him come in at 930 in am OG feeding today with jevity at 30 cc per hour Will follow Pt is critically ill and tts 40 mins
--- NOTE | 2017-05-23 13:57 | PN- Cardiology ---
Subjective Subjective: The patient remains intubated. She is awake on the ventilator. Blood pressure is stable off pressors. Antibiotic therapy is continuing. No further arrhythmias have been seen on telemetry. Objective Vital Signs and I&Os Vital Signs Date Time Temp Pulse Resp B/P B/P Pulse O2 O2 Flow FiO2 Mean Ox Delivery Rate 05/23 1148 35 05/23 0819 35 05/23 0800 96.8 70 20 94/50 100 Ventilator 35% 05/23 0652 35 05/23 0421 35 05/23 0400 97 Ventilator 35% 05/23 0038 35 05/23 0000 97 Ventilator 35% 05/23 0000 97.0 80 20 118/60 97 Ventilator 35% 05/22 2213 35 05/22 2000 93 Ventilator 35% 05/22 1925 35 05/22 1615 35 05/22 1600 95 Ventilator 35% 05/22 1600 97.6 95 20 127/58 95 Ventilator 35% 05/22 1418 35 Intake & Output 05/23 1600 05/23 0800 05/23 0000 05/22 1600 05/22 0800 05/22 0000 Intake Total 1295 1306 1090 1360 1039 Output Total 870 134 2533 200 225 Balance 1045 506 -1110 1160 814 Intake, IV 7045 339 6725 1360 969 Intake, Oral 0 Intake, Other 70 Intake, Tube 209 88 Feeding Intake, Tube 80 230 80 Irrigant Number 0 Bowel Movements Output, 150 Gastric Drainage Output, Urine 709 604 5035 200 225 Patient 149 lb 149 lb Weight Physical Exam: Gen: She is intubated, and awake on the ventilator HEENT: Normal nose, ears, and oropharynx. Pupils equal bilaterally. Conjunctiva normal. Neck: Supple with no JVD, no masses, and no thyromegaly Lungs: Clear to auscultation anteriorly with normal respiratory effort on the ventilator Heart: RRR, S1, S2, 1/6 systolic murmur. 1+ peripheral edema, 1+ pulses in the lower extremities bilaterally Abdomen: Soft, nontender, no masses. No hepatomegaly. No splenomegaly Extremities: No clubbing or cyanosis. Normal muscle strength in the upper and lower extremities Skin: Normal skin turgor with no skin ulcers or lesions Current Medications: Current Medications Sig/Shobha Start time Last Medication Dose Route Stop Time Status Admin Acetaminophen 650 MG Q8P PRN 05/20 1030 AC PO Albuterol Sulfate 3 ML EVERY 4 HRS/AWAKE 05/20 1200 AC 05/23 INH 1148 Aspirin 81 MG DAILY 05/21 1000 AC 05/23 PO 1134 Atorvastatin Calcium 40 MG DAILY@1700 05/20 1915 AC 05/22 PO 1643 Budesonide/ 2 PUF BID 05/20 1043 AC Formoterol Fumarate INH Ceftazidime 1,000 MG Q12H 05/20 2000 AC 05/23 IV 0803 Fentanyl Citrate 25 MCG Q4 HRS NEEDED PRN 05/22 1030 AC 05/23 IV 1152 Furosemide 20 MG Q8 05/23 2000 AC IV Furosemide 20 MG Q8 05/23 1045 DC IV Furosemide 40 MG ONCE ONE 05/23 0945 DC 05/23 IV 05/23 0946 1133 Heparin Sodium 5,000 UNIT Q8 05/21 0100 AC 05/23 (Porcine) SC 0622 Insulin Human Regular 2 UNITS .STK-MED ONE 05/23 0021 DC IV 05/23 0022 Insulin Human Regular 0 Q6 05/20 1800 AC 05/23 SC 0629 Ipratropium [place] 2.5 ML EVERY 4 HRS/AWAKE 05/20 1200 AC 05/23 INH 1148 Lorazepam 50 MG Q24H 05/22 1800 AC 05/22 Sodium Chloride 500 ML IV 1644 Lorazepam 50 MG Q16H 05/21 1600 DC 05/22 Sodium Chloride 500 ML IV 05/22 1800 1900 Methylprednisolone 60 MG DAILY 05/23 1000 AC 05/23 IV 0803 Norepinephrine 4 MG Q24H 05/20 1630 DC 05/20 Sodium Chloride 250 ML IV 1656 Oseltamivir Phosphate 75 MG BID 05/22 1045 AC 05/23 PO 05/26 1044 0804 Pantoprazole Sodium 40 MG DAILY 05/20 1630 AC 05/23 IV 0803 Potassium Chloride 40 MEQ 1600 05/23 1600 AC PO 05/23 1601 Potassium Chloride 40 MEQ 1200 05/23 1200 DC PO 05/23 1201 Potassium Chloride 40 MEQ ONCE ONE 05/23 1045 DC 05/23 PO 05/23 1046 1133 Potassium Chloride 10 MEQ Q1H 05/23 1000 CAN IV 05/23 1101 Potassium Chloride 20 MEQ Q1H 05/23 0800 DC 05/23 IV 05/23 0901 1152 Potassium Chloride 10 MEQ Q1H 05/23 0745 DC IV 05/23 0846 Potassium Chloride 20 MEQ Q1H 05/22 1645 DC 05/22 IV 05/22 1746 1748 Senna/Docusate Sodium 1 TAB AT BEDTIME 05/20 2200 AC 05/22 PO 2156 Sodium Chloride 1,000 ML Q6H 05/21 0215 DC 05/23 IV 0115 Tramadol HCl 50 MG Q6P PRN 05/20 1100 AC PO Vancomycin HCl 1,000 MG Q24H 05/21 0700 AC 05/23 Dextrose/Water 250 ML IV 0622 Results Last 48 Hrs of Labs/Mics: Laboratory Tests 05/23/17 0350: Anion Gap 9, Estimated GFR > 60, Glucose 168 H, Calcium 8.0 L, Phosphorus 3.0, Magnesium 2.0, Total Bilirubin 0.6, AST 36, ALT 44, Albumin 2.4 L, CBC w Diff NO MAN DIFF REQ, RBC 3.09 L, MCV 87.3, MCH 27.6, RDW 18.4 H, MPV 7.9, Gran % 78.5 H, Lymphocytes % 14.5 L, Monocytes % 7.0, Eosinophils % 0, Basophils % 0, Absolute Granulocytes 6.7 H, Absolute Lymphocytes 1.2, Absolute Monocytes 0.6, Absolute Eosinophils 0, Absolute Basophils 0, PUBS MCHC 31.6 L 05/22/17 2000: Anion Gap 10, Estimated GFR > 60, BUN/Creatinine Ratio 24.0 05/22/17 1520: Anion Gap 10, Estimated GFR > 60, BUN/Creatinine Ratio 32.5 H 05/22/17 0500: Anion Gap 6, Estimated GFR > 60, Glucose 126 H, Calcium 8.0 L, Phosphorus 3.7, Magnesium 2.5 H, Total Bilirubin 0.1 L, AST 23, ALT 36, Albumin 2.3 L, CBC w Diff NO MAN DIFF REQ, RBC 2.89 L, MCV 87.6, MCH 27.3, RDW 18.1 H, MPV 8.2, Gran % 84.3 H, Lymphocytes % 11.0 L, Monocytes % 4.7, Eosinophils % 0, Basophils % 0, Absolute Granulocytes 6.1, Absolute Lymphocytes 0.8 L, Absolute Monocytes 0.3, Absolute Eosinophils 0, Absolute Basophils 0, PUBS MCHC 31.1 L Microbiology 05/22 1054 NASOPHARYN: Influenza Virus A & B Rapid Smear - COMP Recent Imaging Studies: Chest x-ray: 1. Stable positioning of support apparatuses. 2. Bilateral upper lobe reticular opacities are again noted, the left side minimally improved while the right side appears minimally worsened; Some of which may be due to differences in technique. Assessment/Plan Assessment/Plan Assessment: 1. Severe COPD 2. History of multifocal atrial tachycardia 3. Diabetes mellitus 4. Hypertension 5. Acute exacerbation of COPD with influenza and bilateral pneumonia 6. 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 Recurrent left ventricular systolic dysfunction. Current ejection fraction 30% compared to 60% in June 2016. 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 Yes
[2017-05-23 16:00] VITALS: BP 94/58
[2017-05-24] VITALS: BP 10/60
--- NOTE | 2017-05-24 05:32 | PN- Resident CRCU ---
Subjective HPI/CRCU Issues: Ms Castillo was comfortable this am. She seems uncortable, but all the ventilatory parameters seemed ok. She was actively beeen diuresed, while watching the BP. 24 Hour Events: Tmax 98.1 Heart rate 74-96, Systolic blood pressure 92-102 Diastolic blood pressure 50-60 Sas 3-4 CVP remained in the range of 5-18 Input 2780, Output 3720 ml. Ventilator settings: Volume assist, AC, RR20, TV 500, FiO2 35, PEEP of 5, O2 sat 95% RA Sedation: Ativan drip, left IJ triple-lumen Objective Vital Signs & I&O Last 8 Hrs of Vitals and I&O: Intake & Output 05/24 1600 Intake Total 1100 Output Total 1600 Balance -500 Intake, IV 630 Intake, Tube 290 Feeding Intake, Tube 180 Irrigant Number 2 Bowel Movements Output, Urine 1600 Patient 146 lb Weight Weight Bed scale Measurement Method Exam General Appearance: no apparent distress Other Physical Findings: General Exam: AAOx0, No acute distress, Intubated, sedated, Skin: No rashes, no breakdown HEENT: PERRLA, Neck: Supple, No JVD, left IJ in place No cervical lymphadenopathy CVS: Reg Rate, Normal S1,S2, No MGR Resp: Normal air entry, ronchi + Abdomen: Soft, No tenderness, Normal Bowel Sounds Neuro: Limited neuro exam, Reflexes 2+ Extremities: No cyanosis, 1+ pedal edema Weaning Parameters VC: 520 Current Medications: Current Medications Sig/Shobha Start time Last Medication Dose Route Stop Time Status Admin Acetaminophen 650 MG Q8P PRN 05/20 1030 AC PO Albuterol Sulfate 3 ML EVERY 4 HRS/AWAKE 05/20 1200 AC 05/25 INH 0803 Aspirin 81 MG DAILY 05/21 1000 AC 05/25 PO 1009 Atorvastatin Calcium 40 MG DAILY@1700 05/20 1915 AC 05/24 PO 1709 Azithromycin 500 MG DAILY 05/24 1011 AC 05/25 Dextrose/Water 250 ML IV 0910 Bisacodyl 5 MG DAILY 05/23 1900 AC PO Budesonide/ 2 PUF BID 05/20 1043 AC 05/23 Formoterol Fumarate INH 2209 Ceftriaxone Sodium 1,000 MG DAILY 05/24 1012 AC 05/25 IV 0910 Fentanyl Citrate 1,000 MCG Q24H 05/25 1030 UNVr Dextrose/Water 250 ML IV Fentanyl Citrate 25 MCG ONCE ONE 05/25 0330 DC 05/25 IV 05/25 0331 0328 Fentanyl Citrate 25 MCG ONCE ONE 05/24 2345 DC 05/24 IV 05/24 2346 2350 Fentanyl Citrate 25 MCG ONCE ONE 05/24 1700 DC 05/24 IV 05/24 1701 1701 Fentanyl Citrate 25 MCG Q4 HRS NEEDED PRN 05/22 1030 AC 05/25 IV 1025 Furosemide 20 MG Q8 05/23 2000 AC 05/25 IV 0513 Heparin Sodium 5,000 UNIT Q8 05/21 0100 AC 05/25 (Porcine) SC 0514 Insulin Human Regular 4 UNITS .STK-MED ONE 05/24 2336 DC IV 05/24 2337 Insulin Human Regular 6 UNITS .STK-MED ONE 05/24 1805 DC IV 05/24 1806 Insulin Human Regular 2 UNITS .STK-MED ONE 05/24 1239 DC IV 05/24 1240 Insulin Human Regular 2 UNITS .STK-MED ONE 05/24 1234 DC IV 05/24 1235 Insulin Human Regular 0 Q6 05/20 1800 AC 05/25 SC [address] [place] 2.5 ML EVERY 4 HRS/AWAKE 05/20 1200 AC 05/25 INH 0803 Lorazepam 50 MG Q24H 05/25 0500 AC Sodium Chloride 500 ML IV Lorazepam 50 MG Q24H 05/22 1800 DC 05/23 Sodium Chloride 500 ML IV 05/25 0459 1500 Methylprednisolone 40 MG DAILY 05/25 1000 AC 05/25 IV 0859 Methylprednisolone 60 MG DAILY 05/23 1000 DC 05/24 IV 0851 Nystatin 1 DANG BID PRN 05/24 1100 AC 05/25 TOP 0903 Oseltamivir Phosphate 75 MG BID 05/22 1045 AC 05/25 PO 05/26 1044 1009 Pantoprazole Sodium 40 MG DAILY 05/20 1630 AC 05/25 IV 0902 Polyethylene Glycol 17 GM DAILY 05/23 1900 AC PO Potassium Chloride 60 MEQ ONCE ONE 05/24 2030 DC 05/24 PO 05/24 Senna/Docusate Sodium 1 TAB AT BEDTIME 05/20 2200 AC 05/22 PO 2156 Tramadol HCl 50 MG Q6P PRN 05/20 1100 AC 05/23 PO 2104 Vancomycin HCl 1,000 MG Q24H 05/21 0700 AC 05/25 Dextrose/Water 250 ML IV 0605 Impression/Plan Impression/Problem List Impression: Mr Jonathan has a PMHx of COPD (on 4L oxygen), HFpEF( EF 440%), HTN, HLD, previous Influeza 09/14, osteoporosis came was brought in from [facility] with a chief concern of acute dyspnea, and altered mentation likely secondary to acute hypercarbic respiratory failure from multi-lobar pneumonia likely secondary to HCAP or viral. At the time of admission, vitals temp 100.9, HR 141, RR 32, BP 149/65, Pulse ox 90s on 40% BiPAP. EKG: First EKG, sinus tachy No STTW changes, succeeding EKGs revealed t wave inversions in ant-lateral lateral leads. Pertinent lab findings: WBC 24.1-->12.5-->11.4-->7.2(05/22)-->8.5(05/23)-->8.2(05/24) Hb 10.7(baseline 10.0)-->8.0-->7.9(05/22)-->8.5(05/23)-->8.2(05/24) Platelets 703 (likely reactive)-->421 Na 144, K 4.1 Bicarb 41-->27 Sr cr 0.5, BUN 18-->13 Troponin 0.11-->0.23-->0.30-->0.23 ABG 7.23, PCO2 99, pO2 65--> pH 7.45,PCO2 40, pO2 95( 05/22) D- dimer 857. INR 1.06. Lactate 2.0-->3.7-->2.2-->1.3 Mg 1.6-->2.5 Strep pneumo, legionella ag urine- neg CXR 05/20 revealed bilateral patchy pulmonary opacities consistent with multifocal pneumonia. CXR 05/22 revealed improving bilateral patchy pulmonary opacities. CTA 05/21 revealed no evidence of pulmonary embolism. Echocardiogram: 2015- revealed left ventricular ejection fraction is estimated at 40%. Global hypokinesis. 2016- Diastolic filling pattern is consistent with impaired LV relaxation. The ejection fraction is visually estimated at 60%. 05/22/16- Severely decreased left ventricular systolic function. Left ventricular ejection fraction is estimated at 30-35%. Etiology in her case is clearly due to sepsis from multifocal pneumonia, likely leading to an acute decompensation in her respiratory status. Since she has COPD , that might have caused an acute exacerbation of COPD that worsened her chronic hypercabia leading to hypoxia. She was put on BiPAP for correcting acidemia and hypercarbia, but there was no improvement in either her respiratory status and/ or hypercarbia, although her mentation improved remarkably which indicates a chronic hypercarbic process that was worsened due to an acute illness, which is pneumonia in her case. In regards to her elevated troponin, and new EKG changes it was likely due to demand, which is type 2 TN which explains this change; but new EKG changes could be explained by her increased demand from tachycardia, and hypotension. Although , she doesnt have any remarkable cardiac history, she has several risk factors including 80 pk yr h/o smoking. Recommendations: Respiratory: 1. Acute hypercarbic respiratory failure: Likely due to AECOPD, and multilobar pneumonia which appears as due to HCAP or viral cause. She was started on ceftazidime and vancomycin. [facility], blood cultures. - For AECOPD, decrease the dose of solumedrol. - Titrate the abx as per the culture results. Infectious: - Likely sepsis, and required pressure support briefly - Monitor CBC in the am. - Tamiflu was added this am for emperic coverage of a viral pneumonia, as per Dr Sutton. [facility] cultures negative for any bacterial growth so far. Continue azithromycin, vanco. 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 Circulatory: - Type 2 TN, but by definition can call it NSTEMI. - ASA was given, and was started on a statin. - As per Cardiology, was started on cardizem that was dc'ed. - Considering her positive fluid balance, iv lasix 20mg q8h. Holding parameters CVP < 6. Metabolic - Accuechecks. - Novolin R q6h. Adjust accordingly. Neurology Continue ativan drip. Would wean her off, as she tolerated. Fentany pushes prn. Housekeeping: DVT PPx- heparin sc. GI PPx- Protonix Diet- tube feeds. Full code. Problem List: 1. Pneumonia 2. Sepsis 3. Influenza Pain Ratin Tomorrow's Labs & Rationales: cbc Plan DVT/Prophylaxis: pharmacological
[2017-05-24 05:59] LABS: ABSOLUTE BASOPHIL COUNT 0 /CUMM (0.0-0.2); ABSOLUTE EOSINOPHIL COUNT 0 /CUMM (0.0-0.7); ABSOLUTE GRANULOCYTE CT 6.4 /CUMM (1.4-6.5); ABSOLUTE LYMPH COUNT 1.3 /CUMM (1.2-3.4); ABSOLUTE MONOCYTE COUNT 0.4 /CUMM (0.10-0.60); BASOPHIL % 0.3 % (0.0-2.0); EOSINOPHIL % 0 % (0-5); HEMATOCRIT 26.8 % (37-47); MEAN CORPUSCULAR HGB 26.9 PG (27.0-31.0); MEAN CORPUSCULAR HGB CONC 30.7 G/DL (33.0-37.0); MEAN CORPUSCULAR VOLUME 87.6 FL (81.0-99.0); MEAN PLATELET VOLUME 8.3 FL (7.4-10.4); PLATELET COUNT 353 /CUMM (130-400); RED BLOOD CELL CT 3.06 /CUMM (4.20-5.40); WHITE BLOOD CELL COUNT 8.2 /CUMM (4.8-10.8)
[2017-05-24 08:00] VITALS: BP 98/60
--- NOTE | 2017-05-24 09:58 | PN- CRCU ---
Subjective HPI/Critical Care Issues: Doing about the same did not wing the CPAP trial Intubated and sedated Objective Current Medications: Current Medications Sig/Shobha Start time Last Medication Dose Route Stop Time Status Admin Acetaminophen 650 MG Q8P PRN 05/20 1030 AC PO Albuterol Sulfate 3 ML EVERY 4 HRS/AWAKE 05/20 1200 AC 05/24 INH 0858 Aspirin 81 MG DAILY 05/21 1000 AC 05/24 PO 0853 Atorvastatin Calcium 40 MG DAILY@1700 05/20 1915 AC 05/23 PO 1735 Bisacodyl 5 MG DAILY 05/23 1900 AC PO Budesonide/ 2 PUF BID 05/20 1043 AC 05/23 Formoterol Fumarate INH 2209 Ceftazidime 1,000 MG Q12H 05/20 2000 AC 05/24 IV 0852 Fentanyl Citrate 25 MCG Q4 HRS NEEDED PRN 05/22 1030 AC 05/24 IV 0325 Furosemide 20 MG Q8 05/23 2000 AC 05/24 IV 0657 Furosemide 20 MG Q8 05/23 1045 DC IV Heparin Sodium 5,000 UNIT Q8 05/21 0100 AC 05/24 (Porcine) SC 0659 Insulin Human Regular 4 UNITS .STK-MED ONE 05/23 2310 DC IV 05/23 2311 Insulin Human Regular 4 UNITS .STK-MED ONE 05/23 1812 DC IV 05/23 1813 Insulin Human Regular 0 Q6 05/20 1800 AC 05/24 SC 0659 Ipratropium [place] 2.5 ML EVERY 4 HRS/AWAKE 05/20 1200 AC 05/24 INH 0858 Lorazepam 50 MG Q24H 05/22 1800 AC 05/23 Sodium Chloride 500 ML IV 1500 Methylprednisolone 60 MG DAILY 05/23 1000 AC 05/24 IV 0851 Oseltamivir Phosphate 75 MG BID 05/22 1045 AC 05/24 PO 05/26 1044 0852 Pantoprazole Sodium 40 MG DAILY 05/20 1630 AC 05/24 IV 0850 Polyethylene Glycol 17 GM DAILY 05/23 1900 AC PO Potassium Chloride 40 MEQ 1600 05/23 1600 DC 05/23 PO 05/23 1601 1742 Potassium Chloride 40 MEQ 1200 05/23 1200 DC 05/23 PO 05/23 1201 1300 Potassium Chloride 40 MEQ ONCE ONE 05/23 1045 DC 05/23 PO 05/23 1046 1133 Senna 187 MG AT BEDTIME 05/23 2199 DC PO Senna/Docusate Sodium 1 TAB AT BEDTIME 05/20 2200 AC 05/22 PO 2156 Tramadol HCl 50 MG Q6P PRN 05/20 1100 AC 05/23 PO 2104 Vancomycin HCl 1,000 MG Q24H 05/21 0700 AC 05/24 Dextrose/Water 250 ML IV 0657 Vital Signs & I&O Last 24 Hrs of Vitals and I&O: Laboratory Tests 05/24 05/23 0515 2110 Chemistry Sodium (137 - 145 mmol/L) 139 140 Potassium (3.5 - 5.1 mmol/L) 4.5 5.1 Chloride (98 - 107 mmol/L) 102 104 Carbon Dioxide (22 - 30 mmol/L) 29 25 Anion Gap (5 - 16) 8 10 BUN (7 - 17 mg/dL) 14 13 Creatinine (0.5 - 1.0 mg/dL) 0.5 0.5 Estimated GFR (>60 ml/min) > 60 > 60 BUN/Creatinine Ratio (7 - 25 %) 26.0 H Glucose (65 - 99 mg/dL) 229 H Calcium (8.4 - 10.2 mg/dL) 8.0 L Phosphorus (2.5 - 4.5 mg/dL) 3.0 Magnesium (1.6 - 2.3 mg/dL) 1.8 Total Bilirubin (0.2 - 1.3 mg/dL) < 0.1 L AST (14 - 36 U/L) 20 ALT (9 - 52 U/L) 50 Albumin (3.5 - 5.0 g/dL) 2.4 L Hematology CBC w Diff NO MAN DIFF REQ WBC (4.8 - 10.8 /CUMM) 8.2 RBC (4.20 - 5.40 /CUMM) 3.06 L Hgb (12.0 - 16.0 G/DL) 8.2 L Hct (37 - 47 %) 26.8 L MCV (81.0 - 99.0 FL) 87.6 MCH (27.0 - 31.0 PG) 26.9 L RDW (11.5 - 14.5 %) 19.0 H Plt Count (130 - 400 /CUMM) 353 MPV (7.4 - 10.4 FL) 8.3 Gran % (42.2 - 75.2 %) 78.0 H Lymphocytes % (20.5 - 51.1 %) 16.4 L Monocytes % (1.7 - 9.3 %) 5.3 Eosinophils % (0 - 5 %) 0 Basophils % (0.0 - 2.0 %) 0.3 Absolute Granulocytes (1.4 - 6.5 /CUMM) 6.4 Absolute Lymphocytes (1.2 - 3.4 /CUMM) 1.3 Absolute Monocytes (0.10 - 0.60 /CUMM) 0.4 Absolute Eosinophils (0.0 - 0.7 /CUMM) 0 Absolute Basophils (0.0 - 0.2 /CUMM) 0 PUBS MCHC (33.0 - 37.0 G/DL) 30.7 L 05/23 05/22 05/22 0350 2000 1520 Chemistry Sodium (137 - 145 mmol/L) 142 141 142 Potassium (3.5 - 5.1 mmol/L) 3.4 L 3.9 2.9 *L Chloride (98 - 107 mmol/L) 107 105 104 Carbon Dioxide (22 - 30 mmol/L) 25 26 27 Anion Gap (5 - 16) 9 10 10 BUN (7 - 17 mg/dL) 13 12 13 Creatinine (0.5 - 1.0 mg/dL) 0.5 0.5 0.4 L Estimated GFR (>60 ml/min) > 60 > 60 > 60 BUN/Creatinine Ratio (7 - 25 %) 24.0 32.5 H Glucose (65 - 99 mg/dL) 168 H Calcium (8.4 - 10.2 mg/dL) 8.0 L Phosphorus (2.5 - 4.5 mg/dL) 3.0 Magnesium (1.6 - 2.3 mg/dL) 2.0 Total Bilirubin (0.2 - 1.3 mg/dL) 0.6 AST (14 - 36 U/L) 36 ALT (9 - 52 U/L) 44 Albumin (3.5 - 5.0 g/dL) 2.4 L Hematology CBC w Diff NO MAN DIFF REQ WBC (4.8 - 10.8 /CUMM) 8.5 RBC (4.20 - 5.40 /CUMM) 3.09 L Hgb (12.0 - 16.0 G/DL) 8.5 L Hct (37 - 47 %) 27.0 L MCV (81.0 - 99.0 FL) 87.3 MCH (27.0 - 31.0 PG) 27.6 RDW (11.5 - 14.5 %) 18.4 H Plt Count (130 - 400 /CUMM) 399 MPV (7.4 - 10.4 FL) 7.9 Gran % (42.2 - 75.2 %) 78.5 H Lymphocytes % (20.5 - 51.1 %) 14.5 L Monocytes % (1.7 - 9.3 %) 7.0 Eosinophils % (0 - 5 %) 0 Basophils % (0.0 - 2.0 %) 0 Absolute Granulocytes (1.4 - 6.5 /CUMM) 6.7 H Absolute Lymphocytes (1.2 - 3.4 /CUMM) 1.2 Absolute Monocytes (0.10 - 0.60 /CUMM) 0.6 Absolute Eosinophils (0.0 - 0.7 /CUMM) 0 Absolute Basophils (0.0 - 0.2 /CUMM) 0 PUBS MCHC (33.0 - 37.0 G/DL) 31.6 L Microbiology Date/Time Procedure - Status Source Growth 05/22 1200 Respiratory Culture - RES LOWER RESP 05/22 1200 Gram Stain - RES LOWER RESP 05/22 1054 Influenza Virus A & B Rapid Smear - COMP NASOPHARYN Vital Signs Date Time Temp Pulse Resp B/P B/P Pulse O2 O2 Flow FiO2 Mean Ox Delivery Rate 05/24 0800 97.2 70 20 98/60 96 Ventilator 35% 05/24 0800 96 Ventilator 35% 05/24 0509 35 05/24 0400 95 Ventilator 35% 05/24 0046 35 05/24 0000 97.0 74 20 97 Ventilator 35% 05/24 0000 97 Ventilator 35% 05/23 2050 35 05/23 2000 95 Ventilator 35% 05/23 1703 25 05/23 1600 98 Ventilator 35% 05/23 1600 98.1 70 20 94/58 96 Ventilator 35% 05/23 1426 35 05/23 1200 100 Ventilator 35% 05/23 1148 35 Intake & Output 05/24 1600 05/24 0800 05/24 0000 Intake Total 681 709 Output Total 1000 750 Balance -319 -41 Intake, IV 101 76 Intake, Tube 420 383 Feeding Intake, Tube 160 250 Irrigant Number 0 1 Bowel Movements Output, Urine 1000 750 Impression/Plan Impression/Plan Impression/Plan: Physical Exam: Well-developed, obese elderly female who is intubated and sedated. Vital signs: See above. Neck: No JVD. Lungs: Clear to auscultation anteriorly, mild wheezing and crackles Heart: S1, S2 with soft systolic murmur. Abdomen: Soft, nontender, positive bowel sounds. Extremities: Sig edema. 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 SPutum now shows gram positive cocci * Systolic heart disease with hypotension initially with mildly elevated troponin * Previous cdiff and vre positive * Previous history of hypertension hyperlipidemia, ischemic heart with severe ihd with ef 30 percent * Significant osteoporosis with recent worsening performance status * Sig anxiety disorder REC COnt vent Fentanyl low dose drip if needed and use low dose ativan and reduce the drip and use prn if needed Tamiflu Rpt sputum culture FIve days of azithro, cont vanco and change ceftaz to ceftriaxone Reduce steroids to 40 mg daily IV lasix 20 mg q 8 hrs with potassium replacement Replace mag Check cvp and keep it above 6 and if below 6 can hold lasix Cont asa, ppi, Heparin sub cut Discussed with the and son over the tele They wish the pt to be made DNR In next day or two they wish a trial of extubation and if she does poorly they wish comfort care TTS 45mins pt is critically ill
--- NOTE | 2017-05-24 10:39 | RADIOLOGY REPORT ---
EXAMINATION: CR PORTABLE CHEST CLINICAL INFORMATION: Status post intubation. COMPARISON: Chest x-ray dated 05/23/2017. TECHNIQUE: Portable AP semierect view of the chest was obtained. FINDINGS: Endotracheal tube tip is approximately 5.5 cm above the oliver. Enteric tube courses into the stomach with tip not included. Left jugular central venous line tip is in the distal SVC. Multiple EKG leads overlie the chest. The cardiomediastinal silhouette is within normal limits in size. Calcification of the aortic arch is seen. Lungs bilaterally are symmetrically expanded. No change is seen in the bilateral upper lobe and medial right lower lung reticular opacities. No focal consolidation, effusion or pneumothorax is seen. Portions of total left shoulder arthroplasty partially imaged. IMPRESSION: 1. Endotracheal tube tip 5.5 cm above the oliver. 2. No change in positioning of left jugular central venous line. Enteric tube tip in the abdomen not included. 3. No change in reticular opacities in the upper lobes and medial right lower lung.
--- NOTE | 2017-05-24 13:29 | PN- Cardiology ---
Subjective Subjective: The patient remains intubated and sedated. No obvious new cardiovascular issues. Objective Vital Signs and I&Os Vital Signs Date Time Temp Pulse Resp B/P B/P Pulse O2 O2 Flow FiO2 Mean Ox Delivery Rate 05/24 1200 95 Ventilator 35% 05/24 1149 35 05/24 0956 35 05/24 0800 97.2 70 20 98/60 96 Ventilator 35% 05/24 0800 96 Ventilator 35% 05/24 0509 35 05/24 0400 95 Ventilator 35% 05/24 0046 35 05/24 0000 97.0 74 20 10/60 97 Ventilator 35% 05/24 0000 97 Ventilator 35% 05/23 2050 35 05/23 2000 95 Ventilator 35% 05/23 1703 25 05/23 1600 98 Ventilator 35% 05/23 1600 98.1 70 20 94/58 96 Ventilator 35% 05/23 1426 35 Intake & Output 05/24 1600 05/24 0800 05/24 0000 05/23 1600 05/23 0800 05/23 0000 Intake Total 628 335 5323 1295 1306 Output Total 8141 712 1503 250 800 Balance -319 -41 -580 1045 506 Intake, IV 101 76 810 1006 988 Intake, Tube 420 383 320 209 88 Feeding Intake, Tube 160 250 260 80 230 Irrigant Number 0 1 Bowel Movements Output, Urine 4167 474 9478 250 800 Patient 146 lb Weight Weight Bed scale Measurement Method Physical Exam: General Appearance: Intubated and sedated Head: atraumatic, normal appearance Ears, Nose, Throat: normal Neck: normal inspection, supple, JVP normal, Respiratory: scattered rhonchi Cardiovascular: regular S1, S2, 1/6 systolic murmur Gastrointestinal: normal bowel sounds, soft, non-tender Extremities: normal inspection, normal capillary refill Current Medications: Current Medications Sig/Shobha Start time Last Medication Dose Route Stop Time Status Admin Acetaminophen 650 MG Q8P PRN 05/20 1030 AC PO Albuterol Sulfate 3 ML EVERY 4 HRS/AWAKE 05/20 1200 AC 05/24 INH 1158 Aspirin 81 MG DAILY 05/21 1000 AC 05/24 PO 0853 Atorvastatin Calcium 40 MG DAILY@1700 05/20 1915 AC 05/23 PO 1735 Azithromycin 500 MG DAILY 05/24 1011 AC 05/24 Dextrose/Water 250 ML IV 1236 Bisacodyl 5 MG DAILY 05/23 1900 AC PO Budesonide/ 2 PUF BID 05/20 1043 AC 05/23 Formoterol Fumarate INH 2209 Ceftazidime 1,000 MG Q12H 05/20 2000 DC 05/24 IV 0852 Ceftriaxone Sodium 1,000 MG DAILY 05/24 1012 AC 05/24 IV 1237 Fentanyl Citrate 25 MCG Q4 HRS NEEDED PRN 05/22 1030 AC 05/24 IV 1030 Furosemide 20 MG Q8 05/23 2000 AC 05/24 IV 0657 Heparin Sodium 5,000 UNIT Q8 05/21 0100 AC 05/24 (Porcine) SC 0659 Insulin Human Regular 4 UNITS .STK-MED ONE 05/23 2310 DC IV 05/23 2311 Insulin Human Regular 4 UNITS .STK-MED ONE 05/23 1812 DC IV 05/23 1813 Insulin Human Regular 0 Q6 05/20 1800 AC 05/24 SC 1237 Ipratropium [place] 2.5 ML EVERY 4 HRS/AWAKE 05/20 1200 AC 05/24 INH 1158 Lorazepam 50 MG Q24H 05/22 1800 AC 05/23 Sodium Chloride 500 ML IV 1500 Methylprednisolone 40 MG DAILY 05/25 1000 AC IV Methylprednisolone 60 MG DAILY 05/23 1000 DC 05/24 IV 0851 Nystatin 1 DANG BID PRN 05/24 1100 AC TOP Oseltamivir Phosphate 75 MG BID 05/22 1045 AC 05/24 PO 05/26 1044 0852 Pantoprazole Sodium 40 MG DAILY 05/20 1630 AC 05/24 IV 0850 Polyethylene Glycol 17 GM DAILY 05/23 1900 AC PO Potassium Chloride 40 MEQ 1600 05/23 1600 DC 05/23 PO 05/23 1601 1742 Senna 187 MG AT BEDTIME 05/23 220 DC PO Senna/Docusate Sodium 1 TAB AT BEDTIME 05/20 2200 AC 05/22 PO 2156 Tramadol HCl 50 MG Q6P PRN 05/20 1100 AC 05/23 PO 2104 Vancomycin HCl 1,000 MG Q24H 05/21 0700 AC 05/24 Dextrose/Water 250 ML IV 0657 Results Last 48 Hrs of Labs/Mics: Laboratory Tests 05/24/17 0515: Anion Gap 8, Estimated GFR > 60, Glucose 229 H, Calcium 8.0 L, Phosphorus 3.0, Magnesium 1.8, Total Bilirubin < 0.1 L, AST 20, ALT 50, Albumin 2.4 L, CBC w Diff NO MAN DIFF REQ, RBC 3.06 L, MCV 87.6, MCH 26.9 L, RDW 19.0 H, MPV 8.3, Gran % 78.0 H, Lymphocytes % 16.4 L, Monocytes % 5.3, Eosinophils % 0, Basophils % 0.3, Absolute Granulocytes 6.4, Absolute Lymphocytes 1.3, Absolute Monocytes 0.4, Absolute Eosinophils 0, Absolute Basophils 0, PUBS MCHC 30.7 L 05/23/17 2110: Anion Gap 10, Estimated GFR > 60, BUN/Creatinine Ratio 26.0 H 05/23/17 0350: Anion Gap 9, Estimated GFR > 60, Glucose 168 H, Calcium 8.0 L, Phosphorus 3.0, Magnesium 2.0, Total Bilirubin 0.6, AST 36, ALT 44, Albumin 2.4 L, CBC w Diff NO MAN DIFF REQ, RBC 3.09 L, MCV 87.3, MCH 27.6, RDW 18.4 H, MPV 7.9, Gran % 78.5 H, Lymphocytes % 14.5 L, Monocytes % 7.0, Eosinophils % 0, Basophils % 0, Absolute Granulocytes 6.7 H, Absolute Lymphocytes 1.2, Absolute Monocytes 0.6, Absolute Eosinophils 0, Absolute Basophils 0, PUBS MCHC 31.6 L 05/22/171999: Anion Gap 10, Estimated GFR > 60, BUN/Creatinine Ratio 24.0 05/22/17 1520: Anion Gap 10, Estimated GFR > 60, BUN/Creatinine Ratio 32.5 H Assessment/Plan Assessment/Plan Assessment: 1. Severe COPD 2. History of multifocal atrial tachycardia 3. Diabetes mellitus 4. Hypertension 5. Acute exacerbation of COPD with influenza and bilateral pneumonia 6. Mild troponin elevation likely secondary to type II [place] 7. Recurrent left ventricular systolic dysfunction. Current ejection fraction 30% compared to 60% in June 2016. Possible stress-induced cardiomyopathy Plan: * Continue Lasix 20 mg IV 8 hours * Replete potassium and magnesium if needed * Monitor input and output * Check basic metabolic profile daily Continue telemetry? Yes
--- NOTE | 2017-05-24 14:27 | RADIOLOGY REPORT ---
EXAMINATION: XR PORTABLE CHEST CLINICAL INFORMATION: Intubation confirmed lines and tubes. COMPARISON: Portable chest x-ray dated 05/24/2017 at 5:45 AM. TECHNIQUE: Portable frontal view of the chest was obtained. FINDINGS: An endotracheal tube is present, the tip is located approximately 4 cm proximal to the level of the oliver in satisfactory position. An NG tube is present which extends well below the diaphragm to the left upper quadrant. A left-sided central line is present, the tip is in the mid SVC. There is no evidence of pneumothorax at this time. No significant abnormality is noted involving the heart, lungs, mediastinum, bony thorax or soft tissues. IMPRESSION: 1. Lines and tubes as described in detail above, all in satisfactory position. 2. No acute cardiopulmonary findings.
[2017-05-24 16:00] VITALS: BP 100/60
[2017-05-25] VITALS: BP 117/62
[2017-05-25 05:07] LABS: ABSOLUTE BASOPHIL COUNT 0 /CUMM (0.0-0.2); ABSOLUTE EOSINOPHIL COUNT 0 /CUMM (0.0-0.7); ABSOLUTE GRANULOCYTE CT 9.7 /CUMM (1.4-6.5); ABSOLUTE LYMPH COUNT 1.9 /CUMM (1.2-3.4); ABSOLUTE MONOCYTE COUNT 0.7 /CUMM (0.10-0.60); BASOPHIL % 0 % (0.0-2.0); EOSINOPHIL % 0.1 % (0-5); GRANULOCYTE % 79.5 % (42.2-75.2); MEAN CORPUSCULAR HGB 27.9 PG (27.0-31.0); MEAN CORPUSCULAR HGB CONC 31.6 G/DL (33.0-37.0); MEAN CORPUSCULAR VOLUME 88.1 FL (81.0-99.0); MEAN PLATELET VOLUME 8.9 FL (7.4-10.4); PLATELET COUNT 323 /CUMM (130-400); RBC DISTRIBUTION WIDTH 18.1 % (11.5-14.5); RED BLOOD CELL CT 3.07 /CUMM (4.20-5.40); WHITE BLOOD CELL COUNT 12.3 /CUMM (4.8-10.8)
--- NOTE | 2017-05-25 07:41 | PN- Resident CRCU ---
Subjective HPI/CRCU Issues: Patient is an 81-year-old female BIBA from [facility] secondary to altered mental status and shortness of breath. Past medical history- COPD on 4 liters of oxygen HFpEF( EF 40%) Hypertension Hyperlipidemia Multifocal atrial tachycardia Hx of C diff Osteoporosis 24 Hour Events: Vital signs -temperature 97.4, pulse 90, normal sinus rhythm, blood pressure 95/ 57, Ventilator settings -assist-control, tidal volume 500, FiO2 35%, PEEP 5, SPO2 97 %. Intake/output - 2780/3720 Objective Vital Signs & I&O Last 8 Hrs of Vitals and I&O: Intake & Output 05/25 1600 Intake Total 869 Output Total 750 Balance 119 Intake, IV 365 Intake, Other 140 Intake, Tube 364 Feeding Output, Urine 750 Exam General Appearance: sedated, intubated Neck: supple Cardiovascular: regular rate/rhythm Gastrointestinal: soft, non-tender, no organomegaly Extremities: swelling, pulses are not palpable Weaning Parameters VC: 520 Current Medications: Current Medications Sig/Shobha Start time Last Medication Dose Route Stop Time Status Admin Acetaminophen 650 MG Q8P PRN 05/20 1030 AC PO Albuterol Sulfate 3 ML EVERY 4 HRS/AWAKE 05/20 1200 AC 05/25 INH 1610 Aspirin 81 MG DAILY 05/21 1000 AC 05/25 PO 1009 Atorvastatin Calcium 40 MG DAILY@1700 05/20 1915 AC 05/24 PO 1709 Azithromycin 500 MG DAILY 05/24 1011 AC 05/25 Dextrose/Water 250 ML IV 0910 Bisacodyl 5 MG DAILY 05/23 1900 AC PO Budesonide/ 2 PUF BID 05/20 1043 AC 05/23 Formoterol Fumarate INH 2209 Ceftriaxone Sodium 1,000 MG DAILY 05/24 1012 AC 05/25 IV 0910 Fentanyl Citrate 1,000 MCG Q24H 05/25 1030 AC 05/25 Dextrose/Water 250 ML IV 1145 Fentanyl Citrate 25 MCG ONCE ONE 05/25 0330 DC 05/25 IV 05/25 0331 0328 Fentanyl Citrate 25 MCG ONCE ONE 05/24 2345 DC 05/24 IV 05/24 2346 2350 Fentanyl Citrate 25 MCG Q4 HRS NEEDED PRN 05/22 1030 AC 05/25 IV 1025 Furosemide 20 MG Q8 05/23 2000 AC 05/25 IV 1435 Heparin Sodium 5,000 UNIT Q8 05/21 0100 AC 05/25 (Porcine) SC 1435 Insulin Human Regular 4 UNITS .STK-MED ONE 05/25 0509 DC IV 05/25 0510 Insulin Human Regular 4 UNITS .STK-MED ONE 05/24 2336 DC IV 05/24 2337 Insulin Human Regular 6 UNITS .STK-MED ONE 05/24 1805 DC IV 05/24 1806 Insulin Human Regular 0 Q6 05/20 1800 AC 05/25 SC 1147 Ipratropium [place] 2.5 ML EVERY 4 HRS/AWAKE 05/20 1200 AC 05/25 INH 1610 Lorazepam 50 MG Q24H 05/25 0500 AC 05/25 Sodium Chloride 500 ML IV 1147 Lorazepam 50 MG Q24H 05/22 1800 DC 05/23 Sodium Chloride 500 ML IV 05/25 0459 1500 Methylprednisolone 40 MG DAILY 05/25 1000 AC 05/25 IV 0859 Nystatin 1 DANG BID PRN 05/24 1100 AC 05/25 TOP 0903 Oseltamivir Phosphate 75 MG BID 05/22 1045 AC 05/25 PO 05/26 1044 1009 Pantoprazole Sodium 40 MG DAILY 05/20 1630 AC 05/25 IV 0902 Polyethylene Glycol 17 GM DAILY 05/23 1900 AC PO Potassium Chloride 60 MEQ ONCE ONE 05/24 2030 DC 05/24 PO 05/24 203 2034 Senna/Docusate Sodium 1 TAB AT BEDTIME 05/20 2200 AC 05/22 PO 2156 Tramadol HCl 50 MG Q6P PRN 05/20 1100 AC 05/23 PO 2104 Vancomycin HCl 1,000 MG Q24H 05/21 0700 AC 05/25 Dextrose/Water 250 ML IV 0605 Impression/Plan Impression/Problem List Impression: Current diagnosis- Hypercarbic respiratory failure due to acute exacerbation of COPD secondary to multiple lobar pneumonia status post intubation due to increased work of breathing * Follow-up urine for strep and legionella were negative and blood culture did not show any growth of bacteria. Surveillance culture from nasopharynx grew MRSA , but lower respiratory tract culture grew the yeast. * Discussed with family no escalation of treatment. * Continue Azithromycin for total 5 days(05/24/2017 -05/29/2017) * Continue Ceftriaxone (05/24/2017 -05/31/2017)and Vancomycing (05/21/2017 -)for total 7 days * We will continue inj methylprednisolone 40 mgs daily * LRTC is growing Yeast, will follow and consider Fluconazol if needed - She started having leucocytosis. HFpEF (<30%) - * We will continue lasix 20mg IV every 8 hrly. Hold if patient had hypotension, low CVP Type II [place] * Continue aspirin and statin Type 2 diabetes * Blood sugar check every 6 hourly. * NovoLog according to the sliding scale Diet -Tube Feeding as per dietitian DVT prophylaxis -ALP S/heparin CODE STATUS-DNR/DNI Problem List: 1. Pneumonia 2. COPD (chronic obstructive pulmonary disease) 3. Multifocal atrial tachycardia 4. Diastolic heart failure 5. Hypertension Pain Ratin Pain Location: n/a Tomorrow's Labs & Rationales: CBC and ICU bundle for f/u Plan DVT/Prophylaxis: pharmacological
[2017-05-25 08:00] VITALS: BP 110/70
--- NOTE | 2017-05-25 11:00 | PN- CRCU ---
Subjective HPI/Critical Care Issues: Doing poorly Failed a weaning trial Family meeting held Objective Current Medications: Current Medications Sig/Shobha Start time Last Medication Dose Route Stop Time Status Admin Acetaminophen 650 MG Q8P PRN 05/20 1030 AC PO Albuterol Sulfate 3 ML EVERY 4 HRS/AWAKE 05/20 1200 AC 05/25 INH 0803 Aspirin 81 MG DAILY 05/21 1000 AC 05/25 PO 1009 Atorvastatin Calcium 40 MG DAILY@1700 05/20 1915 AC 05/24 PO 1709 Azithromycin 500 MG DAILY 05/24 1011 AC 05/25 Dextrose/Water 250 ML IV 0910 Bisacodyl 5 MG DAILY 05/23 1900 AC PO Budesonide/ 2 PUF BID 05/20 1043 AC 05/23 Formoterol Fumarate INH 2209 Ceftriaxone Sodium 1,000 MG DAILY 05/24 1012 AC 05/25 IV 0910 Fentanyl Citrate 1,000 MCG Q24H 05/25 1030 AC Dextrose/Water 250 ML IV Fentanyl Citrate 25 MCG ONCE ONE 05/25 0330 DC 05/25 IV 05/25 0331 0328 Fentanyl Citrate 25 MCG ONCE ONE 05/24 2345 DC 05/24 IV 05/24 2346 2350 Fentanyl Citrate 25 MCG ONCE ONE 05/24 1700 DC 05/24 IV 05/24 1701 1701 Fentanyl Citrate 25 MCG Q4 HRS NEEDED PRN 05/22 1030 AC 05/25 IV 1025 Furosemide 20 MG Q8 05/23 2000 AC 05/25 IV 0513 Heparin Sodium 5,000 UNIT Q8 05/21 0100 AC 05/25 (Porcine) SC 0514 Insulin Human Regular 4 UNITS .STK-MED ONE 05/24 2336 DC IV 05/24 2337 Insulin Human Regular 6 UNITS .STK-MED ONE 05/24 1805 DC IV 05/24 1806 Insulin Human Regular 2 UNITS .STK-MED ONE 05/24 1239 DC IV 05/24 1240 Insulin Human Regular 2 UNITS .STK-MED ONE 05/24 1234 DC IV 05/24 1235 Insulin Human Regular 0 Q6 05/20 1800 AC 05/25 SC 0514 Ipratropium [place] 2.5 ML EVERY 4 HRS/AWAKE 05/20 1200 AC 05/25 INH 0803 Lorazepam 50 MG Q24H 05/25 0500 AC Sodium Chloride 500 ML IV Lorazepam 50 MG Q24H 05/22 1800 DC 05/23 Sodium Chloride 500 ML IV 05/25 0459 1500 Methylprednisolone 40 MG DAILY 05/25 1000 AC 05/25 IV 0859 Methylprednisolone 60 MG DAILY 05/23 1000 DC 05/24 IV 0851 Nystatin 1 DANG BID PRN 05/24 1100 AC 05/25 TOP 0903 Oseltamivir Phosphate 75 MG BID 05/22 1045 AC 05/25 PO 05/26 1044 1009 Pantoprazole Sodium 40 MG DAILY 05/20 1630 AC 05/25 IV 0902 Polyethylene Glycol 17 GM DAILY 05/23 1900 PO Potassium Chloride 60 MEQ ONCE ONE 05/24 2030 DC 05/24 PO 05/24 Senna/Docusate Sodium 1 TAB AT BEDTIME 05/20 2200 AC 05/22 PO 2156 Tramadol HCl 50 MG Q6P PRN 05/20 1100 AC 05/23 PO 2104 Vancomycin HCl 1,000 MG Q24H 05/21 0700 AC 05/25 Dextrose/Water 250 ML IV 0605 Vital Signs & I&O Last 24 Hrs of Vitals and I&O: Vital Signs Date Time Temp Pulse Resp B/P B/P Pulse O2 O2 Flow FiO2 Mean Ox Delivery Rate 05/25 0800 96.8 108 22 110/70 97 Ventilator 35% 05/25 0800 97 Ventilator 35% 05/25 0752 35 05/25 0550 35 05/25 0400 96 Ventilator 35% 05/25 0341 35 05/25 0100 35 05/25 0000 96 Ventilator 35% 05/25 0000 97.7 76 19 117/62 96 Ventilator 35% 05/24 2223 35 05/24 2000 96 Ventilator 35% 05/24 1902 35 05/24 1652 35 05/24 1600 98.2 96 20 100/60 96 Room Air 05/24 1600 96 Ventilator 35% 05/24 1417 35 05/24 1200 95 Ventilator 35% 05/24 1149 35 Intake & Output 05/25 1600 05/25 0800 05/25 0000 Intake Total 695.1 700 Output Total 1050 1030 Balance -354.9 -330 Intake, IV 70.1 80 Intake, Oral 0 0 Intake, Tube 465 360 Feeding Intake, Tube 160 260 Irrigant Number 1 1 Bowel Movements Output, Urine 1050 1030 Impression/Plan Impression/Plan Impression/Plan: Physical Exam: Well-developed, obese elderly female who is intubated and sedated. Vital signs: See above. Neck: No JVD. Lungs: Clear to auscultation anteriorly, mild wheezing and crackles Heart: S1, S2 with soft systolic murmur. Abdomen: Soft, nontender, positive bowel sounds. Extremities: Sig edema. 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 SPutum now shows gram positive cocci * Systolic heart disease with hypotension initially with mildly elevated troponin * Previous cdiff and vre positive * Previous history of hypertension hyperlipidemia, ischemic heart with severe ihd with ef 30 percent * Significant osteoporosis with recent worsening performance status * Sig anxiety disorder REC COnt vent Fentanyl low dose drip and low dose ativan and reduce the drip and use prn if needed Tamiflu for five days Rpt sputum culture FIve days of azithro, cont vanco and ceftriaxone (total abx of 7 days) Reduce steroids to 40 mg daily IV lasix 20 mg q 8 hrs with potassium replacement Replace mag if less than 2 and give neutraphos one packet daily Check cvp and keep it above 6 and if below 6 can hold lasix Cont asa, ppi, Heparin sub cut Discussed with the and son over the tele yesterday Discussed with today in person and he wishes to continue present care but if she does poorly he wishes no further escalation of care like dialysis etc , pt is dnr WIll try cpap trial again later today TTS 45mins pt is critically ill
[2017-05-25 18:00] VITALS: BP 106/66
--- NOTE | 2017-05-25 18:46 | PN- Cardiology ---
Subjective Subjective: The patient remains intubated and sedated. Blood pressure is stable off pressors. No further arrhythmias are seen. Objective Vital Signs and I&Os Vital Signs Date Time Temp Pulse Resp B/P B/P Pulse O2 O2 Flow FiO2 Mean Ox Delivery Rate 05/25 1610 35 05/25 1418 35 05/25 1200 96 Ventilator 35% 05/25 1102 35 05/25 0800 96.8 108 22 110/70 97 Ventilator 35% 05/25 0800 97 Ventilator 35% 05/25 0752 35 05/25 0550 35 05/25 0400 96 Ventilator 35% 05/25 0341 35 05/25 0100 35 05/25 0000 96 Ventilator 35% 05/25 0000 97.7 76 19 117/62 96 Ventilator 35% 05/24 2223 35 05/24 2000 96 Ventilator 35% 05/24 1902 35 Intake & Output 05/25 1600 05/25 0800 05/25 0000 05/24 1600 05/24 0800 05/24 0000 Intake Total 869 695.1 700 1100 681 709 Output Total 750 1050 1030 1600 1000 750 Balance 119 -354.9 -330 -500 -319 -41 Intake, IV 365 70.1 80 630 101 76 Intake, Oral 0 0 Intake, Other 140 Intake, Tube 364 465 360 290 420 383 Feeding Intake, Tube 160 260 180 160 250 Irrigant Number 1 1 2 0 1 Bowel Movements Output, Urine 750 1050 1030 1600 1000 750 Patient 146 lb Weight Weight Bed scale Measurement Method Physical Exam: Gen: She is intubated, and awake on the ventilator HEENT: Normal nose, ears, and oropharynx. Pupils equal bilaterally. Conjunctiva normal. Neck: Supple with no JVD, no masses, and no thyromegaly Lungs: Clear to auscultation anteriorly with normal respiratory effort on the ventilator Heart: RRR, S1, S2, 1/6 systolic murmur. 1+ peripheral edema, 1+ pulses in the lower extremities bilaterally Abdomen: Soft, nontender, no masses. No hepatomegaly. No splenomegaly Extremities: No clubbing or cyanosis. Normal muscle strength in the upper and lower extremities Skin: Normal skin turgor with no skin ulcers or lesions Current Medications: Current Medications Sig/Shobha Start time Last Medication Dose Route Stop Time Status Admin Acetaminophen 650 MG Q8P PRN 05/20 1030 AC PO Albuterol Sulfate 3 ML EVERY 4 HRS/AWAKE 05/20 1200 AC 05/25 INH 1610 Aspirin 81 MG DAILY 05/21 1000 AC 05/25 PO 1009 Atorvastatin Calcium 40 MG DAILY@1700 05/20 1915 AC 05/24 PO 1709 Azithromycin 500 MG DAILY 05/24 1011 AC 05/25 Dextrose/Water 250 ML IV 0910 Bisacodyl 5 MG DAILY 05/23 1900 AC PO Budesonide/ 2 PUF BID 05/20 1043 AC 05/23 Formoterol Fumarate INH 2209 Ceftriaxone Sodium 1,000 MG DAILY 05/24 1012 AC 05/25 IV 05/30 1001 0910 Fentanyl Citrate 1,000 MCG Q24H 05/25 1030 AC 05/25 Dextrose/Water 250 ML IV 1145 Fentanyl Citrate 25 MCG ONCE ONE 05/25 0330 DC 05/25 IV 05/25 0331 0328 Fentanyl Citrate 25 MCG ONCE ONE 05/24 2345 DC 05/24 IV 05/24 2346 2350 Fentanyl Citrate 25 MCG Q4 HRS NEEDED PRN 05/22 1030 05/25 IV 1025 Furosemide 20 MG Q8 05/23 2000 05/25 IV 1435 Heparin Sodium 5,000 UNIT Q8 05/21 0100 AC 05/25 (Porcine) SC 1435 Insulin Human Regular 4 UNITS .STK-MED ONE 05/25 0509 DC IV 05/25 0510 Insulin Human Regular 4 UNITS .STK-MED ONE 05/24 2336 DC IV 05/24 2337 Insulin Human Regular 0 Q6 05/20 1800 05/25 SC 1147 Ipratropium [place] 2.5 ML EVERY 4 HRS/AWAKE 05/20 1200 AC 05/25 INH 1610 Lorazepam 50 MG Q24H 05/25 0500 AC 05/25 Sodium Chloride 500 ML IV 1147 Lorazepam 50 MG Q24H 05/22 1800 DC 05/23 Sodium Chloride 500 ML IV 05/25 0459 1500 Methylprednisolone 40 MG DAILY 05/25 1000 AC 05/25 IV 0859 Nystatin 1 DANG BID PRN 05/24 1100 AC 05/25 TOP 0903 Oseltamivir Phosphate 75 MG BID 05/22 1045 AC 05/25 PO 05/26 2201 1009 Pantoprazole Sodium 40 MG DAILY 05/20 1630 AC 05/25 IV 0902 Polyethylene Glycol 17 GM DAILY 05/23 1900 AC PO Potassium Chloride 60 MEQ ONCE ONE 05/24 2029 DC 05/24 PO 05/24 Senna/Docusate Sodium 1 TAB AT BEDTIME 05/200 AC 05/22 PO 215 Tramadol HCl 50 MG Q6P PRN 05/20 1100 AC 05/23 PO 2104 Vancomycin HCl 1,000 MG Q24H 05/21 0700 AC 05/25 Dextrose/Water 250 ML IV 05/27 0759 0668 Results Last 48 Hrs of Labs/Mics: Laboratory Tests 05/25/17 0338: Anion Gap 9, Estimated GFR > 60, Glucose 209 H, Calcium 8.4, Phosphorus 2.6, Magnesium 1.9, Total Bilirubin < 0.1 L, AST 24, ALT 56 H, Albumin 2.6 L, CBC w Diff NO MAN DIFF REQ, RBC 3.07 L, MCV 88.1, MCH 27.9, MCHC 31.6 L, RDW 18.1 H, MPV 8.9, Gran % 79.5 H, Lymphocytes % 15.1 L, Monocytes % 5.3, Eosinophils % 0.1, Basophils % 0, Absolute Granulocytes 9.7 H, Absolute Lymphocytes 1.9, Absolute Monocytes 0.7 H, Absolute Eosinophils 0, Absolute Basophils 0 05/24/17 1920: Anion Gap 12, Estimated GFR > 60, BUN/Creatinine Ratio 26.0 H, Magnesium 1.8 05/24/17 1600: [id number]-I-[id number] Pept Cancelled 05/24/17 0515: Anion Gap 8, Estimated GFR > 60, Glucose 229 H, Calcium 8.0 L, Phosphorus 3.0, Magnesium 1.8, Total Bilirubin < 0.1 L, AST 20, ALT 50, Albumin 2.4 L, CBC w Diff NO MAN DIFF REQ, RBC 3.06 L, MCV 87.6, MCH 26.9 L, RDW 19.0 H, MPV 8.3, Gran % 78.0 H, Lymphocytes % 16.4 L, Monocytes % 5.3, Eosinophils % 0, Basophils % 0.3, Absolute Granulocytes 6.4, Absolute Lymphocytes 1.3, Absolute Monocytes 0.4, Absolute Eosinophils 0, Absolute Basophils 0, PUBS MCHC 30.7 L 05/23/170: Anion Gap 10, Estimated GFR > 60, BUN/Creatinine Ratio 26.0 H Assessment/Plan Assessment/Plan Assessment: 1. Severe COPD 2. History of multifocal atrial tachycardia 3. Diabetes mellitus 4. Hypertension 5. Acute exacerbation of COPD with influenza and bilateral pneumonia 6. Mild troponin elevation likely secondary to type II [place] 7. Recurrent left ventricular systolic dysfunction. Current ejection fraction 30% compared to 60% in June 2016. 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 Yes
[2017-05-26] VITALS: BP 100/50
[2017-05-26 04:50] LABS: ABSOLUTE BASOPHIL COUNT 0 /CUMM (0.0-0.2); ABSOLUTE EOSINOPHIL COUNT 0 /CUMM (0.0-0.7); ABSOLUTE GRANULOCYTE CT 11.7 /CUMM (1.4-6.5); ABSOLUTE LYMPH COUNT 2.5 /CUMM (1.2-3.4); ABSOLUTE MONOCYTE COUNT 0.6 /CUMM (0.10-0.60); BASOPHIL % 0.2 % (0.0-2.0); EOSINOPHIL % 0.3 % (0-5); GRANULOCYTE % 79.2 % (42.2-75.2)
[2017-05-26 05:20] LABS: HEMATOCRIT 26.1 % (37-47); MEAN CORPUSCULAR HGB 27.9 PG (27.0-31.0); MEAN CORPUSCULAR VOLUME 87.3 FL (81.0-99.0); MEAN PLATELET VOLUME 8.6 FL (7.4-10.4); RBC DISTRIBUTION WIDTH 18.8 % (11.5-14.5); RED BLOOD CELL CT 2.99 /CUMM (4.20-5.40); WHITE BLOOD CELL COUNT 14.9 /CUMM (4.8-10.8)
[2017-05-26 05:50] LABS: PLATELET COUNT 329 /CUMM (130-400)
--- NOTE | 2017-05-26 06:02 | PN- Resident CRCU ---
Subjective HPI/CRCU Issues: 1. Hypercarbic respiratory failure inubtated, likely secondary to pneumonia. She failed weaning trial yesterday, and the plan is to extubate her today. Dr Sutton tried to contact the family, and have them around, but couldnt make any contact so far. 24 Hour Events: T-max 98 HR 82-104 NSR SBP 82-104 DBP 51-71 SAS 3-4, arousable to verbal stimuli; currently on Fentanyl and Ativan drip at a low dose Vent settings: Volume AC- TV 500, RR 20, FiO2 35%, PEEP 5, 95% Ox sat. PIP 36, plateau 24. Intake: 2419 ml, Output 2380ml in the last 24 hrs. Overall [id number], Output [id number]. Objective Vital Signs & I&O Last 8 Hrs of Vitals and I&O: - Exam General Appearance: no apparent distress, intubated Head: atraumatic Ears, Nose, Throat: hearing grossly normal Neck: supple Respiratory: decreased breath sounds, rhonchi Cardiovascular: regular rate/rhythm, edema, normal peripheral pulses Gastrointestinal: normal bowel sounds Extremities: pedal edema Cranial Nerves: PERRL Skin: intact, ecchymosis Skin Temp/Moisture Exam: Warm/Dry Back: normal inspection Sepsis Peripheral Pulse Location: Dorsalis Pedis Weaning Parameters VC: 520 NIF: 24 Minute Volume: 4.47 Resp rate: 22 Vt: 188 Heart Rate: 100 Current Medications: Current Medications Sig/Shobha Start time Last Medication Dose Route Stop Time Status Admin Acetaminophen 650 MG Q8P PRN 05/20 1030 DC PO Albuterol Sulfate 3 ML EVERY 4 HRS/AWAKE 05/20 1200 DC 05/29 INH 0850 Aspirin 81 MG DAILY 05/21 1000 DC 05/29 PO 0908 Atorvastatin Calcium 40 MG DAILY@1700 05/20 1915 DC 05/28 PO 1709 Bisacodyl 5 MG DAILY 05/23 1900 DC 05/27 PO 0950 Ceftriaxone Sodium 1,000 MG DAILY 05/24 1012 DC 05/28 IV 05/30 1001 0954 Fentanyl Citrate 1,000 MCG Q7H 05/29 0900 DC Dextrose/Water 250 ML IV Fentanyl Citrate 1,000 MCG Q10H 05/28 0300 DC 05/29 Dextrose/Water 250 ML IV 0058 Furosemide 20 MG BID 05/26 2200 DC 05/29 IV 0942 Heparin Sodium 5,000 UNIT Q8 05/21 0100 DC 05/29 (Porcine) SC 0555 Insulin Human Regular 0 Q6 05/20 1800 DC 05/29 SC 0553 Ipratropium [place] 2.5 ML EVERY 4 HRS/AWAKE 05/20 1200 DC 05/29 INH 0850 Lorazepam 1 MG Q1 NEEDED PRN 05/29 1130 AC 05/29 IV 2013 Lorazepam 100 MG Q16H 05/28 0900 DC 05/29 Sodium Chloride 1,000 ML IV 0058 Morphine Sulfate 2 MG Q1 NEEDED PRN 05/29 1130 AC 05/29 IV 2014 Nystatin 1 DANG BID PRN 05/24 1100 DC 05/25 TOP 0903 Pantoprazole Sodium 40 MG DAILY 05/20 1630 DC 05/29 IV 0942 Polyethylene Glycol 17 GM DAILY 05/23 1900 DC 05/27 PO 0949 Prednisone 20 MG DAILY 05/30 1000 AC PO 05/30 1001 Prednisone 10 MG DAILY 05/30 1000 AC PO 06/08 0959 Prednisone 20 MG DAILY 05/27 1000 DC 05/29 PO 06/09 0959 0908 Scopolamine HBr 1 PAT Q72H 05/29 1130 AC 05/29 TOP 1238 Senna/Docusate Sodium 1 TAB AT BEDTIME 05/20 2200 DC 05/27 PO 2143 Tramadol HCl 50 MG Q6P PRN 05/20 1100 DC 05/23 PO 2104 Impression/Plan Impression/Problem List Impression: Mr Castillo has a PMHx of COPD (on 4L oxygen), HFpEF( EF 440%), HTN, HLD, previous Influeza 09/14, osteoporosis came was brought in from [facility] with a chief concern of acute dyspnea, and altered mentation likely secondary to acute hypercarbic respiratory failure from multi-lobar pneumonia likely secondary to HCAP or viral. At the time of admission, vitals temp 100.9, HR 141, RR 32, BP 149/65, Pulse ox 90s on 40% BiPAP. EKG: First EKG, sinus tachy No STTW changes, succeeding EKGs revealed t wave inversions in ant-lateral lateral leads. Pertinent lab findings: WBC 24.1-->12.5-->11.4-->7.2(05/22)-->8.5(05/23)-->8.2(05/24)-->14.9(05/26) Hb 10.7(baseline 10.0)-->8.0-->7.9(05/22)-->8.5(05/23)-->8.2(05/24)-->8.3(05/26) Platelets 703 (likely reactive)-->421 Na 144, K 4.1 Bicarb 41-->27 Sr cr 0.5, BUN 18-->13 Troponin 0.11-->0.23-->0.30-->0.23 ABG 7.23, PCO2 99, pO2 65--> pH 7.45,PCO2 40, pO2 95( 05/22) D- dimer 857. INR 1.06. Lactate 2.0-->3.7-->2.2-->1.3 Mg 1.6-->2.5 Strep pneumo, legionella ag urine- neg CXR 05/20 revealed bilateral patchy pulmonary opacities consistent with multifocal pneumonia. CXR 05/22 revealed improving bilateral patchy pulmonary opacities. CTA 05/21 revealed no evidence of pulmonary embolism. CXR 05/26 - Nonspecific airspace disease is noted at left lung apex, unchanged. There is no radiographic evidence of pulmonary venous congestion/CHF present. Echocardiogram: 2015- revealed left ventricular ejection fraction is estimated at 40%. Global hypokinesis. 2016- Diastolic filling pattern is consistent with impaired LV relaxation. The ejection fraction is visually estimated at 60%. 05/22/16- Severely decreased left ventricular systolic function. Left ventricular ejection fraction is estimated at 30-35%. Etiology in her case is clearly due to sepsis from multifocal pneumonia, likely leading to an acute decompensation in her respiratory status. Since she has COPD , that might have caused an acute exacerbation of COPD that worsened her chronic hypercabia leading to hypoxia. She was put on BiPAP for correcting acidemia and hypercarbia, but there was no improvement in either her respiratory status and/ or hypercarbia, although her mentation improved remarkably which indicates a chronic hypercarbic process that was worsened due to an acute illness, which is pneumonia in her case. In regards to her elevated troponin, and new EKG changes it was likely due to demand, which is type 2 [place] which explains this change; but new EKG changes could be explained by her increased demand from tachycardia, and hypotension. Although , she doesnt have any remarkable cardiac history, she has several risk factors including 80 pk yr h/o smoking. Recommendations: Respiratory: 1. Acute hypercarbic respiratory failure: Likely due to AECOPD, and multilobar pneumonia which appears as due to HCAP or viral cause. She was initally started on ceftaz, vanc and later transitioned to azithro, vanc and ceftriaxone. [facility] did not grow any MRSA, or pneumo, however she had a growth of yeast which could be nonspecific in her case. Continue vanc, ceftriaxone for now. - For AECOPD, tranistion to po prednisone. - DC abx in the am. - Weaning trial today. - Unfortunately, the team couldnt contact the family who initially planned to be around when she was extubated; would contact them again to make sure that she would be extubated in the am. Infectious: - Likely sepsis, and required pressure support briefly - Monitor CBC in the am. - Tamiflu was added this am for emperic coverage of a viral pneumonia, as per Dr Sutton. LRC cultures negative for any bacterial growth so far. Circulatory: - Type 2 [place], but by definition can call it NSTEMI. - ASA was given, and was started on a statin. - As per Cardiology, was started on cardizem that was dc'ed. - Considering her positive fluid balance, iv lasix 20mg q12h. Holding parameters CVP < 6. Metabolic - Accuechecks. - Novolin R q6h. Adjust accordingly. Neurology Continue ativan drip. Would wean her off, as she tolerated. Mary pushes prn. Housekeeping: DVT PPx- heparin sc. GI PPx- Protonix Diet- tube feeds. Full code. Problem List: 1. Pneumonia 2. Sepsis 3. Influenza 4. COPD (chronic obstructive pulmonary disease) Pain Ratin (unable to assess) Tomorrow's Labs & Rationales: cbc icu bundle Plan DVT/Prophylaxis: pharmacological
[2017-05-26 08:00] VITALS: BP 1120/0
--- NOTE | 2017-05-26 09:28 | RADIOLOGY REPORT ---
EXAMINATION: XR PORTABLE CHEST CLINICAL INFORMATION: Intubation. COMPARISON: Chest done on 05/24/2017. TECHNIQUE: Portable frontal view of the chest was obtained. FINDINGS: The tip of the endotracheal tube is located approximately 4.7 cm above the level of the oliver. The tip of the enteric tube is below the level of the diaphragm however, is not included within the [id number]. The left IJ central line tip is projecting at the cavoatrial junction, unchanged. Nonspecific airspace disease is noted at left lung apex, unchanged. There is no radiographic evidence of pulmonary venous congestion/CHF present. There is no radiographic evidence of any pleural effusion present, unchanged. IMPRESSION: Stable appearance of the chest since 05/24/2017.
--- NOTE | 2017-05-26 09:43 | PN- CRCU ---
Subjective HPI/Critical Care Issues: No new sig events Still restless Awake on low dose fentanyl and ativan Objective Current Medications: Current Medications Sig/Shobha Start time Last Medication Dose Route Stop Time Status Admin Acetaminophen 650 MG Q8P PRN 05/20 1030 AC PO Albuterol Sulfate 3 ML EVERY 4 HRS/AWAKE 05/20 1200 AC 05/26 INH 0826 Aspirin 81 MG DAILY 05/21 1000 AC 05/26 PO 0902 Atorvastatin Calcium 40 MG DAILY@1700 05/20 1915 AC 05/25 PO 1959 Azithromycin 500 MG DAILY 05/24 1011 AC 05/25 Dextrose/Water 250 ML IV 0910 Bisacodyl 5 MG DAILY 05/23 1900 AC PO Budesonide/ 2 PUF BID 05/20 1043 AC 05/25 Formoterol Fumarate INH 2218 Ceftriaxone Sodium 1,000 MG DAILY 05/24 1012 AC 05/26 IV 05/30 1001 0902 Fentanyl Citrate 1,000 MCG Q20H 05/26 0400 AC 05/26 Dextrose/Water 250 ML IV 0904 Fentanyl Citrate 1,000 MCG Q24H 05/25 1030 DC 05/25 Dextrose/Water 250 ML IV 05/26 0359 1145 Fentanyl Citrate 25 MCG Q4 HRS NEEDED PRN 05/22 1030 DC 05/25 IV 1025 Furosemide 20 MG Q8 05/23 2000 AC 05/26 IV 0633 Heparin Sodium 5,000 UNIT Q8 05/21 0100 AC 05/26 (Porcine) SC 0633 Insulin Human Regular 2 UNITS .STK-MED ONE 05/25 2348 DC IV 05/25 2349 Insulin Human Regular 1 UNITS .STK-MED ONE 05/25 1958 DC IV 05/25 195 Insulin Human Regular 2 UNITS .STK-MED ONE 05/25 1146 DC IV 05/25 1147 Insulin Human Regular 0 Q6 05/20 1800 AC 05/25 SC 2353 Ipratropium [place] 2.5 ML EVERY 4 HRS/AWAKE 05/20 1200 AC 05/26 INH 0826 Lorazepam 50 MG Q24H 05/25 0500 AC 05/25 Sodium Chloride 500 ML IV 1147 Methylprednisolone 40 MG DAILY 05/25 1000 AC 05/26 IV 0902 Nystatin 1 DANG BID PRN 05/24 1100 AC 05/25 TOP 0903 Oseltamivir Phosphate 75 MG BID 05/22 1045 AC 05/26 PO 05/26 2201 0902 Pantoprazole Sodium 40 MG DAILY 05/20 1630 AC 05/26 IV 0902 Phosphate 250 MG DAILY AC 05/27 0700 AC PO Polyethylene Glycol 17 GM DAILY 05/23 1900 AC PO Potassium Chloride 60 MEQ ONCE ONE 05/26 0630 DC 05/26 PO 05/26 0631 0640 Senna/Docusate Sodium 1 TAB AT BEDTIME 05/20 2200 AC 05/22 PO 2156 Tramadol HCl 50 MG Q6P PRN 05/20 1100 AC 05/23 PO 2104 Vancomycin HCl 1,000 MG Q24H 05/21 0700 AC 05/26 Dextrose/Water 250 ML IV 05/27 0759 0650 Vital Signs & I&O Last 24 Hrs of Vitals and I&O: Vital Signs Date Time Temp Pulse Resp B/P B/P Pulse O2 O2 Flow FiO2 Mean Ox Delivery Rate 05/26 0831 35 05/26 0800 84.0 84 20 1120/0 96 Ventilator 35% 05/26 0800 96 Ventilator 35% 05/26 0540 35 05/26 0400 94 Ventilator 35% 05/26 0249 35 05/26 0000 96 Ventilator 35% 05/26 0000 97.8 86 20 100/50 96 Ventilator 30% 05/25 2224 35 05/25 2000 96 Ventilator 35% 05/25 1929 35 05/25 1800 97.0 83 20 106/66 94 Ventilator 35% 05/25 1610 35 05/25 1600 94 Ventilator 35% 05/25 1418 35 05/25 1200 96 Ventilator 35% 05/25 1102 35 Intake & Output 05/26 1600 05/26 0800 05/26 0000 Intake Total 790 760 Output Total 680 950 Balance 110 -190 Intake, IV 230 200 Intake, Tube 400 400 Feeding Intake, Tube 160 160 Irrigant Number 1 Bowel Movements Output, Urine 680 950 Patient 145 lb Weight Impression/Plan Impression/Plan Impression/Plan: Physical Exam: Well-developed, obese elderly female who is intubated and sedated. Vital signs: See above. Neck: No JVD. Lungs: Clear to auscultation anteriorly, mild wheezing and crackles Heart: S1, S2 with soft systolic murmur. Abdomen: Soft, nontender, positive bowel sounds. Extremities: Sig edema. 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 SPutum now shows gram positive cocci * Systolic heart disease with hypotension initially with mildly elevated troponin * Previous cdiff and vre positive * Previous history of hypertension hyperlipidemia, ischemic heart with severe ihd with ef 30 percent * Significant osteoporosis with recent worsening performance status * Sig anxiety disorder REC COnt vent, Will try to have a meeting again Fentanyl low dose drip and low dose ativan and reduce the drip and use prn if needed Tamiflu for five days and then dc DC azithro cont vanco and ceftriaxone (total abx of 7 days) Reduce steroids to 40 mg daily for 2 more days and then taper to 30 and 20 and 10 after and keep pt on 5 mg 40 meq kcl 3 doses and maintain potassium at 4 and above Reduce lasix to 20 12 Cont asa, ppi, Heparin sub cut WIll try cpap trial again later today TTS 45mins pt is critically ill
--- NOTE | 2017-05-26 12:01 | PN- Cardiology ---
Subjective Subjective: The patient remains intubated and sedated. No obvious new cardiac issues Objective Vital Signs and I&Os Vital Signs Date Time Temp Pulse Resp B/P B/P Pulse O2 O2 Flow FiO2 Mean Ox Delivery Rate 05/26 1133 35 05/26 0831 35 05/26 0800 84.0 84 20 1120/0 96 Ventilator 35% 05/26 0800 96 Ventilator 35% 05/26 0540 35 05/26 0400 94 Ventilator 35% 05/26 0249 35 05/26 0000 96 Ventilator 35% 05/26 0000 97.8 86 20 100/50 96 Ventilator 30% 05/25 2224 35 05/25 2000 96 Ventilator 35% 05/25 1929 35 05/25 1800 97.0 83 20 106/66 94 Ventilator 35% 05/25 1610 35 05/25 1600 94 Ventilator 35% 05/25 1418 35 Intake & Output 05/26 1600 05/26 0800 05/26 0000 05/25 1600 05/25 0800 05/25 0000 Intake Total 790 760 869 695.1 700 Output Total 680 310 400 3759 1030 Balance 110 -190 119 -354.9 -330 Intake, IV 230 200 365 70.1 80 Intake, Oral 0 0 Intake, Other 140 Intake, Tube 400 400 364 465 360 Feeding Intake, Tube 160 160 160 260 Irrigant Number 1 1 1 Bowel Movements Output, Urine 680 050 597 7605 1030 Patient 145 lb Weight Current Medications: Current Medications Sig/Shobha Start time Last Medication Dose Route Stop Time Status Admin Acetaminophen 650 MG Q8P PRN 05/20 1030 AC PO Albuterol Sulfate 3 ML EVERY 4 HRS/AWAKE 05/20 1200 AC 05/26 INH 0826 Aspirin 81 MG DAILY 05/21 1000 AC 05/26 PO 0902 Atorvastatin Calcium 40 MG DAILY@1700 05/20 1915 AC 05/25 PO 1959 Azithromycin 500 MG DAILY 05/24 1011 DC 05/26 Dextrose/Water 250 ML IV 1020 Bisacodyl 5 MG DAILY 05/23 1900 AC PO Budesonide/ 2 PUF BID 05/20 1043 AC 05/25 Formoterol Fumarate INH 2218 Ceftriaxone Sodium 1,000 MG DAILY 05/24 1012 AC 05/26 IV 05/30 1001 0902 Fentanyl Citrate 1,000 MCG Q20H 05/26 0400 AC 05/26 Dextrose/Water 250 ML IV 0904 Fentanyl Citrate 1,000 MCG Q24H 05/25 1030 DC 05/25 Dextrose/Water 250 ML IV 05/26 0359 1145 Fentanyl Citrate 25 MCG Q4 HRS NEEDED PRN 05/22 1030 DC 05/25 IV 1025 Furosemide 20 MG BID 05/26 2200 AC IV Furosemide 20 MG Q8 05/23 2000 DC 05/26 IV 0633 Heparin Sodium 5,000 UNIT Q8 05/21 0100 AC 05/26 (Porcine) SC 0633 Insulin Human Regular 2 UNITS .STK-MED ONE 05/25 2348 DC IV 05/25 2349 Insulin Human Regular 1 UNITS .STK-MED ONE 05/25 1958 DC IV 05/25 195 Insulin Human Regular 0 Q6 05/20 1800 AC 05/25 SC 2353 Ipratropium [place] 2.5 ML EVERY 4 HRS/AWAKE 05/20 1200 AC 05/26 INH 0826 Lorazepam 50 MG Q24H 05/25 0500 AC 05/25 Sodium Chloride 500 ML IV 1147 Methylprednisolone 40 MG DAILY 05/25 1000 DC 05/26 IV 0902 Nystatin 1 DANG BID PRN 05/24 1100 AC 05/25 TOP 0903 Oseltamivir Phosphate 75 MG BID 05/22 1045 AC 05/26 PO 05/26 2201 0902 Pantoprazole Sodium 40 MG DAILY 05/20 1630 AC 05/26 IV 0902 Phosphate 250 MG DAILY AC 05/27 0700 CAN PO Polyethylene Glycol 17 GM DAILY 05/23 1900 AC PO Potassium Chloride 60 MEQ ONCE ONE 05/26 0630 DC 05/26 PO 05/26 0631 0640 Prednisone 30 MG DAILY 05/27 1000 UNVr PO 06/09 0959 Senna/Docusate Sodium 1 TAB AT BEDTIME 05/20 2200 AC 05/22 PO 2156 Tramadol HCl 50 MG Q6P PRN 05/20 1100 AC 05/23 PO 2104 Vancomycin HCl 1,000 MG Q24H 05/21 0700 AC 05/26 Dextrose/Water 250 ML IV 05/27 0759 0650 Results Last 48 Hrs of Labs/Mics: Laboratory Tests 05/26/17 1112: Sodium Cancelled, Potassium Cancelled, Chloride Cancelled, Carbon Dioxide Cancelled, Anion Gap Cancelled, BUN Cancelled, Creatinine Cancelled, BUN/ Creatinine Ratio Cancelled 05/26/17 0351: Anion Gap 12, Estimated GFR > 60, Glucose 106 H, Calcium 8.7, Phosphorus 3.5, Magnesium 1.9, Total Bilirubin 0.1 L, AST 21, ALT 44, Albumin 2.7 L, CBC w Diff NO MAN DIFF REQ, RBC 2.99 L, MCV 87.3, MCH 27.9, MCHC 32.0 L, RDW 18.8 H , MPV 8.6, Gran % 79.2 H, Lymphocytes % 16.6 L, Monocytes % 3.7, Eosinophils % 0.3, Basophils % 0.2, Absolute Granulocytes 11.7 H, Absolute Lymphocytes 2.5, Absolute Monocytes 0.6, Absolute Eosinophils 0, Absolute Basophils 0 05/25/17 0338: Anion Gap 9, Estimated GFR > 60, Glucose 209 H, Calcium 8.4, Phosphorus 2.6, Magnesium 1.9, Total Bilirubin < 0.1 L, AST 24, ALT 56 H, Albumin 2.6 L, CBC w Diff NO MAN DIFF REQ, RBC 3.07 L, MCV 88.1, MCH 27.9, MCHC 31.6 L, RDW 18.1 H, MPV 8.9, Gran % 79.5 H, Lymphocytes % 15.1 L, Monocytes % 5.3, Eosinophils % 0.1, Basophils % 0, Absolute Granulocytes 9.7 H, Absolute Lymphocytes 1.9, Absolute Monocytes 0.7 H, Absolute Eosinophils 0, Absolute Basophils 0 05/24/17 1920: Anion Gap 12, Estimated GFR > 60, BUN/Creatinine Ratio 26.0 H, Magnesium 1.8 05/24/17 1600: [id number]-[id number] Pept Cancelled Assessment/Plan Assessment/Plan Assessment: 1. Severe COPD 2. History of multifocal atrial tachycardia 3. Diabetes mellitus 4. Hypertension 5. Acute exacerbation of COPD with influenza and bilateral pneumonia 6. Mild troponin elevation likely secondary to type II [place] 7. Recurrent left ventricular systolic dysfunction. Current ejection fraction 30% compared to 60% in June 2016. 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 Yes
[2017-05-26 16:00] VITALS: BP 94/60
[2017-05-27] VITALS: BP 100/60
[2017-05-27 07:13] LABS: ABSOLUTE BASOPHIL COUNT 0 /CUMM (0.0-0.2); ABSOLUTE EOSINOPHIL COUNT 0.2 /CUMM (0.0-0.7); ABSOLUTE GRANULOCYTE CT 14.4 /CUMM (1.4-6.5); ABSOLUTE LYMPH COUNT 2.5 /CUMM (1.2-3.4); ABSOLUTE MONOCYTE COUNT 0.8 /CUMM (0.10-0.60); BASOPHIL % 0.2 % (0.0-2.0); EOSINOPHIL % 1.4 % (0-5); GRANULOCYTE % 80.1 % (42.2-75.2); MEAN CORPUSCULAR HGB 27.9 PG (27.0-31.0); MEAN CORPUSCULAR HGB CONC 31.6 G/DL (33.0-37.0); MEAN CORPUSCULAR VOLUME 88.5 FL (81.0-99.0); MEAN PLATELET VOLUME 8.9 FL (7.4-10.4); PLATELET COUNT 311 /CUMM (130-400); RBC DISTRIBUTION WIDTH 18.9 % (11.5-14.5); RED BLOOD CELL CT 2.94 /CUMM (4.20-5.40)
[2017-05-27 08:00] VITALS: BP 106/64
--- NOTE | 2017-05-27 09:30 | RADIOLOGY REPORT ---
EXAMINATION: XR PORTABLE CHEST CLINICAL INFORMATION: Check ET tube placement and fluid overload. COMPARISON: Previous chest x-rays, most recent from yesterday. TECHNIQUE: Portable frontal view of the chest was obtained. FINDINGS: The right lung apex is not included in the [id number]. There is an endotracheal tube with tip 3.2 cm above the oliver. There is a left central line with tip projecting over the SVC. The nasogastric tube is not well seen. There are increased central lung markings questionable for mild pulmonary venous redistribution. There are increased lung markings in both upper lobes that is stable. There is no pleural effusion or pneumothorax. There is a left shoulder replacement. IMPRESSION: Satisfactory position of endotracheal tube and left jugular line. Nasogastric tube is not well visualized. Increasing central pulmonary vascular markings questionable for pulmonary venous redistribution/fluid overload. Stable increased lung markings in both upper lobes.
--- NOTE | 2017-05-27 09:45 | PN- Pulmonary ---
Subjective HPI/Critical Care Issues: Patient remains sedated with mechanical ventilation cultures remain negative Objective Current Medications: Current Medications Sig/Shobha Start time Last Medication Dose Route Stop Time Status Admin Acetaminophen 650 MG Q8P PRN 05/20 1030 AC PO Albuterol Sulfate 3 ML EVERY 4 HRS/AWAKE 05/20 1200 AC 05/27 INH 0821 Aspirin 81 MG DAILY 05/21 1000 AC 05/26 PO 0902 Atorvastatin Calcium 40 MG DAILY@1700 05/20 1915 AC 05/26 PO 1805 Azithromycin 500 MG DAILY 05/24 1011 DC 05/26 Dextrose/Water 250 ML IV 1020 Bisacodyl 5 MG DAILY 05/23 1900 AC PO Budesonide/ 2 PUF BID 05/20 1043 AC 05/25 Formoterol Fumarate INH 2218 Ceftriaxone Sodium 1,000 MG DAILY 05/24 1012 AC 05/26 IV 05/30 1001 0902 Fentanyl Citrate 1,000 MCG Q13H 05/27 1100 AC Dextrose/Water 250 ML IV Fentanyl Citrate 1,000 MCG Q20H 05/26 0400 DC 05/27 Dextrose/Water 250 ML IV 0222 Furosemide 20 MG BID 05/26 2200 AC 05/26 IV 2135 Furosemide 20 MG Q8 05/23 2000 DC 05/26 IV 0633 Heparin Sodium 5,000 UNIT Q8 05/21 0100 AC 05/27 (Porcine) SC 0632 Insulin Human Regular 2 UNITS .STK-MED ONE 05/27 0016 DC IV 05/27 0017 Insulin Human Regular 4 UNITS .STK-MED ONE 05/26 1804 DC IV 05/26 1805 Insulin Human Regular 6 UNITS .STK-MED ONE 05/26 1157 DC IV 05/26 1158 Insulin Human Regular 0 Q6 05/20 1800 AC 05/27 SC 0020 Ipratropium [place] 2.5 ML EVERY 4 HRS/AWAKE 05/20 1200 AC 05/27 INH 0821 Lorazepam 100 MG Q20H 05/27 1200 AC Sodium Chloride 1,000 ML IV Lorazepam 50 MG Q16H 05/26 1600 DC 05/27 Sodium Chloride 500 ML IV 0400 Lorazepam 50 MG Q24H 05/25 0500 DC 05/25 Sodium Chloride 500 ML IV 05/26 1600 1147 Methylprednisolone 40 MG DAILY 05/25 1000 DC 05/26 IV 0902 Nystatin 1 DANG BID PRN 05/24 1100 AC 01/25 TOP 0903 Oseltamivir Phosphate 75 MG BID 05/22 1045 DC 05/26 PO 05/26 2201 2132 Pantoprazole Sodium 40 MG DAILY 05/20 1630 AC 05/26 IV 0902 Phosphate 250 MG DAILY AC 05/27 0700 CAN PO Polyethylene Glycol 17 GM DAILY 05/23 1900 AC PO Prednisone 30 MG DAILY 05/27 1000 AC PO 06/09 0959 Senna/Docusate Sodium 1 TAB AT BEDTIME 05/20 2200 AC 05/26 PO 2132 Tramadol HCl 50 MG Q6P PRN 05/20 1100 AC 05/23 PO 2104 Vancomycin HCl 1,000 MG Q24H 05/21 0700 DC 05/27 Dextrose/Water 250 ML IV 05/27 0759 0629 Vital Signs & I&O Last 24 Hrs of Vitals and I&O: Vital Signs Date Time Temp Pulse Resp B/P B/P Pulse O2 O2 Flow FiO2 Mean Ox Delivery Rate 05/27 0820 35 05/27 0615 35 05/27 0500 97 Ventilator 35% 05/27 0240 35 05/27 0000 94 Ventilator 35% 05/27 0000 97.0 68 20 100/60 94 Ventilator 35% 05/26 2242 35 05/26 2000 96 Ventilator 35% 05/26 1626 35 05/26 1600 97.8 71 20 94/60 97 Ventilator 35% 05/26 1600 97 Ventilator 35% 05/26 1406 35 05/26 1200 96 Ventilator 35% 05/26 1133 35 Intake & Output 05/27 1600 05/27 0800 05/27 0000 Intake Total 1352 963 Output Total 830 780 Balance 522 183 Intake, IV 748 341 Intake, Tube 444 402 Feeding Intake, Tube 160 220 Irrigant Number 1 0 Bowel Movements Output, Urine 830 780 Patient 140 lb Weight Weight Bed scale Measurement Method Since saturation 97% FiO2 0.35 exam for chest shows occasional rhonchi cardiac exam shows regular S1 and S2 abdomen is soft and nontender Impression/Plan Impression/Plan Impression/Plan: 81-year-old with COPD degree of congestive heart failure admitted with respiratory failure requiring mechanical ventilation Recommendations: Decreased steroids to 30 mg tomorrow. Mild diuresis. Taper FiO2 as saturations allow. Continue antibiotics as ordered by Mir Sutton MD.
--- NOTE | 2017-05-27 11:35 | PN- Resident CRCU ---
Subjective HPI/CRCU Issues: Patient with hypercarbic respiratory failure, likely secondary to pneumonia. She is intubated but failed a weaning trial 2 days ago. The plan was to extubate her yesterday as per her wishes and her 's request. Dr Sutton tried to contact the family, and have them around, but they were not available. She remains lightly sedated. 24 Hour Events: T- 98 F HR 70 NSR SBP 97 DBP 56 SAS 3-4, arousable to verbal stimuli; currently on Fentanyl and Ativan drip at a low dose Vent settings: Volume AC- TV 500, RR 20, FiO2 35%, PEEP 5, 97% Ox sat. Intake: 1352 ml, Output 830 ml in the last 24 hrs. Objective Vital Signs & I&O Last 8 Hrs of Vitals and I&O: Vital Signs Date Time Temp Pulse Resp B/P B/P Pulse O2 O2 Flow FiO2 Mean Ox Delivery Rate 05/27 0820 35 05/27 0615 35 05/27 0500 97 Ventilator 35% 05/27 0240 35 05/27 0000 94 Ventilator 35% 05/27 0000 97.0 68 20 100/60 94 Ventilator 35% 05/26 2242 35 05/26 2000 96 Ventilator 35% 05/26 1626 35 05/26 1600 97.8 71 20 94/60 97 Ventilator 35% 05/26 1600 97 Ventilator 35% 05/26 1406 35 05/26 1200 96 Ventilator 35% 05/26 1133 35 Exam General Appearance: well developed/nourished, no apparent distress, sedated, intubated, obese Head: atraumatic Ears, Nose, Throat: normal pharynx, intubated Neck: normal inspection, supple Respiratory: normal breath sounds, chest non-tender, no respiratory distress, lungs clear Cardiovascular: regular rate/rhythm, edema Gastrointestinal: normal bowel sounds, soft, non-tender, no organomegaly Extremities: normal inspection, pedal edema Cranial Nerves: PERRL, No facial assymetry Skin: intact, normal color Skin Temp/Moisture Exam: Warm/Dry Sepsis Skin Exam (color): Normal for Ethnicity Weaning Parameters VC: 520 NIF: 24 Minute Volume: 4.47 Resp rate: 22 Vt: 188 Heart Rate: 100 Current Medications: Current Medications Sig/Shobha Start time Last Medication Dose Route Stop Time Status Admin Acetaminophen 650 MG Q8P PRN 05/20 1030 AC PO Albuterol Sulfate 3 ML EVERY 4 HRS/AWAKE 05/20 1200 AC 05/27 INH 0821 Aspirin 81 MG DAILY 05/21 1000 AC 05/27 PO 0950 Atorvastatin Calcium 40 MG DAILY@1700 05/20 1915 AC 05/26 PO 1805 Bisacodyl 5 MG DAILY 05/23 1900 AC 05/27 PO 0950 Budesonide/ 2 PUF BID 05/20 1043 AC 05/25 Formoterol Fumarate INH 2218 Ceftriaxone Sodium 1,000 MG DAILY 05/24 1012 AC 05/27 IV 05/30 1001 0949 Fentanyl Citrate 1,000 MCG Q13H 05/27 1100 AC Dextrose/Water 250 ML IV Fentanyl Citrate 1,000 MCG Q20H 05/26 0400 DC 05/27 Dextrose/Water 250 ML IV 0222 Furosemide 20 MG ONCE ONE 05/27 1200 DC IV 05/27 1201 Furosemide 20 MG BID 05/26 2200 AC 05/27 IV 0949 Heparin Sodium 5,000 UNIT Q8 05/21 0100 AC 05/27 (Porcine) SC 0632 Insulin Human Regular 2 UNITS .STK-MED ONE 05/27 0016 DC IV 05/27 0017 Insulin Human Regular 4 UNITS .STK-MED ONE 05/26 1804 DC IV 05/26 1805 Insulin Human Regular 0 Q6 05/20 1800 AC 05/27 SC 0020 Ipratropium [place] 2.5 ML EVERY 4 HRS/AWAKE 05/20 1200 AC 05/27 INH 0821 Lorazepam 100 MG Q20H 05/27 1200 AC Sodium Chloride 1,000 ML IV Lorazepam 50 MG Q16H 05/26 1600 DC 05/27 Sodium Chloride 500 ML IV 0400 Lorazepam 50 MG Q24H 05/25 0500 DC 05/25 Sodium Chloride 500 ML IV 05/26 1600 1147 Nystatin 1 DANG BID PRN 05/24 1100 AC 05/25 TOP 0903 Oseltamivir Phosphate 75 MG BID 05/22 1045 DC 05/26 PO 05/26 220 2132 Pantoprazole Sodium 40 MG DAILY 05/20 1630 AC 05/27 IV 0949 Polyethylene Glycol 17 GM DAILY 05/23 1900 AC 05/27 PO 0949 Potassium Chloride 40 MEQ BID 05/27 1000 AC 05/27 PO 05/27 2201 0950 Prednisone 30 MG DAILY 01/27 1000 AC 05/27 PO 06/09 0959 0949 Senna/Docusate Sodium 1 TAB AT BEDTIME 05/20 2200 AC 05/26 PO 2132 Tramadol HCl 50 MG Q6P PRN 05/20 1100 AC 05/23 PO 210 Vancomycin HCl 1,000 MG Q24H 05/21 0700 DC 05/27 Dextrose/Water 250 ML IV 05/27 0778 0603 CXR Findings: IMPRESSION: Satisfactory position of endotracheal tube and left jugular line. Nasogastric tube is not well visualized. Increasing central pulmonary vascular markings questionable for pulmonary venous redistribution/fluid overload. Stable increased lung markings in both upper lobes. Impression/Plan Impression/Problem List Impression: Mr Castillo has a PMHx of COPD (on 4L oxygen), HFpEF( EF 440%), HTN, HLD, previous Influeza 09/14, osteoporosis came was brought in from [facility] with a chief concern of acute dyspnea, and altered mentation likely secondary to acute hypercarbic respiratory failure from multi-lobar pneumonia likely secondary to HCAP or viral. At the time of admission, vitals temp 100.9, HR 141, RR 32, BP 149/65, Pulse ox 90s on 40% BiPAP. EKG: First EKG, sinus tachy No STTW changes, succeeding EKGs revealed t wave inversions in ant-lateral lateral leads. Pertinent lab findings: WBC 24.1-->12.5-->11.4-->7.2(05/22)-->8.5(05/23)-->8.2(05/24)-->14.9(05/26) Hb 10.7(baseline 10.0)-->8.0-->7.9(05/22)-->8.5(05/23)-->8.2(05/24)-->8.3(05/26) Platelets 703 (likely reactive)-->421 Na 144, K 4.1 Bicarb 41-->27 Sr cr 0.5, BUN 18-->13 Troponin 0.11-->0.23-->0.30-->0.23 ABG 7.23, PCO2 99, pO2 65--> pH 7.45,PCO2 40, pO2 95( 05/22) D- dimer 857. INR 1.06. Lactate 2.0-->3.7-->2.2-->1.3 Mg 1.6-->2.5 Strep pneumo, legionella ag urine- neg CXR 05/20 revealed bilateral patchy pulmonary opacities consistent with multifocal pneumonia. CXR 05/22 revealed improving bilateral patchy pulmonary opacities. CTA 05/21 revealed no evidence of pulmonary embolism. CXR 05/26 - Nonspecific airspace disease is noted at left lung apex, unchanged. There is no radiographic evidence of pulmonary venous congestion/CHF present. Echocardiogram: 2015- revealed left ventricular ejection fraction is estimated at 40%. Global hypokinesis. 2017- Diastolic filling pattern is consistent with impaired LV relaxation. The ejection fraction is visually estimated at 60%. 05/22/16- Severely decreased left ventricular systolic function. Left ventricular ejection fraction is estimated at 30-35%. Etiology in her case is due to sepsis from multifocal pneumonia, likely leading to an acute decompensation in her respiratory status. Since she has COPD, that might have caused an acute exacerbation of COPD that worsened her chronic hypercabia leading to hypoxia. She was put on BiPAP for correcting acidemia and hypercarbia, but there was no improvement in either her respiratory status and/ or hypercarbia, although her mentation improved remarkably which indicates a chronic hypercarbic process that was worsened due to an acute illness, which is pneumonia in her case. In regards to her elevated troponin, and new EKG changes it was likely due to demand, which is type 2 [place] which explains this change; but new EKG changes could be explained by her increased demand from tachycardia, and hypotension. Although , she doesnt have any remarkable cardiac history, she has several risk factors including 80 pk yr h/o smoking. Recommendations: Respiratory: 1. Acute hypercarbic respiratory failure: Likely due to AECOPD, and multilobar pneumonia which appears as due to HCAP or viral cause. She was initally started on ceftaz, vanc and later transitioned to azithro, vanc and ceftriaxone. LRC did not grow any MRSA, or pneumo, however she had a growth of yeast which could be nonspecific in her case. - For AECOPD, tranistion to po prednisone. - Discontinue vancomycin and ceftriaxone today - Plan for extubation when the and family is available Infectious: - Likely sepsis from pneumonia, and required pressor support briefly - Monitor CBC in the am. - Tamiflu was added for emperic coverage of a viral pneumonia and patient has completed 5 days therapy -LRC cultures negative for any bacterial growth so far-only grew yeast Circulatory: - Type 2 [place], but by definition can call it NSTEMI. - ASA was given, and was started on a statin. - As per Cardiology, was started on cardizem that was dc'ed. - Considering her positive fluid balance will give one more dose of IV lasix 20 mg once -Continue iv lasix 20mg q12h. Holding parameters CVP < 6. Metabolic - Accuechecks. - Novolin R q6h. Adjust accordingly. Neurology Continue ativan drip. Would wean her off, as she tolerated. Mary pushes prn. Housekeeping: DVT PPx- heparin sc. GI PPx- Protonix Diet- tube feeds. Full code. Problem List: 1. Pneumonia 2. Sepsis 3. Influenza Pain Ratin Tomorrow's Labs & Rationales: ICU lab bundle, CBC, chest x-ray for critical ill patient Plan DVT/Prophylaxis: pharmacological
--- NOTE | 2017-05-27 14:52 | PN- Cardiology ---
Subjective Subjective: The patient remains intubated and sedated. Blood pressure is stable off pressors. No further arrhythmias are seen. Objective Vital Signs and I&Os Vital Signs Date Time Temp Pulse Resp B/P B/P Pulse O2 O2 Flow FiO2 Mean Ox Delivery Rate 05/27 1700 30 05/27 1600 95 Ventilator 35% 05/27 1600 97.6 87 20 94/56 95 Ventilator 35% 05/27 1454 535 05/27 1200 96 Ventilator 35% 05/27 0820 35 05/27 0800 95 Ventilator 35% 05/27 0800 96.8 71 20 106/64 95 Ventilator 35% 05/27 0615 35 05/27 0500 97 Ventilator 35% 05/27 0240 35 05/27 0000 94 Ventilator 35% 05/27 0000 97.0 68 20 100/60 94 Ventilator 35% 05/26 2242 35 05/26 2000 96 Ventilator 35% Intake & Output 05/27 1600 05/27 0800 05/27 0000 05/26 1600 05/26 0800 05/26 0000 Intake Total 1133 1352 963 860 790 760 Output Total 1165 608 259 9050 680 950 Balance -32 522 183 -290 110 -190 Intake, IV 567 748 341 265 230 200 Intake, Other 100 Intake, Tube 386 444 402 415 400 400 Feeding Intake, Tube 80 160 220 180 160 160 Irrigant Number 1 0 1 Bowel Movements Output, Urine 1165 245 583 4746 680 950 Patient 140 lb 145 lb Weight Weight Bed scale Measurement Method Physical Exam: Gen: She is intubated, and awake on the ventilator HEENT: Normal nose, ears, and oropharynx. Pupils equal bilaterally. Conjunctiva normal. Neck: Supple with no JVD, no masses, and no thyromegaly Lungs: Clear to auscultation anteriorly with normal respiratory effort on the ventilator Heart: RRR, S1, S2, 1/6 systolic murmur. 1+ peripheral edema, 1+ pulses in the lower extremities bilaterally Abdomen: Soft, nontender, no masses. No hepatomegaly. No splenomegaly Extremities: No clubbing or cyanosis. Normal muscle strength in the upper and lower extremities Skin: Normal skin turgor with no skin ulcers or lesions Current Medications: Current Medications Sig/Shobha Start time Last Medication Dose Route Stop Time Status Admin Acetaminophen 650 MG Q8P PRN 05/20 1030 AC PO Albuterol Sulfate 3 ML EVERY 4 HRS/AWAKE 05/20 1200 AC 05/27 INH 1658 Aspirin 81 MG DAILY 05/21 1000 AC 05/27 PO 0950 Atorvastatin Calcium 40 MG DAILY@1700 05/20 1915 AC 05/27 PO 1800 Bisacodyl 5 MG DAILY 05/23 1900 AC 05/27 PO 0950 Budesonide/ 2 PUF BID 05/20 1043 DC 05/25 Formoterol Fumarate INH 2218 Ceftriaxone Sodium 1,000 MG DAILY 05/24 1012 AC 05/27 IV 05/30 1001 0949 Fentanyl Citrate 1,000 MCG Q13H 05/27 1100 AC 05/27 Dextrose/Water 250 ML IV 1630 Fentanyl Citrate 1,000 MCG Q20H 05/26 0400 DC 05/27 Dextrose/Water 250 ML IV 0222 Furosemide 20 MG ONCE ONE 05/27 1200 CAN IV 05/27 1201 Furosemide 20 MG BID 05/26 2200 AC 05/27 IV 0949 Heparin Sodium 5,000 UNIT Q8 05/21 0100 AC 05/27 (Porcine) SC 1434 Insulin Human Regular 2 UNITS .STK-MED ONE 05/27 0016 DC IV 05/27 0017 Insulin Human Regular 0 Q6 05/20 1800 AC 05/27 SC 1920 Ipratropium [place] 2.5 ML EVERY 4 HRS/AWAKE 05/20 1200 AC 05/27 INH 1658 Lorazepam 100 MG Q20H 05/27 1200 AC 05/27 Sodium Chloride 1,000 ML IV 1500 Lorazepam 50 MG Q16H 05/26 1600 DC 05/27 Sodium Chloride 500 ML IV 0400 Nystatin 1 DANG BID PRN 05/24 1100 AC 05/25 TOP 0903 Oseltamivir Phosphate 75 MG BID 05/22 1045 DC 05/26 PO 05/26 220 2132 Pantoprazole Sodium 40 MG DAILY 05/20 1630 AC 05/27 IV 0949 Polyethylene Glycol 17 GM DAILY 05/23 1900 AC 05/27 PO 0949 Potassium Chloride 40 MEQ BID 05/27 1000 AC 05/27 PO 05/27 2201 0950 Prednisone 30 MG DAILY 05/27 1000 AC 05/27 PO 06/09 0959 0949 Senna/Docusate Sodium 1 TAB AT BEDTIME 05/20 2200 AC 05/26 PO 2132 Tramadol HCl 50 MG Q6P PRN 05/20 1100 AC 01/23 PO 2104 Vancomycin HCl 1,000 MG Q24H 05/21 0700 DC 05/27 Dextrose/Water 250 ML IV 05/27 7780 3206 Results Last 48 Hrs of Labs/Mics: Laboratory Tests 05/27/17 0616: Anion Gap 10, Estimated GFR > 60, BUN/Creatinine Ratio 32.0 H, CBC w Diff NO MAN DIFF REQ, RBC 2.94 L, MCV 88.5, MCH 27.9, MCHC 31.6 L, RDW 18.9 H, MPV 8.9, Gran % 80.1 H, Lymphocytes % 13.6 L, Monocytes % 4.7, Eosinophils % 1.4, Basophils % 0.2, Absolute Granulocytes 14.4 H, Absolute Lymphocytes 2.5, Absolute Monocytes 0.8 H, Absolute Eosinophils 0.2, Absolute Basophils 0, Vancomycin Trough 9.8 L 05/26/17 1410: Anion Gap 11, Estimated GFR > 60, BUN/Creatinine Ratio 30.0 H 05/26/17 1112: Sodium Cancelled, Potassium Cancelled, Chloride Cancelled, Carbon Dioxide Cancelled, Anion Gap Cancelled, BUN Cancelled, Creatinine Cancelled, BUN/ Creatinine Ratio Cancelled 05/26/17 0351: Anion Gap 12, Estimated GFR > 60, Glucose 106 H, Calcium 8.7, Phosphorus 3.5, Magnesium 1.9, Total Bilirubin 0.1 L, AST 21, ALT 44, Albumin 2.7 L, CBC w Diff NO MAN DIFF REQ, RBC 2.99 L, MCV 87.3, MCH 27.9, MCHC 32.0 L, RDW 18.8 H , MPV 8.6, Gran % 79.2 H, Lymphocytes % 16.6 L, Monocytes % 3.7, Eosinophils % 0.3, Basophils % 0.2, Absolute Granulocytes 11.7 H, Absolute Lymphocytes 2.5, Absolute Monocytes 0.6, Absolute Eosinophils 0, Absolute Basophils 0 Recent Imaging Studies: Chest x-ray: Satisfactory position of endotracheal tube and left jugular line. Nasogastric tube is not well visualized. Increasing central pulmonary vascular markings questionable for pulmonary venous redistribution/fluid overload. Stable increased lung markings in both upper lobes. Assessment/Plan Assessment/Plan Assessment: 1. Severe COPD 2. History of multifocal atrial tachycardia 3. Diabetes mellitus 4. Hypertension 5. Acute exacerbation of COPD with influenza and bilateral pneumonia 6. Mild troponin elevation likely secondary to type II [place] 7. Recurrent left ventricular systolic dysfunction. Current ejection fraction 30% compared to 60% in June 2016. 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 Yes
[2017-05-27 16:00] VITALS: BP 94/56
[2017-05-28] VITALS: BP 92/62
[2017-05-28 05:08] LABS: ABSOLUTE BASOPHIL COUNT 0 /CUMM (0.0-0.2); ABSOLUTE EOSINOPHIL COUNT 0.1 /CUMM (0.0-0.7); ABSOLUTE GRANULOCYTE CT 15.4 /CUMM (1.4-6.5); ABSOLUTE LYMPH COUNT 1.8 /CUMM (1.2-3.4); ABSOLUTE MONOCYTE COUNT 0.7 /CUMM (0.10-0.60); BASOPHIL % 0 % (0.0-2.0); EOSINOPHIL % 0.4 % (0-5); GRANULOCYTE % 85.4 % (42.2-75.2); HEMATOCRIT 26.9 % (37-47); MEAN CORPUSCULAR HGB 27.9 PG (27.0-31.0); MEAN CORPUSCULAR HGB CONC 31.2 G/DL (33.0-37.0); MEAN CORPUSCULAR VOLUME 89.5 FL (81.0-99.0); MEAN PLATELET VOLUME 8.4 FL (7.4-10.4); PLATELET COUNT 338 /CUMM (130-400); RED BLOOD CELL CT 3.01 /CUMM (4.20-5.40); WHITE BLOOD CELL COUNT 18.1 /CUMM (4.8-10.8)
[2017-05-28 08:00] VITALS: BP 102/60
--- NOTE | 2017-05-28 08:12 | RADIOLOGY REPORT ---
EXAMINATION: XR PORTABLE CHEST CLINICAL INFORMATION: COPD. Shortness of breath and hypercarbia. History of pneumonia and respiratory failure. COMPARISON: Previous chest x-rays most recent from yesterday TECHNIQUE: Portable frontal view of the chest was obtained. FINDINGS: The cardiac and mediastinal contours are stable. Endotracheal tube tip is 4.5 cm above the oliver. Nasogastric tube projects over the stomach. There is a left jugular line with tip projecting over the SVC. There are increased markings in the upper lungs probably representing pneumonia that appears unchanged. The lungs are otherwise clear. There is no pleural effusion or pneumothorax. Left shoulder replacement is noted. IMPRESSION: Satisfactory position of support line and tubes. No change in increased markings in the bilateral upper lungs probably representing pneumonia.
--- NOTE | 2017-05-28 09:13 | PN- Resident CRCU ---
Subjective HPI/CRCU Issues: Acute hypercarbic respiratory failure: Likely due to AECOPD, and multilobar pneumonia sepsis 24 Hour Events: Patient was seen and examined this morning. She remained intubated. Heart rate ranges from 71-88, respiratory rate 20, blood pressure is from 93-113 over 50/ 62. She has blood balance of +600. She remained afebrile. Objective Vital Signs & I&O Last 8 Hrs of Vitals and I&O: Laboratory Tests 05/28 0435 Chemistry Sodium (137 - 145 mmol/L) 139 Potassium (3.5 - 5.1 mmol/L) 4.3 Chloride (98 - 107 mmol/L) 97 L Carbon Dioxide (22 - 30 mmol/L) 31 H Anion Gap (5 - 16) 11 BUN (7 - 17 mg/dL) 14 Creatinine (0.5 - 1.0 mg/dL) 0.4 L Estimated GFR (>60 ml/min) > 60 Glucose (65 - 99 mg/dL) 132 H Calcium (8.4 - 10.2 mg/dL) 8.9 Phosphorus (2.5 - 4.5 mg/dL) 4.7 H Magnesium (1.6 - 2.3 mg/dL) 2.1 Total Bilirubin (0.2 - 1.3 mg/dL) 0.3 AST (14 - 36 U/L) 22 ALT (9 - 52 U/L) 42 Albumin (3.5 - 5.0 g/dL) 2.9 L Hematology CBC w Diff MAN DIFF ORDERED WBC (4.8 - 10.8 /CUMM) 18.1 H RBC (4.20 - 5.40 /CUMM) 3.01 L Hgb (12.0 - 16.0 G/DL) 8.4 L Hct (37 - 47 %) 26.9 L MCV (81.0 - 99.0 FL) 89.5 MCH (27.0 - 31.0 PG) 27.9 MCHC (33.0 - 37.0 G/DL) 31.2 L RDW (11.5 - 14.5 %) 19.0 H Plt Count (130 - 400 /CUMM) 338 MPV (7.4 - 10.4 FL) 8.4 Gran % (42.2 - 75.2 %) 85.4 H Lymphocytes % (20.5 - 51.1 %) 10.2 L Monocytes % (1.7 - 9.3 %) 4.0 Eosinophils % (0 - 5 %) 0.4 Basophils % (0.0 - 2.0 %) 0 Absolute Granulocytes (1.4 - 6.5 /CUMM) 15.4 H Absolute Lymphocytes (1.2 - 3.4 /CUMM) 1.8 Absolute Monocytes (0.10 - 0.60 /CUMM) 0.7 H Absolute Eosinophils (0.0 - 0.7 /CUMM) 0.1 Absolute Basophils (0.0 - 0.2 /CUMM) 0 Platelet Estimate (ADEQUATE) ADEQUATE Polychromasia 1+ Hypochromic-Microcytic 1+ Ovalocytes 1+ Exam General Appearance: intubated Respiratory: rhonchi Cardiovascular: regular rate/rhythm Gastrointestinal: non-tender, no organomegaly, distention Extremities: normal inspection Weaning Parameters VC: 520 NIF: 24 Minute Volume: 4.47 Resp rate: 22 Vt: 188 Heart Rate: 100 Current Medications: Current Medications Sig/Shobha Start time Last Medication Dose Route Stop Time Status Admin Acetaminophen 650 MG Q8P PRN 05/20 1030 AC PO Albuterol Sulfate 3 ML EVERY 4 HRS/AWAKE 05/20 1200 AC 05/28 INH 0950 Aspirin 81 MG DAILY 05/21 1000 AC 05/28 PO 0955 Atorvastatin Calcium 40 MG DAILY@1700 05/20 1915 AC 05/27 PO 1800 Bisacodyl 5 MG DAILY 05/23 1900 AC 05/27 PO 0950 Budesonide/ 2 PUF BID 05/20 1043 DC 05/25 Formoterol Fumarate INH 2218 Ceftriaxone Sodium 1,000 MG DAILY 05/24 1012 AC 05/28 IV 05/30 1001 0954 Fentanyl Citrate 1,000 MCG Q10H 05/28 0300 AC Dextrose/Water 250 ML IV Fentanyl Citrate 1,000 MCG Q13H 05/27 1100 DC 05/28 Dextrose/Water 250 ML IV 05/28 0259 0306 Furosemide 20 MG ONCE ONE 05/27 1200 CAN IV 05/27 1201 Furosemide 20 MG BID 05/26 2200 AC 05/28 IV 1009 Heparin Sodium 5,000 UNIT Q8 05/21 0100 AC 05/28 (Porcine) SC 0636 Insulin Human Regular 2 UNITS .STK-MED ONE 05/28 0107 DC IV 05/28 0108 Insulin Human Regular 4 UNITS .STK-MED ONE 05/27 1922 DC IV 05/27 1923 Insulin Human Regular 2 UNITS .STK-MED ONE 05/27 1222 DC IV 05/27 1223 Insulin Human Regular 0 Q6 05/20 1800 AC 05/28 SC 0638 Ipratropium [place] 2.5 ML EVERY 4 HRS/AWAKE 05/20 1200 AC 05/28 INH 0951 Lorazepam 100 MG Q16H 05/28 0900 AC Sodium Chloride 1,000 ML IV Lorazepam 100 MG Q20H 05/27 1200 DC 05/28 Sodium Chloride 1,000 ML IV 0837 Nystatin 1 DANG BID PRN 05/24 1100 AC 05/25 TOP 0903 Pantoprazole Sodium 40 MG DAILY 05/20 1630 AC 05/28 IV 0954 Polyethylene Glycol 17 GM DAILY 05/23 1900 AC 05/27 PO 0949 Potassium Chloride 40 MEQ BID 05/27 1000 DC 05/27 PO 05/27 2201 2143 Prednisone 30 MG DAILY 05/27 1000 AC 05/28 PO 06/09 0959 0954 Senna/Docusate Sodium 1 TAB AT BEDTIME 05/20 2200 AC 05/27 PO 2143 Tramadol HCl 50 MG Q6P PRN 05/20 1100 AC 05/23 PO 2104 Impression/Plan Impression/Problem List Impression: Mr Castillo has a PMHx of COPD (on 4L oxygen), HFpEF( EF 440%), HTN, HLD, previous Influeza 09/14, osteoporosis came was brought in from [facility] with a chief concern of acute dyspnea, and altered mentation likely secondary to acute hypercarbic respiratory failure from multi-lobar pneumonia likely secondary to HCAP or viral. Respiratory: 1. Acute hypercarbic respiratory failure: Likely due to AECOPD, and multilobar pneumonia which appears as due to HCAP or viral cause. She was initally started on ceftaz, vanc and later transitioned to azithro, vanc and ceftriaxone. LRC did not grow any MRSA, or pneumo, however she had a growth of yeast which could be nonspecific in her case. - For AECOPD, tranistion to po prednisone. - Discontinue vancomycin and started ceftriaxone - Plan for extubation when the and family is available Infectious: - Likely sepsis from pneumonia, and required pressor support briefly - Monitor CBC in the am. - Tamiflu was added for emperic coverage of a viral pneumonia and patient has completed 5 days therapy -LRC cultures negative for any bacterial growth so far-only grew yeast Circulatory: - Type 2 RI, but by definition can call it NSTEMI. - ASA was given, and was started on a statin. - As per Cardiology, was started on cardizem that was dc'ed. - Considering her positive fluid balance will give one more dose of IV lasix 20 mg once -Continue iv lasix 20mg q12h. Holding parameters CVP < 6. Metabolic - Accuechecks. - Novolin R q6h. Adjust accordingly. Neurology Continue ativan drip. Would wean her off, as she tolerated. Mary pushes prn. Housekeeping: DVT PPx- heparin sc. GI PPx- Protonix Diet- tube feeds. Full code. Problem List: 1. Pneumonia 2. Sepsis Pain Ratin Tomorrow's Labs & Rationales: CBC AND ICU BUNDLE Plan DVT/Prophylaxis: pharmacological
--- NOTE | 2017-05-28 09:43 | PN- Pulmonary ---
Subjective HPI/Critical Care Issues: Patient remains sedated and intubated Objective Current Medications: Current Medications Sig/Shobha Start time Last Medication Dose Route Stop Time Status Admin Acetaminophen 650 MG Q8P PRN 05/20 1030 AC PO Albuterol Sulfate 3 ML EVERY 4 HRS/AWAKE 05/20 1200 AC 05/27 INH 2050 Aspirin 81 MG DAILY 05/21 1000 AC 05/27 PO 0950 Atorvastatin Calcium 40 MG DAILY@1700 05/20 1915 AC 05/27 PO 1800 Bisacodyl 5 MG DAILY 05/23 1900 AC 05/27 PO 0950 Budesonide/ 2 PUF BID 05/20 1043 DC 05/25 Formoterol Fumarate INH 2218 Ceftriaxone Sodium 1,000 MG DAILY 05/24 1012 AC 05/27 IV 05/30 1001 0949 Fentanyl Citrate 1,000 MCG Q10H 05/28 0300 AC Dextrose/Water 250 ML IV Fentanyl Citrate 1,000 MCG Q13H 05/27 1100 DC 05/28 Dextrose/Water 250 ML IV 05/28 0259 0306 Furosemide 20 MG ONCE ONE 05/27 1200 CAN IV 05/27 1201 Furosemide 20 MG BID 05/26 2200 AC 05/27 IV 2147 Heparin Sodium 5,000 UNIT Q8 05/21 0100 AC 05/28 (Porcine) SC 0636 Insulin Human Regular 2 UNITS .STK-MED ONE 05/28 0107 DC IV 05/28 0108 Insulin Human Regular 4 UNITS .STK-MED ONE 05/27 1922 DC IV 05/27 1923 Insulin Human Regular 2 UNITS .STK-MED ONE 05/27 1222 DC IV 05/27 1223 Insulin Human Regular 0 Q6 05/20 1800 AC 05/28 SC 0638 Ipratropium [place] 2.5 ML EVERY 4 HRS/AWAKE 05/20 1200 AC 05/27 INH 2050 Lorazepam 100 MG Q20H 05/27 1200 AC 05/28 Sodium Chloride 1,000 ML IV 0837 Nystatin 1 DANG BID PRN 05/24 1100 AC 05/25 TOP 0903 Pantoprazole Sodium 40 MG DAILY 05/20 1630 AC 05/27 IV 0949 Polyethylene Glycol 17 GM DAILY 05/23 1900 AC 05/27 PO 0949 Potassium Chloride 40 MEQ BID 05/27 1000 DC 05/27 PO 05/27 2201 2143 Prednisone 30 MG DAILY 05/27 1000 AC 05/27 PO 06/09 0959 0949 Senna/Docusate Sodium 1 TAB AT BEDTIME 05/20 2200 AC 05/27 PO 2143 Tramadol HCl 50 MG Q6P PRN 05/20 1100 AC 05/23 PO 2104 Vital Signs & I&O Last 24 Hrs of Vitals and I&O: Vital Signs Date Time Temp Pulse Resp B/P B/P Pulse O2 O2 Flow FiO2 Mean Ox Delivery Rate 05/28 0614 30 05/28 0400 95 Ventilator 30% 05/28 0246 30 05/28 0000 95 Ventilator 30% 05/28 0000 97.0 86 20 92/62 95 Ventilator 30% 05/27 2205 30 05/27 2000 97 Ventilator 30% 05/27 1930 30 05/27 1700 30 05/27 1600 95 Ventilator 35% 05/27 1600 97.6 87 20 94/56 95 Ventilator 35% 05/27 1454 535 05/27 1200 96 Ventilator 35% Intake & Output 05/28 1600 05/28 0800 05/28 0000 Intake Total 1281 1129 Output Total 1185 445 Balance 96 684 Intake, IV 691 623 Intake, Tube 430 346 Feeding Intake, Tube 160 160 Irrigant Number 1 1 Bowel Movements Output, Urine 1185 445 Patient 139 lb Weight Weight Bed scale Measurement Method Since saturation FiO2 0.3 95% of her chest shows occasional rhonchi cardiac exam shows regular S1 and S2 abdomen is slightly distended Impression/Plan Impression/Plan Impression/Plan: 81-year-old with COPD degree of congestive heart failure admitted with respiratory failure requiring mechanical ventilation and oxygenation is improved and she remains hemodynamically stable Recommendations: Decreased steroids to 30 mg tomorrow. Mild diuresis. Taper FiO2 as saturations allow. Continue antibiotics as ordered by Mir Sutton MD. Obtain abdominal flat plate with evidence of abdominal distention. Would begin to taper sedation
--- NOTE | 2017-05-28 15:13 | PN- Cardiology ---
Subjective Subjective: The patient remains intubated and sedated. Blood pressure is stable off pressors. No further arrhythmias are seen. Objective Vital Signs and I&Os Vital Signs Date Time Temp Pulse Resp B/P B/P Pulse O2 O2 Flow FiO2 Mean Ox Delivery Rate 05/28 1425 30 05/28 1200 97 Ventilator 30% 05/28 0950 30 05/28 0800 96.9 67 67 102/60 98 Ventilator 30% 05/28 0800 98 Ventilator 30% 05/28 0614 30 05/28 0400 95 Ventilator 30% 05/28 0246 30 05/28 0000 95 Ventilator 30% 05/28 0000 97.0 86 20 92/62 95 Ventilator 30% 05/27 2205 30 05/27 2000 97 Ventilator 30% 05/27 1930 30 05/27 1700 30 05/27 1600 95 Ventilator 35% 05/27 1600 97.6 87 20 94/56 95 Ventilator 35% Intake & Output 05/28 1600 05/28 0800 05/28 0000 05/27 1600 05/27 0800 05/27 0000 Intake Total 1281 1129 1133 1352 963 Output Total 2280 342 8269 830 780 Balance 96 684 -32 522 183 Intake, IV 691 623 567 748 341 Intake, Other 100 Intake, Tube 430 346 386 444 402 Feeding Intake, Tube 160 160 80 160 220 Irrigant Number 1 1 1 0 Bowel Movements Output, Urine 5060 360 3568 830 780 Patient 139 lb 140 lb Weight Weight Bed scale Bed scale Measurement Method Physical Exam: Gen: She is intubated, and awake on the ventilator HEENT: Normal nose, ears, and oropharynx. Pupils equal bilaterally. Conjunctiva normal. Neck: Supple with no JVD, no masses, and no thyromegaly Lungs: Clear to auscultation anteriorly with normal respiratory effort on the ventilator Heart: RRR, S1, S2, 1/6 systolic murmur. 1+ peripheral edema, 1+ pulses in the lower extremities bilaterally Abdomen: Soft, nontender, no masses. No hepatomegaly. No splenomegaly Extremities: No clubbing or cyanosis. Normal muscle strength in the upper and lower extremities Skin: Normal skin turgor with no skin ulcers or lesions Current Medications: Current Medications Sig/Shobha Start time Last Medication Dose Route Stop Time Status Admin Acetaminophen 650 MG Q8P PRN 05/20 1030 AC PO Albuterol Sulfate 3 ML EVERY 4 HRS/AWAKE 05/20 1200 AC 05/28 INH 1317 Aspirin 81 MG DAILY 05/21 1000 AC 05/28 PO 0955 Atorvastatin Calcium 40 MG DAILY@1700 05/20 1915 AC 05/27 PO 1800 Bisacodyl 5 MG DAILY 05/23 1900 AC 05/27 PO 0950 Budesonide/ 2 PUF BID 05/20 1043 DC 05/25 Formoterol Fumarate INH 2218 Ceftriaxone Sodium 1,000 MG DAILY 05/24 1012 AC 05/28 IV 05/30 1001 0954 Fentanyl Citrate 1,000 MCG Q10H 05/28 0300 AC 05/28 Dextrose/Water 250 ML IV 1421 Fentanyl Citrate 1,000 MCG Q13H 05/27 1100 DC 05/28 Dextrose/Water 250 ML IV 05/28 0259 0306 Furosemide 20 MG BID 05/26 2200 AC 05/28 IV 1009 Heparin Sodium 5,000 UNIT Q8 05/21 0100 AC 05/28 (Porcine) SC 1422 Insulin Human Regular 2 UNITS .STK-MED ONE 05/28 0631 DC IV 05/28 0632 Insulin Human Regular 2 UNITS .STK-MED ONE 05/28 0107 DC IV 05/28 0108 Insulin Human Regular 4 UNITS .STK-MED ONE 05/27 1922 DC IV 05/27 192 Insulin Human Regular 0 Q6 05/20 1800 AC 05/28 SC 1151 Ipratropium [place] 2.5 ML EVERY 4 HRS/AWAKE 05/20 1200 AC 05/28 INH 1317 Lorazepam 100 MG Q16H 05/28 0900 AC Sodium Chloride 1,000 ML IV Lorazepam 100 MG Q20H 05/27 1200 DC 05/28 Sodium Chloride 1,000 ML IV 0837 Nystatin 1 DANG BID PRN 05/24 1100 AC 05/25 TOP 0903 Pantoprazole Sodium 40 MG DAILY 05/20 1630 AC 05/28 IV 0954 Polyethylene Glycol 17 GM DAILY 05/23 1900 AC 05/27 PO 0949 Potassium Chloride 40 MEQ BID 05/27 1000 DC 05/27 PO 05/27 2201 2143 Prednisone 30 MG DAILY 05/27 1000 AC 05/28 PO / 0959 0954 Senna/Docusate Sodium 1 TAB AT BEDTIME 05/20 2200 AC 05/27 PO 2143 Tramadol HCl 50 MG Q6P PRN 05/20 1100 AC 05/23 PO 2104 Results Last 48 Hrs of Labs/Mics: Laboratory Tests 05/28/17 0435: Anion Gap 11, Estimated GFR > 60, Glucose 132 H, Calcium 8.9, Phosphorus 4.7 H , Magnesium 2.1, Total Bilirubin 0.3, AST 22, ALT 42, Albumin 2.9 L, CBC w Diff MAN DIFF ORDERED, RBC 3.01 L, MCV 89.5, MCH 27.9, MCHC 31.2 L, RDW 19.0 H, MPV 8.4, Gran % 85.4 H, Lymphocytes % 10.2 L, Monocytes % 4.0, Eosinophils % 0.4, Basophils % 0, Absolute Granulocytes 15.4 H, Absolute Lymphocytes 1.8, Absolute Monocytes 0.7 H, Absolute Eosinophils 0.1, Absolute Basophils 0, Platelet Estimate ADEQUATE, Polychromasia 1+, Hypochromic-Microcytic 1+, Ovalocytes 1+ 05/27/17 0616: Anion Gap 10, Estimated GFR > 60, BUN/Creatinine Ratio 32.0 H, CBC w Diff NO MAN DIFF REQ, RBC 2.94 L, MCV 88.5, MCH 27.9, MCHC 31.6 L, RDW 18.9 H, MPV 8.9, Gran % 80.1 H, Lymphocytes % 13.6 L, Monocytes % 4.7, Eosinophils % 1.4, Basophils % 0.2, Absolute Granulocytes 14.4 H, Absolute Lymphocytes 2.5, Absolute Monocytes 0.8 H, Absolute Eosinophils 0.2, Absolute Basophils 0, Vancomycin Trough 9.8 L Recent Imaging Studies: CXR: Satisfactory position of support line and tubes. No change in increased markings in the bilateral upper lungs probably representing pneumonia. Assessment/Plan Assessment/Plan Assessment: 1. Severe COPD 2. History of multifocal atrial tachycardia 3. Diabetes mellitus 4. Hypertension 5. Acute exacerbation of COPD with influenza and bilateral pneumonia 6. Mild troponin elevation likely secondary to type II ND 7. Recurrent left ventricular systolic dysfunction. Current ejection fraction 30% compared to 60% in June 2016. 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 Yes
[2017-05-28 16:00] VITALS: BP 108/70
--- NOTE | 2017-05-28 16:39 | RADIOLOGY REPORT ---
EXAMINATION: XR ABDOMEN CLINICAL INDICATION: Abdominal distention. COMPARISON: None TECHNIQUE: AP view of the abdomen. FINDINGS: The tip of the enteric tube is located within the proximal stomach. The side port of the tube is located approximately 4.7 cm below the level of the esophagogastric junction. No pneumoperitoneum observed on this single view exam. Gas is present within the mildly distended colon. The cecum is approximately 8 cm diameter. There are no dilated loops of small bowel identified. The partially visualized femoral intramedullary nails and dynamics neck screws are intact. IMPRESSION: There is nonspecific, mild gaseous distention of the colon with a normal sized cecum (approximately 8 cm diameter). No evidence of pneumoperitoneum.
[2017-05-29] VITALS: BP 100/52
[2017-05-29 04:23] LABS: ABSOLUTE BASOPHIL COUNT 0.1 /CUMM (0.0-0.2); ABSOLUTE EOSINOPHIL COUNT 0.1 /CUMM (0.0-0.7); ABSOLUTE GRANULOCYTE CT 13.6 /CUMM (1.4-6.5); ABSOLUTE MONOCYTE COUNT 0.8 /CUMM (0.10-0.60); BASOPHIL % 0.3 % (0.0-2.0); EOSINOPHIL % 0.6 % (0-5); GRANULOCYTE % 82.5 % (42.2-75.2); HEMATOCRIT 25.8 % (37-47); MEAN CORPUSCULAR HGB 28.4 PG (27.0-31.0); MEAN CORPUSCULAR HGB CONC 31.7 G/DL (33.0-37.0); MEAN CORPUSCULAR VOLUME 89.6 FL (81.0-99.0); MEAN PLATELET VOLUME 8.5 FL (7.4-10.4); PLATELET COUNT 308 /CUMM (130-400); RBC DISTRIBUTION WIDTH 19.1 % (11.5-14.5); RED BLOOD CELL CT 2.88 /CUMM (4.20-5.40); WHITE BLOOD CELL COUNT 16.5 /CUMM (4.8-10.8)
--- NOTE | 2017-05-29 07:49 | PN- Resident CRCU ---
Subjective HPI/CRCU Issues: Acute hypercarbic respiratory failure: Likely due to AECOPD, and multilobar pneumonia sepsis 24 Hour Events: Patient was seen and examined this morning. She remained intubated. She remained afebrile with MAXIMUM TEMPERATURE 9..4 F. Heart rate ranges from 64-86 bpm, Respiratory rate 18, blood pressure ranges from 90-110/48-60 mmhg. fluid input/output in the last 24 hours is 3883/3150. Urine output in the last 8 hours is 700 mls. We had extensive discussions with the patient's [place] about her goals of our care and it was decided that she should be extubated today and her CODE STATUS to be changed to comfort measures only. I also spoke to the patient's son Jono Cochran in [place] and informed him about her condition and he was in agreement with extubation as this was in keeping with his mother's wishes. Objective Vital Signs & I&O Last 8 Hrs of Vitals and I&O: Vital Signs Date Time Temp Pulse Resp B/P B/P Pulse O2 O2 Flow FiO2 Mean Ox Delivery Rate 05/29 0921 30 05/29 0800 96.6 68 20 100/58 96 Ventilator 30% 05/29 0800 96 Ventilator 30% 05/29 0638 30 05/29 0400 96 Ventilator 30% 05/29 0316 30 05/29 0050 30 05/29 0000 93 Ventilator 30% 05/29 0000 97.0 82 20 100/52 93 Ventilator 30% 05/28 2217 30 05/28 2000 94 Ventilator 30% 05/28 1850 30 05/28 1615 30 05/28 1600 94 Ventilator 30% 05/28 1600 97.9 92 20 108/70 94 Ventilator 30% Intake & Output 05/29 1600 Intake Total 470 Output Total 1850 Balance -1380 Intake, IV 150 Intake, Tube 200 Feeding Intake, Tube 120 Irrigant Output, Stool 150 Output, Urine 1700 Exam General Appearance: well developed/nourished, no apparent distress, sedated, intubated Head: atraumatic, normal appearance Ears, Nose, Throat: normal pharynx, normal ENT inspection Neck: normal inspection, supple Respiratory: normal breath sounds, chest non-tender, no respiratory distress Cardiovascular: regular rate/rhythm, pedal edema present Gastrointestinal: normal bowel sounds, soft, non-tender, no organomegaly Extremities: normal inspection Cranial Nerves: PERRL, no facial assymetry Skin: intact, normal color Skin Temp/Moisture Exam: Warm/Dry Sepsis Skin Exam (color): Normal for Ethnicity Weaning Parameters VC: 520 NIF: 24 Minute Volume: 4.47 Resp rate: 22 Vt: 188 Heart Rate: 100 Current Medications: Current Medications Sig/Shobha Start time Last Medication Dose Route Stop Time Status Admin Acetaminophen 650 MG Q8P PRN 05/20 1030 DC PO Albuterol Sulfate 3 ML EVERY 4 HRS/AWAKE 05/20 1200 DC 05/29 INH 0850 Aspirin 81 MG DAILY 05/21 1000 DC 05/29 PO 0908 Atorvastatin Calcium 40 MG DAILY@1700 05/20 1915 DC 05/28 PO 1709 Bisacodyl 5 MG DAILY 05/23 1900 DC 05/27 PO 0950 Ceftriaxone Sodium 1,000 MG DAILY 05/24 1012 DC 05/28 IV 05/30 1001 0954 Fentanyl Citrate 1,000 MCG Q7H 05/29 0900 DC Dextrose/Water 250 ML IV Fentanyl Citrate 1,000 MCG Q10H 05/28 0300 DC 05/29 Dextrose/Water 250 ML IV 0058 Furosemide 20 MG BID 05/26 2200 DC 05/29 IV 0942 Heparin Sodium 5,000 UNIT Q8 05/21 0100 DC 05/29 (Porcine) SC 0555 Insulin Human Regular 4 UNITS .STK-MED ONE 05/29 0554 DC IV 05/29 0555 Insulin Human Regular 2 UNITS .STK-MED ONE 05/29 0005 DC IV 05/29 0006 Insulin Human Regular 4 UNITS .STK-MED ONE 05/28 1840 DC IV 05/28 1841 Insulin Human Regular 0 Q6 05/20 1800 DC 05/29 SC 0553 Ipratropium [place] 2.5 ML EVERY 4 HRS/AWAKE 05/20 1200 DC 05/29 INH 0850 Lorazepam 1 MG Q1 NEEDED PRN 05/29 1130 AC IV Lorazepam 100 MG Q16H 05/28 0900 DC 05/29 Sodium Chloride 1,000 ML IV 0058 Morphine Sulfate 2 MG Q1 NEEDED PRN 05/29 1130 AC 05/29 IV 1231 Nystatin 1 DANG BID PRN 05/24 1100 DC 05/25 TOP 0903 Pantoprazole Sodium 40 MG DAILY 05/20 1630 DC 05/29 IV 0942 Polyethylene Glycol 17 GM DAILY 05/23 1900 DC 05/27 PO 0949 Prednisone 20 MG DAILY 05/27 1000 DC 05/29 PO 06/09 0959 0908 Scopolamine HBr 1 PAT Q72H 05/29 1130 AC 05/29 TOP 1238 Senna/Docusate Sodium 1 TAB AT BEDTIME 05/20 2200 DC 05/27 PO 2143 Tramadol HCl 50 MG Q6P PRN 05/20 1100 DC 05/23 PO 2104 Impression/Plan Impression/Problem List Impression: Mr Castillo has a PMHx of COPD (on 4L oxygen), HFpEF( EF 440%), HTN, HLD, previous Influeza 09/14, osteoporosis came was brought in from [facility] with a chief concern of acute dyspnea, and altered mentation likely secondary to acute hypercarbic respiratory failure from multi-lobar pneumonia likely secondary to HCAP or viral. At the time of admission, vitals temp 100.9, HR 141, RR 32, BP 149/65, Pulse ox 90s on 40% BiPAP. EKG: First EKG, sinus tachy No STTW changes, succeeding EKGs revealed t wave inversions in ant-lateral lateral leads. Pertinent lab findings: WBC 24.1-->12.5-->11.4-->7.2(05/22)-->8.5(05/23)-->8.2(05/24)-->14.9(05/26) Hb 10.7(baseline 10.0)-->8.0-->7.9(05/22)-->8.5(05/23)-->8.2(05/24)-->8.3(05/26) Platelets 703 (likely reactive)-->421 Na 144, K 4.1 Bicarb 41-->27 Sr cr 0.5, BUN 18-->13 Troponin 0.11-->0.23-->0.30-->0.23 ABG 7.23, PCO2 99, pO2 65--> pH 7.45,PCO2 40, pO2 95( 05/22) D- dimer 857. INR 1.06. Lactate 2.0-->3.7-->2.2-->1.3 Mg 1.6-->2.5 Strep pneumo, legionella ag urine- neg CXR 05/20 revealed bilateral patchy pulmonary opacities consistent with multifocal pneumonia. CXR 05/22 revealed improving bilateral patchy pulmonary opacities. CTA 05/21 revealed no evidence of pulmonary embolism. CXR 05/26 - Nonspecific airspace disease is noted at left lung apex, unchanged. There is no radiographic evidence of pulmonary venous congestion/CHF present. Echocardiogram: 2015- revealed left ventricular ejection fraction is estimated at 40%. Global hypokinesis. 2017- Diastolic filling pattern is consistent with impaired LV relaxation. The ejection fraction is visually estimated at 60%. 05/22/16- Severely decreased left ventricular systolic function. Left ventricular ejection fraction is estimated at 30-35%. Etiology in her case is due to sepsis from multifocal pneumonia, likely leading to an acute decompensation in her respiratory status. Since she has COPD, that might have caused an acute exacerbation of COPD that worsened her chronic hypercabia leading to hypoxia. She was put on BiPAP for correcting acidemia and hypercarbia, but there was no improvement in either her respiratory status and/ or hypercarbia, although her mentation improved remarkably which indicates a chronic hypercarbic process that was worsened due to an acute illness, which is pneumonia in her case. In regards to her elevated troponin, and new EKG changes it was likely due to demand, which is type 2 AR which explains this change; but new EKG changes could be explained by her increased demand from tachycardia, and hypotension. Although , she doesnt have any remarkable cardiac history, she has several risk factors including 80 pk yr h/o smoking. Recommendations: Respiratory: 1. Acute hypercarbic respiratory failure: Likely due to AECOPD, and multilobar pneumonia which appears as due to HCAP or viral cause. She was initally started on ceftaz, vanc and later transitioned to azithro, vanc and ceftriaxone. LRC did not grow any MRSA, or pneumo, however she had a growth of yeast which could be nonspecific in her case. - For AECOPD, tranistion to po prednisone. - She has completed 7 days of antibiotics with vancomycin and ceftriaxone and also completed 5 days of treatment with Tamiflu - She failed weaning trial last week and the plan was to meet with the and plan for extubation today. Patient's CODE STATUS will be changed to comfort measures as per and patient's wishes as they do not want her to suffer. - DC sedation and start when necessary IV morphine for shortness of breath and pain an IV Ativan for anxiety or agitation. -Start scopolamine patch for secretions Infectious: - Likely sepsis from pneumonia, and required pressor support briefly - Tamiflu was added for emperic coverage of a viral pneumonia and patient has completed 5 days therapy -LRC cultures negative for any bacterial growth so far-only grew yeast Circulatory: - Type 2 AR, but by definition can call it NSTEMI. - ASA was given, and was started on a statin. - As per Cardiology, was started on cardizem that was dc'ed. - Discontinue iv lasix 20mg q12h as patient is comfort measures only Metabolic - Discontinue Accuchecks and NovoLog sliding scale Neurology Discontinue ativan drip and fentany pushes prn Housekeeping: DVT PPx- discontinue heparin sc. GI PPx- discontinue IV Protonix Diet- discontinue tube feeds and remove OG-tube CODE STATUS is comfort measures only Problem List: 1. Acute on chronic respiratory failure with hypoxia and hypercapnia 2. Influenza 3. Pneumonia 4. Sepsis 5. COPD Pain Ratin Tomorrow's Labs & Rationales: None needed as patient is comfort measures Plan DVT/Prophylaxis: pharmacological
[2017-05-29 08:00] VITALS: BP 100/58
--- NOTE | 2017-05-29 09:34 | PN- CRCU ---
Subjective HPI/Critical Care Issues: No sig progress Did not trial well Pts at the bedside and wishes to make pt comfort and liberate her from the vent Objective Current Medications: Current Medications Sig/Shobha Start time Last Medication Dose Route Stop Time Status Admin Acetaminophen 650 MG Q8P PRN 05/20 1030 AC PO Albuterol Sulfate 3 ML EVERY 4 HRS/AWAKE 05/20 1200 AC 05/29 INH 0850 Aspirin 81 MG DAILY 05/21 1000 AC 05/29 PO 0908 Atorvastatin Calcium 40 MG DAILY@1700 05/20 1915 AC 05/28 PO 1709 Bisacodyl 5 MG DAILY 05/23 1900 AC 05/27 PO 0950 Ceftriaxone Sodium 1,000 MG DAILY 05/24 1012 AC 05/28 IV 05/30 1001 0954 Fentanyl Citrate 1,000 MCG Q7H 05/29 0900 AC Dextrose/Water 250 ML IV Fentanyl Citrate 1,000 MCG Q10H 05/28 0300 DC 05/29 Dextrose/Water 250 ML IV 0058 Furosemide 20 MG BID 05/26 2200 AC 05/28 IV 2151 Heparin Sodium 5,000 UNIT Q8 05/21 0100 AC 05/29 (Porcine) SC 0555 Insulin Human Regular 2 UNITS .STK-MED ONE 05/29 0005 DC IV 05/29 0006 Insulin Human Regular 4 UNITS .STK-MED ONE 05/28 1840 DC IV 05/28 1841 Insulin Human Regular 2 UNITS .STK-MED ONE 05/28 1150 DC IV 05/28 1151 Insulin Human Regular 0 Q6 05/20 1800 05/29 SC 0553 Ipratropium Cyrus 2.5 ML EVERY 4 HRS/AWAKE 05/20 1200 AC 05/29 INH 0850 Lorazepam 100 MG Q16H 05/28 0900 AC 05/29 Sodium Chloride 1,000 ML IV 0058 Lorazepam 100 MG Q20H 05/27 1200 DC 05/28 Sodium Chloride 1,000 ML IV 0837 Nystatin 1 DANG BID PRN 05/24 1100 AC 05/25 TOP 0903 Pantoprazole Sodium 40 MG DAILY 05/20 1630 AC 05/28 IV 0954 Polyethylene Glycol 17 GM DAILY 05/23 1900 AC 05/27 PO 0949 Prednisone 30 MG DAILY 05/27 1000 AC 05/29 PO 06/09 0959 0908 Senna/Docusate Sodium 1 TAB AT BEDTIME 01/20 2200 AC 05/27 PO 2143 Tramadol HCl 50 MG Q6P PRN 05/20 1100 AC 05/23 PO 2104 Vital Signs & I&O Last 24 Hrs of Vitals and I&O: Laboratory Tests 05/29 05/28 0400 0435 Chemistry Sodium (137 - 145 mmol/L) 138 139 Potassium (3.5 - 5.1 mmol/L) 4.2 4.3 Chloride (98 - 107 mmol/L) 98 97 L Carbon Dioxide (22 - 30 mmol/L) 30 31 H Anion Gap (5 - 16) 10 11 BUN (7 - 17 mg/dL) 15 14 Creatinine (0.5 - 1.0 mg/dL) 0.4 L 0.4 L Estimated GFR (>60 ml/min) > 60 > 60 Glucose (65 - 99 mg/dL) 141 H 132 H Calcium (8.4 - 10.2 mg/dL) 8.9 8.9 Phosphorus (2.5 - 4.5 mg/dL) 4.6 H 4.7 H Magnesium (1.6 - 2.3 mg/dL) 2.0 2.1 Total Bilirubin (0.2 - 1.3 mg/dL) 0.2 0.3 AST (14 - 36 U/L) 14 22 ALT (9 - 52 U/L) 42 42 Albumin (3.5 - 5.0 g/dL) 2.8 L 2.9 L Hematology CBC w Diff NO MAN DIFF REQ MAN DIFF ORDERED WBC (4.8 - 10.8 /CUMM) 16.5 H 18.1 H RBC (4.20 - 5.40 /CUMM) 2.88 L 3.01 L Hgb (12.0 - 16.0 G/DL) 8.2 L 8.4 L Hct (37 - 47 %) 25.8 L 26.9 L MCV (81.0 - 99.0 FL) 89.6 89.5 MCH (27.0 - 31.0 PG) 28.4 27.9 MCHC (33.0 - 37.0 G/DL) 31.7 L 31.2 L RDW (11.5 - 14.5 %) 19.1 H 19.0 H Plt Count (130 - 400 /CUMM) 308 338 MPV (7.4 - 10.4 FL) 8.5 8.4 Gran % (42.2 - 75.2 %) 82.5 H 85.4 H Lymphocytes % (20.5 - 51.1 %) 12.0 L 10.2 L Monocytes % (1.7 - 9.3 %) 4.6 4.0 Eosinophils % (0 - 5 %) 0.6 0.4 Basophils % (0.0 - 2.0 %) 0.3 0 Absolute Granulocytes (1.4 - 6.5 /CUMM) 13.6 H 15.4 H Absolute Lymphocytes (1.2 - 3.4 /CUMM) 2.0 1.8 Absolute Monocytes (0.10 - 0.60 /CUMM) 0.8 H 0.7 H Absolute Eosinophils (0.0 - 0.7 /CUMM) 0.1 0.1 Absolute Basophils (0.0 - 0.2 /CUMM) 0.1 0 Platelet Estimate (ADEQUATE) ADEQUATE Polychromasia 1+ Hypochromic-Microcytic 1+ Ovalocytes 1+ Vital Signs Date Time Temp Pulse Resp B/P B/P Pulse O2 O2 Flow FiO2 Mean Ox Delivery Rate 05/29 0921 30 05/29 0800 96.6 68 20 100/58 96 Ventilator 30% 05/29 0800 96 Ventilator 30% 05/29 0638 30 05/29 0400 96 Ventilator 30% 05/29 0316 30 05/29 0050 30 05/29 0000 93 Ventilator 30% 05/29 0000 97.0 82 20 100/52 93 Ventilator 30% 05/28 2217 30 05/28 2000 94 Ventilator 30% 05/28 1850 30 05/28 1615 30 05/28 1600 94 Ventilator 30% 05/28 1600 97.9 92 20 108/70 94 Ventilator 30% 05/28 1425 30 05/28 1200 97 Ventilator 30% 05/28 0950 30 Intake & Output 05/29 1600 05/29 0800 05/29 0000 Intake Total 1169 1459 Output Total 1100 950 Balance 69 509 Intake, IV 625 786 Intake, Oral 0 Intake, Other 55 Intake, Tube 384 458 Feeding Intake, Tube 160 160 Irrigant Number 2 0 Bowel Movements Output, Stool 400 Output, Urine 700 950 Patient 142 lb Weight Weight Bed scale Measurement Method Impression/Plan Impression/Plan Impression/Plan: Physical Exam: Well-developed, obese elderly female who is intubated and sedated. Vital signs: See above. Neck: No JVD. Lungs: Clear to auscultation anteriorly, mild wheezing and crackles Heart: S1, S2 with soft systolic murmur. Abdomen: Soft, nontender, positive bowel sounds. Extremities: Sig edema. 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 SPutum now shows gram positive cocci * Systolic heart disease with hypotension initially with mildly elevated troponin * Previous cdiff and vre positive * Previous history of hypertension hyperlipidemia, ischemic heart with severe ihd with ef 30 percent * Significant osteoporosis with recent worsening performance status * Sig anxiety disorder REC Family meeting held Pts wishes to extubate the patient to comfort Extubate to comfort Keep on nasal cannula Can transition to IV morphine and iv ativan prn for comfort post extubation if pt is uncomfortable Dc all meds IF pt continues to be ill and not doing well then will have hospice team see the pt per pts 's wishes Comfort care Extubate Pt is critically ill tts 37 mins
--- NOTE | 2017-05-29 09:38 | RADIOLOGY REPORT ---
EXAMINATION: XR PORTABLE CHEST CLINICAL INFORMATION: Hypoxemia. Status post intubation. COMPARISON: Several prior chest x-rays, most recent of which is dated 05/28/2017. TECHNIQUE: Portable AP semierect view of the chest was obtained. FINDINGS: Endotracheal tube tip 6 cm above the oliver. Enteric tube courses into the abdomen with tip not included. Left jugular central venous line tip is in the mid SVC. Multiple EKG these overlie the chest. The cardiomediastinal silhouette is within normal limits in size. Calcification of the aortic arch is seen. There are diffusely increased reticular opacities seen in the lung apices and in the right lung base medially bilaterally, unchanged. Linear subsegmental atelectasis is seen in the left lung base. No evolving dense consolidation or effusion is seen. No pneumothorax is noted. The left CP angle is not included on this exam. There is a convex right thoracolumbar curvature, possibly positional. Portions of the total left shoulder arthroplasty are included. IMPRESSION: 1. Endotracheal tube tip 6 cm above the oliver. 2. Enteric tube tip in the abdomen not included. 3. Left jugular central venous line tip in the mid SVC. 4. No significant change in reticular opacities in both upper lobes and in the right medial lung base, possibly due to interstitial pneumonitis. Clinical correlation requested.
[2017-05-29 16:00] VITALS: BP 110/60
[2017-05-30 01:12] VITALS: BP 98/60
[2017-05-30 06:56] VITALS: BP 118/64
--- NOTE | 2017-05-30 10:20 | PN- Pulmonary ---
See Addendum Subjective HPI/Critical Care Issues: Relatively stable after extubation Awake and at times confused fatigued Objective Current Medications: Current Medications Sig/Shobha Start time Last Medication Dose Route Stop Time Status Admin Acetaminophen 650 MG Q8P PRN 05/20 1030 DC PO Albuterol Sulfate 3 ML EVERY 4 HRS/AWAKE 05/20 1200 DC 05/29 INH 0850 Aspirin 81 MG DAILY 05/21 1000 DC 05/29 PO 0908 Atorvastatin Calcium 40 MG DAILY@1700 05/20 1915 DC 05/28 PO 1709 Bisacodyl 5 MG DAILY 05/23 1900 DC 05/27 PO 0950 Fentanyl Citrate 1,000 MCG Q7H 05/29 0900 DC Dextrose/Water 250 ML IV Furosemide 20 MG BID 05/26 2200 DC 05/29 IV 0942 Heparin Sodium 5,000 UNIT Q8 05/21 0100 DC 05/29 (Porcine) SC 0555 Insulin Human Regular 0 Q6 05/20 1800 DC 05/29 SC 0553 Ipratropium Kendrick 2.5 ML EVERY 4 HRS/AWAKE 05/20 1200 DC 05/29 INH 0850 Lorazepam 1 MG Q1 NEEDED PRN 05/29 1130 AC 05/29 IV 2013 Lorazepam 100 MG Q16H 05/28 0900 DC 05/29 Sodium Chloride 1,000 ML IV 0058 Morphine Sulfate 2 MG Q1 NEEDED PRN 05/29 1130 AC 05/29 IV 2014 Nystatin 1 DANG BID PRN 05/24 1100 DC 05/25 TOP 0903 Pantoprazole Sodium 40 MG DAILY 05/20 1630 DC 05/29 IV 0942 Polyethylene Glycol 17 GM DAILY 05/23 1900 DC 05/27 PO 0949 Prednisone 20 MG DAILY 05/30 1000 DC PO 05/30 1001 Prednisone 10 MG DAILY 05/30 1000 AC PO 06/08 0959 Prednisone 20 MG DAILY 05/27 1000 DC 05/29 PO 06/09 0959 0908 Scopolamine HBr 1 PAT Q72H 05/29 1130 AC 05/29 TOP 1238 Senna/Docusate Sodium 1 TAB AT BEDTIME 05/20 2200 DC 05/27 PO 2143 Tramadol HCl 50 MG Q6P PRN 05/20 1100 DC 05/23 PO 2104 Vital Signs & I&O Last 24 Hrs of Vitals and I&O: Vital Signs Date Time Temp Pulse Resp B/P B/P Pulse O2 O2 Flow FiO2 Mean Ox Delivery Rate 05/30 0656 97.9 74 20 118/64 95 Nasal 8L Cannula 05/30 0112 97.5 68 20 98/60 100 Nasal 8L Cannula 05/30 0000 93 Nasal 8L Cannula 05/29 1600 97.6 111 20 110/60 94 Nasal 8L Cannula 05/29 1600 91 Nasal 8L Cannula Intake & Output 05/30 1600 05/30 0800 05/30 0000 Intake Total 0 240 Output Total 150 800 Balance -150 -560 Intake, Oral 0 240 Output, Stool 800 Output, Urine 150 Patient 143 lb Weight Weight Bed scale Measurement Method Impression/Plan Impression/Plan Impression/Plan: Physical Exam: Well-developed, obese elderly female Vital signs: See above. Neck: No JVD. Lungs: Clear to auscultation anteriorly, mild wheezing and crackles Heart: S1, S2 with soft systolic murmur. Abdomen: Soft, nontender, positive bowel sounds. Extremities: Sig edema. 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, Previous resp failure with influenza and pna in august 15, hypertension, previous significant alcohol use, smoking up until recently, osteoporosis, was in SNF and came in with resp failure with fever and multilobar pna Her issues include * S/p Acute hypercarbic and hypoxemic respiratory failure related to end-stage lung disease with COPD exacerbation with multilobar pna (HCAP vs influenza pneumonia) s/p intubation and extubation * Systolic heart disease with hypotension initially with mildly elevated troponin * Previous cdiff and vre positive * Previous history of hypertension hyperlipidemia, ischemic heart with severe ihd with ef 30 percent * Significant osteoporosis with recent worsening performance status * Sig anxiety disorder REC IF stable restart iv steroids at 30 mg or po Swallow eval Prn ativan and low dose morphine if she gets worse or agitated Nebs atc Periodex oral care tid Resume out pt meds PEripheral iv line to be established and once she has a line will dc tlc Resume po meds if she passes swallow eval DNR and DNI NO icu IF she gets worse will get hospice to see IF she improves then dc comfort care and make her just dnr and dni with no icu transfer WIll follow
--- NOTE | 2017-05-30 11:09 | PN- Housestaff ---
Subjective Follow-up For: acute hypoxemic and hypercarbic respiratory failure end stage copd Subjective: lethargic, states she is hungry and wants to go home Review of Systems Constitutional: Reports: see HPI. Objective Last 24 Hrs of Vital Signs/I&O Vital Signs Date Time Temp Pulse Resp B/P B/P Pulse O2 O2 Flow FiO2 Mean Ox Delivery Rate 05/30 1421 97.0 77 20 95 Nasal 8L Cannula 05/30 1419 80/60 05/30 0800 Nasal 8L Cannula 05/30 0656 97.9 74 20 118/64 95 Nasal 8L Cannula 05/30 0112 97.5 68 20 98/60 100 Nasal 8L Cannula 05/30 0000 93 Nasal 8L Cannula 05/29 1600 97.6 111 20 110/60 94 Nasal 8L Cannula 05/29 1600 91 Nasal 8L Cannula Intake & Output 05/30 1600 05/30 0800 05/30 0000 Intake Total 0 0 240 Output Total 100 150 800 Balance -100 -150 -560 Intake, Oral 0 0 240 Output, Stool 800 Output, Urine 100 150 Patient 65.005 kg Weight Weight Bed scale Measurement Method Physical Exam General Appearance: Cooperative, Mild Distress, lethargic Neck: Supple, No JVD, left IJ Cardiovascular: Regular Rate, Normal S1, Normal S2, No Murmurs Lungs: expiratory wheezing, diminished bibasilar Abdomen: Normal Bowel Sounds, Soft, No Tenderness, No Masses, rectal tube and quinones Extremities: No Clubbing, No Cyanosis, No Edema, Normal Pulses Current Medications: Current Medications Sig/Shobha Start time Last Medication Dose Route Stop Time Status Admin Chlorhexidine 15 ML BID 05/30 1207 AC 05/30 Gluconate PO 1507 Dextrose/Sodium 1,000 ML Q13H 05/30 1215 DC Chloride IV 05/31 1414 Lorazepam 1 MG Q1 NEEDED PRN 05/29 1130 AC 05/30 IV 1617 Methylprednisolone 40 MG DAILY 05/30 1205 AC 05/30 IV 1350 Morphine Sulfate 2 MG Q1 NEEDED PRN 05/29 1130 05/29 IV 2014 Prednisone 20 MG DAILY 05/30 1000 DC PO 05/30 1001 Prednisone 10 MG DAILY 05/30 1000 DC PO 06/08 0959 Scopolamine HBr 1 PAT Q72H 05/29 1130 05/29 TOP 1238 Sodium Chloride 500 ML BOLUS ONE 05/30 1430 CAN IV 05/30 1529 Assessment/Plan Assessment: 81 year old female with PMH of end stage COPD, HFpEF, HTN, HLD presents with dyspnea, altered mental status and acute hypoxic and hypercarbic respiratory failure from multi-lobar pneumonia requiring intubation and mechanical ventilation. The patient was cared for in the ICU and extubated yesterday and made comfort care in accordance with the patient's advanced directives. Hospital course notable for sepsis with hypotension requiring vasopressors and complicated by type II NSTEMI. Acute hypercarbic respiratory failure: COPD exacerbation and multilobar pneumonia Started on ceftaz, vanc changed to azithro, vancomycin and ceftriaxone. Sputum culture positive for yeast, nonspecific in her case. Required vasopressor support for sepsis with hypotension briefly On IV solumedrol pending swallow evaluation Completed course of antibiotics with vancomycin, ceftriaxone, and also Tamiflu Extubated for comfort yesterday and code status changed to comfort measures only as per and patient's wishes with advanced directive Continue prn IV morphine for shortness of breath and pain IV Ativan prn for anxiety or agitation. Scopolamine patch for secretions Plan to discontinue central line No DVT or GI ppx NPO pending swallow evaluation, consider comfort feeding Comfort measures only Problem List: 1. CHF EXACERBATION 2. COPD 3. History of - hypertension 4. Hypoxia 5. Acute on chronic respiratory failure with hypoxia and hypercapnia 6. Sepsis Pain Ratin Pain Location: n/a Pain Goal: Pain 4 or less Pain Plan: prn Tomorrow's Labs & Rationales: none
[2017-05-30 14:19] VITALS: BP 80/60
[2017-05-30 22:58] VITALS: BP 96/62
[2017-05-31 07:03] VITALS: BP 110/60
--- NOTE | 2017-05-31 07:10 | PN- Housestaff ---
Subjective Follow-up For: end stage COPD respiratory failure multilobar pneumonia Subjective: somnolent but awakens to touch, confused labored respiration Review of Systems Constitutional: Reports: see HPI. Objective Last 24 Hrs of Vital Signs/I&O Vital Signs Date Time Temp Pulse Resp B/P B/P Pulse O2 O2 Flow FiO2 Mean Ox Delivery Rate 05/31 1432 97.3 67 8 90/50 91 05/31 0800 97 Nasal 8L Cannula 05/31 0703 97.5 63 20 110/60 99 Nasal 8L Cannula 05/31 0000 Nasal 8L Cannula 05/30 2258 98.1 82 20 96/62 96 Nasal Cannula 05/30 1600 96 Nasal 8L Cannula Intake & Output 05/31 1600 05/31 0800 05/31 0000 Intake Total Output Total 175 325 275 Balance -175 -325 -275 Output, Urine 175 325 275 Patient 62.681 kg Weight Physical Exam General Appearance: lethargic, opens her eyes Cardiovascular: Regular Rate, Normal S1, Normal S2, No Murmurs Lungs: diffuse rhonchi Abdomen: Normal Bowel Sounds, Soft, No Tenderness, No Masses Extremities: No Clubbing, No Cyanosis, No Edema, Normal Pulses Current Medications: Current Medications Sig/Shobha Start time Last Medication Dose Route Stop Time Status Admin Chlorhexidine 15 ML BID 05/30 1207 AC 05/30 Gluconate PO 2033 Dextrose/Sodium 1,000 ML Q13H 05/31 0815 DC Chloride IV 06/01 1014 Dextrose/Sodium 1,000 ML Q13H 05/30 1215 DC Chloride IV 05/31 1414 Lorazepam 1 MG Q1 NEEDED PRN 05/29 1130 AC 05/31 IV 0538 Methylprednisolone 30 MG DAILY 05/31 1000 AC 05/31 IV 0956 Methylprednisolone 40 MG DAILY 05/30 1205 DC 05/30 IV 1350 Morphine Sulfate 2 MG Q1 NEEDED PRN 05/29 1130 AC 05/31 IV 1008 Scopolamine HBr 1 PAT Q72H 05/29 1130 05/29 TOP 1238 Sodium Chloride 500 ML BOLUS ONE 05/30 1430 CAN IV 05/30 1529 Assessment/Plan Assessment: 81 year old female with PMH of end stage COPD, HFpEF, HTN, HLD presents with dyspnea, altered mental status and acute hypoxic and hypercarbic respiratory failure from multi-lobar pneumonia requiring intubation and mechanical ventilation. The patient was cared for in the ICU and extubated yesterday and made comfort care in accordance with the patient's advanced directives. Hospital course notable for sepsis with hypotension requiring vasopressors and complicated by type II NSTEMI. Acute hypercarbic respiratory failure: COPD exacerbation and multilobar pneumonia Started on ceftaz, vanc changed to azithro, vancomycin and ceftriaxone. Sputum culture positive for yeast, nonspecific in her case. Required vasopressor support for sepsis with hypotension briefly On IV solumedrol pending swallow evaluation Completed course of antibiotics with vancomycin, ceftriaxone, and also Tamiflu Extubated for comfort yesterday and code status changed to comfort measures only as per and patient's wishes with advanced directive Continue prn IV morphine for shortness of breath and pain IV Ativan prn for anxiety or agitation. Scopolamine patch for secretions Plan to discontinue central line No DVT or GI ppx NPO pending swallow evaluation, consider comfort feeding Comfort measures only Problem List: 1. Pneumonia 2. Sepsis 3. COPD (chronic obstructive pulmonary disease) 4. Hypercapnic respiratory failure 5. Acute on chronic respiratory failure with hypoxia and hypercapnia 6. COPD exacerbation Pain Ratin Pain Location: unable to assess Pain Goal: Pain 4 or less Pain Plan: prn morphine and ativan Tomorrow's Labs & Rationales: none
--- NOTE | 2017-05-31 09:58 | PN- Pulmonary ---
Subjective HPI/Critical Care Issues: Doing poorly Sleepy Objective Current Medications: Current Medications Sig/Shobha Start time Last Medication Dose Route Stop Time Status Admin Chlorhexidine 15 ML BID 05/30 1207 AC 05/30 Gluconate PO 2033 Dextrose/Sodium 1,000 ML Q13H 05/31 0815 AC Chloride IV 06/01 1014 Dextrose/Sodium 1,000 ML Q13H 05/30 1215 DC Chloride IV 05/31 1414 Lorazepam 1 MG Q1 NEEDED PRN 05/29 1130 AC 05/31 IV 0538 Methylprednisolone 30 MG DAILY 05/31 1000 AC IV Methylprednisolone 40 MG DAILY 05/30 1205 DC 05/30 IV 1350 Morphine Sulfate 2 MG Q1 NEEDED PRN 05/29 1130 AC 05/31 IV 0627 Prednisone 20 MG DAILY 05/30 1000 DC PO 05/30 1001 Prednisone 10 MG DAILY 05/30 1000 DC PO 06/08 0959 Scopolamine HBr 1 PAT Q72H 05/29 1130 AC 05/29 TOP 1238 Sodium Chloride 500 ML BOLUS ONE 05/30 1430 CAN IV 05/30 1529 Vital Signs & I&O Last 24 Hrs of Vitals and I&O: Vital Signs Date Time Temp Pulse Resp B/P B/P Pulse O2 O2 Flow FiO2 Mean Ox Delivery Rate 05/31 0800 97 Nasal 8L Cannula 05/31 0703 97.5 63 20 110/60 99 Nasal 8L Cannula 05/31 0000 Nasal 8L Cannula 05/30 2258 98.1 82 20 96/62 96 Nasal Cannula 05/30 1600 96 Nasal 8L Cannula 05/30 1421 97.0 77 20 95 Nasal 8L Cannula 05/30 1419 80/60 Intake & Output 05/31 1600 05/31 0800 05/31 0000 Intake Total Output Total 325 275 Balance -325 -275 Output, Urine 325 275 Patient 138 lb Weight Impression/Plan Impression/Plan Impression/Plan: Physical Exam: Well-developed, obese elderly female Vital signs: See above. Neck: No JVD. Lungs: Clear to auscultation anteriorly, mild wheezing and crackles Heart: S1, S2 with soft systolic murmur. Abdomen: Soft, nontender, positive bowel sounds. Extremities: Sig edema. 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, Previous resp failure with influenza and pna in august 15, hypertension, previous significant alcohol use, smoking up until recently, osteoporosis, was in SNF and came in with resp failure with fever and multilobar pna Her issues include * S/p Acute hypercarbic and hypoxemic respiratory failure related to end-stage lung disease with COPD exacerbation with multilobar pna (HCAP vs influenza pneumonia) s/p intubation and extubation * Systolic heart disease with hypotension initially with mildly elevated troponin * Previous cdiff and vre positive * Previous history of hypertension hyperlipidemia, ischemic heart with severe ihd with ef 30 percent * Significant osteoporosis with recent worsening performance status * Sig anxiety disorder REC Discussed with today He wishes comfort care only today No ivf etc Cont iv steroids ativan and morphine I offered inpatient hospice and if she is with us in am he wishes her to be made hospice inpatient tommorow and it appears that she would be an appropriate candidate Pt will be here to meet with hospice if she is worse tommorow Please inform hospice about a potential meeting and transfer in am and pts will be here for a short time at 10 am Prn ativan and low dose morphine if she gets worse or agitated Nebs atc Periodex oral care tid DNR and DNI NO icu/no ivf etc
[2017-05-31 14:32] VITALS: BP 90/50
[2017-05-31 22:38] VITALS: BP 98/58
[2017-06-01 06:20] VITALS: BP 96/60
--- NOTE | 2017-06-01 07:02 | PN- Housestaff ---
Subjective Follow-up For: acute respiratory failure end stage copd multilobular pneumonia Subjective: patient is more awake and responsive today but remains confused and not oriented Review of Systems Constitutional: Reports: see HPI. Objective Last 24 Hrs of Vital Signs/I&O Vital Signs Date Time Temp Pulse Resp B/P B/P Pulse O2 O2 Flow FiO2 Mean Ox Delivery Rate 06/01 1156 98.4 90 8 96/60 06/01 1116 Nasal 5.0L Cannula 06/01 0800 97 Nasal 5.0L Cannula 06/01 0620 98.4 90 8 96/60 97 Nasal Cannula 06/01 0028 100 Nasal 5.0L Cannula 06/01 0000 100 Nasal 5.0L Cannula 05/31 2238 98.1 84 10 98/58 88 Nasal Cannula 05/31 1600 94 Nasal 4.0L Cannula 05/31 1432 97.3 67 8 90/50 91 Intake & Output 06/01 1600 06/01 0800 06/01 0000 Intake Total 20 Output Total 200 400 Balance -180 -400 Intake, IV 20 Intake, Oral 0 Output, Urine 200 400 Physical Exam General Appearance: Alert, Mild Distress, tacyhpeic Neck: Supple, No JVD, L IJ removed Cardiovascular: Regular Rate, Normal S1, Normal S2, No Murmurs Lungs: diffuse rhonchi and upper congestion Abdomen: Normal Bowel Sounds, Soft, No Tenderness, No Masses, +quinones and rectal tube Extremities: No Clubbing, No Cyanosis, No Edema, Normal Pulses Current Medications: Current Medications Sig/Shobha Start time Last Medication Dose Route Stop Time Status Admin Chlorhexidine 15 ML BID 05/30 1207 AC 06/01 Gluconate PO 0947 Lorazepam 1 MG Q1 NEEDED PRN 06/01 0900 AC SC Lorazepam 1 MG ONCE ONE 06/01 0045 DC 06/01 IV 06/01 0046 0042 Lorazepam 1 MG Q1 NEEDED PRN 05/29 1130 DC 05/31 IV 2351 Methylprednisolone 30 MG DAILY 05/31 1000 AC 05/31 IV 0956 Morphine Sulfate 2 MG Q1 NEEDED PRN 06/01 0900 AC SC Morphine Sulfate 2 MG Q1 NEEDED PRN 05/29 1130 DC 06/01 IV 0026 Nystatin 1 DANG TID 06/01 1000 AC 06/01 TOP 1327 Scopolamine HBr 1 PAT Q72H 05/29 1130 06/01 TOP 1326 Assessment/Plan Assessment: 81 year old female with PMH of end stage COPD, HFpEF, HTN, HLD presents with dyspnea, altered mental status and acute hypoxic and hypercarbic respiratory failure from multi-lobar pneumonia requiring intubation and mechanical ventilation. The patient was cared for in the ICU and extubated yesterday and made comfort care in accordance with the patient's advanced directives. Hospital course notable for sepsis with hypotension requiring vasopressors and complicated by type II NSTEMI. Acute hypercarbic respiratory failure: COPD exacerbation and multilobar pneumonia Started on ceftaz, vanc changed to azithro, vancomycin and ceftriaxone. Sputum culture positive for yeast, nonspecific in her case. Required vasopressor support for sepsis with hypotension briefly On IV solumedrol pending swallow evaluation Completed course of antibiotics with vancomycin, ceftriaxone, and also Tamiflu Extubated for comfort yesterday and code status changed to comfort measures only as per and patient's wishes with advanced directive Continue prn IV morphine for shortness of breath and pain IV Ativan prn for anxiety or agitation. Scopolamine patch for secretions Comfort measures only Problem List: 1. COPD 2. Acute on chronic respiratory failure with hypoxia and hypercapnia 3. Hypertension 4. Sepsis 5. Pneumonia Pain Ratin Pain Location: unable to assess Pain Goal: Pain 4 or less Pain Plan: morphine/ativan prn Tomorrow's Labs & Rationales: none
[2017-06-01] MEDS ORDERED: SCOPOLAMINE TOP (11:37)
[2017-06-01] MEDS ORDERED: MORPHINE S10 MG/1 M1 SC (11:37)
[2017-06-01] MEDS ORDERED: LORAZEPAM2 MG/1 M1 SC (11:37)
--- NOTE | 2017-06-01 11:45 | Patient Discharge Instructions ---
Discharge Instructions General Discharge Information Special Instructions: SEPSIS PNEUMONIA RESPIRATORY FAILURE Acute Coronary Syndrome Inclusion Criteria At DC or during hospital stay patient has or had the following: ACS DIAGNOSIS Yes Discharge Core Measures Meds if any: Prescribed or Continued at Discharge BLANCA/ARB if EF <40% No Aspirin No Beta-Jennifer No Statin No Meds if any: NOT Prescribed or Continued at Discharge No BLANCA/ARB d/t HOSPICE No Aspirin d/t HOSPICE No Beta-Jennifer d/t HOSPICE No Statin d/t HOSPICE Comment COMFORT MEDS ONLY Congestive Heart Failure Inclusion Criteria At DC or during hospital stay patient has or had the following: CHF DIAGNOSIS No Discharge Core Measures Meds if any: Prescribed or Continued at Discharge Meds if any: NOT Prescribed or Continued at Discharge Cerebrovascular accident Inclusion Criteria At DC or during hospital stay patient has or had the following: CVA/TIA Diagnosis No Discharge Core Measures Meds if any: Prescribed or Continued at Discharge Meds if any: NOT Prescribed or Continued at Discharge Venous thromboembolism Inclusion Criteria VTE Diagnosis No VTE Type NONE VTE Confirmed by (Test) NONE Discharge Core Measures - Per Current guidelines, there needs to be overlap - treatment for the first 5 days of Warfarin therapy. - If discharged on Warfarin prior to 5 days of - overlap therapy, the patient will need to be - assessed for post discharge needs including - *Post discharge parental anticoagulation - *Warfarin and/or parental anticoagulation education - *Follow up date to check INR post discharge At least 5 days overlap therapy as Inpatient No Meds if any: Prescribed or Continued at Discharge Note: Overlap Therapy is Warfarin and Anticoagulant Meds if any: NOT Prescribed or Continued at Discharge
[2017-06-01 11:56] VITALS: BP 96/60
--- NOTE | 2017-06-01 11:58 | Discharge Summary ---
Visit Information Visit Dates Admission Date: 05/20/17 Discharge Date: 06/01/17 Hospital Course Course Attending Physician: Herman CARRANZA,Mir Blevins Primary Care Physician: Dewayne CARRANZA,[facility] Course: 81 year old female with past medical history significant for end stage COPD on 4L oxygen at baseline, HFpEF (EF 40%), HTN, and HLD was brought in from [facility] with difficulty breathing and altered mental status presumed secondary to sepsis and respiratory with hypercarbia. The patient was febrile, tachycardic and hypoxic on presentation. Initially treated with BiPAP and subsequently intubated and mechanically ventilated in the ICU. She was critically ill, septic from multilobar pneumonia, and her hospital course was complicated by type II NSTEMI, central line placement, brief vasopressor support in addition to mechanical ventilation and respiratory failure. Cardiology, pulmonary and critical care consultants were involved her in her care. The patient's lower respiratory were positive only for yeast and blood cultures were negative. She was initally started on ceftazidime and vancomycin and later transitioned to azithromycin, vancomycin and ceftriaxone. She completed a seven day course of antibiotics in addition to five days of treatment with Tamiflu. The patient was extubated after multiple failed weaning trials from the ventilator for comfort and in accordance with her advanced medical directives. After family meetings with her , her code status was changed to comfort measures only. Medications were discontinued except for morphine, ativan, and scopolamine for symptomatic relief pending hospice evaluation. Allergies: Coded Allergies: Penicillins (DIARRHEA 12/26/16) Significant Procedures: EKGs revealed t wave inversions in ant-lateral lateral leads. CXR 05/20 revealed bilateral patchy pulmonary opacities consistent with multifocal pneumonia. CTA 05/21 revealed no evidence of pulmonary embolism. Echocardiogram: 2017- Diastolic filling pattern is consistent with impaired LV relaxation. The ejection fraction is visually estimated at 60%. 05/22/16- Severely decreased left ventricular systolic function. Left ventricular ejection fraction is estimated at 30-35%. Disposition Summary Disposition Principal Diagnosis: Acute on chronic hypoxemic respiratory failure with hypercarbia Sepsis secondary to multilobular pneumonia COPD exacerbation Type II NSTEMI Additional Diagnosis: COPD Chronic hypoxic respiratory failure HFpEF HTN HLD Discharge Disposition: SNF Discharge Instructions General Discharge Information Code Status: Comfort Care Only Patient's Diet: Comfort feeding as tolerated or mental status allows Patient's Activity: As tolerated, no limitations Follow-Up Instructions/Appts: Can follow up with Dr. Sutton if necessary Medications at Discharge Discharge Medications: Stop taking the following medications: Atorvastatin Calcium (Lipitor) 10 MG TABLET ORAL 5 PM DILTIAZEM HCL (Diltiazem 24HR Cd) 120 MG CER ORAL DAILY Qty = 90 Furosemide (Furosemide) 20 MG TABLET ORAL Every other day Qty = 90 Folic Acid (Folic Acid) 1 MG TABLET ORAL DAILY Days = 14 Multivitamin (One Daily Multivitamin) 1 EACH TABLET ORAL DAILY Days = 30 Lisinopril (Lisinopril) 5 MG TABLET ORAL DAILY Alprazolam (Alprazolam) 0.25 MG TABLET ORAL DAILY as needed for ANXIETY Qty = 60 Aspirin (Aspirin*) 81 MG TAB.CHEW ORAL DAILY Naloxone HCl (Narcan) 4 MG/ACTUATION SPRAY In the nose as needed for UNRESPONSIVENESS Metformin HCl (Metformin HCl) 1,000 MG TABLET ORAL TWICE DAILY Qty = 60 Acetaminophen (Acephen) 325 MG SUPP.RECT RECTALLY EVERY 6 HOURS NEEDED as needed for PAIN AND FEVER Acetaminophen (Acetaminophen) 325 MG CAPSULE ORAL EVERY SIX HOURS NEEDED as needed for PAIN AND FEVER Tramadol HCl (Tramadol HCl) 50 MG TABLET ORAL EVERY SIX HOURS NEEDED as needed for PAIN Qty = 30 Bisacodyl (Dulcolax) 10 MG SUPP.RECT RECTAL DAILY NEEDED as needed for CONSTIPATION Na Phos,M-B/Na Phos,Di-Ba (Fleet Enema) 19 GRAM-7 GRAM/118 ML ENEMA RECTAL GIVE ONCE as needed for CONSTIPATION Guaifenesin/Dextromethorphan (Adult Robitussin Peak Cold Liq) 100 MG-10 MG/5 ML LIQUID ORAL EVERY 6 HOURS NEEDED as needed for COUGH/CONGESTION Mirtazapine (Remeron) 30 MG TABLET ORAL DAILY Citalopram Hydrobromide (Celexa) 10 MG TABLET ORAL DAILY Metoprolol Succinate (Metoprolol Succinate) 50 MG TAB.ER.24H ORAL DAILY Oxycodone HCl/Acetaminophen (Percocet 5-325 MG Tablet) 5 MG-325 MG TABLET ORAL TWICE DAILY Days = 30 Continue taking these medications: Ipratropium/Albuterol Sulfate (Iprat-Albut 0.5-3(2.5) MG/3 Ml) 0.5 MG-3 MG (2.5 MG BASE)/3 ML AMPUL.NEB 1 Inhalation Inhale through mouth EVERY 4-6 HOURS as needed for COPD Qty = 30 Tiotropium [place] (Spiriva) 18 MCG CAP.W.DEV 1 Capsule Inhale through mouth DAILY Qty = 30 Budesonide/Formoterol Fumarate (Symbicort 160-4.5 Mcg Inhaler) 160 MCG-4.5 MCG/ ACTUATION HFA.AER.AD 2 Puff Inhale through mouth TWICE DAILY Qty = 10 Start taking the following new medications: LORazepam (Ativan) 2 MG/ML SDV 1 Milligram Inject into fatty tissue EVERY HOUR NEEDED as needed for AGITAT/HALLUCINATION/IRRITABIL Qty = 1 No Refills [Trans Derm Scop] 1 Patch On the skin Q72H Qty = 30 No Refills Morphine Sulfate (Morphine Sulfate) 10 MG/ML VIAL 2 Milligram Inject into fatty tissue EVERY HOUR NEEDED as needed for ANXIETY/AGITATION/INSOMNIA Qty = 1 No Refills The following medications have been changed: Old: Citalopram Hydrobromide (Celexa) 10 MG TABLET 0.5 Tablet ORAL DAILY Qty = 30 New: Citalopram Hydrobromide (Celexa) 10 MG TABLET 1 Tablet ORAL DAILY Qty = 30 Comments: Last Taken:08/01/16 Time: 1000AM Copies To: Mir Sutton MD Attending MD Review Statement Documenting Attending: Mir Sutton MD The following medications have been changed: Old: Citalopram Hydrobromide (Celexa) 10 MG TABLET 0.5 Tablet ORAL DAILY Qty = 30 New: Citalopram Hydrobromide (Celexa) 10 MG TABLET 1 Tablet ORAL DAILY Qty = 30 Comments: Last Taken:08/01/16 Time: 1000AM Copies To: Mir Sutton MD
--- NOTE | 2017-06-01 13:47 | PN- Pulmonary ---
Subjective HPI/Critical Care Issues: More awake Objective Current Medications: Current Medications Sig/Shobha Start time Last Medication Dose Route Stop Time Status Admin Chlorhexidine 15 ML BID 05/30 1207 AC 06/01 Gluconate PO 0947 Lorazepam 1 MG Q1 NEEDED PRN 06/01 09 AC SC Lorazepam 1 MG ONCE ONE 06/01 0045 DC 06/01 IV 06/01 0046 0042 Lorazepam 1 MG Q1 NEEDED PRN 05/29 1130 DC 05/31 IV 2351 Methylprednisolone 30 MG DAILY 05/31 1000 AC 05/31 IV 0956 Morphine Sulfate 2 MG Q1 NEEDED PRN 06/01 09 AC SC Morphine Sulfate 2 MG Q1 NEEDED PRN 05/29 1130 DC 06/01 IV 0026 Nystatin 1 DANG TID 06/01 1000 AC 06/01 TOP 1327 Scopolamine HBr 1 PAT Q72H 05/29 1130 AC 06/01 TOP 1326 Vital Signs & I&O Last 24 Hrs of Vitals and I&O: Vital Signs Date Time Temp Pulse Resp B/P B/P Pulse O2 O2 Flow FiO2 Mean Ox Delivery Rate 06/01 1156 98.4 90 8 96/60 06/01 1116 Nasal 5.0L Cannula 06/01 0800 97 Nasal 5.0L Cannula 06/01 0620 98.4 90 8 96/60 97 Nasal Cannula 06/01 0028 100 Nasal 5.0L Cannula 06/01 0000 100 Nasal 5.0L Cannula 05/31 2238 98.1 84 10 98/58 88 Nasal Cannula 05/31 1600 94 Nasal 4.0L Cannula 05/31 1432 97.3 67 8 90/50 91 Intake & Output 06/01 1600 06/01 0800 06/01 0000 Intake Total 20 Output Total 200 400 Balance -180 -400 Intake, IV 20 Intake, Oral 0 Output, Urine 200 400 Impression/Plan Impression/Plan Impression/Plan: Physical Exam: Well-developed, obese elderly female Vital signs: See above. Neck: No JVD. Lungs: Clear to auscultation anteriorly, mild wheezing and crackles Heart: S1, S2 with soft systolic murmur. Abdomen: Soft, nontender, positive bowel sounds. Extremities: Sig edema. 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, Previous resp failure with influenza and pna in august 15, hypertension, previous significant alcohol use, smoking up until recently, osteoporosis, was in SNF and came in with resp failure with fever and multilobar pna Her issues include * S/p Acute hypercarbic and hypoxemic respiratory failure related to end-stage lung disease with COPD exacerbation with multilobar pna (HCAP vs influenza pneumonia) s/p intubation and extubation * Systolic heart disease with hypotension initially with mildly elevated troponin * Previous cdiff and vre positive * Previous history of hypertension hyperlipidemia, ischemic heart with severe ihd with ef 30 percent * Significant osteoporosis with recent worsening performance status * Sig anxiety disorder REC Discussed with yesterday Will cont comfort care Ok to rehab If worse in rehab [facility] He wishes comfort care only today Cont current meds Ok to dc
[2017-06-01 14:10] VITALS: BP 100/58
== END 2017-06-01 15:45 | DRG 870 ==
LOC: ERH 06:45 → 2NA 09:21 → ERHI 09:21 → CRI 09:21 → EDBEDREQ 10:42 → ENRESERV 10:51 → ENTRNSPT 11:46 → EDTRNSPTSTS 12:08 → CRI 12:42 → CMPTRNSPT 13:09 → CRI 05-23 07:05 → 2NA 05-29 17:33 → ENPENDDIS 06-01 12:41 → ENTRNSPT 06-01 14:42 → EDTRNSPTSTS 06-01 14:43 → CMPTRNSPT 06-01 15:01 → 2NA 06-01 15:45
PROVIDERS: Internal Medicine; Internal Medicine Adolescent Medicine; Internal Medicine Endocrinology, Diabetes & Metabolism; Internal Medicine Infectious Disease; Pediatrics; Student in an Organized Health Care Education/Training Program
PROC: 0BH17EZ Insertion of Endotracheal Airway into Trachea, Via Natural or Artificial Opening (ICD-10-PCS; principal; 2017-05-20)
PROC: 5A1955Z Respiratory Ventilation, Greater than 96 Consecutive Hours (ICD-10-PCS; principal; 2017-05-20)
PROC: B548ZZA Ultrasonography of Superior Vena Cava, Guidance (ICD-10-PCS; 2017-05-20)
PROC: 02HV33Z Insertion of Infusion Device into Superior Vena Cava, Percutaneous Approach (ICD-10-PCS; 2017-05-20)
DX: A41.9 Sepsis, unspecified organism (principal); I21.A1 Myocardial infarction type 2; J96.21 Acute and chronic respiratory failure with hypoxia; I11.0 Hypertensive heart disease with heart failure; J18.9 Pneumonia, unspecified organism; E11.8 Type 2 diabetes mellitus with unspecified complications; I50.42 Chronic combined systolic (congestive) and diastolic (congestive) heart failure; J44.0 Chronic obstructive pulmonary disease with (acute) lower respiratory infection; J96.22 Acute and chronic respiratory failure with hypercapnia; J44.1 Chronic obstructive pulmonary disease with (acute) exacerbation; Z99.81 Dependence on supplemental oxygen; Z79.84 Long term (current) use of oral hypoglycemic drugs; M81.0 Age-related osteoporosis without current pathological fracture; J11.1 Influenza due to unidentified influenza virus with other respiratory manifestations; E78.5 Hyperlipidemia, unspecified; Z99.3 Dependence on wheelchair; Z87.891 Personal history of nicotine dependence; Z88.0 Allergy status to penicillin; Z79.82 Long term (current) use of aspirin; Z79.891 Long term (current) use of opiate analgesic; Z79.51 Long term (current) use of inhaled steroids; F41.9 Anxiety disorder, unspecified; F32.9 Major depressive disorder, single episode, unspecified; Z90.710 Acquired absence of both cervix and uterus; Z51.5 Encounter for palliative care
CPT/HCPCS: 2NAP; CCU; 36415; 71045; 74018; 80307; 81001; 82436; 87040; 87070; 87071; 87086; 87147; 87449; 87450; 87804; 87804-59; 93005; 93010; 93306; 93970; 94799; 96374; 96375; 99291; J0131; J0456; J0696; J0713; J1644; J1650; J1815; J1940; J2060; J2920; J2930; J3010; J3370; J3490; J7040; J7042; J7060; J7512

== ENCOUNTER 2017-11-07 15:53 | Inpatient (IN) | payer OTHER, MEDICARE ==
[~2017-11-07] VITALS: Ht 152.4 cm; Wt 53.7 kg
[~2017-11-07 15:53] MED LIST changes: +LORAZEPAM2 MG/1 M1 SC; +METOPROLOL SUCC50 M2 PO; +MORPHINE S10 MG/1 M1 SC; +PERCOCET 5-3251 EACH PO; +REMERON30 M3 PO; +SCOPOLAMINE TOP; -SYMBICORT 16010.2 GM INH
--- NOTE | 2017-11-07 16:13 | ED DYSPNEA/ASTHMA COMPLAINT ---
History of Present Illness General Chief Complaint: General Adult Stated Complaint: BIBA WITH PROBLEM BREATHING Source: patient, W10 Exam Limitations: no limitations Vital Signs & Intake/Output Vital Signs & Intake/Output Vital Signs Date Time Temp Pulse Resp B/P B/P Pulse O2 O2 Flow FiO2 Mean Ox Delivery Rate 11/07 1817 98.2 93 22 128/86 93 Nasal 5.0L Cannula 11/07 1628 90 Nasal 6.0L Cannula 11/07 1617 Nasal 5.0L Cannula 11/07 1601 98.5 97 18 129/64 89 Nasal 3.0L Cannula Allergies Coded Allergies: Penicillins (DIARRHEA 12/26/16) Reconcile Medications Budesonide/Formoterol Fumarate (Symbicort 160-4.5 Mcg Inhaler) 160 MCG-4.5 MCG/ ACTUATION HFA.AER.AD 2 PUF INH BID COPD (Reported) Citalopram Hydrobromide (Celexa) 10 MG TABLET 1 TAB PO DAILY DEPRESSION Ipratropium/Albuterol Sulfate (Iprat-Albut 0.5-3(2.5) MG/3 Ml) 0.5 MG-3 MG (2.5 MG BASE)/3 ML AMPUL.NEB 1 INH INH Q4-6 PRN COPD LORazepam (Ativan) 2 MG/ML SDV 1 MG SC Q1 NEEDED PRN AGITAT/HALLUCINATION/ IRRITABIL Morphine Sulfate 10 MG/ML VIAL 2 MG SC Q1 NEEDED PRN ANXIETY/AGITATION/ INSOMNIA Tiotropium [place] (Spiriva) 18 MCG CAP.W.DEV 1 CAP INH DAILY COPD (Reported) [Trans Derm Scop] 1 PAT TOP Q72H SECRETIONS Triage Nurses Notes Reviewed? yes Onset: Gradual Duration: week(s): Timing: recent history Severity: moderate HPI: 82YO female with hx of COPD on 4L O2, HTN, CHF, DM BIBA from [facility] for dyspnea. Patient states that for the past 3 weeks she has been suffering from a cough which sounds productive however she cannot get any mucus out. Patient states that she thinks she has had bronchitis. She has not been on any antibiotics for this. Patient states that today the nurses worried about her breathing and center here to the hospital. Patient does not report significant dyspnea at this time however is requiring more supplemental O2 the usual. Patient denies fevers, chills, chest pain, abdominal pain, vomiting. (Fernanda Avina) Past History Travel History Traveled to [place] past 21 day No Medical History Any Pertinent Medical History? 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 No (Fernanda Avina) Review of Systems Review of Systems Constitutional: Reports: no symptoms. EENTM: Reports: no symptoms. Respiratory: Reports: see HPI. Cardiovascular: Reports: no symptoms. GI: Reports: no symptoms. Genitourinary: Reports: no symptoms. Musculoskeletal: Reports: no symptoms. Skin: Reports: no symptoms. Neurological/Psychological: Reports: no symptoms. Hematologic/Endocrine: Reports: no symptoms. Immunologic/Allergic: Reports: no symptoms. All Other Systems: Reviewed and Negative (Fernanda Avina) Physical Exam Physical Exam General Appearance: well developed/nourished, no apparent distress, alert, awake Head: atraumatic, normal appearance Eyes: Bilateral: normal appearance. Ears, Nose, Throat: normal pharynx, hearing grossly normal Neck: normal inspection, supple, full range of motion Respiratory: course expiratory wheezes throughout lung carrera Cardiovascular: regular rate/rhythm Gastrointestinal: normal bowel sounds, soft, non-tender, no organomegaly Extremities: normal inspection, normal range of motion Neurologic/Psych: awake, alert, oriented x 3 Skin: intact, normal color, warm/dry Core Measures ACS in differential dx? Yes CVA/TIA Diagnosis No Sepsis Present: No Sepsis Focused Exam Completed? No (Fernanda Avina) Progress Differential Diagnosis: asthma, AMI, CHF, COPD, pulmonary embolism, pneumonia Plan of Care: Orders Procedure Date/time Status Heart Healthy Diet 11/08 B Active Patient Data 11/08 1907 Active ED Holding Orders 11/07 1900 Active Admit to inpatient 11/07 1900 Active Vital Signs 11/07 190 Active Code Status 11/07 1900 Active Intake & Output 11/07 161 Active BLOOD CULTURE 11/07 161 Active TROPONIN LEVEL 11/07 1605 Complete MAGNESIUM 11/07 1605 Complete LACTIC ACID 11/07 1605 Complete COMPREHENSIVE METABOLIC PANEL 11/07 1605 Complete CBC WITHOUT DIFFERENTIAL 11/07 160 Complete B-TYPE NATRIURETIC PEP (BNP) 11/07 160 Complete EKG 11/07 160 Active Laboratory Tests 11/07/17 190: Lactic Acid Cancelled 11/07/17 161: Anion Gap 9, Estimated GFR > 60, BUN/Creatinine Ratio 17.5, Glucose 125 H, Lactic Acid 1.4, Calcium 9.4, Magnesium 2.0, Total Bilirubin 0.4, AST 18, ALT 20 , Alkaline Phosphatase 83, Troponin I < 0.01, Lhb-E-Kslynpbkwqu Pept 858 H, Total Protein 6.7, Albumin 3.6, Globulin 3.1, Albumin/Globulin Ratio 1.2, CBC w Diff NO MAN DIFF REQ, RBC 4.60, MCV 85.7, MCH 26.4 L, MCHC 30.8 L, RDW 18.1 H , MPV 8.5, Gran % 70.5, Lymphocytes % 22.8, Monocytes % 4.8, Eosinophils % 1.2, Basophils % 0.7, Absolute Granulocytes 10.4 H, Absolute Lymphocytes 3.4, Absolute Monocytes 0.7 H, Absolute Eosinophils 0.2, Absolute Basophils 0.1 Microbiology 11/08 1655 BLOOD: Blood Culture - RECD 11/07 1609 BLOOD: Blood Culture - ORD Patient is requiring increased level of oxygen per her baseline. She also has very coarse expiratory wheezing. Labs show leukocytosis. Patient has COPD exacerbation requiring IV antibiotics and IV steroids. She would also benefit from pulmonology consult. Spoke with case management who recommend full admission. Spoke with Dr. Espinal regarding this patient's hospital admission. Diagnostic Imaging: Viewed by Me: Radiology Read. Discussed w/RAD: Radiology Read. CXR Impression: PATIENT: AFIA FRIAS PRESENT AGE: 82 PATIENT ACCOUNT NO: [id number] : 34 LOCATION: [facility] ORDERING PHYSICIAN: Fernanda SEARS SERVICE DATE: 11/07/17 EXAM TYPE: RAD - XRY- PORTABLE CHEST XRAY EXAMINATION: XR PORTABLE CHEST CLINICAL INFORMATION: Dyspnea , hypoxia, and cough. COMPARISON: Chest x-ray May 29 2017. TECHNIQUE: Portable frontal view of the chest was obtained. FINDINGS: Symmetric lung inflation. There is central vascular congestion without overt edema. No focal consolidation, pleural effusion, or pneumothorax. Cardiac silhouette size is normal. Left shoulder prosthesis is partially imaged. IMPRESSION: Central vascular congestion without overt edema. No focal consolidation. DICTATED BY: Ralf Villarreal MD DATE/TIME DICTATED:11/07/171737 BUTTER PRINTER:GALLO DATE/TIME TRANSCRIBED:11/07/171737 CONFIDENTIAL, DO NOT COPY WITHOUT APPROPRIATE AUTHORIZATION. <Electronically signed in Other Vendor System> SIGNED BY: Ralf Villarreal MD 11/07/17 1749 Initial ED EKG: sinus rhythm @98bpm, nonspecific ST changes (Fernanda Avina) Departure Departure Disposition: STILL A PATIENT Condition: Stable Clinical Impression Primary Impression: COPD exacerbation Referrals: Nahun Buchanan MD (PCP/Family) Departure Forms: Customer Survey General Discharge Information Admission Note Spoke With: Omar Espinal MD Documentation of Exam: Documentation of any treatments & extenuating circumstances including Concerns Regarding Discharge (functional status, medication knowledge or non-compliance, living conditions, etc.) that warrant an admission rather than observation: [ COPD exacerbation requiring increased amount of supplemental oxygen compared to patient's baseline, respiratory therapy, IV steroids, IV antibiotics, possible pulmonology consult, premature discharge medically unsafe] (Fernanda Avina) Admission Note Documentation of Exam: Documentation of any treatments & extenuating circumstances including Concerns Regarding Discharge (functional status, medication knowledge or non-compliance, living conditions, etc.) that warrant an admission rather than observation: PA/CHEMICAL RECLAMATION EQUIPMENT OPERATOR Co-Sign Statement Statement: ED Attending supervision documentation- [X] I saw and evaluated the patient. I have also reviewed all the pertinent lab results and diagnostic results. I agree with the findings and the plan of care as documented in the PA's/CHEMICAL RECLAMATION EQUIPMENT OPERATOR's documentation. [] I have reviewed the ED Record and agree with the PA's/CHEMICAL RECLAMATION EQUIPMENT OPERATOR's documentation. [] Additions or exceptions (if any) to the PAs/CHEMICAL RECLAMATION EQUIPMENT OPERATOR's note and plan are summarized below: [] The patient was awake alert and oriented 3 on my exam. She had bilateral rhonchi, mild distress. She was on oxygen. (Ralf John DO) Critical Care Note Critical Care Note Critical Care Time: 30-74 min (Fernanda Avina) [] (Ralf John DO) Critical Care Note Critical Care Note Critical Care Time: 30-74 min (Fernanda Avina)
[2017-11-07 16:20] LABS: ABSOLUTE BASOPHIL COUNT 0.1 /CUMM (0.0-0.2); ABSOLUTE EOSINOPHIL COUNT 0.2 /CUMM (0.0-0.7); ABSOLUTE GRANULOCYTE CT 10.4 /CUMM (1.4-6.5); ABSOLUTE LYMPH COUNT 3.4 /CUMM (1.2-3.4); ABSOLUTE MONOCYTE COUNT 0.7 /CUMM (0.10-0.60); BASOPHIL % 0.7 % (0.0-2.0); EOSINOPHIL % 1.2 % (0-5); GRANULOCYTE % 70.5 % (42.2-75.2); HEMATOCRIT 39.4 % (37-47); MEAN CORPUSCULAR HGB 26.4 PG (27.0-31.0); MEAN CORPUSCULAR HGB CONC 30.8 G/DL (33.0-37.0); MEAN CORPUSCULAR VOLUME 85.7 FL (81.0-99.0); MEAN PLATELET VOLUME 8.5 FL (7.4-10.4); PLATELET COUNT 400 /CUMM (130-400); RBC DISTRIBUTION WIDTH 18.1 % (11.5-14.5); WHITE BLOOD CELL COUNT 14.8 /CUMM (4.8-10.8)
--- NOTE | 2017-11-07 17:44 | RADIOLOGY REPORT ---
EXAMINATION: XR PORTABLE CHEST CLINICAL INFORMATION: Dyspnea, hypoxia, and cough. COMPARISON: Chest x-ray May 29 2017. TECHNIQUE: Portable frontal view of the chest was obtained. FINDINGS: Symmetric lung inflation. There is central vascular congestion without overt edema. No focal consolidation, pleural effusion, or pneumothorax. Cardiac silhouette size is normal. Left shoulder prosthesis is partially imaged. IMPRESSION: Central vascular congestion without overt edema. No focal consolidation.
--- NOTE | 2017-11-07 20:30 | History & Physical ---
Ascencion Kaur 11/07/17 2030: General Information and HPI MD Statement: I have seen and personally examined AFIA CASTILLO and documented this H&P. The patient is a 82 year old F who presented with a patient stated chief complaint of []. Source of Information: patient Exam Limitations: physical impairment History of Present Illness: Ms. Castillo is an 82-year-old female with a PMH significant for end stage COPD with chronic hypoxemic respiratory failure on 4L oxygen at baseline, HFrEF (EF 40%), multifocal atrial tachycardia, HTN, HLD, and DM sent in from [facility] for 3 weeks of progressive cough and dyspnea. She had a recent ICU hospitalization in May secondary to sepsis and respiratory failure with hypercarbia. Patient has trouble describing the entire history as she coughs many times and becomes short of breath during the interview. Patient reports that she had a minimally productive cough for the past 3 weeks while she was at [facility]. The cough sounds productive and patient feels as if the phlegm is stuck inside but cannot get it out, when it does come out it is yellow sputum. She however, says she does not feel congested. Functionally, she now requires 6L oxygen. She denies shortness of breath, syncope, chest pain, palpitations, nausea, vomiting, diarrhea. Allergies/Medications Allergies: Coded Allergies: Penicillins (DIARRHEA 12/26/16) Past History Travel History Traveled to [place] past 21 day No Medical History Neurological: NONE EENT: NONE Cardiovascular: diastolic CHF, hypertension, hyperlipidemia, systolic CHF, Multifocal Atrial Tachyca Respiratory: COPD, emphysema, Acute on Chronic Resp Failure w/hypoxia & hypercapnia O2 DEPENDENT 4L Gastrointestinal: NONE Hepatic: NONE Renal: NONE Musculoskeletal: falls Psychiatric: alcohol dependence, anxiety, depression Endocrine: diabetes Blood Disorders: NONE Cancer(s): NONE SHUTTLER CAR/Reproductive: HYSTERECTOMY History of MRSA: Yes History of VRE: Yes History of CDIFF: No Surgical History Surgical History: hysterectomy, Bilateral Hip Fx & Repair Bilateral wrist Fx Past Family/Social History Family History Relations & Conditions if any Relation not specified for: *No pertinent family history Psychosocial History Services at Home: Home Health Aide, Nursing, Oxygen, Physical Therapy Functional Ability ADLs Independent: dressing, eating, toileting, bathing. Ambulation: cane, walker Review of Systems Review of Systems Constitutional: Reports: no symptoms. EENTM: Reports: no symptoms. Cardiovascular: Reports: no symptoms. Respiratory: Reports: see HPI. GI: Reports: no symptoms. Genitourinary: Reports: no symptoms. Musculoskeletal: Reports: no symptoms. Skin: Reports: no symptoms. Neurological/Psychological: Reports: no symptoms. Hematologic/Endocrine: Reports: no symptoms. Immunologic/Allergic: Reports: no symptoms. All Other Systems: Reviewed and Negative Exam & Diagnostic Data Last 24 Hrs of Vital Signs/I&O Vital Signs Date Time Temp Pulse Resp B/P B/P Pulse O2 O2 Flow FiO2 Mean Ox Delivery Rate 11/08 08 Nasal 5.0L Cannula 11/08 0626 97.9 87 20 120/78 95 Nasal 5.0L Cannula 11/08 0008 92 Nasal 5.0L Cannula 11/07 2249 Nasal 5.0L Cannula 11/07 2235 97.9 83 20 112/64 90 11/07 2048 97.8 78 22 134/78 96 Nasal 5.0L Cannula 11/07 1817 98.2 93 22 128/86 93 Nasal 5.0L Cannula 11/07 1628 90 Nasal 6.0L Cannula 11/07 1617 Nasal 5.0L Cannula 11/07 1601 98.5 97 18 129/64 89 Nasal 3.0L Cannula Intake & Output 11/08 1600 11/08 0800 11/08 0000 Intake Total 110 0 Output Total Balance 110 0 Intake, IV 10 Intake, Oral 100 0 Patient 125 lb Weight Weight Bed scale Measurement Method Physical Exam General Appearance Alert, Oriented X3, Cooperative Skin Temp/Moisture Exam: Warm/Dry Sepsis Skin Exam (color): Normal for Ethnicity HEENT Atraumatic, PERRLA, EOMI Neck Supple Cardiovascular Regular Rate, Normal S1, Normal S2 Lungs Clear to Auscultation Abdomen Normal Bowel Sounds, Soft Vascular Normal Pulses, Pulses Symmetrical Last 24 Hrs of Labs/[place]: Laboratory Tests 11/08/17 0722: Anion Gap 11, Estimated GFR > 60, BUN/Creatinine Ratio 20.0, CBC w Diff NO MAN DIFF REQ, RBC 4.30, MCV 85.0, MCH 26.7 L, MCHC 31.4 L, RDW 17.9 H, MPV 8.9, Gran % 79.2 H, Lymphocytes % 20.3 L, Monocytes % 0.4 L, Eosinophils % 0, Basophils % 0.1, Absolute Granulocytes 6.8 H, Absolute Lymphocytes 1.7, Absolute Monocytes 0 L, Absolute Eosinophils 0, Absolute Basophils 0 11/07/17 1905: Lactic Acid Cancelled 11/07/17 1610: Anion Gap 9, Estimated GFR > 60, BUN/Creatinine Ratio 17.5, Glucose 125 H, Lactic Acid 1.4, Calcium 9.4, Magnesium 2.0, Total Bilirubin 0.4, AST 18, ALT 20 , Alkaline Phosphatase 83, Troponin I < 0.01, Kuj-R-Upvydtbregk Pept 858 H, Total Protein 6.7, Albumin 3.6, Globulin 3.1, Albumin/Globulin Ratio 1.2, CBC w Diff NO MAN DIFF REQ, RBC 4.60, MCV 85.7, MCH 26.4 L, MCHC 30.8 L, RDW 18.1 H , MPV 8.5, Gran % 70.5, Lymphocytes % 22.8, Monocytes % 4.8, Eosinophils % 1.2, Basophils % 0.7, Absolute Granulocytes 10.4 H, Absolute Lymphocytes 3.4, Absolute Monocytes 0.7 H, Absolute Eosinophils 0.2, Absolute Basophils 0.1 Microbiology 11/08 0505 LOWER RESP: Respiratory Culture - COLB 11/08 0505 LOWER RESP: Gram Stain - COLB 11/07 1656 BLOOD: Blood Culture - RECD 11/07 1610 BLOOD: Blood Culture - CAN Cancelled: Quantity not sufficient for Aerobic blood culture bottle. Assessment/Plan Assessment: Vital signs on admission were temperature 98.5, heart rate 97, respiratory rate 18, BP 120/64 and O2 sats 89% on 3 L improved 90% on 6 L. Labs remarkable for WBC count of 14.8, blood glucose 125 and proBNP 848. Chest x-ray showed central vascular condition without any overt erythema or focal consolidation Problem List: 1. COPD exacerbation 2. Acute on chronic hypoxemic respiratory failure 3. Chronic Medical Problems Plan - Admit to general medicine - Solumedrol Q6 - IV Azthromycin - Nebulizer treatments - Sputum culture - TRC - Pulmonary consult - Continue home medications - DVT PPx - Full Code As Ranked By This Provider Problem List: 1. Humerus head fracture 2. COPD exacerbation 3. Hypercapnic respiratory failure Core Measures/Misc (01/15) Acute Coronary Syndrome ACS Diagnosis: No Congestive Heart Failure Congestive Heart Failure Diagnosis No Cerebrovascular Accident CVA/TIA Diagnosis: No VTE (View Protocol) VTE Risk Factors Acute Medical Illness No Mechanical VTE Prophylaxis d/t N/A MechProphylax Ordered No VTE Pharm Prophylaxis d/t NA PharmProphylax ordered Sepsis (View protocol) Sepsis Present: Yes If YES complete Sepsis Event Note If YES complete Sepsis Event Note Inpatient Sepsis Exam Sepsis Cardiac Exam: Regular Rate/Rhythm Sepsis Resp Exam: CTA Sepsis Cap Refill Exam: >2 sec Sepsis Peripheral Pulse Exam: Normal Sepsis Peripheral Pulse Location: Dorsalis Pedis Sepsis Skin Color Exam: Normal for Ethnicity, Pale Skin Temp/Moisture Exam: Warm/Dry Dhara CARRANZA,Simran 11/07/172030: General Information and HPI Allergies/Medications Home Med list Alprazolam (Xanax) 0.25 MG TABLET 0.25 ANXIETY (Reported) Budesonide/Formoterol Fumarate (Symbicort 160-4.5 Mcg Inhaler) 160 MCG-4.5 MCG/ ACTUATION HFA.AER.AD 160 PUFF COPD (Reported) Citalopram Hydrobromide (Celexa) 10 MG TABLET 1 TAB PO DAILY DEPRESSION Escitalopram Oxalate (Lexapro) 20 MG TABLET 20 MG DEPRESSION (Reported) Guaifenesin (Mucinex) 100 MG GRAN.PACK 400 MG ALLERGIES (Reported) Ipratropium/Albuterol Sulfate (Iprat-Albut 0.5-3(2.5) MG/3 Ml) 0.5 MG-3 MG (2.5 MG BASE)/3 ML AMPUL.NEB 1 INH INH Q4-6 PRN COPD Loratadine (Claritin) 10 MG TABLET 10 MG ALLERGIES (Reported) LORazepam (Ativan) 2 MG/ML SDV 1 MG SC Q1 NEEDED PRN AGITAT/HALLUCINATION/ IRRITABIL Morphine Sulfate 10 MG/ML VIAL 2 MG SC Q1 NEEDED PRN ANXIETY/AGITATION/ INSOMNIA Sennosides (Senna) 8.6 MG TABLET 2 TAB CONSTIPATION (Reported) Tiotropium [place] (Spiriva) 18 MCG CAP.W.DEV 1 CAP INH DAILY COPD (Reported) [Trans Derm Scop] 1 PAT TOP Q72H SECRETIONS Zolpidem Tartrate (Ambien) 5 MG TABLET 5 MG INSOMNIA (Reported) Core Measures/Misc (01/15) Sepsis (View protocol) If YES complete Sepsis Event Note If YES complete Sepsis Event Note Resident Review Statement Resident Statement: examined this patient, discussed with international accountant, agreed with international accountant, reviewed EMR data (avail), discussed with nursing, reviewed images Other Findings: Mr Jonathan weller was brought in from [facility] with a chief concern of acute dyspnea. She has a PMHx of COPD(on 4L oxygen), HFpEF( EF 40%), HTN, HLD, MAT, DM recent hospitalization in May - Jun secondary to sepsis and respiratory with hypercarbia. Initially treated with BiPAP and subsequently intubated and mechanically ventilated in the ICU, also requiring central line placement and brief vasopressor now presents with nonproductive Cough. Per the patient, she has a nonproductive cough that has been going on for the past 3 weeks, which sounds productive however she cannot get any mucus out. She does not feel congested, denies any difficulty breathing and also has not been using her inhalers more frequently than usual but did not like the way she felt. Also denies any fever/chills, chest pain, palpitations, and unable to bring up any phlegm. She does not feel congested and denies any shortness of breath, also has not been using herworsening orthopnea(reports chronic orthopnea since diagnosed with COPD) and dyspnea on exertion. She mentions decline in her functional status and is unable to walk since her discharge from ICU recently. Vital signs on admission were temperature 98.5, heart rate 97, respiratory rate 18, BP 120/64 and O2 sats 89% on 3 L improved 90% on 6 L. Labs remarkable for WBC count of 14.8, blood glucose 125 and proBNP 848. Chest x-ray showed central vascular condition without any overt erythema or focal consolidation. Problem list; 1. Acute exacerbation of COPD 2/2 to Bronchitis 2. Chronic medical conditions - Admit the patient to [facility] floor - Start patient on IV Solu-Medrol every 8 - Start on IV azithromycin - TRC evaluation - Supplemental oxygen - Robitussin as needed for cough - Continue home medications for chronic medical conditions. DVT prophylaxis; subcutaneous Lovenox and alps Patient is full code Omar Espinal MD 11/07/173: Core Measures/Misc (01/15) Sepsis (View protocol) If YES complete Sepsis Event Note If YES complete Sepsis Event Note Attending MD Review Statement Attending Statement Attending MD Statement: examined this patient, discuss w/resident/PA/OFFICE CLEANER, agreed w/resident/PA/OFFICE CLEANER, reviewed EMR data (avail) Attending Assessment/Plan: 82F PMH end stage COPD with chronic hypoxemic respiratory failure on 4L oxygen at baseline, HFrEF (EF 40%), multifocal atrial tachycardia, HTN, and HLD sent in from [facility] for 3 weeks of progressive cough and dyspnea. Patient reports minimally productive cough with yellow sputum for the past few weeks, and for the past few days has had worsening shortness of breath and dyspnea on exertion. She is typically on 4L NC but is currently requiring 6L to maintain at 90%. She has wheezing on exam, no signs of fluid overload. CXR shows pulmnonary vascular congestion. EKG NSR with no acute changes. 1. COPD exacerbation 2. Acute on chronic hypoxemic respiratory failure 3. Acute bronchitis Plan - Admit to general medicine - Solumedrol 40mg q6h - Nebulizer treatments - Azithromycin x 5 days - Sputum culture - Lasix 20mg IV BID - I/O, daily weights - Pulmonary consult - Continue home medications - DVT PPx
[2017-11-07] MEDS ORDERED: LEXAPRO20 M1 (20:50)
[2017-11-07] MEDS ORDERED: CLARITIN10 M1 (20:50)
[2017-11-07] MEDS ORDERED: XANAX0.25 M1 (20:50)
[2017-11-07] MEDS ORDERED: AMBIEN5 M1 (20:51)
[2017-11-07] MEDS ORDERED: SENNA8.6 M3 (20:51)
[2017-11-07] MEDS ORDERED: SYMBICORT 16010.2 GM (20:52)
[2017-11-07] MEDS ORDERED: MUCINEX100 MG (20:52)
[2017-11-07 22:35] VITALS: BP 112/64
[2017-11-08 06:26] VITALS: BP 120/78
[2017-11-08 08:40] LABS: ABSOLUTE BASOPHIL COUNT 0 /CUMM (0.0-0.2); ABSOLUTE EOSINOPHIL COUNT 0 /CUMM (0.0-0.7); ABSOLUTE GRANULOCYTE CT 6.8 /CUMM (1.4-6.5); ABSOLUTE LYMPH COUNT 1.7 /CUMM (1.2-3.4); ABSOLUTE MONOCYTE COUNT 0 /CUMM (0.10-0.60); BASOPHIL % 0.1 % (0.0-2.0); EOSINOPHIL % 0 % (0-5); GRANULOCYTE % 79.2 % (42.2-75.2); HEMATOCRIT 36.6 % (37-47); MEAN CORPUSCULAR HGB 26.7 PG (27.0-31.0); MEAN CORPUSCULAR HGB CONC 31.4 G/DL (33.0-37.0); MEAN PLATELET VOLUME 8.9 FL (7.4-10.4); PLATELET COUNT 400 /CUMM (130-400); RBC DISTRIBUTION WIDTH 17.9 % (11.5-14.5); WHITE BLOOD CELL COUNT 8.6 /CUMM (4.8-10.8)
--- NOTE | 2017-11-08 09:16 | PN- Housestaff ---
Román Mitchell 11/08/17 0916: Subjective Follow-up For: AECOPD Subjective: Patient seen and examined at bedside. Patient states she feels better than yesterday, however states is been a rough night. Patient states that she is still short of breath, is coughing which is nonproductive. Patient states that she does not feel febrile, has not had any episodes of chest pain, has not had paroxysms of coughing. Denies any abdominal pain/urinary symptoms/lower extremity edema. Review of Systems Constitutional: Reports: see HPI. Objective Last 24 Hrs of Vital Signs/I&O Vital Signs Date Time Temp Pulse Resp B/P B/P Pulse O2 O2 Flow FiO2 Mean Ox Delivery Rate 11/08 1149 Nasal 5.0L Cannula 11/08 1149 94 Nasal 5.0L Cannula 11/08 0800 Nasal 5.0L Cannula 11/08 0626 97.9 87 20 120/78 95 Nasal 5.0L Cannula 11/08 0008 92 Nasal 5.0L Cannula 11/07 2249 Nasal 5.0L Cannula 11/07 2235 97.9 83 20 112/64 90 11/07 2048 97.8 78 22 134/78 96 Nasal 5.0L Cannula 11/07 1817 98.2 93 22 128/86 93 Nasal 5.0L Cannula 11/07 1628 90 Nasal 6.0L Cannula 11/07 1617 Nasal 5.0L Cannula 11/07 1601 98.5 97 18 129/64 89 Nasal 3.0L Cannula Intake & Output 11/08 1600 11/08 0800 11/08 0000 Intake Total 110 0 Output Total Balance 110 0 Intake, IV 10 Intake, Oral 100 0 Patient 125 lb Weight Weight Bed scale Measurement Method Physical Exam General Appearance: Alert, Oriented X3, Cooperative, No Acute Distress Skin Temp/Moisture Exam: Warm/Dry Neck: No JVD Cardiovascular: Regular Rate, Normal S1, Normal S2 Lungs: RUL expiratory wheeze, B/l lower lobe expiratory wheezes Abdomen: Soft, No Tenderness Neurological: Sensation Intact Extremities: No Edema Current Medications: Current Medications Sig/Shobha Start time Last Medication Dose Route Stop Time Status Admin Acetaminophen 650 MG Q6P PRN 11/07 2300 AC 11/08 PO 1227 Albuterol Sulfate 3 ML EVERY 4 HRS/AWAKE 11/08 1200 AC 07/11 INH 1147 Albuterol Sulfate 3 ML ONCE ONE 11/07 2345 DC 11/07 INH 11/07 2346 2356 Albuterol Sulfate 3 ML ONCE ONE 11/07 1615 DC 11/07 INH 11/07 1616 1628 Alprazolam 0.25 MG DAILY 11/08 09 AC 11/08 PO 0838 Azithromycin 500 MG Q24H 11/08 1900 AC Sodium Chloride 250 ML IV Azithromycin 500 MG ONCE ONE 11/07 1830 DC 11/07 Sodium Chloride 250 ML IV 11/07 1929 1849 Budesonide/ 2 PUF BID 11/08 09 AC 11/08 Formoterol Fumarate INH 0835 Ceftriaxone Sodium 0 .STK-MED ONE 11/07 183 DC .ROUTE Ceftriaxone Sodium 1,000 MG ONCE ONE 11/07 183 DC 11/07 IV 11/07 183 1849 Enoxaparin Sodium 40 MG DAILY 11/08 09 AC 11/08 SC 0838 Escitalopram Oxalate 20 MG DAILY 11/08 09 AC 11/08 PO 0838 Furosemide 20 MG DAILY 11/09 09 AC PO Furosemide 20 MG 7:30 AM, & 4:30 PM 11/08 0730 DC 11/08 IV 0652 Guaifenesin 600 MG Q12 11/08 1012 AC 11/08 PO 1051 Guaifenesin 10 ML Q4P PRN 11/08 0030 DC 11/08 PO 0418 Insulin Aspart 0 TIDAC 11/08 08 AC 11/08 SC 1227 Ipratropium [place] 2.5 ML Q4 PRN 11/08 0030 AC INH Ipratropium [place] 2.5 ML ONCE ONE 11/07 1615 DC 11/07 INH 11/07 1616 1628 Loratadine 10 MG DAILY 11/08 09 AC 11/08 PO 0838 Methylprednisolone 40 MG Q8H 11/08 09 AC 11/08 IV 0835 Methylprednisolone 40 MG Q8 11/08 0015 DC 11/08 IV 0040 Methylprednisolone 40 MG ONCE ONE 11/07 1845 DC 11/07 IV 11/07 1846 1901 Senna 187 MG AT BEDTIME PRN 11/08 0015 AC PO Tiotropium [place] 1 PUF DAILY 11/08 09 AC 11/08 INH 0835 Tramadol HCl 25 MG Q6P PRN 11/08 0045 AC 11/08 PO 1052 Tramadol HCl 25 MG ONCE ONE 11/07 2244 DC 11/07 PO 11/07 Zolpidem Tartrate 5 MG QPM 11/08 0030 AC 11/08 PO 0042 Last 24 Hrs of Lab/[place] Results Last 24 Hrs of Labs/[place]: Laboratory Tests 11/08/17 0722: Anion Gap 11, Estimated GFR > 60, BUN/Creatinine Ratio 20.0, CBC w Diff NO MAN DIFF REQ, RBC 4.30, MCV 85.0, MCH 26.7 L, MCHC 31.4 L, RDW 17.9 H, MPV 8.9, Gran % 79.2 H, Lymphocytes % 20.3 L, Monocytes % 0.4 L, Eosinophils % 0, Basophils % 0.1, Absolute Granulocytes 6.8 H, Absolute Lymphocytes 1.7, Absolute Monocytes 0 L, Absolute Eosinophils 0, Absolute Basophils 0 11/07/17 1905: Lactic Acid Cancelled 11/07/17 1610: Anion Gap 9, Estimated GFR > 60, BUN/Creatinine Ratio 17.5, Glucose 125 H, Lactic Acid 1.4, Calcium 9.4, Magnesium 2.0, Total Bilirubin 0.4, AST 18, ALT 20 , Alkaline Phosphatase 83, Troponin I < 0.01, Sux-Z-Okmrtktiijj Pept 858 H, Total Protein 6.7, Albumin 3.6, Globulin 3.1, Albumin/Globulin Ratio 1.2, CBC w Diff NO MAN DIFF REQ, RBC 4.60, MCV 85.7, MCH 26.4 L, MCHC 30.8 L, RDW 18.1 H , MPV 8.5, Gran % 70.5, Lymphocytes % 22.8, Monocytes % 4.8, Eosinophils % 1.2, Basophils % 0.7, Absolute Granulocytes 10.4 H, Absolute Lymphocytes 3.4, Absolute Monocytes 0.7 H, Absolute Eosinophils 0.2, Absolute Basophils 0.1 Microbiology 11/08 0505 LOWER RESP: Respiratory Culture - COLB 11/08 0505 LOWER RESP: Gram Stain - COLB 11/07 1656 BLOOD: Blood Culture - RECD 11/07 161 BLOOD: Blood Culture - CAN Cancelled: Quantity not sufficient for Aerobic blood culture bottle. Assessment/Plan Assessment: Ms. Castillo is an 82-year-old female with past medical history of COPD (on 4 L oxygen at home), heart failure with preserved ejection fraction with last ejection fraction 40%, takotsubo cardiomyopathy, hypertension, hyperlipidemia, multifocal A. tach presented with a one-week history of cough and lethargy. Patient has had a recent admission back in June that was complicated with sepsis, requiring pressors and intubation, and multiple failed attempts to wean off the ventilator. She was eventually switched to comfort measures and discharged [facility]. Currently admitted with an acute exacerbation of COPD. #Acute exacerbation COPDimproving course DVT prophylaxis IV access Tolerating regular diet PT eval Full code Disposition Problem List: 1. COPD exacerbation Pain Ratin Pain Location: NA Pain Goal: Pain 4 or less Pain Plan: Pain pathway Tomorrow's Labs & Rationales: NA Arnaldo Thompson 11/08/17 1149: Attending MD Review Statement Attending Statement Attending MD Statement: examined this patient, discuss w/resident/PA/INSPECTOR HAIRSPRING TRUING, agreed w/resident/PA/INSPECTOR HAIRSPRING TRUING, discussed with family, reviewed EMR data (avail), discussed with nursing, discussed with case mgmt, reviewed images, amended to note Attending Assessment/Plan: 82F PMH end stage COPD with chronic hypoxemic respiratory failure on 4L oxygen at baseline, HFrEF (EF 40%), multifocal atrial tachycardia, HTN, and HLD sent in from [facility] for 3 weeks of progressive cough and dyspnea. She has wheezing on exam. She still c/o cough this morning. CXR shows pulmnonary vascular congestion. 1. COPD exacerbation 2. Acute on chronic hypoxemic respiratory failure 3. Acute bronchitis 4. Severe COPD End stage COPD 5 Systolic heart failure compensated EF 40% 6. Hypertension controlled. Plan - Solumedrol 40mg q6h - Nebulizer treatments - Azithromycin x 5 days - Sputum culture - Lasix change to PO 20 mg daily, can add low dose Ezequiel inhibitor if no contraindications - Pulmonary consult Dr Sutton - Continue home medications - DVT PPx
--- NOTE | 2017-11-08 14:26 | Cons- Pulmonary ---
General Information and HPI Consulting Request Date of Consult: 11/08/17 Requested By: MED TEAM History of Present Illness: Ms. Castillo is an 82-year-old female with a PMH significant for end stage COPD with chronic hypoxemic respiratory failure on 4L oxygen at baseline, HFrEF (EF 40%), multifocal atrial tachycardia, HTN, HLD, and DM sent in from [facility] for 3 weeks of progressive cough and dyspnea. She had a recent ICU hospitalization in May secondary to sepsis and respiratory failure with hypercarbia. Patient has trouble describing the entire history as she coughs many times and becomes short of breath during the interview. Patient reports that she had a minimally productive cough for the past 3 weeks while she was at [facility]. The cough sounds productive and patient feels as if the phlegm is stuck inside but cannot get it out, when it does come out it is yellow sputum. She however, says she does not feel congested. Functionally, she now requires 6L oxygen. She denies shortness of breath, syncope, chest pain, palpitations, nausea, vomiting, diarrhea. Allergies/Medications Allergies: Coded Allergies: Penicillins (DIARRHEA 12/26/16) Home Med List: Alprazolam (Xanax) 0.25 MG TABLET 0.25 ANXIETY (Reported) Budesonide/Formoterol Fumarate (Symbicort 160-4.5 Mcg Inhaler) 160 MCG-4.5 MCG/ ACTUATION HFA.AER.AD 160 PUFF COPD (Reported) Citalopram Hydrobromide (Celexa) 10 MG TABLET 1 TAB PO DAILY DEPRESSION Escitalopram Oxalate (Lexapro) 20 MG TABLET 20 MG DEPRESSION (Reported) Guaifenesin (Mucinex) 100 MG GRAN.PACK 400 MG ALLERGIES (Reported) Ipratropium/Albuterol Sulfate (Iprat-Albut 0.5-3(2.5) MG/3 Ml) 0.5 MG-3 MG (2.5 MG BASE)/3 ML AMPUL.NEB 1 INH INH Q4-6 PRN COPD Loratadine (Claritin) 10 MG TABLET 10 MG ALLERGIES (Reported) LORazepam (Ativan) 2 MG/ML SDV 1 MG SC Q1 NEEDED PRN AGITAT/HALLUCINATION/ IRRITABIL Morphine Sulfate 10 MG/ML VIAL 2 MG SC Q1 NEEDED PRN ANXIETY/AGITATION/ INSOMNIA Sennosides (Senna) 8.6 MG TABLET 2 TAB CONSTIPATION (Reported) Tiotropium [place] (Spiriva) 18 MCG CAP.W.DEV 1 CAP INH DAILY COPD (Reported) [Trans Derm [place]] 1 PAT TOP Q72H SECRETIONS Zolpidem Tartrate (Ambien) 5 MG TABLET 5 MG INSOMNIA (Reported) Review of Systems Review of Systems Constitutional: Reports: see HPI. Comments Reports: no symptoms. EENTM: Reports: no symptoms. Cardiovascular: Reports: no symptoms. Respiratory: Reports: see HPI. GI: Reports: no symptoms. Genitourinary: Reports: no symptoms. Musculoskeletal: Reports: no symptoms. Skin: Reports: no symptoms. Neurological/Psychological: Reports: no symptoms. Hematologic/Endocrine: Reports: no symptoms. Immunologic/Allergic: Reports: no symptoms. All Other Systems: Reviewed and Negative Past History Travel History Traveled to [place] past 21 day No Medical History Neurological: NONE EENT: NONE Cardiovascular: diastolic CHF, hypertension, hyperlipidemia, systolic CHF, Multifocal Atrial Tachyca Respiratory: COPD, emphysema, Acute on Chronic Resp Failure w/hypoxia & hypercapnia O2 DEPENDENT 4L Gastrointestinal: NONE Hepatic: NONE Renal: NONE Musculoskeletal: falls Psychiatric: alcohol dependence, anxiety, depression Endocrine: diabetes Blood Disorders: NONE Cancer(s): NONE ACTUARIAL INTERNSHIP/Reproductive: HYSTERECTOMY Surgical History Surgical History: hysterectomy, Bilateral Hip Fx & Repair Bilateral wrist Fx Family History Relations & Conditions If Any: Relation not specified for: *No pertinent family history Psychosocial History Where Do You Live? Assisted Living Services at Home: Home Health Aide, Nursing, Oxygen, Physical Therapy Smoking Status: Never Smoked Functional Ability ADLs Independent: dressing, eating, toileting, bathing. Ambulation: cane, walker Exam & Diagnostic Data Last 24 Hrs of Vital Signs/I&O Vital Signs Date Time Temp Pulse Resp B/P B/P Pulse O2 O2 Flow FiO2 Mean Ox Delivery Rate 11/08 1149 Nasal 5.0L Cannula 11/08 1149 94 Nasal 5.0L Cannula 11/08 0800 Nasal 5.0L Cannula 11/08 0626 97.9 87 20 120/78 95 Nasal 5.0L Cannula 11/08 0008 92 Nasal 5.0L Cannula 11/07 2249 Nasal 5.0L Cannula 11/075 97.9 83 20 112/64 90 11/07 2048 97.8 78 22 134/78 96 Nasal 5.0L Cannula 11/07 1817 98.2 93 22 128/86 93 Nasal 5.0L Cannula 11/07 1628 90 Nasal 6.0L Cannula 11/07 1617 Nasal 5.0L Cannula 11/07 1601 98.5 97 18 129/64 89 Nasal 3.0L Cannula Intake & Output 11/08 1600 11/08 0800 11/08 0000 Intake Total 740 110 0 Output Total 100 Balance 640 110 0 Intake, IV 20 10 Intake, Oral 720 100 0 Number 1 Bowel Movements Output, Urine 100 Patient 125 lb Weight Weight Bed scale Measurement Method Last 48 Hrs of Labs/[place]: Laboratory Tests 11/08/17 0722: Anion Gap 11, Estimated GFR > 60, BUN/Creatinine Ratio 20.0, CBC w Diff NO MAN DIFF REQ, RBC 4.30, MCV 85.0, MCH 26.7 L, MCHC 31.4 L, RDW 17.9 H, MPV 8.9, Gran % 79.2 H, Lymphocytes % 20.3 L, Monocytes % 0.4 L, Eosinophils % 0, Basophils % 0.1, Absolute Granulocytes 6.8 H, Absolute Lymphocytes 1.7, Absolute Monocytes 0 L, Absolute Eosinophils 0, Absolute Basophils 0 11/07/17 1905: Lactic Acid Cancelled 11/07/17 1610: Anion Gap 9, Estimated GFR > 60, BUN/Creatinine Ratio 17.5, Glucose 125 H, Lactic Acid 1.4, Calcium 9.4, Magnesium 2.0, Total Bilirubin 0.4, AST 18, ALT 20 , Alkaline Phosphatase 83, Troponin I < 0.01, Dhc-[id number]-[id number] Pept 858 H, Total Protein 6.7, Albumin 3.6, Globulin 3.1, Albumin/Globulin Ratio 1.2, CBC w Diff NO MAN DIFF REQ, RBC 4.60, MCV 85.7, MCH 26.4 L, MCHC 30.8 L, RDW 18.1 H , MPV 8.5, Gran % 70.5, Lymphocytes % 22.8, Monocytes % 4.8, Eosinophils % 1.2, Basophils % 0.7, Absolute Granulocytes 10.4 H, Absolute Lymphocytes 3.4, Absolute Monocytes 0.7 H, Absolute Eosinophils 0.2, Absolute Basophils 0.1 Assessment/Plan Impression/Plan: General Appearance Alert, Oriented X3, Cooperative Skin Temp/Moisture Exam: Warm/Dry Sepsis Skin Exam (color): Normal for Ethnicity HEENT Atraumatic, PERRLA, EOMI Neck Supple Cardiovascular Regular Rate, Normal S1, Normal S2 Lungs Clear to Auscultation Abdomen Normal Bowel Sounds, Soft Vascular Normal Pulses, Pulses Symmetrical cxr IMPRESSION: Central vascular congestion without overt edema. No focal consolidation. SIGNIFICANT DATA bicarbonate 35 other blood work reviewed thyroid function tests pending troponin normal last A1c was unremarkable proBNP was slightly elevated white count 8.6 was 14.4 upon admission with left shift. Blood cultures unremarkable so far This is a lady with history of significant end-stage COPD with FEV1 less than 0.9, Previous resp failure with influenza and pna in august 15 sub resp failure due to multilobar pna with resp requiring mech vent, hypertension, previous significant alcohol use, smoking up until recently, osteoporosis, was in SNF and came in with Hypoxic resp failure with Her issues include * Acute hypercarbic and hypoxemic respiratory failure related to end-stage lung disease with COPD exacerbation * Systolic heart disease with mildly elevated bnp * Previous cdiff and vre positive * Previous history of hypertension hyperlipidemia, ischemic heart with severe ihd with ef 30-35 percent * Significant osteoporosis with recent worsening performance status * Sig anxiety disorder REC Cont steroids and reduce to 40 q12 Add po ceftin 250 bid and cont azithro for 3 doses and dc azithro Lasix one dose IV 20 mg with 20 meq of potassium Cont current meds Will follow Consult Acknowledgment - Thank you for your consult request.
[2017-11-08 15:22] VITALS: BP 120/70
[2017-11-08 21:58] VITALS: BP 124/70
[2017-11-08 22:01] VITALS: BP 100/50
[2017-11-09 06:46] VITALS: BP 96/50
--- NOTE | 2017-11-09 07:02 | PN- Housestaff ---
Román Mitchell 11/09/17 0702: Subjective Follow-up For: Acute exacerbation of COPD Subjective: Patient seen and examined at bedside. Patient states she is extremely tired this morning. Patient states that her breathing has improved, has been coughing which has been improved since admission, is productive with yellow sputum. Patient states that she did not need a rescue nebulizer overnight. Patient states that she feels better, still does not feel "100%". Denied fevers/chills/ night sweats/chest pain/abdominal pain/urinary symptoms/lower extremity edema. Review of Systems Constitutional: Reports: see HPI. Objective Last 24 Hrs of Vital Signs/I&O Vital Signs Date Time Temp Pulse Resp B/P B/P Pulse O2 O2 Flow FiO2 Mean Ox Delivery Rate 11/09 0818 94 Nasal 4.0L Cannula 11/09 0646 97.4 82 20 96/50 92 Nasal 5.0L Cannula 11/09 0000 93 Nasal 5.0L Cannula 11/08 2201 97.7 94 20 100/50 96 Nasal Cannula 11/08 1600 94 Nasal 5.0L Cannula 11/08 1552 93 Nasal 5.0L Cannula 11/08 1522 98.2 91 20 120/70 93 Room Air 11/08 1149 Nasal 5.0L Cannula 11/08 1149 94 Nasal 5.0L Cannula Intake & Output 11/09 1600 11/09 0800 11/09 0000 Intake Total 60 120 Output Total Balance 60 120 Intake, Oral 60 120 Patient 119 lb Weight Weight Bed scale Measurement Method Physical Exam General Appearance: Alert, Oriented X3, Cooperative, No Acute Distress Skin: No Breakdown Skin Temp/Moisture Exam: Warm/Dry Cardiovascular: Regular Rate, Normal S1, Normal S2 Lungs: diminished globally, improved since admission, b/l expiratory wheeze at lung base Abdomen: Soft, No Tenderness Neurological: Sensation Intact Extremities: No Edema, Normal Pulses Current Medications: Current Medications Sig/Shobha Start time Last Medication Dose Route Stop Time Status Admin Acetaminophen 650 MG .STK-MED ONE 11/08 2006 DC PO 11/08 2007 Acetaminophen 650 MG .STK-MED ONE 11/08 1800 DC PO 11/08 1801 Acetaminophen 650 MG .STK-MED ONE 11/08 1226 DC PO 11/08 1227 Acetaminophen 650 MG Q6P PRN 11/07 2300 AC 11/08 PO 2008 Albuterol Sulfate 3 ML EVERY 4 HRS/AWAKE 11/08 1200 AC 11/09 INH 0817 Alprazolam 0.25 MG DAILY 11/08 899 AC 11/09 PO 0907 Azithromycin 500 MG Q24H 11/08 1900 CAN Sodium Chloride 250 ML IV Budesonide/ 2 PUF BID 11/08 899 AC 11/09 Formoterol Fumarate INH 0907 Cefuroxime Sodium 250 MG Q12 11/08 2100 AC 11/09 PO 0908 Enoxaparin Sodium 40 MG DAILY 11/08 09 AC 11/09 SC 0909 Escitalopram Oxalate 20 MG DAILY 11/08 09 AC 11/09 PO 0909 Furosemide 20 MG DAILY 11/09 09 CAN PO Furosemide 20 MG ONCE ONE 11/09 0745 DC 11/09 IV 11/09 0746 0908 Guaifenesin 600 MG Q12 11/08 1012 AC 11/09 PO 0909 Insulin Aspart 0 TIDAC 11/08 08 AC 11/09 SC 0908 Ipratropium [place] 2.5 ML Q4 PRN 11/08 0030 AC INH Loratadine 10 MG DAILY 11/08 09 AC 11/09 PO 0909 Methylprednisolone 40 MG Q12 11/08 2100 AC 11/09 IV 0909 Methylprednisolone 40 MG Q8H 11/08 09 DC 11/08 IV 0835 Senna 187 MG AT BEDTIME PRN 11/08 0015 AC PO Tiotropium [place] 1 PUF DAILY 11/08 09 AC 11/09 INH 0909 Tramadol HCl 25 MG Q6P PRN 11/08 0045 AC 11/09 PO 0910 Zolpidem Tartrate 5 MG QPM 11/08 0030 AC 11/08 PO 2040 Assessment/Plan Assessment: Ms. Castillo is an 82-year-old female with past medical history of COPD (on 4 L oxygen at home), heart failure with preserved ejection fraction with last ejection fraction 40%, takotsubo cardiomyopathy, hypertension, hyperlipidemia, multifocal A. tach presented with a one-week history of cough and lethargy. Patient has had a recent admission back in June that was complicated with sepsis, requiring pressors and intubation, and multiple failed attempts to wean off the ventilator. She was eventually switched to comfort measures and discharged [facility]. Currently admitted with an acute exacerbation of COPD. #Acute exacerbation COPDimproving clinically, able to speak in full sentences. course DVT prophylaxis IV access Tolerating regular diet PT eval Full code Disposition Problem List: 1. COPD exacerbation Pain Ratin Pain Location: na Pain Goal: Pain 7 or less Pain Plan: PRN Tomorrow's Labs & Rationales: rajan Arnaldo Thompson 11/09/17 1051: Attending MD Review Statement Attending Statement Attending MD Statement: examined this patient, discuss w/resident/PA/CARE TRANSITION COORDINATOR, agreed w/resident/PA/CARE TRANSITION COORDINATOR, discussed with family, reviewed EMR data (avail), discussed with nursing, discussed with case mgmt, reviewed images, amended to note Attending Assessment/Plan: 82 o/f with pmh as above comes with acute COPD exacerbation and being treated by iv steroids. Pulmoanry appreicated. She is still using accessory muscles and requring higher oxygen suppementation. She is able to speak in full sentences though. Patient is resident of [facility]. Follow clinically and depending upon progress can discharge back to facility. Follow pulmonary recommendations.
--- NOTE | 2017-11-09 13:48 | PN- Pulmonary ---
Subjective HPI/Critical Care Issues: Patient seen and examined at bedside. seen early this am sleeping By chart note has improved Review of Systems Constitutional: Reports: see HPI. Objective Current Medications: Current Medications Sig/Shobha Start time Last Medication Dose Route Stop Time Status Admin Acetaminophen 650 MG .STK-MED ONE 11/08 2006 DC PO 11/08 2007 Acetaminophen 650 MG .STK-MED ONE 11/08 1800 DC PO 11/08 1801 Acetaminophen 650 MG Q6P PRN 11/07 2300 AC 11/08 PO 2008 Albuterol Sulfate 3 ML EVERY 4 HRS/AWAKE 11/08 1200 AC 11/09 INH 1146 Alprazolam 0.25 MG DAILY 11/08 09 AC 11/09 PO 0907 Azithromycin 500 MG Q24H 11/08 1900 CAN Sodium Chloride 250 ML IV Budesonide/ 2 PUF BID 11/08 09 AC 11/09 Formoterol Fumarate INH 0907 Cefuroxime Sodium 250 MG Q12 11/08 2100 AC 11/09 PO 0908 Enoxaparin Sodium 40 MG DAILY 11/08 0900 AC 11/09 SC 0909 Escitalopram Oxalate 20 MG DAILY 11/08 0900 AC 11/09 PO 0909 Furosemide 20 MG DAILY 11/09 0900 CAN PO Furosemide 20 MG ONCE ONE 11/09 0745 DC 11/09 IV 11/09 0746 0908 Guaifenesin 600 MG Q12 11/08 1012 AC 11/09 PO 0909 Insulin Aspart 0 TIDAC 11/08 0800 AC 11/09 SC 0908 Ipratropium [place] 2.5 ML Q4 PRN 11/08 0030 AC INH Loratadine 10 MG DAILY 11/08 0900 AC 11/09 PO 0909 Methylprednisolone 40 MG Q12 11/08 2100 AC 11/09 IV 11/09 2300 0909 Methylprednisolone 40 MG Q8H 11/08 0900 DC 11/08 IV 0835 Prednisone 60 MG DAILY 11/10 09 AC PO 11/11 0901 Senna 187 MG AT BEDTIME PRN 11/08 0015 AC PO Tiotropium [place] 1 PUF DAILY 11/08 0900 AC 11/09 INH 0909 Tramadol HCl 25 MG Q6P PRN 11/08 0045 AC 11/09 PO 0910 Zolpidem Tartrate 5 MG QPM 11/08 0030 AC 11/08 PO 2040 Vital Signs & I&O Last 24 Hrs of Vitals and I&O: Vital Signs Date Time Temp Pulse Resp B/P B/P Pulse O2 O2 Flow FiO2 Mean Ox Delivery Rate 11/09 0818 94 Nasal 4.0L Cannula 11/09 0646 97.4 82 20 96/50 92 Nasal 5.0L Cannula 11/09 0000 93 Nasal 5.0L Cannula 11/08 2201 97.7 94 20 100/50 96 Nasal Cannula 11/08 1600 94 Nasal 5.0L Cannula 11/08 1552 93 Nasal 5.0L Cannula 11/08 1522 98.2 91 20 120/70 93 Room Air Intake & Output 11/09 1600 11/09 0800 11/09 0000 Intake Total 60 120 Output Total Balance 60 120 Intake, Oral 60 120 Patient 119 lb Weight Weight Bed scale Measurement Method Impression/Plan Impression/Plan Impression/Plan: General Appearance Alert, Oriented X3, Cooperative Skin Temp/Moisture Exam: Warm/Dry Sepsis Skin Exam (color): Normal for Ethnicity HEENT Atraumatic, PERRLA, EOMI Neck Supple Cardiovascular Regular Rate, Normal S1, Normal S2 Lungs Clear to Auscultation Abdomen Normal Bowel Sounds, Soft Vascular Normal Pulses, Pulses Symmetrical cxr IMPRESSION: Central vascular congestion without overt edema. No focal consolidation. SIGNIFICANT DATA bicarbonate 35 other blood work reviewed thyroid function tests pending troponin normal last A1c was unremarkable proBNP was slightly elevated white count 8.6 was 14.4 upon admission with left shift. Blood cultures unremarkable so far This is a lady with history of significant end-stage COPD with FEV1 less than 0.9, Previous resp failure with influenza and pna in august 15 sub resp failure due to multilobar pna with resp requiring mech vent, hypertension, previous significant alcohol use, smoking up until recently, osteoporosis, was in SNF and came in with Hypoxic resp failure with Her issues include * Acute hypercarbic and hypoxemic respiratory failure related to end-stage lung disease with COPD exacerbation - improving * Systolic heart disease with mildly elevated bnp * Previous cdiff and vre positive * Previous history of hypertension hyperlipidemia, ischemic heart with severe ihd with ef 30-35 percent * Significant osteoporosis with recent worsening performance status * Sig anxiety disorder REC Prednisone 50 qd and taper over 8 days Ceftin 250 bid and cont azithro for 3 doses and dc azithro One more dose of IV Lasix with potasium today as she prob did have mild fluid overload upon admission Dc to str in am Reduce oxygen Will follow
--- NOTE | 2017-11-09 14:17 | Discharge Summary ---
Visit Information Visit Dates Admission Date: 11/07/17 Discharge Date: 11/11/17 Hospital Course Course Attending Physician: Arnaldo Thompson MD Primary Care Physician: Dewayne CARRANZA,Nahun Other Care Providers: MD Herman Fast Food Attendant Hospital Course: Mr Noriega brought in from [facility] with a chief concern of acute dyspnea. She has a PMHx of COPD(on 4L oxygen), HFpEF( EF 40%), HTN, HLD, MAT, DM recent hospitalization in May - Jun secondary to sepsis and respiratory with hypercarbia. Initially treated with BiPAP and subsequently intubated and mechanically ventilated in the ICU, also requiring central line placement and brief vasopressor now presents with nonproductive Cough. Per the patient, she has a nonproductive cough that has been going on for the past 3 weeks, which sounds productive however she cannot get any mucus out. She does not feel congested, denies any difficulty breathing and also has not been using her inhalers more frequently than usual but did not like the way she felt. Also denies any fever/chills, chest pain, palpitations, and unable to bring up any phlegm. She does not feel congested and denies any shortness of breath, also has not been using herworsening orthopnea(reports chronic orthopnea since diagnosed with COPD) and dyspnea on exertion. She mentions decline in her functional status and is unable to walk since her discharge from ICU recently. Vital signs on admission were temperature 98.5, heart rate 97, respiratory rate 18, BP 120/64 and O2 sats 89% on 3 L improved 90% on 6 L. Labs remarkable for WBC count of 14.8, blood glucose 125 and proBNP 848. Chest x-ray showed central vascular condition without any overt erythema or focal consolidation. Problem List: #Acute Exacerbation of COPD #Heart Failure (EF 30-35% on May 2017) #HTN #HLD She was admitted to general medicine for treatment of her COPD exacerbation. She was placed on IV steroids, pulm was consulted, and she had TRC/nebs as needed. She tolerated titration from 40q8 to q12, then PO 50. She was placed on Azithromycin and Ceftin, and switched off Azithro per ID. She was given several doses of lasix, and had good clinical improvement. She remained afebrile w/o leukocytosis through stay. She was restarted on her home medications as her prior admission she left under comfort care. She was started on Lisinopril 2.5mg , Lasix 20mg PO daily, [id number], and a statin. She tolerated them will without any hypotensive events. She was discharged with a steroid taper over 8 days to [facility], with strict return precautions and was told to follow up with her PCP and Fast Food Attendant. Allergies: Coded Allergies: Penicillins (DIARRHEA 12/26/16) Disposition Summary Disposition Principal Diagnosis: Acute Exacerbation of COPD Additional Diagnosis: CHF (ef 30-35%) Discharge Disposition: SNF Discharge Instructions General Discharge Information Code Status: Full Code Patient's Diet: As tolerated Patient's Activity: As tolerated Follow-Up Instructions/Appts: - Please follow up with your primary care physician within 1-2 weeks of discharge. Inform your primary care physician of this admission to [facility]. - Continue your current medications per discharge instructions. - Please watch for these problems: Fever, Chills, Nausea, Vomiting, Shortness of Breath, Productive Cough, Chest Pain/Discomfort, Abdominal Pain, Active Bleeding or Bloody urine/stool. Medications at Discharge Discharge Medications: Stop taking the following medications: Citalopram Hydrobromide (Celexa) 10 MG TABLET ORAL DAILY Qty = 30 LORazepam (Ativan) 2 MG/ML SDV Inject into fatty tissue EVERY HOUR NEEDED as needed for AGITAT/HALLUCINATION/IRRITABIL Qty = 1 [Trans Derm [place]] On the skin Q72H Qty = 30 Morphine Sulfate (Morphine Sulfate) 10 MG/ML VIAL Inject into fatty tissue EVERY HOUR NEEDED as needed for ANXIETY/AGITATION/INSOMNIA Qty = 1 Budesonide/Formoterol Fumarate (Symbicort 160-4.5 Mcg Inhaler) 160 MCG-4.5 MCG/ ACTUATION HFA.AER.AD Inhale through mouth TWICE DAILY Qty = 10 Continue taking these medications: Ipratropium/Albuterol Sulfate (Iprat-Albut 0.5-3(2.5) MG/3 Ml) 0.5 MG-3 MG (2.5 MG BASE)/3 ML AMPUL.NEB 1 Inhalation Inhale through mouth EVERY 4-6 HOURS as needed for COPD Qty = 30 Comments: DID NOT TAKE IN HOSPITAL Tiotropium [place] (Spiriva) 18 MCG CAP.W.DEV 1 Capsule Inhale through mouth DAILY Qty = 30 Comments: DID NOT TAKE IN HOSPITAL Alprazolam (Xanax) 0.25 MG TABLET 0.25 Escitalopram Oxalate (Lexapro) 20 MG TABLET 20 Milligram Loratadine (Claritin) 10 MG TABLET 10 Milligram Zolpidem Tartrate (Ambien) 5 MG TABLET 5 Milligram Sennosides (Senna) 8.6 MG TABLET 2 Tablet Budesonide/Formoterol Fumarate (Symbicort 160-4.5 Mcg Inhaler) 160 MCG-4.5 MCG/ ACTUATION HFA.AER.AD 160 PUFF Guaifenesin (Mucinex) 100 MG GRAN.PACK 400 Milligram Start taking the following new medications: Prednisone (Prednisone) 10 MG TABLET 1 Tablet ORAL DAILY Qty = 20 No Refills Comments: TAKE: 11/11 4 TABS 7/15 4 TABS 7/16 3 TABS 7/17 3 TABS 7/18 2 TABS 7/19 2 TABS / 1 TAB 11/18 1 TAB Furosemide (Lasix) 20 MG TABLET 1 Tablet ORAL DAILY Qty = 30 No Refills Lisinopril (Lisinopril) 2.5 MG TABLET 1 Tablet ORAL DAILY Qty = 30 No Refills Aspirin (Ecotrin*) 81 MG TABLET.DR 1 Tablet ORAL DAILY Qty = 30 No Refills Atorvastatin Calcium (Atorvastatin Calcium) 20 MG TABLET 1 Tablet ORAL DAILY Qty = 30 No Refills Copies To: Dewayne CARRANZA,Nahun
[2017-11-09 14:45] VITALS: BP 110/62
--- NOTE | 2017-11-09 16:00 | Patient Discharge Instructions ---
Discharge Instructions General Discharge Information You were seen/treated for: Acute exacerbation of COPD You had these procedures: Chest x-ray Watch for these problems: Shortness of breath, wheeze, dyspnea on exertion Special Instructions: - Please follow up with your primary care physician within 1-2 weeks of discharge. Inform your primary care physician of this admission to [facility]. - Continue your current medications per discharge instructions. - Please watch for these problems: Fever, Chills, Nausea, Vomiting, Shortness of Breath, Productive Cough, Chest Pain/Discomfort, Abdominal Pain, Active Bleeding or Bloody urine/stool. Diet Continue normal diet: Yes Recommended Diet: Heart Healthy Activity Full Activity/No Limits: Yes Activity Self Limited: Yes Acute Coronary Syndrome Inclusion Criteria At DC or during hospital stay patient has or had the following: ACS DIAGNOSIS No Discharge Core Measures Meds if any: Prescribed or Continued at Discharge Meds if any: NOT Prescribed or Continued at Discharge Congestive Heart Failure Inclusion Criteria At DC or during hospital stay patient has or had the following: CHF DIAGNOSIS No Discharge Core Measures Meds if any: Prescribed or Continued at Discharge Meds if any: NOT Prescribed or Continued at Discharge Cerebrovascular accident Inclusion Criteria At DC or during hospital stay patient has or had the following: CVA/TIA Diagnosis No Discharge Core Measures Meds if any: Prescribed or Continued at Discharge Meds if any: NOT Prescribed or Continued at Discharge Venous thromboembolism Inclusion Criteria VTE Diagnosis No VTE Type NONE VTE Confirmed by (Test) NONE Discharge Core Measures - Per Current guidelines, there needs to be overlap - treatment for the first 5 days of Warfarin therapy. - If discharged on Warfarin prior to 5 days of - overlap therapy, the patient will need to be - assessed for post discharge needs including - *Post discharge parental anticoagulation - *Warfarin and/or parental anticoagulation education - *Follow up date to check INR post discharge At least 5 days overlap therapy as Inpatient No Meds if any: Prescribed or Continued at Discharge Note: Overlap Therapy is Warfarin and Anticoagulant Meds if any: NOT Prescribed or Continued at Discharge
[2017-11-09] MEDS ORDERED: PREDNISONE10 M2 PO (16:12)
[2017-11-09 22:13] VITALS: BP 138/70
[2017-11-10 06:30] VITALS: BP 134/72
--- NOTE | 2017-11-10 07:27 | PN- Housestaff ---
See Addendum Subjective Follow-up For: Acute exacerbation COPD Subjective: Last night, patient had several paroxysms of coughing, and requested Robitussin called, and she received a nebulizer, which helped her breathing. Patient states that her breathing feels better this morning, but she had an "awful night ". Patient still has some shortness of breath, although is able to speak in full sentences and with more volume of her voice. Patient denied fever/chills/ night sweats/chest pain/abdominal pain/urinary complaints/lower extremity edema. Review of Systems Constitutional: Reports: see HPI. Objective Last 24 Hrs of Vital Signs/I&O Vital Signs Date Time Temp Pulse Resp B/P B/P Pulse O2 O2 Flow FiO2 Mean Ox Delivery Rate 11/10 0630 98.2 92 22 134/72 92 Nasal 2.0L Cannula 11/10 0110 90 Nasal 4.0L Cannula 11/10 0000 92 Nasal 4.0L Cannula 11/09 2213 98.0 94 20 138/70 92 11/09 1635 93 Nasal 4.0L Cannula 11/09 1445 97.9 83 20 110/62 93 11/09 0818 94 Nasal 4.0L Cannula 11/09 0800 93 Nasal 5.0L Cannula Intake & Output 11/10 0800 11/10 0000 11/09 1600 Intake Total 225 860 Output Total 400 Balance -400 225 860 Intake, Oral 225 860 Number 0 0 Bowel Movements Output, Urine 400 Patient 118 lb Weight Weight Bed scale Measurement Method Physical Exam General Appearance: Alert, Oriented X3, Cooperative, No Acute Distress Skin: No Breakdown Skin Temp/Moisture Exam: Warm/Dry Cardiovascular: Regular Rate, Normal S1, Normal S2 Lungs: B/L expiratory wheezes lung base, diminished in all carrera Abdomen: Soft, No Tenderness Neurological: Sensation Intact Extremities: No Edema Current Medications: Current Medications Sig/Shobha Start time Last Medication Dose Route Stop Time Status Admin Acetaminophen 650 MG .STK-MED ONE 11/09 1705 DC PO 11/09 1706 Acetaminophen 650 MG Q6P PRN 11/07 2300 AC 11/09 PO 1714 Albuterol Sulfate 3 ML EVERY 4 HRS/AWAKE 11/08 1200 AC 11/10 INH 0058 Alprazolam 0.25 MG DAILY 11/08 0900 AC 11/09 PO 0907 Artificial Tears 2 GTT TID 11/09 1618 AC 11/09 OPH 2117 Budesonide/ 2 PUF BID 11/08 0900 AC 11/09 Formoterol Fumarate INH 2118 Cefuroxime Sodium 250 MG Q12 11/08 2100 AC 11/09 PO 2118 Enoxaparin Sodium 40 MG DAILY 11/08 0900 AC 11/09 SC 0909 Escitalopram Oxalate 20 MG DAILY 11/08 0900 AC 11/09 PO 0909 Furosemide 20 MG ONCE ONE 11/09 1400 DC 11/09 IV 11/09 1401 1714 Guaifenesin 600 MG Q12 11/08 1012 AC 11/09 PO 2118 Guaifenesin/ 10 ML ONCE ONE 11/10 0415 DC 11/10 Dextromethorphan PO 11/10 0416 0452 Insulin Aspart 0 TIDAC 11/08 0800 AC 11/09 SC 1746 Ipratropium [place] 2.5 ML Q4 PRN 11/08 0030 AC INH Loratadine 10 MG DAILY 11/08 0900 AC 11/09 PO 0909 Methylprednisolone 40 MG Q12 11/08 2100 DC 11/09 IV 11/09 2300 0909 Patient Medication 1 ED ONE ONE 11/09 1600 DC 11/09 Teaching ED 11/09 1601 1716 Potassium Chloride 20 MEQ ONCE ONE 11/09 1415 DC 11/09 PO 11/09 1416 1714 Prednisone 60 MG DAILY 11/10 0900 DC PO 11/11 09 Prednisone 50 MG DAILY 11/10 0900 AC PO 11/11 0901 Senna 187 MG AT BEDTIME PRN 11/08 0015 AC PO Tiotropium [place] 1 PUF DAILY 11/08 0900 AC 11/09 INH 0909 Tramadol HCl 50 MG .STK-MED ONE 11/09 0826 DC PO 11/09 0827 Tramadol HCl 25 MG Q6P PRN 11/08 0045 AC 11/09 PO 0910 Zolpidem Tartrate 5 MG QPM 11/08 0030 AC 11/09 PO 2123 Assessment/Plan Assessment: Ms. Castillo is an 82-year-old female with past medical history of COPD, on 4 L oxygen at home, heart failure with preserved ejection fraction with last ejection fraction 40%, takotsubo cardio myopathy, hypertension, hyperlipidemia, multifocal A. tach presents with a one-week history of cough and lethargy. Patient had a recent admission back in June was complicated with sepsis, requiring pressors and intubation and had multiple failed attempts to wean off the ventilator. She was eventually switch comfort measures and discharged [facility]. She is now full code. Currently she is admitted with acute exacerbation of COPD. #Acute exacerbation COPDimproved clinically, although required a nebulizer last night. Has been afebrile and without leukocytosis since November 08. outpatient. with some potassium #Previously Comfort Measures, Now Full Code -Will Restart Lasix 20mg PO , low dose BLANCA-I (Lisinopril 2.5mg), Statin, and ASA today as patient was previously comfort measures and these medications were discontinued. As we are restarting these today we would like to monitor the blood pressure and see patient response to medications. Will likely discharge tomorrow to [facility]. DVT prophylaxis Tolerating full diet IV access Dispositionto [facility], tomorrow Problem List: 1. COPD exacerbation Pain Ratin Pain Location: NA Pain Goal: Remain pain free Pain Plan: Pain pathway Tomorrow's Labs & Rationales: None
[2017-11-10] MEDS ORDERED: LASIX20 M1 PO (10:33)
[2017-11-10] MEDS ORDERED: ASPIRIN EC81 M1 PO (10:33)
[2017-11-10] MEDS ORDERED: LISINOPRIL2.5 M1 PO (10:33)
[2017-11-10] MEDS ORDERED: ATORVASTATIN CA20 M1 PO (10:33)
[2017-11-10 14:07] VITALS: BP 128/60
--- NOTE | 2017-11-10 14:22 | PN- Pulmonary ---
Subjective HPI/Critical Care Issues: Last night, patient had several paroxysms of coughing, and requested Robitussin called, and she received a nebulizer, which helped her breathing. Patient states that her breathing feels better this morning, but she had an "awful night ". Patient still has some shortness of breath, although is able to speak in full sentences and with more volume of her voice. Patient denied fever/chills/ night sweats/chest pain/abdominal pain/urinary complaints/lower extremity edema. Objective Current Medications: Current Medications Sig/Shobha Start time Last Medication Dose Route Stop Time Status Admin Acetaminophen 650 MG .STK-MED ONE 11/09 1705 DC PO 11/09 1706 Acetaminophen 650 MG Q6P PRN 11/07 2300 AC 11/09 PO 1714 Albuterol Sulfate 3 ML EVERY 4 HRS/AWAKE 11/08 1200 AC 11/10 INH 1202 Alprazolam 0.25 MG DAILY 11/08 0900 AC 11/10 PO 0824 Artificial Tears 2 GTT TID 11/09 1618 AC 11/10 OPH 0832 Aspirin 81 MG DAILY 11/10 1033 AC PO Atorvastatin Calcium 20 MG 1700 11/10 1700 AC PO Budesonide/ 2 PUF BID 11/08 0900 AC 11/10 Formoterol Fumarate INH 0823 Cefuroxime Sodium 250 MG Q12 11/08 2100 AC 11/10 PO 0824 Enoxaparin Sodium 40 MG DAILY 11/08 0900 AC 11/10 SC 0832 Escitalopram Oxalate 20 MG DAILY 11/08 0900 AC 11/10 PO 0824 Furosemide 20 MG ONCE ONE 11/10 1045 DC PO 11/10 1046 Guaifenesin 10 ML .STK-MED ONE 11/10 0447 DC PO 11/10 0448 Guaifenesin 600 MG Q12 11/08 1012 AC 11/10 PO 0824 Guaifenesin/ 10 ML ONCE ONE 11/10 0415 DC 11/10 Dextromethorphan PO 11/10 0416 0452 Insulin Aspart 0 TIDAC 11/08 0800 AC 11/10 SC 1310 Ipratropium [place] 2.5 ML Q4 PRN 11/08 0030 AC INH Lisinopril 2.5 MG DAILY 11/10 1033 AC PO Loratadine 10 MG DAILY 11/08 0900 AC 11/10 PO 0824 Methylprednisolone 40 MG Q12 11/08 2100 DC 11/09 IV 11/09 2300 0909 Patient Medication 1 ED ONE ONE 11/09 1600 DC 11/09 Teaching ED 11/09 1601 1716 Prednisone 60 MG DAILY 11/10 09 DC PO 11/11 09 Prednisone 50 MG DAILY 11/10 0900 AC 11/10 PO 11/11 0901 0824 Senna 187 MG AT BEDTIME PRN 11/08 0015 AC PO Tiotropium [place] 1 PUF DAILY 11/08 09 AC 11/10 INH 0821 Tramadol HCl 25 MG Q6P PRN 11/08 0045 AC 11/10 PO 1151 Zolpidem Tartrate 5 MG QPM 11/08 0030 AC 11/09 PO 2123 Vital Signs & I&O Last 24 Hrs of Vitals and I&O: Vital Signs Date Time Temp Pulse Resp B/P B/P Pulse O2 O2 Flow FiO2 Mean Ox Delivery Rate 11/10 1407 97.5 100 18 128/60 91 Nasal 4.0L Cannula 11/10 0833 92 Nasal 4.0L Cannula 11/10 0800 95 Nasal 4.0L Cannula 11/10 0630 98.2 92 22 134/72 92 Nasal 2.0L Cannula 11/10 0110 90 Nasal 4.0L Cannula 11/10 0000 92 Nasal 4.0L Cannula 11/09 2213 98.0 94 20 138/70 92 11/09 1635 93 Nasal 4.0L Cannula 11/09 1445 97.9 83 20 110/62 93 Intake & Output 11/10 1600 11/10 0800 11/10 0000 Intake Total 225 Output Total 400 400 Balance -400 -400 225 Intake, Oral 225 Number 2 0 0 Bowel Movements Output, Urine 400 400 Patient 118 lb Weight Weight Bed scale Measurement Method Impression/Plan Impression/Plan Impression/Plan: General Appearance Alert, Oriented X3, Cooperative Skin Temp/Moisture Exam: Warm/Dry Sepsis Skin Exam (color): Normal for Ethnicity HEENT Atraumatic, PERRLA, EOMI Neck Supple Cardiovascular Regular Rate, Normal S1, Normal S2 Lungs Clear to Auscultation Abdomen Normal Bowel Sounds, Soft Vascular Normal Pulses, Pulses Symmetrical cxr IMPRESSION: Central vascular congestion without overt edema. No focal consolidation. SIGNIFICANT DATA bicarbonate 35 other blood work reviewed thyroid function tests pending troponin normal last A1c was unremarkable proBNP was slightly elevated white count 8.6 was 14.4 upon admission with left shift. Blood cultures unremarkable so far This is a lady with history of significant end-stage COPD with FEV1 less than 0.9, Previous resp failure with influenza and pna in august 15 sub resp failure due to multilobar pna with resp requiring mech vent, hypertension, previous significant alcohol use, smoking up until recently, osteoporosis, was in SNF and came in with Hypoxic resp failure with Her issues include * REsolving Acute hypercarbic and hypoxemic respiratory failure related to end- stage lung disease with COPD exacerbation * Systolic heart disease with mildly elevated bnp * Previous cdiff and vre positive * Previous history of hypertension hyperlipidemia, ischemic heart with severe ihd with ef 30-35 percent * Significant osteoporosis with recent worsening performance status * Sig anxiety disorder REC Prednisone 40 qd and taper over 7 days Ceftin 250 bid and cont azithro for 3 doses (total abx of 5-7 days) Po lasix qod upon dc Dc to str in am Reduce oxygen Will follow
[2017-11-10 22:00] VITALS: BP 138/70
[2017-11-11 06:20] VITALS: BP 120/66
--- NOTE | 2017-11-11 08:21 | PN- Housestaff ---
See Addendum Subjective Follow-up For: Acute Exacerbation COPD Subjective: Patient seen and examined at bedside. Patient states that she slept "incredibly well last night". Patient still sleepy, no acute respiratory distress noted. Patient denied fever/chills/night sweats/chest pain/abdominal pain/urinary symptoms/lower extremity edema. Review of Systems Constitutional: Reports: see HPI. Objective Last 24 Hrs of Vital Signs/I&O Vital Signs Date Time Temp Pulse Resp B/P B/P Pulse O2 O2 Flow FiO2 Mean Ox Delivery Rate 11/11 0815 82 120/66 11/11 0800 Nasal 4.0L Cannula 11/11 0620 98.1 82 20 120/66 93 Nasal Cannula 11/11 0000 Nasal 4.0L Cannula 11/10 2200 98.4 79 20 138/70 93 Nasal Cannula 11/10 1642 92 Nasal 4.0L Cannula 11/10 1600 Nasal 4.0L Cannula 11/10 1439 128/60 11/10 1407 97.5 100 18 128/60 91 Nasal 4.0L Cannula Intake & Output 11/11 1600 11/11 0800 11/11 0000 Intake Total 100 400 Output Total 425 500 Balance -325 -100 Intake, Oral 100 400 Number 1 1 Bowel Movements Output, Urine 425 500 Physical Exam General Appearance: Alert, Oriented X3, Cooperative, No Acute Distress Skin: No Rashes Skin Temp/Moisture Exam: Warm/Dry Cardiovascular: Regular Rate, Normal S1, Normal S2 Lungs: diminished globally, b/l expiratory wheeze at lung bases Abdomen: Soft, No Tenderness Neurological: Sensation Intact Extremities: No Edema Current Medications: Current Medications Sig/Shobha Start time Last Medication Dose Route Stop Time Status Admin Acetaminophen 650 MG .STK-MED ONE 11/10 1435 DC PO 11/10 1436 Acetaminophen 650 MG Q6P PRN 11/07 2300 AC 11/10 PO 1439 Albuterol Sulfate 3 ML EVERY 4 HRS/AWAKE 11/08 1200 AC 11/11 INH 0829 Alprazolam 0.25 MG DAILY 11/08 0900 AC 11/11 PO 0817 Artificial Tears 2 GTT TID 11/09 1618 AC 11/11 OPH 0834 Aspirin 81 MG DAILY 11/10 1033 AC 11/11 PO 0816 Atorvastatin Calcium 20 MG 1700 11/10 1700 AC 11/10 PO 1745 Budesonide/ 2 PUF BID 11/08 899 AC 11/11 Formoterol Fumarate INH 0819 Cefuroxime Sodium 250 MG Q12 11/08 2100 AC 11/11 PO 0817 Enoxaparin Sodium 40 MG DAILY 11/08 09 AC 11/11 SC 0820 Escitalopram Oxalate 20 MG DAILY 11/08 09 AC 11/11 PO 0816 Guaifenesin 600 MG Q12 11/08 1012 AC 11/11 PO 0816 Insulin Aspart 0 TIDAC 11/08 08 AC 11/10 SC 1746 Ipratropium [place] 2.5 ML Q4 PRN 11/08 0030 AC INH Lisinopril 2.5 MG DAILY 11/10 1033 AC 11/11 PO 0815 Loratadine 10 MG DAILY 11/08 899 AC 11/11 PO 0816 Prednisone 50 MG DAILY 11/10 0900 DC 11/11 PO 11/11 0901 0815 Senna 187 MG AT BEDTIME PRN 11/08 0015 AC PO Tiotropium [place] 1 PUF DAILY 11/08 899 AC 11/11 INH 0835 Tramadol HCl 25 MG Q6P PRN 11/08 0045 AC 11/10 PO 195 Zolpidem Tartrate 5 MG QPM 11/08 0030 AC 11/10 PO 2000 Assessment/Plan Assessment: Ms. Castillo is an 82-year-old female with past medical history of COPD, on 4 L oxygen at home, heart failure with preserved ejection fraction with last ejection fraction 40%, takotsubo cardio myopathy, hypertension, hyperlipidemia, multifocal A. tach presents with a one-week history of cough and lethargy. Patient had a recent admission back in June was complicated with sepsis, requiring pressors and intubation and had multiple failed attempts to wean off the ventilator. She was eventually switch comfort measures and discharged [facility]. She is now full code. Currently she is admitted with acute exacerbation of COPD. #Acute exacerbation COPDsignificantly improved since admission. Has been afebrile and without leukocytosis since November 08. #Previously Comfort Measures, Now Full Code -Was restarted Lasix 20mg PO , low dose BLANCA-I (Lisinopril 2.5mg), Statin, and ASA yesterday as patient was previously comfort measures and these medications were discontinued. Patient was vitally stable overnight, responded well to medications. Patient is optimized for discharge. DVT prophylaxis Tolerating full diet IV access Dispositionto [facility], today Problem List: 1. COPD exacerbation 2. CHF EXACERBATION Pain Ratin Pain Location: na Pain Goal: Remain pain free Pain Plan: pain pathway Tomorrow's Labs & Rationales: na
[2017-11-11] MEDS ORDERED: SYMBICORT 16010.2 GM INH (12:41)
[2017-11-11 12:47] VITALS: BP 120/66
--- NOTE | 2017-11-11 14:20 | PN- Pulmonary ---
Subjective HPI/Critical Care Issues: The patient is sleeping comfortably but then arousable. The patient continues to have a cough in association with chest congestion. She still has some shortness of breath which has improved since admission. She is improving with nebulizer treatments. There were no overnight events reported. She remains on 4 L nasal cannula to maintain her saturations greater than 92%. Objective Current Medications: Current Medications Sig/Shobha Start time Last Medication Dose Route Stop Time Status Admin Acetaminophen 650 MG .STK-MED ONE 11/10 1435 DC PO 11/10 1436 Acetaminophen 650 MG Q6P PRN 11/07 2300 AC 11/10 PO 1439 Albuterol Sulfate 3 ML EVERY 4 HRS/AWAKE 11/08 1200 AC 11/11 INH 1142 Alprazolam 0.25 MG DAILY 11/08 0900 AC 11/11 PO 0817 Artificial Tears 2 GTT TID 11/09 1618 AC 11/11 OPH 0834 Aspirin 81 MG DAILY 11/10 1033 AC 11/11 PO 0816 Atorvastatin Calcium 20 MG 1700 11/10 1700 AC 11/10 PO 1745 Budesonide/ 2 PUF BID 11/08 0900 AC 11/11 Formoterol Fumarate INH 0819 Cefuroxime Sodium 250 MG Q12 11/08 2100 AC 11/11 PO 0817 Enoxaparin Sodium 40 MG DAILY 11/08 0900 AC 11/11 SC 0820 Escitalopram Oxalate 20 MG DAILY 11/08 0900 AC 11/11 PO 0816 Guaifenesin 600 MG Q12 11/08 1012 AC 11/11 PO 0816 Insulin Aspart 0 TIDAC 11/08 0800 AC 11/11 SC 1244 Ipratropium [place] 2.5 ML Q4 PRN 11/08 0030 AC INH Lisinopril 2.5 MG DAILY 11/10 1033 AC 11/11 PO 0815 Loratadine 10 MG DAILY 11/08 0900 AC 11/11 PO 0816 Prednisone 50 MG DAILY 11/10 0900 DC 11/11 PO 11/11 0901 0815 Senna 187 MG AT BEDTIME PRN 11/08 0015 AC PO Tiotropium [place] 1 PUF DAILY 11/08 0900 AC 11/11 INH 0835 Tramadol HCl 25 MG Q6P PRN 11/08 0045 AC 11/10 PO 1957 Zolpidem Tartrate 5 MG QPM 11/08 0030 AC 11/10 PO 2000 Vital Signs & I&O Last 24 Hrs of Vitals and I&O: Vital Signs Date Time Temp Pulse Resp B/P B/P Pulse O2 O2 Flow FiO2 Mean Ox Delivery Rate 11/11 1247 98.1 82 20 120/66 11/11 0830 93 Nasal 4.0L Cannula 11/11 0815 82 120/66 11/11 0800 Nasal 4.0L Cannula 11/11 0620 98.1 82 20 120/66 93 Nasal Cannula 11/11 0000 Nasal 4.0L Cannula 11/10 2200 98.4 79 20 138/70 93 Nasal Cannula 11/10 1642 92 Nasal 4.0L Cannula 11/10 1600 Nasal 4.0L Cannula 11/10 1439 128/60 Intake & Output 11/11 1600 11/11 0800 11/11 0000 Intake Total 100 400 Output Total 425 500 Balance -325 -100 Intake, Oral 100 400 Number 1 1 Bowel Movements Output, Urine 425 500 General Appearance Alert, Oriented X3, Cooperative Skin Temp/Moisture Exam: Warm/Dry Sepsis Skin Exam (color): Normal for Ethnicity HEENT Atraumatic, PERRLA, EOMI Neck Supple Cardiovascular Regular Rate, Normal S1, Normal S2 Lungs Clear to Auscultation Abdomen Normal Bowel Sounds, Soft Vascular Normal Pulses, Pulses Symmetrical Impression/Plan Impression/Plan Impression/Plan: 1. Resolving acute hypercarbic and hypoxemic respiratory failure secondary to end-stage lung disease. 2. Acute exacerbation of COPD. 3. Systolic heart disease. 4. Multiple comorbidities including history of hypertension, hyperlipidemia, ischemic heart disease, osteoporosis, poor performance status and significant anxiety disorder. Recommendations: * Continue prednisone taper as previously recommended. * Complete antibiotic course. * Attempt to wean oxygen down for saturations greater than 92%. * Continue nebs/total respiratory care. * Oral Lasix to continue upon discharge. * Await transfer to short-term rehab. * Patient will need to be followed up by Dr. Sutton.
== END 2017-11-11 13:30 | DRG 189 ==
LOC: ERH 15:53 → ERHI 19:01 → 2NA 19:01 → ENRESERV 19:54 → ENTRNSPT 21:35 → EDTRNSPT 21:55 → EDTRNSPTSTS 21:55 → 2NA 22:04 → CMPTRNSPT 22:18 → 2NA 11-08 11:10 → ENPENDDIS 11-11 11:36 → 2NA 11-11 13:30
PROVIDERS: Internal Medicine; Physician Assistant
DX: J96.21 Acute and chronic respiratory failure with hypoxia (principal); J44.1 Chronic obstructive pulmonary disease with (acute) exacerbation; I50.42 Chronic combined systolic (congestive) and diastolic (congestive) heart failure; I51.81 Takotsubo syndrome; J44.0 Chronic obstructive pulmonary disease with (acute) lower respiratory infection; Z99.81 Dependence on supplemental oxygen; I11.0 Hypertensive heart disease with heart failure; J96.22 Acute and chronic respiratory failure with hypercapnia; E11.9 Type 2 diabetes mellitus without complications; J20.9 Acute bronchitis, unspecified; Z90.710 Acquired absence of both cervix and uterus; M81.0 Age-related osteoporosis without current pathological fracture; F41.9 Anxiety disorder, unspecified; Z88.0 Allergy status to penicillin
CPT/HCPCS: 2NAP; 36592; 71045; 82436; 87040; 87070; 93005; 93010; 96374; 96375; 99291; J0456; J0696; J1650; J1940; J2920; J3490; J7040; J7512